=== PATIENT | female | born 1995 | race African-American/Black ===

== ENCOUNTER 2018-01-03 22:11 | Emergency (ER) | payer OTHER, SELFPAY ==
[2018-01-03 22:57] LABS: Urine Blood NEGATIVE (NEG); Urine Glucose NEGATIVE (NEG); Urine Protein NEGATIVE (NEG); Urine Specific Gravity >1.030 (1.005-1.030); Urine pH 5.5 (5.0-7.0)
[2018-01-04] MEDS ORDERED: NA CHLORIDE 0.9% 1,000 ML ONE (00:20)
[2018-01-04 00:26] LABS: Absolute Lymphocytes (CBC) 1.6 K/uL (0.7-4.9); Absolute Monocytes 0.8 K/uL (0.1-1.3); Absolute Neutrophil 7.6 K/uL (1.8-8.0); Basophils % 0.3 % (0-1.3); Eosinophils % 0.2 % (0-4.4); Hematocrit 36.5 % (36.0-45.0); Lymphocytes % 15.6 % (15.3-44.8); MCH 30.9 pg (27.0-35.0); MCV 89.9 fL (80-100); MPV 7.7 fL (7.6-11.3); Monocytes % 8.3 % (3.3-12.3); RBC Red Blood Cell Count 4.06 M/uL (3.86-4.86)
[2018-01-04 00:58] LABS: BUN Blood Urea Nitrogen 11 mg/dL (6-20); Bicarbonate 26 mEq/L (21-31); Glomerular Filtration Rate > 90 mL/min (=/>90); Glucose Level 80 mg/dL (65-120); Potassium 3.9 mEq/L (3.6-5.0); Sodium Level 135 mEq/L (135-145)
--- NOTE | 2018-01-04 02:07 | EDPHYS ---
Physician Documentation [facility] Name: Raegan Jeffrey Age: 22 yrs Sex: Female : 1995 Arrival Date: 01/03/2018 Time: 22:19 Bed 25 Private MD: ED Physician Brooks Rosario HPI: 01/03 22:40 This 22 yrs old Black Female presents to ER via Ambulatory with complaints of Nausea, cp Dizziness. 22:40 The patient presents to the emergency department with nausea, that is moderate. Onset: cp The symptoms/episode began/occurred 1 month(s) ago. Possible causes: . Associated signs and symptoms: Pertinent positives: dizziness, Pertinent negatives: diarrhea, dysuria, fever, GI bleeding, vaginal discharge, vaginal bleeding, abdominal pain. Severity of symptoms: in the emergency department the symptoms are unchanged. 22:40 Patient unsure LMP, believes it was end of October 2017. 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 - Social history:: Smoking status: Patient/guardian denies using tobacco. ROS: 22:50 Constitutional: Negative for body aches, chills, fever, poor PO intake. cp 22:50 Eyes: Negative for injury, pain, redness, and discharge. cp 22:50 ENT: Negative for drainage from ear(s), ear pain, sore throat, difficulty swallowing, difficulty handling secretions. 22:50 Cardiovascular: Negative for chest pain, edema, palpitations. 22:50 Respiratory: Negative for cough, shortness of breath, wheezing. 22:50 Abdomen/GI: Positive for nausea, Negative for abdominal pain, vomiting, diarrhea, constipation, anorexia, black/tarry stool, rectal bleeding. 22:50 : Negative for urinary symptoms, pelvic pain, vaginal bleeding, vaginal discharge. 22:50 Skin: Negative for cellulitis, rash. 22:50 Neuro: Positive for dizziness, Negative for altered mental status, loss of consciousness, syncope, near syncope, weakness. 22:50 All other systems are negative. Exam: 22:52 ECG was reviewed by the Attending Physician. cp 22:55 Constitutional: The patient appears in no acute distress, alert, awake, non-toxic, well cp developed, well nourished. 22:55 Head/Face: Normocephalic, atraumatic. Eyes: Pupils equal round and reactive to light, cp extra-ocular motions intact. Lids and lashes normal. Conjunctiva and sclera are non-icteric and not injected. Cornea within normal limits. Periorbital areas with no swelling, redness, or edema. ENT: Nares patent. No nasal discharge, no septal abnormalities noted. Tympanic membranes are normal and external auditory canals are clear. Oropharynx with no redness, swelling, or masses, exudates, or evidence of obstruction, uvula midline. Mucous membranes moist. Neck: Trachea midline, no thyromegaly or masses palpated, and no cervical lymphadenopathy. Supple, full range of motion without nuchal rigidity, or vertebral point tenderness. No Meningismus. Chest/axilla: Normal chest wall appearance and motion. Nontender with no deformity. No lesions are appreciated. Cardiovascular: Regular rate and rhythm with a normal S1 and S2. No gallops, murmurs, or rubs. Normal PMI, no JVD. No pulse deficits. Respiratory: Lungs have equal breath sounds bilaterally, clear to auscultation and percussion. No rales, rhonchi or wheezes noted. No increased work of breathing, no retractions or nasal flaring. Abdomen/GI: Soft, non-tender, with normal bowel sounds. No distension or tympany. No guarding or rebound. No evidence of tenderness throughout. Skin: Warm, dry with normal turgor. Normal color with no rashes, no lesions, and no evidence of cellulitis. Neuro: Awake and alert, GCS 15, oriented to person, place, time, and situation. Cranial nerves II-XII grossly intact. Motor strength 5/5 in all extremities. Sensory grossly intact. Cerebellar exam normal. Normal gait. Vital Signs: 22:32 BP 109 / 59; Pulse 69; Resp 16; Temp 98.3; Pulse Ox 99% on R/A; Weight 44.45 kg; Height kr2 4 ft. 9 in. (144.78 cm); Pain 0/10; 22:53 BP 99 / 58 Supine; Pulse 61 RA; kr2 22:53 BP 101 / 63 Sitting; Pulse 69 RA; kr2 22:53 BP 106 / 74 Standing; Pulse 84; kr2 01/04 02:20 BP 102 / 62; Pulse 79; Resp 16; Pulse Ox 99% on R/A; rk2 01/03 22:32 Body Mass Index 21.21 (44.45 kg, 144.78 cm) kr2 01/03 22:53 "I feel a little off balance and I just want to lay down" kr2 MDM: 22:23 Patient medically screened. 01/04 00:00 Differential diagnosis: anemia, , dehydration, electrolyte abnormality, cp cardiac arrythmia. 02:05 Data reviewed: vital signs, nurses notes, lab test result(s), EKG, and as a result, I cp will discharge patient. 02:05 Test interpretation: by ED physician or midlevel provider: ECG. Counseling: I had a cp detailed discussion with the patient and/or guardian regarding: the historical points, exam findings, and any diagnostic results supporting the discharge/admit diagnosis, lab results, the need for outpatient follow up, an OB/Gyne specialist, to return to the emergency department if symptoms worsen or persist or if there are any questions or concerns that arise at home. Response to treatment: the patient's symptoms have mildly improved after treatment, and as a result, I will discharge patient. ED course: VSS. Patient informed of positive test. No complaints of abdominal pain, vaginal bleeding or discharge. Will discharge to home for continued monitoring and recommend OB f/u. 01/03 22:50 Order name: Urine Dipstick--Ancillary (enter results); Complete Time: 00:29 em1 01/04 00:29 Interpretation: Normal except: UESTR TRACE. 01/03 22:50 Order name: Urine --Ancillary (enter results); Complete Time: 00:29 em1 01/04 00:30 Interpretation: URINE PREG POS; USPGR >1.030; Reviewed. 01/03 23:39 Order name: CBC with Diff; Complete Time: 00: 01/04 00:30 Interpretation: Normal except: BLAKE% 75.6. 01/03 23:39 Order name: Quantitative Hcg; Complete Time: 02:02 01/04 02:02 Interpretation: HCGQ 002093.0; Reviewed. 01/03 23:39 Order name: Abo/rh Typing; Complete Time: 02:02 cp 01/03 23:39 Order name: Basic Metabolic Panel; Complete Time: 02:02 cp 01/04 01:51 Interpretation: Reviewed. cp 01/03 22:35 Order name: Orthostatics; Complete Time: 22:53 cp 01/03 22:39 Order name: EKG; Complete Time: 22:39 cp 01/03 22:39 Order name: EKG - Nurse/Tech; Complete Time: 22:49 cp 01/03 23:37 Order name: PO challenge; Complete Time: 23:37 cp 01/03 23:39 Order name: IV Saline Lock; Complete Time: 00:03 cp 01/03 23:39 Order name: Labs collected and sent; Complete Time: 00:03 cp EC/29 22:52 Rate is 63 beats/min. Rhythm is regular. AK interval is normal. QRS interval is normal. cp QT interval is normal. No ST changes noted. Interpreted by me. Reviewed by me. Administered Medications: 01/04 00:03 Drug: NS 0.9% (20 ml/kg) 20 ml/kg Route: IV; Rate: 1 bolus; Site: right antecubital; kr2 02:20 Follow up: IV Status: Completed infusion rk2 02:20 Follow up: Response: No adverse reaction rk2 Disposition: 15:57 Co-signature as Attending Physician, Brooks Rosario MD I agree with the assessment and tamika plan of care. Disposition: 01/04/18 02:07 Discharged to Home. Impression: related conditions, unspecified, Nausea, Dizziness. - Condition is Stable. - Discharge Instructions: Medicines During , Nausea, Adult. - Prescriptions for Diclegis 10- 10 mg Oral tablet,delayed release (DR/EC) - take 1 tablet by ORAL route 3 times per day As needed before meals and 2 tablets before bedtime; 60 tablet. Vitamin 27- 0.8 mg Oral Tablet - take 1 tablet by ORAL route once daily; 60 tablet. - Medication Reconciliation Form, Thank You Letter, Antibiotic Education, Prescription Opioid Use, Work release form form. - Follow up: Christine Ricketts MD; When: 1 week; Reason: Recheck today's complaints. - Problem is new. - Symptoms have improved. Signatures: Dispatcher [employer] Brooks Torres MD MD cha Page, Corey, PA PA cp Lanie Cheri, RN RN kr2 Karla Espinal, RN RN rk2
--- NOTE | 2018-01-04 02:07 | ER ---
Nurse's Notes [facility] Name: Raegan Jeffrey Age: 22 yrs Sex: Female : 1995 Arrival Date: 01/03/2018 Time: 22:19 Bed 25 Private MD: Diagnosis: related conditions, unspecified;Nausea;Dizziness Presentation: 01/03 22:30 Presenting complaint: Patient states: I have been feeling tired, dizzy and nauseated kr2 for about one month. I have not started any new meds, my last period was at the end of November I think, but I am not real sure. I am worried I may be . Transition of care: patient was not received from another setting of care. Onset of symptoms was December 05, 2017. Care prior to arrival: None. 22:30 Method Of Arrival: Ambulatory kr2 22:30 Acuity: MARKOS 4 kr2 Triage Assessment: 22:35 General: Appears in no apparent distress. comfortable, well groomed, well developed, kr2 well nourished, Behavior is calm, cooperative, appropriate for age. Pain: Denies pain. GI: Abdomen is flat, non-distended, Reports nausea, Patient currently denies vomiting. 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 - Social history:: Smoking status: Patient/guardian denies using tobacco. Screenin:34 Abuse screen: Denies threats or abuse. Denies injuries from another. Nutritional kr2 screening: No deficits noted. Tuberculosis screening: No symptoms or risk factors identified. Fall Risk None identified. Assessment: 22:57 General: Appears in no apparent distress. comfortable, well groomed, well developed, kr2 well nourished, Behavior is calm, cooperative, appropriate for age. Pain: Denies pain. Neuro: Level of Consciousness is awake, alert, obeys commands, Oriented to person, place, time, situation, Appropriate for age Reports dizziness, since one month ago. Cardiovascular: Capillary refill < 3 seconds in bilateral fingers Patient's skin is warm and dry. Respiratory: Airway is patent Respiratory effort is even, unlabored, Respiratory pattern is regular, symmetrical. GI: Abdomen is flat, non-distended, Bowel sounds present X 4 quads. Abd is soft and non tender X 4 quads. Reports nausea, Patient currently denies vomiting. : No signs and/or symptoms were reported regarding the genitourinary system. Urine is clear. EENT: No signs and/or symptoms were reported regarding the EENT system. Oral mucosa is moist. Derm: Skin is intact, is healthy with good turgor. Musculoskeletal: Circulation, motion, and sensation intact. 01/04 00:32 Reassessment: Patient appears in no apparent distress at this time. Patient and/or kr2 family updated on plan of care and expected duration. Pain level reassessed. Patient is alert, oriented x 3, equal unlabored respirations, skin warm/dry/pink. Patient denies pain at this time. Vital Signs: 01/03 22:32 BP 109 / 59; Pulse 69; Resp 16; Temp 98.3; Pulse Ox 99% on R/A; Weight 44.45 kg; Height kr2 4 ft. 9 in. (144.78 cm); Pain 0/10; 22:53 BP 99 / 58 Supine; Pulse 61 RA; kr2 22:53 BP 101 / 63 Sitting; Pulse 69 RA; kr2 22:53 BP 106 / 74 Standing; Pulse 84; kr2 01/04 02:20 BP 102 / 62; Pulse 79; Resp 16; Pulse Ox 99% on R/A; rk2 01/03 22:32 Body Mass Index 21.21 (44.45 kg, 144.78 cm) kr2 01/03 22:53 "I feel a little off balance and I just want to lay down" kr2 ED Course: 22:19 Patient arrived in ED. es 22:23 Brooks Valentine PA is PHCP. cp 22:23 Brooks Rosario MD is Attending Physician. cp 22:30 Cheri Dela Cruz, DERECK is Primary Nurse. kr2 22:32 Triage completed. kr2 22:35 Urine collected: clean catch specimen, clear, EKG done, by ED staff, reviewed by Brooks kr2 Meme HARVEY. 22:36 Arm band placed on. kr2 22:36 Patient has correct armband on for positive identification. Bed in low position. Call kr2 light in reach. Side rails up X 1. Pulse ox on. NIBP on. Door closed. Warm blanket given. Head of bed elevated. 23:35 Inserted saline lock: 24 gauge in right antecubital area, using aseptic technique. kr2 Blood collected. 01/04 02:06 Christine Ricketts MD is Referral Physician. cp 02:21 No provider procedures requiring assistance completed. IV discontinued. rk2 Administered Medications: 00:03 Drug: NS 0.9% (20 ml/kg) 20 ml/kg Route: IV; Rate: 1 bolus; Site: right antecubital; kr2 02:20 Follow up: IV Status: Completed infusion rk2 02:20 Follow up: Response: No adverse reaction rk2 Outcome: 02:07 Discharge ordered by MD. cp 02:21 Discharged to home ambulatory. rk2 02:21 Condition: good 02:21 Discharge instructions given to patient, Prescriptions given X 2. 02:22 Patient left the ED. rk2 Signatures: Nabila Rivers Melissa ml Page, Corey, PA PA cp Cheri Dela Cruz RN RN kr2 Karla Espinal RN RN rk2 Corrections: (The following items were deleted from the chart) 01/03 22:44 22:43 Patient moved to radiology via wheelchair. ml ml 01/04 02:22 02:21 Discharge instructions given to patient, rk2 rk2
--- NOTE | 2018-01-06 12:56 | EKG ---
Test Date: 2018-01-03 Test Time: 22:47:14 Mid Level Provider: MAHOGANY MEASUREMENT RESULTS: Intervals: Rate: 63 CA: 116 QRSD: 72 QT: 368 QTc: 376 [place]: P: 53 CA: 116 QRS: 90 T: 56 INTERPRETIVE STATEMENTS: Normal sinus rhythm with sinus arrhythmia Rightward axis Borderline ECG No previous ECG available for comparison Electronically Signed On 01-06-18 12:56:07 CDT by Rajiv Bates
== END 2018-01-04 02:22 | disposition home or self-care (01) ==
LOC: ER 22:11
DX: O26.891 Other specified pregnancy related conditions, first trimester (principal); Z3A.00 Weeks of gestation of pregnancy not specified
CPT/HCPCS: 36415; 80048; 81003; 81025; 84702; 85025; 86900; 86901; 93005; 96360; 96361; 99284; J7030

== ENCOUNTER 2018-02-23 00:09 | Emergency (ER) | payer OTHER ==
[2018-02-23] MEDS ORDERED: ONDANSETRON 4 MG/2 ML VIAL ONE (01:06)
[2018-02-23] MEDS ORDERED: FAMOTIDINE 20 MG/2 ML VIAL IV ONE (01:06)
[2018-02-23] MEDS ORDERED: NA CHLORIDE 0.9% 500 ML ONE (01:06)
[2018-02-23] MEDS ORDERED: DICYCLOMINE HCL 10 MG CAP ONE (01:06)
[2018-02-23 01:25] LABS: Absolute Monocytes 0.9 K/uL (0.1-1.3); Absolute Neutrophil 6.8 K/uL (1.8-8.0); Basophils % 0.4 % (0-1.3); Eosinophils % 0.7 % (0-4.4); Hematocrit 29.6 % (36.0-45.0); Lymphocytes % 20.3 % (15.3-44.8); MCH 30.8 pg (27.0-35.0); MCV 88.6 fL (80-100); MPV 7.5 fL (7.6-11.3); Monocytes % 8.8 % (3.3-12.3); RBC Red Blood Cell Count 3.34 M/uL (3.86-4.86)
[2018-02-23 01:31] LABS: Bicarbonate 24 mEq/L (21-31); Glucose Level 85 mg/dL (65-120); Lipase 30 U/L (22-51); Potassium 3.5 mEq/L (3.6-5.0); Sodium Level 133 mEq/L (135-145)
[2018-02-23 01:34] LABS: Urine Blood NEGATIVE (NEG); Urine Glucose NEGATIVE (NEG); Urine Protein NEGATIVE (NEG); Urine Specific Gravity 1.025 (1.005-1.030); Urine pH 5.5 (5.0-7.0)
[2018-02-23 01:37] LABS: ALT/SGPT 18 IU/L (10-60); AST/SGOT 20 IU/L (10-42); Albumin 3.1 g/dL (3.2-5.5); Amylase Level 99 U/L (28-100); BUN Blood Urea Nitrogen 11 mg/dL (6-20); Bilirubin Direct < 0.1 mg/dL (0-0.2); Bilirubin Total 0.3 mg/dL (0.3-1.2); Protein, Total 6.8 g/dL (6.0-8.3)
[2018-02-23 01:39] LABS: Urine Bacteria >50 /HPF (<20); Urine Culture Reflex Order REFLEXED; Urine RBC NONE SEEN /HPF (NONE SEEN); Urine Yeast PRESENT (NONE SEEN); Urine Yeast with Hyphae PRESENT
[2018-02-23 01:55] LABS: Alkaline Phosphatase 56 IU/L (42-121)
--- NOTE | 2018-02-23 02:52 | EDPHYS ---
Physician Documentation [facility] Name: Raegan Jeffrey Age: 22 yrs Sex: Female : 1995 Arrival Date: 02/23/2018 Time: 00:10 Bed 14 Private MD: None, None ED Physician Brooks Rosario HPI: 02/23 00:55 This 22 yrs old Black Female presents to ER via Ambulatory with complaints of Abdominal cp Pain, 15 wks Preg. 00:55 The patient presents with abdominal pain in the upper abdomen. cp 00:55 Onset: The symptoms/episode began/occurred today, at 16:00. The symptoms do not cp radiate. Associated signs and symptoms: Pertinent negatives: anorexia, chest pain, constipation, diarrhea, dysuria, fever, nausea, vaginal discharge, vomiting, vaginal bleeding. 00:55 The symptoms are described as sharp. Severity of pain: in the emergency department the cp pain is unchanged despite home interventions. 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 - Social history:: Smoking status: Patient/guardian denies using tobacco, Patient/guardian denies using alcohol, street drugs. ROS: 01:00 Constitutional: Negative for body aches, chills, fever, poor PO intake. cp 01:00 Eyes: Negative for injury, pain, redness, and discharge. cp 01:00 ENT: Negative for drainage from ear(s), ear pain, sore throat, difficulty swallowing, difficulty handling secretions. 01:00 Cardiovascular: Negative for chest pain, edema, palpitations. 01:00 Respiratory: Negative for cough, shortness of breath, wheezing. 01:00 Abdomen/GI: Positive for abdominal pain, Negative for nausea, vomiting, diarrhea, constipation, anorexia. 01:00 Back: Negative for pain at rest, pain with movement, radiated pain. 01:00 : Negative for urinary symptoms, pelvic pain, flank pain, vaginal bleeding, vaginal discharge, leakage of fluids. 01:00 Skin: Negative for cellulitis, rash. 01:00 Neuro: Negative for altered mental status, dizziness, headache, weakness. 01:00 All other systems are negative. Exam: 01:10 Constitutional: The patient appears in no acute distress, alert, awake, non-toxic, well cp developed, well nourished. 01:10 Head/Face: Normocephalic, atraumatic. cp 01:10 Eyes: Periorbital structures: appear normal, Conjunctiva: normal, no exudate, no injection, Sclera: no appreciated abnormality, Lids and lashes: appear normal, bilaterally. 01:10 ENT: External ear(s): are unremarkable, Ear canal(s): are normal, clear, TM's: bulging, is not appreciated, bilaterally, dullness, bilaterally, erythema, is not appreciated, bilaterally, Nose: is normal, Mouth: is normal, Posterior pharynx: is normal, airway is patent, no erythema, no exudate. 01:10 Neck: ROM/movement: is normal, is supple, without pain, no range of motions limitations, no nuchal rigidity. 01:10 Chest/axilla: Inspection: normal, Palpation: is normal, no crepitus, no tenderness. 01:10 Cardiovascular: Rate: tachycardic, Rhythm: regular, Edema: is not appreciated, JVD: is not appreciated. 01:10 Respiratory: the patient does not display signs of respiratory distress, Respirations: normal, no use of accessory muscles, no retractions, no splinting, no tachypnea, labored breathing, is not present, Breath sounds: are clear throughout, no decreased breath sounds, no stridor, no wheezing. 01:10 Abdomen/GI: Inspection: abdomen appears normal, Bowel sounds: active, all quadrants, Palpation: soft, in all quadrants, mild abdominal tenderness, in the right upper quadrant, rebound tenderness, is not appreciated, voluntary guarding, is not appreciated, involuntary guarding, is not appreciated. 01:10 Back: CVA tenderness, is absent. 01:10 Skin: cellulitis, is not appreciated, no rash present. Vital Signs: 00:20 BP 114 / 75; Pulse 104; Resp 18; Temp 98.5(O); Pulse Ox 98% on R/A; Weight 46.72 kg ao (R); Height 4 ft. 9 in. (144.78 cm) (R); Pain 5/10; 02:07 BP 134 / 97; Pulse 90; Resp 16; Pulse Ox 100% ; Pain 0/10; ao 00:20 Body Mass Index 22.29 (46.72 kg, 144.78 cm) ao MDM: 00:48 Patient medically screened. cp 01:00 Differential diagnosis: cholecystitis, Cholelithiasis, gastritis, Peptic Ulcer Disease, cp Perf. Duodenal Ulcer, Perf. Gastric Ulcer, urinary tract infection. 02:50 Data reviewed: vital signs, nurses notes, lab test result(s), recent complete OB cp ultrasound on 02-21-2018 that showed single breech presenting uterine gestation with EGA of 15 weeks and 3 days, and as a result, I will discharge patient. 02:50 Counseling: I had a detailed discussion with the patient and/or guardian regarding: the cp historical points, exam findings, and any diagnostic results supporting the discharge/admit diagnosis, lab results, the need for outpatient follow up, an OB/Gyne specialist, to return to the emergency department if symptoms worsen or persist or if there are any questions or concerns that arise at home. Response to treatment: the patient's symptoms have mildly improved after treatment, and as a result, I will discharge patient. 02/23 00:46 Order name: Urine Dipstick--Ancillary (enter results); Complete Time: 02:12 02/23 02:12 Interpretation: Normal except: UESTR 2+. cp 02/23 00:46 Order name: Urine --Ancillary (enter results); Complete Time: 02:12 02/23 02:12 Interpretation: Abnormal: URINE PREG POS. cp 02/23 00:55 Order name: Amylase, Serum; Complete Time: 02:12 cp 02/23 00:55 Order name: Basic Metabolic Panel; Complete Time: 02:12 cp 02/23 02:13 Interpretation: Normal except: NA 133; K 3.5; CRE 0.42. cp 02/23 00:55 Order name: CBC with Diff; Complete Time: 02:12 cp 02/23 02:13 Interpretation: Normal except: RBC 3.34; HGB 10.3; HCT 29.6; MPV 7.5. cp 02/23 00:55 Order name: Creatinine for Radiology; Complete Time: 02:12 cp 02/23 00:55 Order name: Hepatic Function; Complete Time: 02:12 cp 02/23 00:55 Order name: Lipase; Complete Time: 02:12 cp 02/23 00:55 Order name: Urine Microscopic Only; Complete Time: 02:12 cp 02/23 02:13 Interpretation: Normal except: UWBC 20-50; UBACT >50; SQEPI 10-20; YEAST PRESENT; BUD cp PRESENT. 02/23 01:41 Order name: Urine Culture EDMS 02/23 00:55 Order name: IV Saline Lock; Complete Time: 00:58 cp 02/23 00:55 Order name: Labs collected and sent; Complete Time: 03:10 cp 02/23 00:55 Order name: Urine Dipstick-Ancillary (obtain specimen); Complete Time: 00:58 cp 02/23 02:13 Order name: FHT's; Complete Time: 02:35 cp Administered Medications: 01:14 Drug: Zofran 4 mg Route: IVP; Site: left antecubital; ao 03:10 Follow up: Response: No adverse reaction ao 01:14 Drug: Pepcid 20 mg Route: IVP; Site: left antecubital; ao 03:10 Follow up: Response: No adverse reaction ao 01:14 Drug: NS 0.9% 500 ml Route: IV; Rate: bolus; Site: left antecubital; ao 03:11 Follow up: IV Status: Completed infusion ao 01:15 Drug: Bentyl 20 mg Route: PO; ao 03:10 Follow up: Response: No adverse reaction ao 03:09 CANCELLED (Patient Refused): Potassium Chloride 20 mEq PO once ao 03:10 Drug: Macrobid 100 mg Route: PO; ao 03:11 Follow up: Response: No adverse reaction ao 03:10 Drug: Tylenol 1000 mg Route: PO; ao 03:11 Follow up: Response: No adverse reaction ao Disposition: 02/23/18 02:51 Discharged to Home. Impression: related conditions, unspecified, Urinary tract infection, site not specified. - Condition is Stable. - Discharge Instructions: Abdominal Pain During , Medicines During , Urinary Tract Infection. - Prescriptions for Pepcid 20 mg Oral Tablet - take 1 tablet by ORAL route every 12 hours for 5 days; 10 tablet. Macrobid 100 mg Oral Capsule - take 1 capsule by ORAL route every 12 hours for 7 days; 14 capsule. - Medication Reconciliation Form, Thank You Letter, Antibiotic Education, Prescription Opioid Use form. - Follow up: Raul Pruitt MD; When: 02/25/2018; Reason: Recheck today's complaints. - Problem is new. - Symptoms have improved. Addendum: 02/25/2018 09:12 Co-signature as Attending Physician, Brooks Rosario MD I agree with the assessment and c ma plan of care. Signatures: Dispatcher [employer] EDND Brooks Rosario MD MD cha Page, Corey, WES PA cp Cristhian Felder, RN RN ao Corrections: (The following items were deleted from the chart) 02/23 03:09 02:54 Potassium Chloride Liquid 20 mEq PO once ordered. cp ao 03:14 02:51 02/23/2018 02:51 Discharged to Home. Impression: related conditions, ao unspecified; Urinary tract infection, site not specified. Condition is Stable. Forms are Medication Reconciliation Form, Thank You Letter, Antibiotic Education, Prescription Opioid Use. Follow up: Raul Pruitt; When: 02/25/2018; Reason: Recheck today's complaints. Problem is new. Symptoms have improved. cp
--- NOTE | 2018-02-23 02:52 | ER ---
Nurse's Notes [facility] Name: Raegan Jeffrey Age: 22 yrs Sex: Female : 1995 Arrival Date: 02/23/2018 Time: 00:10 Bed 14 Private MD: None, None Diagnosis: related conditions, unspecified;Urinary tract infection, site not specified Presentation: 02/23 00:17 Presenting complaint: Patient states: "I'm 15 week and today I started having ao abdominal pain that started about 1600." Patient denies nausea or vomiting and states that she has been burping a lot. Transition of care: patient was not received from another setting of care. Onset of symptoms was February 22, 2018 at 16:00. Initial Sepsis Screen: Does the patient meet any 2 criteria? No. Patient's initial sepsis screen is negative. Does the patient have a suspected source of infection? No. Patient's initial sepsis screen is negative. Care prior to arrival: None. 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 - Social history:: Smoking status: Patient/guardian denies using tobacco, Patient/guardian denies using alcohol, street drugs. Screenin:21 Abuse screen: Denies threats or abuse. Denies injuries from another. Nutritional ao screening: No deficits noted. Tuberculosis screening: No symptoms or risk factors identified. Fall Risk None identified. Assessment: 01:00 General: Appears in no apparent distress. comfortable, Behavior is calm, cooperative, ao appropriate for age. 01:00 Pain: Complains of pain in abdomen. Neuro: Level of Consciousness is awake, alert, ao obeys commands, Oriented to person, place, time, situation, Appropriate for age Moves all extremities. Speech is normal, Facial symmetry appears normal. Cardiovascular: Capillary refill < 3 seconds Patient's skin is warm and dry. Respiratory: Airway is patent Respiratory effort is even, unlabored, Respiratory pattern is regular, symmetrical. GI: Abdomen is non-distended, Bowel sounds present X 4 quads. Abd is soft and non tender Abd is soft. : No signs and/or symptoms were reported regarding the genitourinary system. EENT: No signs and/or symptoms were reported regarding the EENT system. Derm: No signs and/or symptoms reported regarding the dermatologic system. Musculoskeletal: No signs and/or symptoms reported regarding the musculoskeletal system. 02:07 Reassessment: Patient appears in no apparent distress at this time. Patient and/or ao family updated on plan of care and expected duration. Pain level reassessed. Patient is alert, oriented x 3, equal unlabored respirations, skin warm/dry/pink. 02:57 Reassessment: Patient requested pain medications. WES Valentine was notified and verbally ao ordered Tylenol 1000 MG PO. Patient was medicated. See MAR for administrations. 03:13 Reassessment: Dc instructions given to patient. Patient agree with the POC and to ao follow up with PCP. Patient has no questions at this moment. Vital Signs: 00:20 BP 114 / 75; Pulse 104; Resp 18; Temp 98.5(O); Pulse Ox 98% on R/A; Weight 46.72 kg ao (R); Height 4 ft. 9 in. (144.78 cm) (R); Pain 5/10; 02:07 BP 134 / 97; Pulse 90; Resp 16; Pulse Ox 100% ; Pain 0/10; ao 00:20 Body Mass Index 22.29 (46.72 kg, 144.78 cm) ao Vitals: 02:47 Heart Tones 176. ao ED Course: 00:10 Patient arrived in ED. ds1 00:10 None, None is Private Physician. ds1 00:13 Cristhian Felder, RN is Primary Nurse. ao 00:19 Triage completed. ao 00:19 Arm band placed on right wrist. Patient placed in an exam room, on a stretcher, on ao pulse oximetry. 00:30 Urine collected: clean catch specimen, clear. eb 00:35 Inserted saline lock: 20 gauge in left antecubital area, using aseptic technique. Blood eb collected. 00:48 Brooks Valentine PA is PHCP. cp 00:48 Brooks Rosario MD is Attending Physician. cp 02:50 Raul Pruitt MD is Referral Physician. cp 03:11 No provider procedures requiring assistance completed. IV discontinued, intact, ao bleeding controlled, No redness/swelling at site. Pressure dressing applied. 03:13 Patient has correct armband on for positive identification. ao Administered Medications: 01:14 Drug: Zofran 4 mg Route: IVP; Site: left antecubital; ao 03:10 Follow up: Response: No adverse reaction ao 01:14 Drug: Pepcid 20 mg Route: IVP; Site: left antecubital; ao 03:10 Follow up: Response: No adverse reaction ao 01:14 Drug: NS 0.9% 500 ml Route: IV; Rate: bolus; Site: left antecubital; ao 03:11 Follow up: IV Status: Completed infusion ao 01:15 Drug: Bentyl 20 mg Route: PO; ao 03:10 Follow up: Response: No adverse reaction ao 03:09 CANCELLED (Patient Refused): Potassium Chloride 20 mEq PO once ao 03:10 Drug: Macrobid 100 mg Route: PO; ao 03:11 Follow up: Response: No adverse reaction ao 03:10 Drug: Tylenol 1000 mg Route: PO; ao 03:11 Follow up: Response: No adverse reaction ao Outcome: 02:51 Discharge ordered by . cp 03:12 Discharged to home ambulatory. ao 03:12 Condition: stable 03:12 Discharge instructions given to patient, Instructed on discharge instructions, follow up and referral plans. Demonstrated understanding of instructions, follow-up care, medications, Prescriptions given X 2. 03:14 Patient left the ED. ao Signatures: Khadijah Carrillo ds1 Brooks Valentine PA PA cp Ortiz, Alex, RN RN Kasandra Blackman
[2018-02-23] MEDS ORDERED: NITROFURAN MACRO 100 MG CAP PO ONE (02:54)
[2018-02-23] MEDS ORDERED: ACETAMINOPHEN 500 MG TAB ONE (02:54)
== END 2018-02-23 03:14 | disposition home or self-care (01) ==
LOC: ER 00:09
DX: O23.42 Unspecified infection of urinary tract in pregnancy, second trimester (principal); Z3A.15 15 weeks gestation of pregnancy
CPT/HCPCS: 36415; 80048; 80076; 81003; 81015; 81025; 82150; 83690; 85025; 87086; 87088; 96361; 96374; 96375; 99284; J2405

== ENCOUNTER 2019-02-02 16:52 | Emergency (ER) | payer OTHER, SELFPAY ==
--- OUTSIDE RECORDS SUMMARY | 2019-02-02 16:53 | XMS REPORT ---
:1995 [facility] Address [address] [place] [address] Dr. Santos [address] [place] [id number] Care Team Providers Name Role Phone Unavailable Unavailable Unavailable Problems This patient has no known problems. Allergies, Adverse Reactions, Alerts This patient has no known allergies or adverse reactions. Medications This patient has no known medications.
[2019-02-02] MEDS ORDERED: ACETAMINOPHEN 325 MG TABLET ONE (17:39)
[2019-02-02] MEDS ORDERED: IBUPROFEN 400 MG TAB ONE (17:39)
[2019-02-02] MEDS ORDERED: TETANUS & DIPHTHERIA TOX,ADULT 0.5 ML VIAL ONE (17:39)
--- NOTE | 2019-02-02 17:51 | RAD REPORT ---
EXAM DESCRIPTION: RAD - Foot Right 3 View - 02/02/2019 5:38 pm CLINICAL HISTORY: PAIN COMPARISON: No comparisons FINDINGS: Soft tissue swelling is seen along the dorsum of the forefoot. No acute fractures demonstr ated.
--- NOTE | 2019-02-02 17:51 | RAD REPORT ---
EXAM DESCRIPTION: RAD - Ankle Right 3 View - 02/02/2019 5:38 pm CLINICAL HISTORY: PAIN COMPARISON: No comparisons FINDINGS: Soft tissue swelling is seen about the ankle. No acute fracture or dislocation evident.
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
--- NOTE | 2019-02-02 18:29 | EDPHYS ---
Physician Documentation [facility] Name: Raegan Jeffrey Age: 23 yrs Sex: Female : 1995 Arrival Date: 02/02/2019 Time: 16:53 Bed 6 Private MD: ED Physician Thierry Jose HPI: 02/02 17:15 This 23 yrs old Black Female presents to ER via Wheelchair with complaints of cp Laceration To Foot. 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 - Social history:: Smoking status: Patient/guardian denies using tobacco. - Ebola Screening: : No symptoms or risks identified at this time. Vital Signs: 17:01 BP 105 / 66; Pulse 84; Resp 16; Temp 97.8; Pulse Ox 98% on R/A; Weight 68.04 kg; Height la1 4 ft. 9 in. (144.78 cm); 18:49 BP 122 / 78; Pulse 80; Resp 18; Pulse Ox 100% on R/A; mg2 17:01 Body Mass Index 32.46 (68.04 kg, 144.78 cm) la1 MDM: 17:06 Patient medically screened. cp 02/02 17:13 Order name: XRAY Foot RIGHT 3 View; Complete Time: 18:12 cp 02/02 18:12 Interpretation: Report reviewed. cp 02/02 17:13 Order name: XRAY Ankle RIGHT 3 view; Complete Time: 18:12 cp 02/02 18:12 Interpretation: Report reviewed. 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 Exp: mg2 11/21/2020. Lot #: [id number]. } Route: IM; Site: right deltoid; 18:35 Follow up: Response: No adverse reaction; Marked relief of symptoms mg2 17:37 Drug: Ibuprofen 800 mg Route: PO; mg2 18:35 Follow up: Response: No adverse reaction; Marked relief of symptoms mg2 17:37 Drug: Tylenol 650 mg Route: PO; mg2 18:36 Follow up: Response: No adverse reaction; Marked relief of symptoms mg2 Disposition: 18:50 Co-signature as Attending Physician, Thierry Jose MD. rn Disposition: 02/02/19 18:35 Discharged to Home. Impression: Abrasion of foot - right, Pain in right ankle and joints of right foot. - Condition is Stable. - Discharge Instructions: Foot Sprain, Ankle Pain. - Prescriptions for Ibuprofen 800 mg Oral Tablet - take 1 tablet by ORAL route every 8 hours As needed take with food; 30 tablet. Keflex 500 mg Oral Capsule - take 1 capsule by ORAL route every 8 hours for 10 days; 30 capsule. - Medication Reconciliation Form, Thank You Letter, Antibiotic Education, Prescription Opioid Use form. - Follow up: Private Physician; When: 48 Hours; Reason: Wound Recheck. - Problem is new. - Symptoms have improved. Signatures: Dispatcher [employer] EDThierry Gupta MD MD rn Attema, Lee, RN RN la1 Brooks Valentine PA PA cp Gardose, Michele, RN RN mg2 Corrections: (The following items were deleted from the chart) 18:30 18:29 02/02/2019 18:29 Discharged to Home. Impression: Abrasion of foot - Right; Pain mg2 in ankle and joints of foot - right. Condition is Stable. Forms are Medication Reconciliation Form, Thank You Letter, Antibiotic Education, Prescription Opioid Use. Follow up: Private Physician; When: 48 Hours; Reason: Wound Recheck. Problem is new. Symptoms have improved. cp 18:49 18:35 02/02/2019 18:35 Discharged to Home. Impression: Abrasion of foot - right; Pain mg2 in right ankle and joints of right foot. Condition is Stable. Prescriptions for Ibuprofen 800 mg Oral Tablet - take 1 tablet by ORAL route every 8 hours As needed take with food; 30 tablet, Keflex 500 mg Oral Capsule - take 1 capsule by ORAL route every 8 hours for 10 days; 30 capsule. and Forms are Medication Reconciliation Form, Thank You Letter, Antibiotic Education, Prescription Opioid Use. Follow up: Private Physician; When: 48 Hours; Reason: Wound Recheck. Problem is new. Symptoms have improved. cp
== END 2019-02-02 18:49 | disposition home or self-care (01) ==
LOC: ER 16:52
DX: S90.811A Abrasion, right foot, initial encounter (principal); V89.9XXA Person injured in unspecified vehicle accident, initial encounter; Y93.89 Activity, other specified; Y92.9 Unspecified place or not applicable; Z23 Encounter for immunization
CPT/HCPCS: 90714

== ENCOUNTER 2019-05-31 04:13 | Emergency (ER) | payer SELFPAY ==
--- OUTSIDE RECORDS SUMMARY | 2019-05-31 04:16 | XMS REPORT | Continuity of Care Document ---
:1995 Author Organization [facility] Address [address] [place] [address] Phone Unavailable Care Team Providers Name Role Phone PHYSICIAN, NO Primary Care Physician Unavailable Insurance Providers Guarantor Raegan Thompson Address [address] [place] [address] Email [email or web address] Payer Self Pay Insurance Subscriber's Name Raegan Thompson Relationship Self / Same As Patient Group Number NA Group Name NA Advance Directives Directive Response Recorded Date/Time Advance Directive on File No 04/19/19 9:18pm Name of Surrogate/Decision Maker N/A 04/19/19 9:23pm Patient/Family Given Education Material Y - SIGNED 04/19/19...AG 04/19/19 9 :23pm R/T Directives? Chief Complaint and Reason for Visit Chief Complaint Abdominal/GI/Nausea/Vomiting Reason for Visit Abdominal pain Problems Active ProblemsNo active problem information available. Past Problems Medical Problem Onset Date Status Abdominal pain Unknown Acute Medications No medication information available. Social History Smoking Status Start Date Stop Date Never smoker Hospital Discharge Instructions No hospital discharge instruction information available. Plan of Care Discharge Date 04/20/19 12:34am Instructions/Education Provided Abdominal Pain, Adult Forms Provided Portal Welcome Letter Prescriptions See Medication Section Referrals NO PHYSICIAN Additional Instructions/Education FOLLOW UP WITH PCP ON SUNDAY RETURN IF PAIN RETURNS OR ANY NEW SYMPTOMS Functional Status No functional status information available. Allergies, Adverse Reactions, Alerts No known allergies. Immunizations No immunization information available. Vital Signs Acute Vital Signs Vital Response Date/Time Blood Pressure 103/63 mm Hg 04/20/2019 12:34am Pulse Pulse Rate (adult) 61 beats per minute (60 - 100) 04/20/2019 12:34am Respiratory Rate 16 breaths per minute (10 - 24) 04/20/2019 12:34am Temperature Source Oral 04/20/2019 12:34am Height 4 ft 9 in 04/19/2019 9:18pm Weight 115 lb 04/19/2019 9:18pm Body Mass Index 24.9 kg/m^2 04/19/2019 9:18pm Results Laboratory Results Test Name Result Units Flags Reference Collection Result Comments Date/Time Date/Time White Blood Count 6.4 K/ul 4.0-11.5 04/19/2019 04/19/2019 9:27pm 9:44pm Red Blood Count 4.55 M/ul 3.80-5.20 04/19/2019 04/19/2019 9:27pm 9:44pm Hemoglobin 12.4 g/dL 10.5-15.7 04/19/2019 04/19/2019 9:27pm 9:44pm Hematocrit 40.0 % 34.0-50.0 04/19/2019 04/19/2019 9:27pm 9:44pm Mean Corpuscular 87.9 fl 86-100 04/19/2019 04/19/2019 Volume 9:27pm 9:44pm Mean Corpuscular 27.3 pg 26.2-33.4 04/19/2019 04/19/2019 Hemoglobin 9:27pm 9:44pm Mean Corpuscular 31.0 g/dL 30-34 04/19/2019 04/19/2019 Hemoglobin Concent 9:27pm 9:44pm Red Cell 13.9 % 12.0-15.5 04/19/2019 04/19/2019 Distribution Width 9:27pm 9:44pm Platelet Count 320 K/uL 165-450 04/19/2019 04/19/2019 9:27pm 9:44pm Mean Platelet 9.3 fL L 9.4-12.6 04/19/2019 04/19/2019 Volume 9:27pm 9:44pm Neutrophils (%) 50.7 % 44.4-80.1 04/19/2019 04/19/2019 (Auto) 9:27pm 9:44pm Immature 0.2 % 0.0-0.4 04/19/2019 04/19/2019 Granulocyte % 9:27pm 9:44pm (Auto) Lymphocytes (%) 31.7 % 10.0-50.0 04/19/2019 04/19/2019 (Auto) 9:27pm 9:44pm Monocytes (%) 13.0 % H 3.6-12.0 04/19/2019 04/19/2019 (Auto) 9:27pm 9:44pm Eosinophils (%) 3.9 % 0.0-5.4 04/19/2019 04/19/2019 (Auto) 9:27pm 9:44pm Basophils (%) 0.5 % 0.1-1.2 04/19/2019 04/19/2019 (Auto) 9:27pm 9:44pm Neutrophils # 3.27 K/uL 1.56-6.13 04/19/2019 04/19/2019 (Auto) 9:27pm 9:44pm Absolute Immature 0.0 K/uL 0.0-0.03 04/19/2019 04/19/2019 Granulocyte (auto 9:27pm 9:44pm Lymphocytes # 2.0 K/uL 1.18-3.74 04/19/2019 04/19/2019 (Auto) 9:27pm 9:44pm Monocytes # (Auto) 0.84 K/uL 0.24-0.86 04/19/2019 04/19/2019 9:27pm 9:44pm Eosinophils # 0.25 K/uL 0.04-0.36 04/19/2019 04/19/2019 (Auto) 9:27pm 9:44pm Basophils # (Auto) 0.03 K/uL 0.01-0.08 04/19/2019 04/19/2019 9:27pm 9:44pm Nucleated Red 0 /100 0-0.2 04/19/2019 04/19/2019 Blood Cells % WBC 9:27pm 9:44pm Nucleated Red 0 K/uL 0 04/19/2019 04/19/2019 Blood Cells # 9:27pm 9:44pm Urine Color LIGHT 04/19/2019 04/19/2019 YELLOW 9:27pm 9:56pm Urine Appearance CLEAR CLEAR 04/19/2019 04/19/2019 9:27pm 9:56pm Urine Glucose NEGATIVE NEGATIVE 04/19/2019 04/19/2019 9:27pm 9:56pm Urine Bilirubin NEGATIVE NEGATIVE 04/19/2019 04/19/2019 9:27pm 9:56pm Urine Ketones NEGATIVE NEGATIVE 04/19/2019 04/19/2019 9:27pm 9:56pm Urine Specific 1.009 1.003-1.03 04/19/2019 04/19/2019 [place] 0 9:27pm 9:56pm Urine Blood NEGATIVE NEGATIVE 04/19/2019 04/19/2019 9:27pm 9:56pm Urine pH 5.500 5-9 04/19/2019 04/19/2019 9:27pm 9:56pm Urine Protein NEGATIVE NEGATIVE 04/19/2019 04/19/2019 9:27pm 9:56pm Urine Urobilinogen NORMAL mg/dL 0.2-1.0 04/19/2019 04/19/2019 9:27pm 9:56pm Urine Nitrate NEGATIVE NEGATIVE 04/19/2019 04/19/2019 9:27pm 9:56pm Urine Leukocyte 1+ H NEGATIVE 04/19/2019 04/19/2019 Esterase 9:27pm 9:56pm Urine RBC <1 /hpf 0-5 04/19/2019 04/19/2019 9:27pm 9:55pm Urine WBC 6-10 /hpf H 0-5 04/19/2019 04/19/2019 9:27pm 9:55pm Urine Epithelial 1-5 /hpf 0-5 04/19/2019 04/19/2019 Cells 9:27pm 9:55pm Urine Bacteria None /hpf None 04/19/2019 04/19/2019 Detected Detect 9:27pm 9:55pm Urine Casts None /lpf None 04/19/2019 04/19/2019 Detected Detect 9:27pm 9:55pm Urine Culture YES 04/19/2019 04/19/2019 Reflexed 9:27pm 9:55pm Random Glucose 92 mg/dL 74-106 04/19/2019 04/19/2019 9:27pm 9:57pm Blood Urea 12 mg/dL 6-20 04/19/2019 04/19/2019 Nitrogen 9:27pm 9:57pm Serum Osmolality 275 L 280-300 04/19/2019 04/19/2019 9:27pm 9:57pm Creatinine 0.8 mg/dL 0.50-0.90 04/19/2019 04/19/2019 9:27pm 9:57pm Glomerular > 60.00 04/19/2019 04/19/2019 GFR RESULTS ARE REPORTED IN mL/min/1.73m2. Filtration Rate 9:27pm 9:57pm Calc Normal GFR: >60mL/min Moderately decreased GFR: 30-59 mL/min Severely decreased GFR: 15-29 mL/min Kidney Failure (or Dialysis): <15 mL/min The calculated eGFR is not valid for patients younger than 18 years or older than 75 years. BUN/Creatinine 15.0 12-04/19/2019 04/19/2019 Ratio 9:27pm 9:57pm Sodium Level 138 mmol/L 135-145 04/19/2019 04/19/2019 9:27pm 9:57pm Potassium Level 3.5 mmol/L 3.5-5.2 04/19/2019 04/19/2019 9:27pm 9:57pm Chloride Level 102 mmol/L 98-108 04/19/2019 04/19/2019 9:27pm 9:57pm Carbon Dioxide 25 mmol/L 21-32 04/19/2019 04/19/2019 Level 9:27pm 9:57pm Anion Gap 14.5 mEq/L 09-2604/19/2019 04/19/2019 9:27pm 9:57pm Calcium Level 9.4 mg/dL 8.6-10.0 04/19/2019 04/19/2019 9:27pm 9:57pm Total Protein 8.1 g/dL 6.6-8.7 04/19/2019 04/19/2019 9:27pm 9:57pm Albumin 4.8 g/dL 3.5-5.2 04/19/2019 04/19/2019 9:27pm 9:57pm Globulin 3.3 gm/dL 04/19/2019 04/19/2019 9:27pm 9:57pm Albumin/Globulin 1.5 >1.0 04/19/2019 04/19/2019 Ratio 9:27pm 9:57pm Total Bilirubin 0.4 mg/dL 0.0-1.2 04/19/2019 04/19/2019 9:27pm 9:57pm Aspartate Amino 16 U/L 15-32 04/19/2019 04/19/2019 Transf (AST/SGOT) 9:27pm 9:57pm Alanine 9 U/L 0-33 04/19/2019 04/19/2019 Aminotransferase 9:27pm 9:57pm (ALT/SGPT) Lipase 46 U/L 13-60 04/19/2019 04/19/2019 10:26pm 11:29pm Total Alkaline 79 U/L 35-105 04/19/2019 04/19/2019 Phosphatase 9:27pm 9:57pm Urine HCG, NEGATIVE NEG 04/19/2019 04/19/2019 Qualitative 9:27pm 9:43pm If a negative result is obtained but is suspected, a new specimen should be collected after 48-72 hours and tested. If waiting 48 hrs is not medically advisable, the test result should be confirmed with at quantitative hCG assay. Procedures Procedure Status Date Provider(s) X-ray of abdomen, two views Completed 04/19/19 JULIO BOWEN Computed tomography of abdomen and Completed 04/19/19 NIKOLAY DAWKINS A pelvis with contrast Encounters Encounter Location Arrival/Admit Date Discharge/Depart Date Attending Provider Departed [place] 04/19/19 9:09pm 04/20/19 12:34am NIKOLAY DAWKINS Emergency Room [facility] Recent Diagnosis
--- OUTSIDE RECORDS SUMMARY | 2019-05-31 04:16 | XMS REPORT ---
:1995 [facility] Address [address] [place] [address] Care Team Providers Name Role Phone Unavailable Unavailable Unavailable Problems This patient has no known problems. Allergies, Adverse Reactions, Alerts This patient has no known allergies or adverse reactions. Medications This patient has no known medications.
[2019-05-31] MEDS ORDERED: ONDANSETRON 4 MG/2 ML VIAL ONE (04:58)
[2019-05-31] MEDS ORDERED: NA CHLORIDE 0.9% 1,000 ML ONE (04:58)
[2019-05-31] MEDS ORDERED: KETOROLAC 30 MG/ML INJ ONE (05:01)
[2019-05-31 05:11] LABS: Absolute Lymphocytes (CBC) 0.4 K/uL (0.7-4.9); Basophils % 0.1 % (0-1.3); Hematocrit 41.1 % (36.0-45.0); MPV 7.9 fL (7.6-11.3); RBC Red Blood Cell Count 4.67 M/uL (3.86-4.86)
[2019-05-31 05:31] LABS: ALT/SGPT 17 U/L (12-78); AST/SGOT 17 U/L (15-37); Albumin 4.8 g/dL (3.4-5.0); Alkaline Phosphatase 86 U/L (45-117); BUN Blood Urea Nitrogen 17 mg/dL (7-18); Bicarbonate 25 mmol/L (21-32); Bilirubin Direct 0.2 mg/dL (0-0.2); Glucose Level 81 mg/dL (74-106); Lipase 90 U/L (73-393); Potassium 3.9 mmol/L (3.5-5.1); Protein, Total 8.5 g/dL (6.4-8.2); Sodium Level 138 mmol/L (136-145)
[2019-05-31 05:47] LABS: Urine Blood NEGATIVE (NEG); Urine Glucose NEGATIVE (NEG); Urine Protein NEGATIVE (NEG); Urine Specific Gravity >1.030 (1.005-1.030); Urine pH 5.5 (5.0-7.0)
--- NOTE | 2019-05-31 06:35 | ER ---
Nurse's Notes [facility] Name: Raegan Jeffrey Age: 23 yrs Sex: Female : 1995 Arrival Date: 05/31/2019 Time: 04:16 Bed 5 Private MD: Diagnosis: Nausea and vomiting;Diarrhea, unspecified Presentation: 05/31 04:31 Presenting complaint: Patient states: N/V/D headache and body aches since 1900 last ak1 night. Transition of care: patient was not received from another setting of care. Onset of symptoms is unknown. Risk Assessment: Do you want to hurt yourself or someone else? Patient reports no desire to harm self or others. Initial Sepsis Screen: Does the patient meet any 2 criteria? No. Patient's initial sepsis screen is negative. Does the patient have a suspected source of infection? No. Patient's initial sepsis screen is negative. Care prior to arrival: None. 04:31 Method Of Arrival: Ambulatory ak1 04:31 Acuity: MARKOS 3 ak1 Triage Assessment: 04:32 General: Appears in no apparent distress. uncomfortable, well groomed, Behavior is ak1 calm, cooperative. Pain: Complains of pain in headache and body aches. EENT: No signs and/or symptoms were reported regarding the EENT system. Neuro: Level of Consciousness is awake, alert, obeys commands, Oriented to person, place, time, situation, Moves all extremities. Gait is steady, Speech is normal. Cardiovascular: No deficits noted. Respiratory: No deficits noted. GI: Abdomen is non-distended, Bowel sounds present X 4 quads. Reports diarrhea, nausea, vomiting. : No signs and/or symptoms were reported regarding the genitourinary system. Derm: No signs and/or symptoms reported regarding the dermatologic system. Musculoskeletal: No signs and/or symptoms reported regarding the musculoskeletal system. 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 - Social history:: Smoking status: Patient/guardian denies using tobacco. - Ebola Screening: : No symptoms or risks identified at this time. Screenin:33 Abuse screen: Denies threats or abuse. Denies injuries from another. Nutritional ak1 screening: No deficits noted. Tuberculosis screening: No symptoms or risk factors identified. Fall Risk None identified. Assessment: 04:33 GI: Abd is soft and non tender X 4 quads. ak1 05:51 Reassessment: Patient appears in no apparent distress at this time. Patient and/or ak1 family updated on plan of care and expected duration. Pain level reassessed. Patient is alert, oriented x 3, equal unlabored respirations, skin warm/dry/pink. Patient states feeling better. Patient states symptoms have improved. 06:32 Reassessment: Patient appears in no apparent distress at this time. No changes from ak1 previously documented assessment. Patient and/or family updated on plan of care and expected duration. Pain level reassessed. Patient is alert, oriented x 3, equal unlabored respirations, skin warm/dry/pink. Patient states feeling better. Patient states symptoms have improved. Vital Signs: 04:29 BP 118 / 73; Pulse 111; Resp 18; Temp 98.2(O); Pulse Ox 100% on R/A; Weight 52.16 kg ak1 (R); Height 4 ft. 9 in. (144.78 cm) (R); Pain 7/10; 05:06 BP 113 / 73; Pulse 108; Resp 18; Pulse Ox 99% on R/A; ak1 05:51 BP 101 / 58; Pulse 96; Resp 16; Temp 98.2; Pulse Ox 100% on R/A; Pain 3/10; ak1 06:31 BP 104 / 65; Pulse 71; Resp 16; Temp 98.1; Pulse Ox 98% on R/A; ak1 04:29 Body Mass Index 24.88 (52.16 kg, 144.78 cm) ak1 ED Course: 04:16 Patient arrived in ED. ds1 04:29 Arm band placed on Patient placed in an exam room, on a stretcher, on pulse oximetry, ak1 Patient notified of wait time. 04:32 Triage completed. ak1 04:33 Patient has correct armband on for positive identification. Bed in low position. Call ak1 light in reach. Side rails up X 1. Pulse ox on. NIBP on. Door closed. Lights dimmed. Warm blanket given. 04:35 Sunil Mcbride MD is Attending Physician. tw4 05:04 Sherrie Jackson, RN is Primary Nurse. ak1 05:05 Initial lab(s) drawn, by me, sent to lab. Urine collected: clean catch specimen, ak1 cloudy. Inserted saline lock: 20 gauge in right antecubital area, using aseptic technique. Blood collected. 06:32 No provider procedures requiring assistance completed. ak1 06:43 IV discontinued, intact, bleeding controlled, No redness/swelling at site. Pressure ak1 dressing applied. Administered Medications: 05:04 Drug: TORadol 30 mg Route: IVP; Site: right antecubital; ak1 06:10 Follow up: Response: No adverse reaction; Pain is decreased ak1 05:05 Drug: Zofran 4 mg Route: IVP; Site: right antecubital; ak1 06:10 Follow up: Response: No adverse reaction; Nausea is decreased ak1 05:05 Drug: NS 0.9% 1000 ml Route: IV; Rate: 1 bolus; Site: right antecubital; ak1 06:10 Follow up: IV Status: Completed infusion; IV Intake: 1000ml ak1 Intake: 06:10 IV: 1000ml; Total: 1000ml. ak1 Outcome: 06:35 Discharge ordered by . tw4 06:43 Discharged to home ambulatory. ak1 06:43 Condition: improved 06:43 Discharge instructions given to patient, Instructed on discharge instructions, follow up and referral plans. medication usage, Demonstrated understanding of instructions, follow-up care, medications, Prescriptions given X 2. 06:43 Patient left the ED. ak1 Signatures: Khadijah Carrillo ds1 Sherrie Jackson, RN RN ak1 Sunil Mcbride MD MD tw4 Corrections: (The following items were deleted from the chart) 04:31 04:29 BP 118 / 73; Pulse 120bpm; Resp 18bpm; Pulse Ox 100% RA; Temp 98.2F Oral; 52.16 ak1 kg Reported; Height 4 ft. 9 in. Reported; BMI: 24.8; Pain 7/10; ak1
--- NOTE | 2019-05-31 06:36 | EDPHYS ---
Physician Documentation [facility] Name: Raegan Jeffrey Age: 23 yrs Sex: Female : 1995 Arrival Date: 05/31/2019 Time: 04:16 Bed 5 Private MD: ED Physician Sunil Mcbride [facility] RN: 05/31 04:29 LMP 05/15/2019 ak1 Historical: - Allergies: 04:32 No Known Allergies; ak1 - Home Meds: 04:32 None [Active]; ak1 - PMHx: 04:32 None; ak1 - PSHx: 04:32 None; ak1 - Immunization history:: Adult Immunizations unknown. - Social history:: Smoking status: Patient/guardian denies using tobacco. - Ebola Screening: : No symptoms or risks identified at this time. Vital Signs: 04:29 BP 118 / 73; Pulse 111; Resp 18; Temp 98.2(O); Pulse Ox 100% on R/A; Weight 52.16 kg ak1 (R); Height 4 ft. 9 in. (144.78 cm) (R); Pain 7/10; 05:06 BP 113 / 73; Pulse 108; Resp 18; Pulse Ox 99% on R/A; ak1 05:51 BP 101 / 58; Pulse 96; Resp 16; Temp 98.2; Pulse Ox 100% on R/A; Pain 3/10; ak1 06:31 BP 104 / 65; Pulse 71; Resp 16; Temp 98.1; Pulse Ox 98% on R/A; ak1 04:29 Body Mass Index 24.88 (52.16 kg, 144.78 cm) ak1 MDM: 04:35 Patient medically screened. 05/31 04:35 Order name: Basic Metabolic Panel; Complete Time: 06:33 05/31 06:34 Interpretation: Within normal limits. 05/31 04:35 Order name: CBC with Diff 05/31 06:34 Interpretation: Normal except: BLAKE% 88.9; LYM% 6.0. 05/31 04:35 Order name: Creatinine for Radiology; Complete Time: 06:33 tw05/31 06:34 Interpretation: Within normal limits: CRE 0.89. 05/31 04:35 Order name: Hepatic Function; Complete Time: 06:33 4 05/31 06:33 Interpretation: Normal except: TP 8.5; GLOB 3.7. 05/31 04:35 Order name: Lipase; Complete Time: 06:33 05/31 06:34 Interpretation: Within normal limits: LIP 90. 05/31 05:08 Order name: Urine Dipstick--Ancillary (enter results); Complete Time: 06:33 ar5 05/31 06:33 Interpretation: Normal except: UKET 3+; UESTR TRACE. 05/31 05:08 Order name: Urine --Ancillary (enter results); Complete Time: 06:33 ar5 05/31 06:33 Interpretation: Abnormal: USPGR >1.030. 05/31 05:25 Order name: Manual Differential EDMS 05/31 04:35 Order name: IV Saline Lock; Complete Time: 05:05 4 05/31 04:35 Order name: Labs collected and sent; Complete Time: 05:05 4 05/31 04:35 Order name: Urine Dipstick-Ancillary (obtain specimen); Complete Time: 05:05 05/31 04:35 Order name: Urine Test (obtain specimen); Complete Time: 05:05 Administered Medications: 05:04 Drug: TORadol 30 mg Route: IVP; Site: right antecubital; ak1 06:10 Follow up: Response: No adverse reaction; Pain is decreased ak1 05:05 Drug: Zofran 4 mg Route: IVP; Site: right antecubital; ak1 06:10 Follow up: Response: No adverse reaction; Nausea is decreased ak1 05:05 Drug: NS 0.9% 1000 ml Route: IV; Rate: 1 bolus; Site: right antecubital; ak1 06:10 Follow up: IV Status: Completed infusion; IV Intake: 1000ml ak1 Disposition: 05/31/19 06:35 Discharged to Home. Impression: Nausea and vomiting, Diarrhea, unspecified. - Condition is Stable. - Discharge Instructions: Food Choices to Help Relieve Diarrhea, Adult, Diarrhea, Adult, Nausea and Vomiting, Adult, [id number]. - Prescriptions for Zofran 4 mg Oral Tablet - take 1 tablet by ORAL route every 12 hours As needed; 6 tablet. Lomotil 2.5- 0.025 mg Oral Tablet - take 2 tablet by ORAL route once daily As needed; 20 tablet. - Medication Reconciliation Form, Thank You Letter, Antibiotic Education, Prescription Opioid Use form. - Follow up: Private Physician; When: Upon discharge from the Emergency Department; Reason: If symptoms return, Recheck today's complaints, Continuance of care. - Problem is new. - Symptoms have improved. Addendum: 07/14/2019 02:56 Addendum: HPI: Pt is a 23 year old female that comes to the Ed with complaint of N/V/D t w4 since yesterday. Pt states that emesis has been nonbilious and nonbloody. Diarrhea has been mild. pt currently denies abdominal pain. Pt complains of mild frontal headache. 02:58 Addendum: ROS : Constitutional: negative for fever and chill HEENT: negative for sore t w4 throat, visual changes Resp: negative for cough ,SOB, GUERRA CV: negative for CP, GUERRA, palpitations Abdomen: negative for abdominal pain, positive for nausea, vomiting and diarrhea Neuro: positive for headache, negative for numbness weakness, altered mental tatus. Addendum: PE: General:well developed well nourisher female in NAD HEENT:PERRLA , EOMI Neck: supple, non tender meningismus Resp: CTAB, no abnormal breath sounds CV: RRR, S1, S2 no murmurs no gallops Abdomen; soft , nl BS, ND,NT Ext: nontender , no edema Neuro: alert and oriented times 3 CN grossly intact, strength and sensation grossly normal. Signatures: Dispatcher [employer] EDAZ Sherrie Jackson RN RN ak1 Sunil Mcbride MD MD tw4 Corrections: (The following items were deleted from the chart) 05/31 06:43 06:35 05/31/2019 06:35 Discharged to Home. Impression: Nausea and vomiting; Diarrhea, ak1 unspecified. Condition is Stable. Forms are Medication Reconciliation Form, Thank You Letter, Antibiotic Education, Prescription Opioid Use. Follow up: Private Physician; When: Upon discharge from the Emergency Department; Reason: If symptoms return, Recheck today's complaints, Continuance of care. Problem is new. Symptoms have improved. tw4
[2019-05-31 07:21] VITALS: BP 104/65; TEMP 98.1; O2SAT 98
[2019-05-31 08:26] LABS: Blood Morphology Comment NOT SEEN (NOT SEEN); Platelet Estimate ADEQ
== END 2019-05-31 06:43 | disposition home or self-care (01) ==
LOC: ER 04:13
DX: R19.7 Diarrhea, unspecified (principal)
CPT/HCPCS: 36415; 80048; 80076; 81003; 81025; 83690; 85025; 96361; 96374; 96375; 99284; J2405; J7030

== ENCOUNTER 2019-12-24 21:29 | Emergency (ER) | payer SELFPAY ==
--- OUTSIDE RECORDS SUMMARY | 2019-12-24 21:30 | XMS REPORT ---
:1995 [facility] Address [address] [place] [address] [address]. [address] [place] [address] Care Team Providers Name Role Phone Unavailable Unavailable Unavailable Problems This patient has no known problems. Allergies, Adverse Reactions, Alerts This patient has no known allergies or adverse reactions. Medications This patient has no known medications.
[2019-12-24 22:21] LABS: Absolute Lymphocytes (CBC) 1.5 K/uL (0.7-4.9); Basophils % 0.6 % (0-1.3); Hematocrit 39.9 % (36.0-45.0); Lymphocytes % 20.5 % (15.3-44.8); MPV 7.7 fL (7.6-11.3); RBC Red Blood Cell Count 4.45 M/uL (3.86-4.86)
[2019-12-24] MEDS ORDERED: MORPHINE 4 MG/ML SYR ONE (22:22)
[2019-12-24] MEDS ORDERED: ONDANSETRON 4 MG/2 ML VIAL ONE (22:22)
[2019-12-24 22:36] LABS: ALT/SGPT 18 U/L (12-78); AST/SGOT 13 U/L (15-37); Albumin 4.3 g/dL (3.4-5.0); Alkaline Phosphatase 66 U/L (45-117); BUN Blood Urea Nitrogen 14 mg/dL (7-18); Bicarbonate 29 mmol/L (21-32); Bilirubin Direct < 0.1 mg/dL (0-0.2); Bilirubin Total 0.5 mg/dL (0.2-1.0); Glucose Level 94 mg/dL (74-106); Lipase 174 U/L (73-393); Protein, Total 8.6 g/dL (6.4-8.2); Sodium Level 138 mmol/L (136-145)
[2019-12-24 23:03] LABS: Urine Amorphous Sediment 3+ /HPF (NONE SEEN); Urine Bacteria <20 /HPF (<20); Urine RBC <5 /HPF (NONE SEEN)
--- NOTE | 2019-12-24 23:53 | EDPHYS ---
Physician Documentation [facility] Name: Raegan Jeffrey Age: 24 yrs Sex: Female : 1995 Arrival Date: 12/24/2019 Time: 21:31 Bed 25 Private MD: ED Physician Brooks Rosario HPI: 12/23 21:50 This 24 yrs old Black Female presents to ER via Ambulatory with complaints of Abdominal jmm Pain. 21:50 The patient presents with abdominal pain in the epigastric area. Onset: The jmm symptoms/episode began/occurred gradually, 1 day(s) ago. The symptoms do not radiate. Associated signs and symptoms: Pertinent negatives: diarrhea. The symptoms are described as achy, sharp. Modifying factors: The symptoms are alleviated by nothing, the symptoms are aggravated by. This is a 24 year old female with no chronic medical conditions that presents to the ED with complaints of epigastric abdominal pain which began yesterday. Patient states multiple episodes of similar pain. Patient denies fever, vomiting, diarrhea. . 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 - Social history:: Smoking status: Patient denies any tobacco usage or history of. ROS: 21:50 Constitutional: Negative for fever, chills, and weight loss, Cardiovascular: Negative jmm for chest pain, palpitations, and edema, Respiratory: Negative for shortness of breath, cough, wheezing, and pleuritic chest pain. 21:50 Abdomen/GI: Positive for abdominal pain. 21:50 All other systems are negative. Exam: 21:50 Constitutional: This is a well developed, well nourished patient who is awake, alert, jmm and in no acute distress. Head/Face: atraumatic. Eyes: EOMI, no conjunctival erythema appreciated ENT: Moist Mucus Membranes Neck: Trachea midline, Supple Chest/axilla: Normal chest wall appearance and motion. Cardiovascular: Regular rate and rhythm. No edema appreciated Respiratory: Normal respirations, no respiratory distress appreciated 21:50 Abdomen/GI: Inspection: abdomen appears normal, Bowel sounds: normal, Palpation: soft, mild abdominal tenderness, in the right upper quadrant. 21:50 Back: ROM is normal. 21:50 Musculoskeletal/extremity: ROM: intact in all extremities, full active range of motion. 21:50 Skin: Appearance: Color: normal in color. 21:50 Neuro: Orientation: is normal, Mentation: is normal, Memory: is normal. 21:50 Psych: Behavior/mood is pleasant, cooperative. Vital Signs: 21:45 BP 117 / 71; Pulse 74; Resp 16 S; Temp 97.1(TE); Pulse Ox 100% on R/A; Weight 44.45 kg ca1 (R); Height 4 ft. 9 in. (144.78 cm) (R); Pain 7/10; 22:30 BP 114 / 68; Pulse 61; Resp 18; Pulse Ox 100% on R/A; vc 23:00 BP 118 / 74; Pulse 62; Resp 17; Pulse Ox 99% on R/A; vc 23:39 BP 108 / 65; Pulse 58; Resp 18; Pulse Ox 98% on R/A; vc 21:45 Body Mass Index 21.21 (44.45 kg, 144.78 cm) ca1 MDM: 21:50 Patient medically screened. tamika 23:50 Data reviewed: vital signs, nurses notes. Counseling: I had a detailed discussion with nicki the patient and/or guardian regarding: the historical points, exam findings, and any diagnostic results supporting the discharge/admit diagnosis, radiology results, the need for outpatient follow up, to return to the emergency department if symptoms worsen or persist or if there are any questions or concerns that arise at home. ED course: Patient states feeling much better. Patient is advised to follow up with GI for further evaluation. No lower abdominal pain. I do not suspect acute appendicitis. Patient given strict return precautions. Patient understood and agrees with the plan of care. . 12/23 21:59 Order name: Basic Metabolic Panel; Complete Time: 22:38 [facility] 12/23 21:59 Order name: CBC with Diff; Complete Time: 22:38 [facility] 12/23 21:59 Order name: Creatinine for Radiology; Complete Time: 22:38 [facility] 12/23 21:59 Order name: Hepatic Function; Complete Time: 22:38 [facility] 12/23 21:59 Order name: Lipase; Complete Time: 22:38 [facility] 12/23 22:00 Order name: Urine Microscopic Only; Complete Time: 23:04 [facility] 12/23 21:59 Order name: IV Saline Lock; Complete Time: 22:14 [facility] 12/23 21:59 Order name: Labs collected and sent; Complete Time: 22:14 [facility] 12/23 21:59 Order name: US Abdomen Limited [facility] 12/23 22:00 Order name: Urine Dipstick-Ancillary (obtain specimen); Complete Time: 22:14 [facility] Administered Medications: 22:26 Drug: morphine 4 mg Route: IVP; Site: left antecubital; vc 23:31 Follow up: Response: No adverse reaction vc 22:26 Drug: Zofran (Ondansetron) 4 mg Route: IVP; Site: left antecubital; vc 23:30 Follow up: Response: No adverse reaction vc Disposition: 12/24 07:40 Co-signature as Attending Physician, Brooks Rosario MD I agree with the assessment and tamika plan of care. Disposition: 12/24/19 23:52 Discharged to Home. Impression: Upper abdominal pain, unspecified. - Condition is Stable. - Discharge Instructions: Abdominal Pain, Adult. - Prescriptions for Bentyl 20 mg Oral Tablet - take 2 tablet by ORAL route every 6 hours As needed; 40 tablet. Pepcid 20 mg Oral Tablet - take 1 tablet by ORAL route every 12 hours for 10 days; 20 tablet. - Medication Reconciliation Form, Thank You Letter, Antibiotic Education, Prescription Opioid Use form. - Follow up: Juan Alberto Priest MD; When: 2 - 3 days; Reason: Recheck today's complaints, Continuance of care, Re-evaluation by your physician. Signatures: Dispatcher [employer] Brooks Torres MD MD cha Mickail, Joel, PA PA Gloria Scott RN RN ca1 Muna Knight RN RN vc Corrections: (The following items were deleted from the chart) 00:02 12/23 23:52 12/24/2019 23:52 Discharged to Home. Impression: Upper abdominal pain, vc unspecified. Condition is Stable. Forms are Medication Reconciliation Form, Thank You Letter, Antibiotic Education, Prescription Opioid Use. Follow up: Juan Alberto Priest; When: 2 - 3 days; Reason: Recheck today's complaints, Continuance of care, Re-evaluation by your physician. nicki
--- NOTE | 2019-12-24 23:53 | ER ---
Nurse's Notes [facility] Name: Raegan Jeffrey Age: 24 yrs Sex: Female : 1995 Arrival Date: 12/24/2019 Time: 21:31 Bed 25 Private MD: Diagnosis: Upper abdominal pain, unspecified Presentation: 12/23 21:45 Chief complaint: Patient states: Abdominal pain more on the upper L since Sunday. ca1 Reports N/V. Denies diarrhea, cough, congestion, fever. Coronavirus screen: The patient has NOT traveled to a country currently being monitored by the [facility] within the last 14 days. The patient has NOT had contact with any known and/or suspected case of coronavirus. Ebola Screen: Patient negative for fever greater than or equal to 101.5 degrees Fahrenheit, and additional compatible Ebola Virus Disease symptoms Patient denies exposure to infectious person. Patient denies travel to an Ebola-affected area in the 21 days before illness onset. No symptoms or risks identified at this time. Initial Sepsis Screen: Does the patient meet any 2 criteria? No. Patient's initial sepsis screen is negative. Does the patient have a suspected source of infection? No. Patient's initial sepsis screen is negative. Risk Assessment: Do you want to hurt yourself or someone else? Patient reports no desire to harm self or others. Onset of symptoms was December 22, 2019. 21:45 Method Of Arrival: Ambulatory ca1 21:45 Acuity: MARKOS 3 ca1 Triage Assessment: 21:52 General: Appears in no apparent distress. Behavior is calm, cooperative. Pain: ll1 Complains of pain in abdomen. Neuro: No deficits noted. Cardiovascular: No deficits noted. Respiratory: No deficits noted. GI: Abdomen is flat, Bowel sounds present X 4 quads. Abd is soft Reports upper abdominal pain, nausea, vomiting. 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 - Social history:: Smoking status: Patient denies any tobacco usage or history of. Screenin:52 Abuse screen: Denies threats or abuse. Nutritional screening: No deficits noted. ll1 Tuberculosis screening: No symptoms or risk factors identified. Fall Risk None identified. IV access (20 points). Total Trevino Fall Scale indicates No Risk (0-24 pts). Assessment: 21:53 General: Appears in no apparent distress. Behavior is calm, cooperative. General: SEE ll1 TRIAGE ASSESSMENT FOR FURTHER DETAILS.. Pain: Complains of pain in abdomen. Neuro: No deficits noted. Cardiovascular: No deficits noted. Respiratory: No deficits noted. GI: Reports lower abdominal pain, upper abdominal pain, nausea, vomiting. 22:00 GI: Reports lower abdominal pain, upper abdominal pain, nausea, vomiting. vc 23:17 Reassessment: Patient and/or family updated on plan of care and expected duration. Pain vc level reassessed. Patient states symptoms have improved. 23:39 Reassessment: No changes from previously documented assessment. Patient states feeling vc better. Patient states symptoms have improved. Vital Signs: 21:45 BP 117 / 71; Pulse 74; Resp 16 S; Temp 97.1(TE); Pulse Ox 100% on R/A; Weight 44.45 kg ca1 (R); Height 4 ft. 9 in. (144.78 cm) (R); Pain 7/10; 22:30 BP 114 / 68; Pulse 61; Resp 18; Pulse Ox 100% on R/A; vc 23:00 BP 118 / 74; Pulse 62; Resp 17; Pulse Ox 99% on R/A; vc 23:39 BP 108 / 65; Pulse 58; Resp 18; Pulse Ox 98% on R/A; vc 21:45 Body Mass Index 21.21 (44.45 kg, 144.78 cm) ca1 ED Course: 21:31 Patient arrived in ED. cl3 21:47 Triage completed. ca1 21:48 Arm band placed on right wrist. ca1 21:49 Abdiaziz Cervantes PA is PHCP. nicki 21:49 Brooks Rosario MD is Attending Physician. nicki 21:50 Inserted saline lock: 22 gauge in left antecubital area, using aseptic technique. Blood vc collected. 21:51 Rafaela Pavon, DERECK is Primary Nurse. ll1 21:54 Patient has correct armband on for positive identification. Bed in low position. Call ll1 light in reach. Side rails up X 1. 22:14 Muna Knight, RN is Primary Nurse. vc 22:20 US Abdomen Limited In Process Unspecified. EDMS 23:49 No provider procedures requiring assistance completed. vc 23:52 Juan Alberto Priest MD is Referral Physician. [facility] 12/24 00:01 IV discontinued, intact, bleeding controlled, No redness/swelling at site. Pressure vc dressing applied. Administered Medications: 12/23 22:26 Drug: morphine 4 mg Route: IVP; Site: left antecubital; vc 23:31 Follow up: Response: No adverse reaction vc 22:26 Drug: Zofran (Ondansetron) 4 mg Route: IVP; Site: left antecubital; vc 23:30 Follow up: Response: No adverse reaction vc Outcome: 23:50 Condition: good vc 23:52 Discharge ordered by . [facility] 12/24 00:00 Discharged to home ambulatory. vc Discharge instructions given to patient, Instructed on discharge instructions, follow up and referral plans. medication usage, Demonstrated understanding of instructions, follow-up care, medications. 00:02 Patient left the ED. vc Signatures: Dispatcher [employer] EDMS Abdiaziz Cervantes PA PA [facility] Gloria Alvarez, RN RN ca1 Hermes Pavon cl3 Muna Knight RN RN vc Lewis, Lynsay, RN RN ll1
[2019-12-25 00:47] VITALS: TEMP 97.1
[2019-12-25 00:52] VITALS: BP 108/65; O2SAT 98
--- NOTE | 2019-12-25 07:08 | RAD REPORT ---
EXAM DESCRIPTION: US - Abdomen Exam Limited - 12/24/2019 10:20 pm CLINICAL HISTORY: EPIGASTRIC PAIN COMPARISON: Abdomen Exam Limited dated 06/13/2016 FINDINGS: No gallstones identified. There is a minimal amount of sludge present. There is no wall th ickening or pericholecystic fluid. No common duct stone or biliary tree dilatation identified. Preliminary findings were provided at the time of the study. IMPRESSION: Minimal gallbladder sludge with no other gallbladder or biliary tree significant finding .
== END 2019-12-25 00:02 | disposition home or self-care (01) ==
LOC: ER 21:29
DX: R10.10 Upper abdominal pain, unspecified (principal)
CPT/HCPCS: 36415; 76705; 80048; 80076; 81015; 83690; 85025; 96374; 96375; 99284; J2405

== ENCOUNTER 2020-01-09 00:40 | Emergency (ER) | payer SELFPAY ==
--- OUTSIDE RECORDS SUMMARY | 2020-01-09 00:42 | XMS REPORT ---
:1995 Author Organization [facility] Address [address] [place] [address] [address]. [address] [place] [address] Care Team Providers Name Role Phone Unavailable Unavailable Unavailable Problems This patient has no known problems. Allergies, Adverse Reactions, Alerts This patient has no known allergies or adverse reactions. Medications This patient has no known medications.
[2020-01-09 01:37] LABS: Urine Bacteria >50 /HPF (<20); Urine Culture Reflex Order REFLEXED; Urine Mucus 1+ /HPF (NONE SEEN); Urine RBC <5 /HPF (NONE SEEN)
--- NOTE | 2020-01-09 01:50 | EDPHYS ---
Physician Documentation [facility] Name: Raegan Jeffrey Age: 24 yrs Sex: Female : 1995 Arrival Date: 01/09/2020 Time: 00:41 Bed 17 Private MD: ED Physician Brooks Rosario HPI: 01/08 01:45 This 24 yrs old Black Female presents to ER via Ambulatory with complaints of Pain With jmm Urination, Back Pain. 01:45 The patient presents with urinary symptoms. Onset: The symptoms/episode began/occurred jmm gradually, 1 day(s) ago. Modifying factors: The symptoms are alleviated by nothing, the symptoms are aggravated by nothing. Associated signs and symptoms: Pertinent positives: cramping, dysuria, Pertinent negatives: fever. This is a 24 year old female with no chronic medical conditions that presents to the ED with complaints pelvic cramping, dysuria. Pain radiates to the lower back. . 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 - Social history:: Smoking status: Patient denies any tobacco usage or history of. ROS: 01:45 Constitutional: Negative for fever, chills, and weight loss, Cardiovascular: Negative jmm for chest pain, palpitations, and edema, Respiratory: Negative for shortness of breath, cough, wheezing, and pleuritic chest pain. 01:45 Abdomen/GI: Negative for 01:45 Abdomen/GI: Negative for nausea and vomiting. 01:45 : Positive for urinary symptoms. 01:45 All other systems are negative. Exam: 01:45 Constitutional: This is a well developed, well nourished patient who is awake, alert, jmm and in no acute distress. Head/Face: atraumatic. Eyes: EOMI, no conjunctival erythema appreciated ENT: Moist Mucus Membranes Neck: Trachea midline, Supple Chest/axilla: Normal chest wall appearance and motion. Cardiovascular: Regular rate and rhythm. No edema appreciated Respiratory: Normal respirations, no respiratory distress appreciated Abdomen/GI: Non distended, soft Back: Normal ROM Skin: General appearance color normal MS/ Extremity: Moves all extremities, no obvious deformities appreciated, no edema noted to the lower extremities Neuro: Awake and alert, normal gait Psych: Behavior is normal, Mood is normal, Patient is cooperative and pleasant 01:45 Abdomen/GI: Inspection: abdomen appears normal, Bowel sounds: normal, Palpation: abdomen is soft and non-tender, in all quadrants. 01:45 Back: CVA tenderness, is absent, is noted bilaterally. Vital Signs: 00:50 BP 116 / 81; Pulse 83; Resp 16 S; Temp 98.5(O); Pulse Ox 100% on R/A; Weight 44.45 kg bb (R); Height 4 ft. 9 in. (144.78 cm) (R); Pain 2/10; 00:50 BP 116 / 81; Pulse 83; Resp 18; Temp 98.5; Pulse Ox 100% on R/A; Pain 5/10; jv1 02:00 BP 120 / 80; Pulse 80; Resp 18; Temp 98.4; Pulse Ox 100% ; Pain 4/10; jv1 00:50 Body Mass Index 21.21 (44.45 kg, 144.78 cm) bb MDM: 00:49 Patient medically screened. tamika 01:48 Data reviewed: vital signs, nurses notes. Counseling: I had a detailed discussion with nicki the patient and/or guardian regarding: the historical points, exam findings, and any diagnostic results supporting the discharge/admit diagnosis, lab results, the need for outpatient follow up, to return to the emergency department if symptoms worsen or persist or if there are any questions or concerns that arise at home. ED course: Patient is alert and non toxic in appearance in the ED. Abdomen is soft and non tender to palpation in the ED. . 01/08 01:19 Order name: Urine Microscopic Only; Complete Time: 01:45 [facility] 01/08 01:38 Order name: Urine Culture [facility] 01/08 00:44 Order name: Urine Dipstick-Ancillary (obtain specimen); Complete Time: 01:07 [facility] Administered Medications: 02:19 Drug: Rocephin (cefTRIAXone) 1 grams Route: IM; Site: right gluteus; jv1 02:38 Follow up: Response: No adverse reaction jv1 Disposition: 07:39 Co-signature as Attending Physician, Brooks Rosario MD I agree with the assessment and [facility] plan of care. Disposition: 01/09/20 01:49 Discharged to Home. Impression: Urinary tract infection, site not specified. - Condition is Stable. - Discharge Instructions: Urinary Tract Infection, Adult. - Prescriptions for Cephalexin 500 mg Oral Capsule - take 1 capsule by ORAL route every 12 hours for 10 days; 20 capsule. - Medication Reconciliation Form, Thank You Letter, Antibiotic Education, Prescription Opioid Use form. - Follow up: Private Physician; When: 2 - 3 days; Reason: Recheck today's complaints, Continuance of care, Re-evaluation by your physician. Signatures: Dispatcher [employer] EDBrooks Baltazar MD MD cha Mickail, Joel, PA PA jmm Ballard, Brenda, RN RN Estelle Recinos RN RN jv1 Corrections: (The following items were deleted from the chart) 02:37 01:49 01/09/2020 01:49 Discharged to Home. Impression: Urinary tract infection, site jv1 not specified. Condition is Stable. Forms are Medication Reconciliation Form, Thank You Letter, Antibiotic Education, Prescription Opioid Use. Follow up: Private Physician; When: 2 - 3 days; Reason: Recheck today's complaints, Continuance of care, Re-evaluation by your physician. nicki
--- NOTE | 2020-01-09 01:50 | ER ---
Nurse's Notes [facility] Name: Raegan Jeffrey Age: 24 yrs Sex: Female : 1995 Arrival Date: 01/09/2020 Time: 00:41 Bed 17 Private MD: Diagnosis: Urinary tract infection, site not specified Presentation: 01/08 00:50 Chief complaint: Patient states: she is having bladder and back pain since Sunday she bb is taking Azos but it is not helping. Coronavirus screen: Patient denies fever greater than 100.4F, cough, shortness of breath, or difficulty breathing. Proceed with normal triage process. Ebola Screen: No symptoms or risks identified at this time. Initial Sepsis Screen: Does the patient meet any 2 criteria? No. Patient's initial sepsis screen is negative. Does the patient have a suspected source of infection? No. Patient's initial sepsis screen is negative. Risk Assessment: Do you want to hurt yourself or someone else? Patient reports no desire to harm self or others. Onset of symptoms was January 06, 2020. 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 - Social history:: Smoking status: Patient denies any tobacco usage or history of. Screenin:00 Abuse screen: Denies threats or abuse. Denies injuries from another. Nutritional jv1 screening: No deficits noted. Tuberculosis screening: No symptoms or risk factors identified. Fall Risk None identified. Assessment: 00:50 General: Appears in no apparent distress. comfortable, well groomed, Behavior is calm, jv1 cooperative, appropriate for age. Pain: Complains of pain in lower back Pain does not radiate. Pain currently is 5 out of 10 on a pain scale. Quality of pain is described as aching. Neuro: Level of Consciousness is awake, alert, obeys commands, Oriented to person, place, time, situation, Conservation Engineer are equal bilaterally Moves all extremities. Full function. Cardiovascular: Denies chest pain. Respiratory: Airway is patent Respiratory effort is even, unlabored, Respiratory pattern is regular, symmetrical, Breath sounds are clear bilaterally. GI: No signs and/or symptoms were reported involving the gastrointestinal system. Abdomen is round non-distended, Bowel sounds present X 4 quads. : Denies burning with urination. EENT: No signs and/or symptoms were reported regarding the EENT system. Derm: No signs and/or symptoms reported regarding the dermatologic system. Musculoskeletal: No signs and/or symptoms reported regarding the musculoskeletal system. 02:00 Reassessment: Patient appears in no apparent distress at this time. No changes from jv1 previously documented assessment. Patient and/or family updated on plan of care and expected duration. Pain level reassessed. Patient is alert, oriented x 3, equal unlabored respirations, skin warm/dry/pink. Patient denies pain at this time. Vital Signs: 00:50 BP 116 / 81; Pulse 83; Resp 16 S; Temp 98.5(O); Pulse Ox 100% on R/A; Weight 44.45 kg bb (R); Height 4 ft. 9 in. (144.78 cm) (R); Pain 2/10; 00:50 BP 116 / 81; Pulse 83; Resp 18; Temp 98.5; Pulse Ox 100% on R/A; Pain 5/10; jv1 02:00 BP 120 / 80; Pulse 80; Resp 18; Temp 98.4; Pulse Ox 100% ; Pain 4/10; jv1 00:50 Body Mass Index 21.21 (44.45 kg, 144.78 cm) ED Course: 00:41 Patient arrived in ED. cl3 00:44 Abdiaziz Cervantes PA is PHCP. jmm 00:44 Brooks Rosario MD is Attending Physician. jmm 00:52 Triage completed. bb 00:52 Arm band placed on Patient placed in an exam room, on a stretcher, on pulse oximetry. bb 02:17 Bed in low position. Call light in reach. Side rails up X 1. jv1 02:18 No provider procedures requiring assistance completed. Patient did not have IV access jv1 during this emergency room visit. Administered Medications: 02:19 Drug: Rocephin (cefTRIAXone) 1 grams Route: IM; Site: right gluteus; jv1 02:38 Follow up: Response: No adverse reaction jv1 Outcome: 01:49 Discharge ordered by MD. caceres 02:18 Discharged to home ambulatory. jv1 02:18 Condition: good 02:18 Discharge instructions given to patient. 02:37 Patient left the ED. jv1 Signatures: Abdiaziz Cervantes PA PA jmm Ballard, Brenda RN RN Estelle Recinos RN RN jHermes Reynoso cl3
[2020-01-09] MEDS ORDERED: CEFTRIAXONE 1000 MG/VIAL ONE (02:12)
[2020-01-09 02:51] VITALS: O2SAT 100
[2020-01-09 02:53] VITALS: BP 120/80; TEMP 98.4
== END 2020-01-09 02:37 | disposition home or self-care (01) ==
LOC: ER 00:40
DX: N39.0 Urinary tract infection, site not specified (principal)
CPT/HCPCS: 81015; 87086; 87088; 96372; 99283

== ENCOUNTER 2020-11-15 13:00 | Emergency (ER) | payer SELFPAY ==
--- NOTE | 2020-11-15 18:03 | ER ---
Nurse's Notes [facility] Name: Raegan Jeffrey Age: 25 yrs Sex: Female : 1995 Arrival Date: 11/15/2020 Time: 13:04 Bed Waiting Private MD: Diagnosis: Presentation: 11/15 13:20 Chief complaint: Patient states: sore throat, congested, body aches x 2 days. sv Coronavirus screen: Client denies travel out of the [place] in the last 14 days. Client presents with at least one sign or symptom that may indicate coronavirus-19. Standard/surgical mask placed on the client. Provider contacted for isolation considerations. Ebola Screen: No symptoms or risks identified at this time. Risk Assessment: Do you want to hurt yourself or someone else? Patient reports no desire to harm self or others. Onset of symptoms was November 13, 2020. 13:20 Method Of Arrival: Ambulatory sv 13:20 Acuity: MARKOS 4 sv 13:21 Initial Sepsis Screen: Does the patient meet any 2 criteria? No. Patient's initial sv sepsis screen is negative. Does the patient have a suspected source of infection? No. Patient's initial sepsis screen is negative. Triage Assessment: 13:23 General: Appears in no apparent distress. comfortable, Behavior is calm, cooperative, sv appropriate for age. Neuro: Level of Consciousness is awake, alert, obeys commands, Gait is steady. Respiratory: Respiratory effort is even, unlabored. Historical: - Allergies: 13:21 No Known Allergies; sv - PMHx: 13:21 None; sv - PSHx: 13:21 None; sv - Immunization history:: Adult Immunizations up to date. - Social history:: Smoking status: Patient denies any tobacco usage or history of. Vital Signs: 13:21 BP 106 / 69; Pulse 81; Resp 16; Temp 98.3(O); Pulse Ox 100% on R/A; Weight 47.17 kg; sv Height 4 ft. 9 in. (144.78 cm); Pain 2/10; 13:21 Body Mass Index 22.50 (47.17 kg, 144.78 cm) sv ED Course: 13:04 Patient arrived in ED. mr 13:20 Triage completed. sv 13:21 Arm band placed on. sv 17:02 [facility] 17:02 Thierry Jose MD is Attending Physician. jmm 17:30 Patient's name was called from ER lobby. No response. sv 17:40 Patient's name was called from ER lobby. No response. sv 17:50 Patient's name was called from ER lobby. No response. sv Administered Medications: No medications were administered Outcome: 18:02 Patient left the ED. sv Signatures: Sulema Dailey RN RN Abdiaziz Cervantes PA PA Melani Luna mr Corrections: (The following items were deleted from the chart) 13:23 13:21 Pulse 81bpm; Resp 16bpm; Pulse Ox 100% RA; Temp 98.3F Oral; 47.17 kg; Height 4 sv ft. 9 in.; BMI: 22.5; Pain 2/10; sv
[2020-11-15 18:10] VITALS: BP 106/69; TEMP 98.3; O2SAT 100
--- OUTSIDE RECORDS SUMMARY | 2020-11-16 22:56 | XMS REPORT | Continuity of Care Document ---
:1995 Author Organization [facility] t Address [address] [place] [address] Care Team Providers Name Role Phone Yelitza HARDEN, T Attending Clinician Unavailable Yee Fraire Attending Clinician Problems This patient has no known problems. Allergies, Adverse Reactions, Alerts This patient has no known allergies or adverse reactions. Medications This patient has no known medications. Procedures This patient has no known procedures. Encounters Start End Encounter Admission Attending Care Care Encounter Source Date/Time Date/Time Type Type Clinicians Facility Department ID 2020-07-27 2020-07-27 Letter GLORY Torre [id number] 00:00:00 00:00:00 (Out) Fiona AJ [id number] [facility] [id number] 2020-07-26 2020-07-26 Emergency LUCIANO Gonzalez [id number] 00:09:00 01:21:00 Gustavo Cifuentes [id number] [place] [id number] [place] [id number] Results This patient has no known results.
== END 2020-11-15 18:02 | disposition left against medical advice (07) ==
LOC: ER 13:00
DX: J02.9 Acute pharyngitis, unspecified (principal); R52 Pain, unspecified; Z53.21 Procedure and treatment not carried out due to patient leaving prior to being seen by health care provider
CPT/HCPCS: 99281

== ENCOUNTER 2021-08-11 11:11 | Emergency (ER) | payer SELFPAY ==
--- NOTE | 2021-08-11 11:25 | EDPHYS ---
Physician Documentation [facility] Name: Raegan Jeffrey Age: 25 yrs Sex: Female : 1995 Arrival Date: 08/11/2021 Time: 11:12 Bed 11 Private MD: ED Physician Thierry Jose HPI: 08/11 11:23 This 25 yrs old Black Female presents to ER via Ambulatory with complaints of Rash - pm1 poison rebecca. 11:23 The patient's rash thought to be caused by exposure to poison rebecca. The rash is located pm1 on the face, left arm and neck. The rash can be described as raised, itchy. Onset: The symptoms/episode began/occurred 2 day(s) ago. Associated signs and symptoms: Pertinent positives: itching, Pertinent negatives: difficulty breathing, fever. Severity of symptoms: in the emergency department the symptoms are unchanged. Treatment given at home: None. The patient has not experienced similar symptoms in the past. The patient has not recently seen a physician. Contacted poison rebecca from exposure to boyfriend . Historical: - Allergies: 11:14 No Known Allergies; aa5 - PMHx: 11:14 None; aa5 - PSHx: 11:14 None; aa5 - Immunization history:: Client reports having NOT received the Covid vaccine. - Social history:: Smoking status: Patient denies any tobacco usage or history of. ROS: 11:23 Constitutional: Negative for fever, chills, and weight loss, Neck: Negative for injury, pm1 pain, and swelling, Cardiovascular: Negative for chest pain, palpitations, and edema, Respiratory: Negative for shortness of breath, cough, wheezing, and pleuritic chest pain, Abdomen/GI: Negative for abdominal pain, nausea, vomiting, diarrhea, and constipation. 11:23 Neuro: Negative for headache, weakness, numbness, tingling, and seizure. 11:23 Skin: Positive for rash, Negative for abscesses, cellulitis. 11:23 All other systems are negative. Exam: 11:23 Constitutional: This is a well developed, well nourished patient who is awake, alert, pm1 and in no acute distress. Head/Face: Normocephalic, atraumatic. 11:23 Eyes: Exam is negative for acute changes, Extraocular movements: no acute changes. 11:23 ENT: Exam is negative for acute changes, Mouth: no acute changes, Lips: normal, moist, Oral mucosa: normal, pink and intact, moist. 11:23 Cardiovascular: Exam negative for acute changes, Rate: normal, Rhythm: regular, Pulses: no pulse deficits are appreciated. 11:23 Respiratory: Exam negative for acute changes, respiratory distress, shortness of breath. 11:23 Skin: Appearance: normal except for affected area, rash a mild rash is noted, consistent with contact dermatitis, on the left arm and neck. 11:23 Neuro: Exam negative for acute changes, Orientation: is normal, Mentation: is normal, Motor: is normal, moves all fours. Vital Signs: 11:13 BP 101 / 69; Pulse 86; Resp 16 S; Temp 98.2(O); Pulse Ox 100% on R/A; Weight 54.43 kg aa5 (R); Height 4 ft. 9 in. (144.78 cm) (R); 11:13 Body Mass Index 25.97 (54.43 kg, 144.78 cm) aa5 MDM: 11:20 Patient medically screened. pm1 11:23 Data reviewed: vital signs. Data interpreted: Pulse oximetry: on room air is 100 %. pm1 Interpretation: normal. 11:23 Counseling: I had a detailed discussion with the patient and/or guardian regarding: the pm1 historical points, exam findings, and any diagnostic results supporting the discharge/admit diagnosis, the need for outpatient follow up, a family practitioner, to return to the emergency department if symptoms worsen or persist or if there are any questions or concerns that arise at home. Administered Medications: 11:35 Drug: Decadron (dexamethasone) 10 mg Route: IM; Site: left gluteus; ll3 11:50 Follow up: Response: No adverse reaction ll3 Disposition: 17:02 Co-signature as Attending Physician, Thierry Jose MD I agree with the assessment and rn plan of care. Attestation: The patient's history, exam findings, diagnostics, and a summary of any interventions or procedures was reviewed in detail with Luis Woods NP. Disposition Summary: 08/11/21 11:24 Discharge Ordered Location: Home pm1 Problem: new pm1 Symptoms: have improved pm1 Condition: Stable pm1 Diagnosis - Allergic contact dermatitis due to plants, except food pm1 Followup: pm1 - With: Emergency Department - When: As needed - Reason: Worsening of condition Followup: pm1 - With: Private Physician - When: 2 - 3 days - Reason: Recheck today's complaints, Continuance of care, Re-evaluation by your physician Discharge Instructions: - Discharge Summary Sheet pm1 - Poison Rebecca Dermatitis pm1 - Rash, Adult pm1 Forms: - Medication Reconciliation Form pm1 - Thank You Letter pm1 - Antibiotic Education pm1 - Prescription Opioid Use pm1 Prescriptions: - Benadryl 25 mg Oral Capsule - take 1 capsule by ORAL route every 6 hours As needed; 30 tablet; Refills: 0, pm1 Product Selection Permitted - Medrol (Kwesi) 4 mg Oral Tablets, Dose Pack - take 1 tablet by ORAL route as directed - follow package instructions; 1 pm1 packet; Refills: 0, Product Selection Permitted Signatures: Thierry Jose MD MD rn Calderon, Audri RN RN aa5 Luis Woods, JEWEL BEARING BROACHER JEWEL BEARING BROACHER pm1 Vivienne Jesus RN RN ll3
--- NOTE | 2021-08-11 11:25 | ER ---
Nurse's Notes [facility] Name: Raegan Jeffrey Age: 25 yrs Sex: Female : 1995 Arrival Date: 08/11/2021 Time: 11:12 Bed 11 Private MD: Diagnosis: Allergic contact dermatitis due to plants, except food Presentation: 08/11 11:13 Chief complaint: Patient states: "I have poison olga and I woke up with it on Sunday". aa5 11:13 Coronavirus screen: At this time, the client does not indicate any symptoms associated aa5 with coronavirus-19. Ebola Screen: No symptoms or risks identified at this time. Initial Sepsis Screen: Does the patient meet any 2 criteria? No. Patient's initial sepsis screen is negative. Does the patient have a suspected source of infection? No. Patient's initial sepsis screen is negative. Risk Assessment: Do you want to hurt yourself or someone else? Patient reports no desire to harm self or others. Onset of symptoms was August 2021. 11:13 Method Of Arrival: Ambulatory aa5 11:13 Acuity: MARKOS 5 aa5 Historical: - Allergies: 11:14 No Known Allergies; aa5 - PMHx: 11:14 None; aa5 - PSHx: 11:14 None; aa5 - Immunization history:: Client reports having NOT received the Covid vaccine. - Social history:: Smoking status: Patient denies any tobacco usage or history of. Vital Signs: 11:13 BP 101 / 69; Pulse 86; Resp 16 S; Temp 98.2(O); Pulse Ox 100% on R/A; Weight 54.43 kg aa5 (R); Height 4 ft. 9 in. (144.78 cm) (R); 11:13 Body Mass Index 25.97 (54.43 kg, 144.78 cm) aa5 ED Course: 11:12 Patient arrived in ED. am2 11:13 Arm band placed on. aa5 11:16 Triage completed. aa5 11:20 Luis Woods NP is PHCP. pm1 11:20 Thierry Jose MD is Attending Physician. pm1 12:05 No provider procedures requiring assistance completed. Patient did not have IV access ll3 during this emergency room visit. Administered Medications: 11:35 Drug: Decadron (dexamethasone) 10 mg Route: IM; Site: left gluteus; ll3 11:50 Follow up: Response: No adverse reaction ll3 Outcome: 11:24 Discharge ordered by . pm1 12:04 Discharged to home ambulatory. ll3 12:04 Condition: good 12:04 Discharge instructions given to patient, Instructed on discharge instructions, follow up and referral plans. medication usage, Demonstrated understanding of instructions, follow-up care, medications, Prescriptions given X 2. 12:05 Patient left the ED. ll3 Signatures: Ciarra Jeter, RN RN aa5 Luis Woods NP MEMBERSHIP COUNSELOR pm1 Casandra Robert am2 Vivienne Jesus RN RN ll3 Corrections: (The following items were deleted from the chart) 11:19 11:13 Pulse 86bpm; Resp 16bpm; Spontaneous; Pulse Ox 100% RA; Temp 98.2F Oral; 54.43 kg aa5 Reported; Height 4 ft. 9 in. Reported; BMI: 25.9; aa5
[2021-08-11] MEDS ORDERED: dexAMETHasone 10 MG/ML VIAL ONE (11:32)
[2021-08-11 12:23] VITALS: BP 101/69; TEMP 98.2; O2SAT 100
--- OUTSIDE RECORDS SUMMARY | 2021-08-20 11:19 | XMS REPORT | Continuity of Care Document ---
:1995 Author Organization [facility] t Address [address] [place] [address] Care Team Providers Name Role Phone Yelitza HARDEN, T Attending Clinician Unavailable Yee Fraire Attending Clinician Payers Payer Name Policy Type Policy Number Effective Date Expiration Date S ourreuben [facility] [place] [id number] 2019 00:00:00 WOMEN Advance Directives Directive Decision Effective Termination Comments Source Date Date Healthcare Agents on N/A Univ ersity FileNameRelationshipHealthcare [facility] Agent Medical RelationshipCommunicationCandie [facility] Care [phone] (Mobile) [email or web address] Problems Condition Condition Condition Status Onset Resolution Last Treating Co mments Source Name Details Category Date Date Treatment Clinician Date Obesity Obesity Disease Active 2017-10 Univers (BMI (BMI 0-25 ity of 30-39.9) 30-39.9) 00:00: [address] Excessive Excessive Disease Active 2017-10 Uni vers weight weight 0-08 ity of gain gain 00:00: [address] Abnormal Abnormal Disease Active Unive rs maternal maternal 9-06 ity of glucose glucose 00:00: [place] tolerance, tolerance, 00 Me dical antepartum antepartum Br anch Group B 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 7-24 it y of kimberly kimberly 00:00: [place] infection infection 00 [facility] during during Branch Family Family Disease Active [facility] history of history of 6-18 it y of cleft lip cleft lip 00:00: [place] and palate and palate 00 Me dical Branch Allergies, Adverse Reactions, Alerts Allergy Allergy Status Severity Reaction(s) Onset Inactive Treating Comm ents Source Name Type Date Date Clinician NO KNOWN Drug Active Univers ALLERGIE Class ity of S [facility] Social History Social Habit Start Date Stop Date Quantity Comments Source Sex Assigned At Universit y of [facility] Exposure to Yes [facility] SARS-CoV-2 [facility] (event) [place] Tobacco use and 2020-07-26 2020-07-26 Never used Universit y of exposure 00:00:00 00:00:00 [facility] Alcohol intake 2020-07-26 2020-07-26 Current [facility] 00:00:00 00:00:00 non-drinker of [facility] alcohol Branch (finding) Smoking Status Start Date Stop Date Source Never smoker [facility] Medications Ordered Filled Start Stop Current Ordering Indication Dosage Frequency Signature Comments Components Source Medication Medication Date Date Medication? Clinician (SIG) Name Name estradiol 1 2017-10 Yes 1mg Take 1 Univ ers mg tablet 2-17 tablet by ity o f 00:00: mouth [place] 00 daily. Medical Branch estradiol 1 2017-10 Yes 1mg Take 1 Univ ers mg tablet 2-17 tablet by ity o f 00:00: mouth [place] 00 daily. [facility] Immunizations Ordered Filled Immunization Date Status Comments Sour e Immunization Name Name Influenza Virus 2018-07-15 Completed Universit y of Vaccine Quad .5 mL 00:00:00 [facility] 6+ MO Branch Influenza Virus 2018-07-15 Completed Universit y of Vaccine Quad .5 mL 00:00:00 [facility] 6+ MO Branch TDAP 2018-06-13 Completed University of 00:00:00 [facility] TDAP 2018-06-13 Completed University of 00:00:00 [facility] HPV9 2017-09-26 Completed University of 00:00:00 [facility] HPV9 2017-09-26 Completed University of 00:00:00 [facility] TDAP 2017-07-27 Completed University of 00:00:00 [facility] HPV9 2017-07-27 Completed University of 00:00:00 [facility] TDAP 2017-07-27 Completed University of 00:00:00 [facility] Branch HPV9 2017-07-27 Completed University of 00:00:00 [facility] Vital Signs Vital Name Observation Time Observation Value Comments Source Systolic blood 2020-07-26 05:07:00 112 mm[Hg] Univer sity of pressure [facility] Diastolic blood 2020-07-26 05:07:00 76 mm[Hg] Unive rsity of pressure [facility] Heart rate 2020-07-26 05:07:00 80 /min Universi ty of [facility] Body temperature 2020-07-26 05:07:00 37.5 Karrie Univ ersity of [facility] Branch Respiratory rate 2020-07-26 05:07:00 20 /min Univ ersity of [facility] Body height 2020-07-26 05:07:00 144.8 cm Universi ty of [place] [facility] [place] Body weight 2020-07-26 05:07:00 49.896 kg Universi ty of [place] [facility] [place] BMI 2020-07-26 05:07:00 23.80 kg/m2 Universi ty of [place] [facility] Oxygen saturation in 2020-07-26 05:07:00 96 /min University of Arterial blood by [facility] Pulse oximetry Branch Systolic blood 2020-07-26 05:07:00 112 mm[Hg] Univer sity of pressure [facility] Diastolic blood 2020-07-26 05:07:00 76 mm[Hg] Unive rsity of pressure [facility] Heart rate 2020-07-26 05:07:00 80 /min Universi ty of [facility] Body temperature 2020-07-26 05:07:00 37.5 Karrie Univ ersity of [facility] Branch Respiratory rate 2020-07-26 05:07:00 20 /min Univ ersity of [facility] Body height 2020-07-26 05:07:00 144.8 cm Universi ty of [place] [facility] Body weight 2020-07-26 05:07:00 49.896 kg Universi ty [facility] [place] [facility] BMI 2020-07-26 05:07:00 23.80 kg/m2 Universi ty of [place] [facility] Oxygen saturation in 2020-07-26 05:07:00 96 /min University of Arterial blood by [facility] Pulse oximetry Branch Procedures Procedure Date / Time Performed Performing Clinician Jasson tidwell POCT TEST 2020-07-26 05:28:00 Gustavo Gonzalez ity of [facility] NOTICE OF PRIVACY 2020-07-26 05:04:36 Doctor Unassigned, No [facility] CONSENT/REFUSAL FOR 2020-07-26 05:03:14 Doctor Unassigned, [facility] DIAGNOSIS AND Name Medical Branch TREATMENT Encounters Start End Encounter Admission Attending Care Care Encounter Source Date/Time Date/Time Type Type Clinicians Facility Department ID 2021-08-05 Emergency [facility] [id number] Univers 23:35:55 ity [facility] 2020-07-27 2020-07-27 Letter GLORY Torre [id number] 00:00:00 00:00:00 (Out) Fiona AJ [id number]2.[facility] [id number] [id number] 2020-07-27 2020-07-27 Letter GLORY Torre [id number] Univers 00:00:00 00:00:00 (Out) Fiona AJ [id number]686 Pb [id number] [address] 2020-07-26 2020-07-26 Emergency [facility] [id number] 00:09:00 01:21:00 Gustavo Cifuentes [id number] [place] 4.2.7.2.686 [place] [id number] [facility] 2020-07-26 2020-07-26 Emergency [facility] [id number] Univers 00:09:00 01:21:00 Gustavo Cifuentes [id number] i ty of [place] 4.2.7.2.686 [facility] [id number] [place] [address] Branch Results Test Description Test Time Test Comments Results Result Comments Source POCT Test 2020-07-26 05:28:00 Test Item Value Reference Range Interpretation Comme nts POCT PREG (test code = 1605) negative On board controls acceptable with C Line (test code = 3574) present POCT PREG LOT # (test code = 3575) [id number] POCT PREG TEST DATE (test code = 3576) Lab Interpretation (test code = 53689-6) [facility]
== END 2021-08-11 12:05 | disposition home or self-care (01) ==
LOC: ER 11:11
DX: L23.7 Allergic contact dermatitis due to plants, except food (principal)
CPT/HCPCS: 96372; 99283; J1100

== ENCOUNTER 2021-11-17 00:28 | Emergency (ER) | payer SELFPAY ==
--- OUTSIDE RECORDS SUMMARY | 2021-11-17 00:31 | XMS REPORT | Continuity of Care Document ---
:1995 Author Organization [facility] t Address [address] [place] [address] Care Team Providers Name Role Phone Yelitza HARDEN, T Attending Clinician Unavailable Yee Fraire Attending Clinician Payers Payer Name Policy Type Policy Number Effective Date Expiration Date S ourreuben [facility] [place] [id number] 2019 00:00:00 WOMEN Advance Directives Directive Decision Effective Termination Comments Source Date Date Healthcare Agents on N/A Univ ersity FileNameRelationshipHealthcare [facility] Agent Medical RelationshipCommunicationCandie [facility] [phone] (Mobile) [email or web address] Problems Condition Condition Condition Status Onset Resolution Last Treating Co mments Source Name Details Category Date Date Treatment Clinician Date Obesity Obesity Disease Active 2017-10 Univers (BMI (BMI 0-25 ity of 30-39.9) 30-39.9) 00:00: [address] Excessive Excessive Disease Active 2017-10 Uni vers weight weight 0-08 ity of gain gain 00:00: [address] Abnormal Abnormal Disease Active Unive rs maternal maternal 9-06 ity of glucose glucose 00:00: [place] tolerance, tolerance, 00 Me dical antepartum antepartum Br anch Group B 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 7-24 it y of kimber[place] kimberly 00:00: [place] infection infection 00 [facility] during during Branch Family Family Disease Active [facility] history of history of 6-18 it y of cleft lip cleft lip 00:00[place] palate and palate 00 Me dical Branch Allergies, Adverse Reactions, Alerts Allergy Allergy Status Severity Reaction(s) Onset Inactive Treating Comm ents Source Name Type Date Date Clinician NO KNOWN Drug Active Univers ALLERGIE Class ity of S [facility] Social History Social Habit Start Date Stop Date Quantity Comments Source Sex Assigned At Universit y of [facility] Exposure to Yes [facility] SARS-CoV-2 [facility] (event) [place] Tobacco use and 2020-07-26 2020-07-26 Never used Universit y of exposure 00:00:00 00:00:00 [facility] Alcohol intake 2020-07-26 2020-07-26 Current [facility] 00:00:00 00:00:00 non-drinker of [facility] alcohol Branch (finding) Smoking Status Start Date Stop Date Source Never smoker [facility] Medications Ordered Filled Start Stop Current Ordering Indication Dosage Frequency Signature Comments Components Source Medication Medication Date Date Medication? Clinician (SIG) Name Name estradiol 1 2017-10 Yes 1mg Take 1 Univ ers mg tablet 2-17 tablet by ity o f 00:00: mouth [place] 00 daily. Medical Branch estradiol 1 2017-10 Yes 1mg Take 1 Univ ers mg tablet 2-17 tablet by ity o f 00:00: mouth [place] 00 daily. [facility] Immunizations Ordered Filled Immunization Date Status Comments Sour e Immunization Name Name Influenza Virus 2018-07-15 Completed Universit y of Vaccine Quad .5 mL 00:00:00 [facility] 6+ MO Branch Influenza Virus 2018-07-15 Completed Universit y of Vaccine Quad .5 mL 00:00:00 [facility] 6+ MO Branch TDAP 2018-06-13 Completed University of 00:00:00 [facility] TDAP 2018-06-13 Completed University of 00:00:00 [facility] HPV9 2017-09-26 Completed University of 00:00:00 [facility] HPV9 2017-09-26 Completed University of 00:00:00 [facility] TDAP 2017-07-27 Completed University of 00:00:00 [facility] HPV9 2017-07-27 Completed University of 00:00:00 [facility] TDAP 2017-07-27 Completed University of 00:00:00 [facility] Branch HPV9 2017-07-27 Completed University of 00:00:00 [facility] Vital Signs Vital Name Observation Time Observation Value Comments Source Systolic blood 2020-07-26 05:07:00 112 mm[Hg] Univer sity of pressure [facility] Diastolic blood 2020-07-26 05:07:00 76 mm[Hg] Unive rsity of pressure [facility] Heart rate 2020-07-26 05:07:00 80 /min Universi ty of [facility] Body temperature 2020-07-26 05:07:00 37.5 Karrie Univ ersity of [facility] Branch Respiratory rate 2020-07-26 05:07:00 20 /min Univ ersity of [facility] Body height 2020-07-26 05:07:00 144.8 cm Universi ty of [place] [facility] [place] Body weight 2020-07-26 05:07:00 49.896 kg Universi ty [facility] [place] [facility] [place] BMI 2020-07-26 05:07:00 23.80 kg/m2 Universi ty of [place] [facility] Oxygen saturation in 2020-07-26 05:07:00 96 /min University of Arterial blood by [facility] Pulse oximetry Branch Systolic blood 2020-07-26 05:07:00 112 mm[Hg] Univer sity of pressure [facility] Diastolic blood 2020-07-26 05:07:00 76 mm[Hg] Unive rsity of pressure [facility] Heart rate 2020-07-26 05:07:00 80 /min Universi ty of [facility] Body temperature 2020-07-26 05:07:00 37.5 Karrie Univ ersity of [facility] Branch Respiratory rate 2020-07-26 05:07:00 20 /min Univ ersity of [facility] Body height 2020-07-26 05:07:00 144.8 cm Universi ty [facility] [place] [facility] Body weight 2020-07-26 05:07:00 49.896 kg Universi ty [facility] [place] [facility] BMI 2020-07-26 05:07:00 23.80 kg/m2 Universi ty of [place] [facility] Oxygen saturation in 2020-07-26 05:07:00 96 /min University of Arterial blood by [facility] Pulse oximetry Branch Procedures Procedure Date / Time Performed Performing Clinician Jasson tidwell POCT TEST 2020-07-26 05:28:00 Gustavo Gonzalez ity of [facility] NOTICE OF PRIVACY 2020-07-26 05:04:36 Doctor Unassigned, No [facility] CONSENT/REFUSAL FOR 2020-07-26 05:03:14 Doctor Unassigned, No [facility] DIAGNOSIS AND Name Medical Branch TREATMENT Encounters Start End Encounter Admission Attending Care Care Encounter Source Date/Time Date/Time Type Type Clinicians Facility Department ID 2021-08-05 Emergency [facility] [id number] Univers 23:35:55 ity [facility] 2020-07-27 2020-07-27 Letter GLORY Torre [id number] 00:00:00 00:00:00 (Out) Fiona AJ [id number]2.[facility] [id number] 2020-07-27 2020-07-27 Letter GLORY Torre [id number] Univers 00:00:00 00:00:00 (Out) Fiona AJ [id number]2.686 Pb [id number] [address] 2020-07-26 2020-07-26 Emergency [facility] 1.2.840.114 [id number] 00:09:00 01:21:00 Gustavo Cifuentes [id number] [place] 4.2.7.2.686 [place] [id number] [facility] 2020-07-26 2020-07-26 Emergency [facility] [id number] Univers 00:09:00 01:21:00 Gustavo Cifuetnes [id number] i ty of [place] [id number] [facility] [id number] [place] [address] Branch Results Test Description Test Time Test Comments Results Result Comments Source POCT Test 2020-07-26 05:28:00 Test Item Value Reference Range Interpretation Comme nts POCT PREG (test code = 1605) negative On board controls acceptable with C Line (test code = 3574) present POCT PREG LOT # (test code = 3575) [id number] POCT PREG TEST DATE (test code = 3576) Lab Interpretation (test code = 42298-8) [facility]
[2021-11-17] MEDS ORDERED: MORPHINE 4 MG/ML SYR ONE (00:58)
[2021-11-17] MEDS ORDERED: ONDANSETRON 4 MG/2 ML VIAL ONE (00:58)
[2021-11-17 01:32] LABS: Urine Blood Negative (Negative); Urine Glucose Negative (Negative); Urine Protein Negative (Negative); Urine Specific Gravity 1.025 (1.005-1.030)
[2021-11-17 01:34] LABS: Absolute Lymphocytes (CBC) 1.4 K/uL (0.7-4.9); Hematocrit 40.6 % (36.0-45.0); Lymphocytes % 25.2 % (15.3-44.8); MPV 7.3 fL (7.6-11.3); RBC Red Blood Cell Count 4.31 M/uL (3.86-4.86)
[2021-11-17 03:38] LABS: ALT/SGPT 16 U/L (12-78); AST/SGOT 17 U/L (15-37); Albumin 3.8 g/dL (3.4-5.0); Alkaline Phosphatase 68 U/L (45-117); BUN Blood Urea Nitrogen 13 mg/dL (7-18); Bicarbonate 24 mmol/L (21-32); Bilirubin Direct 0.1 mg/dL (0-0.2); Bilirubin Total 0.3 mg/dL (0.2-1.0); Glucose Level 88 mg/dL (74-106); Lipase 124 U/L (73-393); Potassium 3.9 mmol/L (3.5-5.1); Protein, Total 7.5 g/dL (6.4-8.2); Sodium Level 137 mmol/L (136-145)
--- NOTE | 2021-11-17 03:55 | EDPHYS ---
Physician Documentation [facility] Name: Raegan Jeffrey Age: 26 yrs Sex: Female : 1995 Arrival Date: 11/17/2021 Time: 00:31 Bed 19 Private MD: ED Physician Thierry Jose HPI: 11/17 01:36 This 26 yrs old Black Female presents to ER via Ambulatory with complaints of Abdominal jmm Pain. 01:36 The patient presents with abdominal pain. Onset: The symptoms/episode began/occurred jmm gradually, 2 day(s) ago. The symptoms do not radiate. Associated signs and symptoms: Pertinent positives: vomiting, Pertinent negatives: diarrhea. The symptoms are described as achy, sharp. Modifying factors: The symptoms are alleviated by nothing, the symptoms are aggravated by nothing. The patient has experienced similar episodes in the past, several times. 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 - Social history:: Smoking status: unknown. ROS: 01:36 Constitutional: Negative for fever, chills, and weight loss, Cardiovascular: Negative jmm for chest pain, palpitations, and edema, Respiratory: Negative for shortness of breath, cough, wheezing, and pleuritic chest pain. 01:36 Abdomen/GI: Positive for abdominal pain, nausea and vomiting. 01:36 All other systems are negative. Exam: 01:36 Constitutional: This is a well developed, well nourished patient who is awake, alert, jmm and in no acute distress. Head/Face: atraumatic. Eyes: EOMI, no conjunctival erythema appreciated ENT: Moist Mucus Membranes Neck: Trachea midline, Supple Chest/axilla: Normal chest wall appearance and motion. Cardiovascular: Regular rate and rhythm. No edema appreciated Respiratory: Normal respirations, no respiratory distress appreciated 01:36 Abdomen/GI: Inspection: abdomen appears normal, Bowel sounds: normal, Palpation: soft, moderate abdominal tenderness, in the right upper quadrant and right lower quadrant. 01:36 Back: CVA tenderness, is absent. 01:36 Musculoskeletal/extremity: ROM: intact in all extremities. 01:36 Skin: Appearance: Color: normal in color. 01:36 Neuro: Orientation: is normal, Mentation: is normal, Memory: is normal. 01:36 Psych: Behavior/mood is pleasant, cooperative. Vital Signs: 01:09 BP 106 / 61; Pulse 64; Resp 16; Temp 98.1(O); Pulse Ox 97% on R/A; Weight 52.16 kg; vc1 Height 4 ft. 9 in. (144.78 cm); Pain 7/10; 03:18 BP 105 / 61; Pulse 83; Resp 16; Pulse Ox 98% on R/A; Pain 0/10; vc1 01:09 Body Mass Index 24.89 (52.16 kg, 144.78 cm) vc1 MDM: 00:51 Patient medically screened. [facility] 02:39 Transition of care: After a detail discussion of the patient's case, care is [facility] transferred to Thierry Jose MD. 11/17 00:51 Order name: Basic Metabolic Panel [facility] 11/17 00:51 Order name: CBC with Diff; Complete Time: 03:[address] [facility] 11/17 00:51 Order name: Hepatic Function; Complete Time: 03:[address] [facility] 11/17 00:51 Order name: Lipase; Complete Time: 03:[address] [facility] 11/17 00:52 Order name: Basic Metabolic Panel; Complete Time: 03:44 [facility] 11/17 01:32 Order name: Urine Dipstick-Ancillary; Complete Time: 01:37 [facility] 11/17 00:51 Order name: IV Saline Lock; Complete Time: 01:[address] [facility] 11/17 00:51 Order name: Labs collected and sent; Complete Time: 01:[address] [facility] 11/17 00:51 Order name: CT Abd/Pelvis - IV Contrast Only [facility] 11/17 01:32 Order name: Urine --Ancillary (enter results) [facility] 11/17 02:38 Order name: US Abdomen Limited [facility] 11/17 02:41 Order name: CREATININE WHOLE BLOOD; Complete Time: 03:02 [facility] 11/17 00:51 Order name: Urine Dipstick-Ancillary (obtain specimen); Complete Time: 01:[address] [facility] 11/17 00:51 Order name: Urine Test (obtain specimen); Complete Time: 01:32 jmm Administered Medications: 01:08 Drug: morphine 4 mg Route: IVP; Site: right forearm; vc1 01:32 Follow up: Response: No adverse reaction vc1 01:08 Drug: Zofran (Ondansetron) 4 mg Route: PO; vc1 01:32 Follow up: Response: No adverse reaction vc1 Disposition: 03:54 Co-signature as Attending Physician, Thierry Jose MD I agree with the assessment and rn plan of care. Attestation: The patient's history, exam findings, diagnostics, and a summary of any interventions or procedures was reviewed in detail with Abdiaziz HARVEY. Disposition Summary: 11/17/21 03:54 Discharge Ordered Location: Home rn Condition: Stable rn Diagnosis - Abdominal pain, unspecified rn Followup: [facility] - With: - When: 2 - 3 days - Reason: Recheck today's complaints, Continuance of care, Re-evaluation by your physician Discharge Instructions: - Discharge Summary Sheet [facility] - Abdominal Pain, Adult [facility] Forms: - Medication Reconciliation Form rn - Thank You Letter rn - Antibiotic rn oncology research - Prescription Opioid Use rn Prescriptions: - ondansetron 4 mg Oral tablet,disintegrating - take 1 tablet by ORAL route every 4-6 hours As needed; 20 tablet; Refills: 0, jm Product Selection Permitted Signatures: Dispatcher [employer] EDAbdiaziz Bauer PA PA jmm Nieto, Roman, MD MD rn Mazur, Sarah RN RN sm5 Muna Knight RN RN vc1
--- NOTE | 2021-11-17 03:55 | ER ---
Nurse's Notes [facility] Name: Raegan Jeffrey Age: 26 yrs Sex: Female : 1995 Arrival Date: 11/17/2021 Time: 00:31 Bed 19 Private MD: Diagnosis: Abdominal pain, unspecified Presentation: 11/17 00:48 Chief complaint: Patient states: sharp right sided abd pain with vomiting for past 2 sm5 days. Coronavirus screen: Vaccine status: Patient reports being unvaccinated. Ebola Screen: No symptoms or risks identified at this time. Initial Sepsis Screen: Does the patient meet any 2 criteria? No. Patient's initial sepsis screen is negative. Does the patient have a suspected source of infection? No. Patient's initial sepsis screen is negative. Risk Assessment: Do you want to hurt yourself or someone else? Patient reports no desire to harm self or others. Onset of symptoms was November 15, 2021. 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 - Social history:: Smoking status: unknown. Screenin:10 Abuse screen: Denies threats or abuse. Nutritional screening: No deficits noted. vc1 Tuberculosis screening: No symptoms or risk factors identified. Fall Risk None identified. Assessment: 01:00 General: Appears in no apparent distress. comfortable, Behavior is calm, cooperative, vc1 appropriate for age. Pain: Complains of pain in right upper quadrant Pain does not radiate. Pain currently is 6 out of 10 on a pain scale. Aggravated by eating, drinking. Neuro: No deficits noted. Cardiovascular: No deficits noted. Respiratory: No deficits noted. GI: Bowel sounds present X 4 quads. Abd is soft Abdomen is tender to palpation in right upper quadrant. : No signs and/or symptoms were reported regarding the genitourinary system. 01:30 Reassessment: Patient appears in no apparent distress at this time. Patient and/or vc1 family updated on plan of care and expected duration. Pain level reassessed. Patient states feeling better. Patient states symptoms have improved. 02:12 Reassessment: Patient appears in no apparent distress at this time. Patient and/or vc1 family updated on plan of care and expected duration. Pain level reassessed. Patient states feeling better. Patient states symptoms have improved. Vital Signs: 01:09 BP 106 / 61; Pulse 64; Resp 16; Temp 98.1(O); Pulse Ox 97% on R/A; Weight 52.16 kg; vc1 Height 4 ft. 9 in. (144.78 cm); Pain 7/10; 03:18 BP 105 / 61; Pulse 83; Resp 16; Pulse Ox 98% on R/A; Pain 0/10; vc1 01:09 Body Mass Index 24.89 (52.16 kg, 144.78 cm) vc1 ED Course: 00:31 Patient arrived in ED. ja2 00:46 Abdiaziz Cervantes PA is PHCP. [facility] 00:46 Thierry Jose MD is Attending Physician. [facility] 00:49 Triage completed. sm5 00:50 Arm band placed on right wrist. sm5 01:08 Muna Knight, RN is Primary Nurse. vc1 01:08 Basic Metabolic Panel Sent. vc1 01:08 CBC with Diff Sent. vc1 01:09 Hepatic Function Sent. vc1 01:09 Lipase Sent. vc1 01:09 Basic Metabolic Panel Sent. vc1 01:11 Patient has correct armband on for positive identification. vc1 01:11 Inserted saline lock: 20 gauge in right forearm, using aseptic technique. Blood vc1 collected. 01:49 CT Abd/Pelvis - IV Contrast Only In Process Unspecified. EDMS 03:00 US Abdomen Limited In Process Unspecified. EDMS 03:48 Urine --Ancillary (enter results) Sent. vc1 03:54 Juan Alberto Priest MD is Referral Physician. rn 04:04 No provider procedures requiring assistance completed. IV discontinued, intact, vc1 bleeding controlled, No redness/swelling at site. Pressure dressing applied. Administered Medications: 01:08 Drug: morphine 4 mg Route: IVP; Site: right forearm; vc1 01:32 Follow up: Response: No adverse reaction vc1 01:08 Drug: Zofran (Ondansetron) 4 mg Route: PO; vc1 01:32 Follow up: Response: No adverse reaction vc1 Outcome: 03:54 Discharge ordered by . rn 04:05 Condition: good vc1 04:05 Discharge instructions given to patient, Instructed on discharge instructions, follow up and referral plans. medication usage, Demonstrated understanding of instructions, follow-up care, medications, Prescriptions given X 1. 04:06 Patient left the ED. vc1 04:06 Discharged to home ambulatory. vc1 Signatures: Dispatcher [employer] EDMS Abdiaziz Cervantes PA PA jmm Nieto, Roman, MD MD rn Alexander, Jessica ja2 Mazur, Sarah RN RN sm5 Muna Knight RN RN vc1
[2021-11-17 04:06] LABS: Urine Specific Gravity/Preg 1.025 (1.005-1.030)
[2021-11-17 04:15] VITALS: TEMP 98.1
[2021-11-17 04:16] VITALS: BP 105/61; O2SAT 98
--- NOTE | 2021-11-17 09:24 | RAD REPORT ---
EXAM DESCRIPTION: US - Abdomen Exam Limited - 11/17/2021 3:00 am CLINICAL HISTORY: ABD PAIN COMPARISON: Abdomen Exam Limited dated 12/24/2019 FINDINGS: The gallbladder demonstrates no gallstones. No pericholecystic fluid or gallbladder wall t hickening. The common bile duct is normal measuring 3 mm. The liver demonstrates no findings of intrahepatic biliary dilatation. IMPRESSION: Unremarkable examination.
--- NOTE | 2021-11-17 15:14 | RAD REPORT ---
EXAM DESCRIPTION: CT Abdomen and Pelvis With Intravenous Contrast CLINICAL HISTORY: The patient is 26 years old and is Female; abdominal pain TECHNIQUE: Axial computed tomography images of the abdomen and pelvis with intravenous contrast. S agittal and coronal reformatted images were created and reviewed. This CT exam was performed using one or more of the following dose reduction techniques: automated exposure control, adjustment of t he mA and/or kV according to patient size, and/or use of iterative reconstruction technique. COMPARISON: No relevant prior studies available. FINDINGS: LUNG BASES: Unremarkable. No mass. No consolidation. ABDOMEN: LIVER: Unremarkable. No mass. GALLBLADDER AND BILE DUCTS: The gallbladder is distended. No calcified gallstones or ductal dilat ation is seen. PANCREAS: No ductal dilation. No mass. SPLEEN: A splenule is present within the left upper quadrant. The spleen is unremarkable. ADRENALS: Unremarkable. No mass. KIDNEYS AND URETERS: Unremarkable. The kidneys enhance symmetrically. No obstructing renal or ure teral calculus is seen. No hydronephrosis or hydroureter. No perinephric fluid or stranding. STOMACH AND BOWEL: The stomach is distended with fluid and air. The small bowel is normal in tristan nikole. Stool is present throughout colon. There is no mucosal thickening or evidence of bowel obstructi on. PELVIS: APPENDIX: The appendix is normal in caliber without surrounding inflammation. BLADDER: The bladder is nearly empty. REPRODUCTIVE: A 1.9 cm right ovarian cyst is present. No follow-up imaging is recommended. The ut erus and left ovary are normal. ABDOMEN and PELVIS: INTRAPERITONEAL SPACE: Trace free fluid is present within the pelvis which is likely physiologic. No free air. BONES/JOINTS: No acute fracture. SOFT TISSUES: The soft tissues are normal. VASCULATURE: Unremarkable. No abdominal aortic aneurysm. LYMPH NODES: Unremarkable. No enlarged lymph nodes. IMPRESSION: 1. Distended gallbladder. If there is clinical concern for acute gallbladder pathology , findings could be further evaluated with ultrasound or HIDA scan. 2. Moderate stool burden without obstruction. Normal appendix. Electronically signed by: Monserrat Holland MD 11/17/2021 2:24 AM NUTRIENT MANAGEMENT SPECIALIST Due to temporary technical issues with the PACS/Fluency reporting system, reports are being signed by the in house radiologists without review as a courtesy to insure prompt reporting. The interpreting radiologist is fully responsible for the content of the report.
== END 2021-11-17 04:06 | disposition home or self-care (01) ==
LOC: ER 00:28
DX: R10.9 Unspecified abdominal pain (principal); R11.10 Vomiting, unspecified
CPT/HCPCS: 36415; 74177; 76705; 80048; 80076; 81003; 81025; 82565; 83690; 85025; 96374; 99284; J2405; Q9967

== ENCOUNTER 2022-03-01 16:09 | Emergency (ER) | payer SELFPAY ==
--- OUTSIDE RECORDS SUMMARY | 2022-03-01 16:11 | XMS REPORT | Continuity of Care Document ---
:1995 Author Organization [facility] t Address [address] [place] [address] Care Team Providers Name Role Phone Yelitza HARDEN, T Attending Clinician Unavailable Yee Fraire Attending Clinician Payers Payer Name Policy Type Policy Number Effective Date Expiration Date S [employer] [place] [id number] 2019 00:00:00 WOMEN Problems Condition Condition Condition Status Onset Resolution Last Treating Co mments Source Name Details Category Date Date Treatment Clinician Date Obesity Obesity Disease Active 2017-10 Univers (BMI (BMI 0-25 ity of 30-39.9) 30-39.9) 00:00: [address] Branch Excessive Excessive Disease Active 2017-10 Uni vers weight weight 0-08 ity of gain gain 00:00: [address] Branch Abnormal Abnormal Disease Active Unive rs maternal maternal 9-06 ity of glucose glucose 00:00: [place] tolerance, tolerance, 00 Me dical antepartum antepartum Br anch Group B 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 7-24 it y of kimberly kimberly 00:00: [place] infection infection 00 Medi kimberly during during Branch Family Family Disease Active Univers history of history of 6-18 it y of cleft lip cleft lip 00:00[place] and palate and palate 00 Me dical Branch Allergies, Adverse Reactions, Alerts Allergy Allergy Status Severity Reaction(s) Onset Inactive Treating Comm ents Source Name Type Date Date Clinician NO KNOWN Drug Active Univers ALLERGIE Class ity of S [facility] Social History Social Habit Start Date Stop Date Quantity Comments Source Sex Assigned At Universit y of [facility] Exposure to Yes [facility] SARS-CoV-2 [facility] (event) Branch Tobacco use and 2020-07-26 2020-07-26 Never used Universit y of exposure 00:00:00 00:00:00 [facility] Alcohol intake 2020-07-26 2020-07-26 Current University 00:00:00 00:00:00 non-drinker of [facility] alcohol [place] (finding) Smoking Status Start Date Stop Date Source Never smoker [facility] Medications Ordered Filled Start Stop Current Ordering Indication Dosage Frequency Signature Comments Components Source Medication Medication Date Date Medication? Clinician (SIG) Name Name estradiol 1 2017-10 Yes 1mg Take 1 Univ ers mg tablet 2-17 tablet by ity o f 00:00: mouth [place] 00 daily. Medical Branch estradiol 1 2017-10 Yes 1mg Take 1 Univ ers mg tablet 2-17 tablet by ity o f 00:00: mouth [place] 00 daily. [facility] Immunizations Ordered Filled Immunization Date Status Comments Sour e Immunization Name Name Influenza Virus 2018-07-15 Completed Universit y of Vaccine Quad .5 mL 00:00:00 [facility] IM 6+ MO Branch Influenza Virus 2018-07-15 Completed Universit y of Vaccine Quad .5 mL 00:00:00 [facility] IM 6+ MO Branch TDAP 2018-06-13 Completed University of 00:00:00 [facility] TDAP 2018-06-13 Completed University of 00:00:00 [facility] HPV9 2017-09-26 Completed University of 00:00:00 [facility] HPV9 2017-09-26 Completed University of 00:00:00 [facility] TDAP 2017-07-27 Completed University of 00:00:00 [facility] HPV9 2017-07-27 Completed University of 00:00: [facility] TDAP 2017-07-27 Completed University of 00:00:00 [facility] HPV9 2017-07-27 Completed University of 00:00:00 [facility] Vital Signs Vital Name Observation Time Observation Value Comments Source Systolic blood 2020-07-26 05:07:00 112 mm[Hg] Univer sity of pressure [place] [facility] Diastolic blood 2020-07-26 05:07:00 76 mm[Hg] Unive rsity of pressure [place] [facility] Heart rate 2020-07-26 05:07:00 80 /min [facility]i ty [facility] [place] [facility] [place] Body temperature 2020-07-26 05:07:00 37.5 Karrie Univ ersity of [facility] Branch Respiratory rate 2020-07-26 05:07:00 20 /min Univ ersity of [place] [facility] Body height 2020-07-26 05:07:00 144.8 cm Universi ty [facility] [place] [facility] Body weight 2020-07-26 05:07:00 49.896 kg [facility] [place] [facility] BMI 2020-07-26 05:07:00 23.80 kg/m2 [facility]i ty [facility] [place] [facility] [place] Oxygen saturation in 2020-07-26 05:07:00 96 /min University of Arterial blood by [facility] Pulse oximetry Branch Systolic blood 2020-07-26 05:07:00 112 mm[Hg] Univer sity of pressure [place] [facility] Diastolic blood 2020-07-26 05:07:00 76 mm[Hg] Unive rsity of pressure [facility] Branch Heart rate 2020-07-26 05:07:00 80 /min [facility]i ty [facility] [place] [facility] [place] Body temperature 2020-07-26 05:07:00 37.5 Karrie Univ ersity of [facility] Branch Respiratory rate 2020-07-26 05:07:00 20 /min Univ ersity of [facility] Body height 2020-07-26 05:07:00 144.8 cm [facility] [place] [facility] Body weight 2020-07-26 05:07:00 49.896 kg [facility]i [facility] [place] [facility] BMI 2020-07-26 05:07:00 23.80 kg/m2 Universi ty of [facility] Branch Oxygen saturation in 2020-07-26 05:07:00 96 /min University of Arterial blood by [facility] Pulse oximetry Branch Procedures Procedure Date / Time Performed Performing Clinician Sour e POCT TEST 2020-07-26 05:28:00 Gustavo Gonzalez [facility] NOTICE OF PRIVACY 2020-07-26 05:04:36 Doctor Unassigned, No [facility] [place] PRACTICES Name Medical Branch CONSENT/REFUSAL FOR 2020-07-26 05:03:14 Doctor Unassigned, No Un iversity [facility] [place] DIAGNOSIS AND Name Medical Branch TREATMENT Encounters Start End Encounter Admission Attending Care Care Encounter Source Date/Time Date/Time Type Type Clinicians Facility Department ID 2021-08-05 Emergency [facility] [id number] Univers 23:35:55 ity of [facility] 2020-07-27 2020-07-27 Letter GLORY Torre [id number] 00:00:00 00:00:00 (Out) Fiona Samayoa JEAN MARIE [id number] [facility] [id number] 2020-07-27 2020-07-27 Letter GLORY Torre [id number] Univers 00:00:00 00:00:00 (Out) Fiona Yao JEAN MARIE [id number] it y of [facility] [id number] Pb as [id number] [address] 2020-07-26 2020-07-26 [facility] [id number] 00:09:00 01:21:00 Gustavo B [place] [id number] [place] [id number] [place] [id number] [facility] 2020-07-26 2020-07-26 [facility] [id number] Univers 00:09:00 01:21:00 Gustavo B [place] [id number] i ty of [place] [id number] [facility] [id number] [address] Results Test Description Test Time Test Comments Results Result Comments Source POCT Test 2020-07-26 05:28:00 Test Item Value Reference Range Interpretation Comme nts POCT PREG (test code = 1605) negative On board controls acceptable with C Line (test code = 3574) present POCT PREG LOT # (test code = 3575) [id number] POCT PREG TEST DATE (test code = 3576) Lab Interpretation (test code = 73809-3) Normal [facility]
[2022-03-01 16:52] LABS: Absolute Lymphocytes (CBC) 2.1 K/uL (0.7-4.9); Hematocrit 35.1 % (36.0-45.0); Lymphocytes % 32.8 % (15.3-44.8); MPV 7.1 fL (7.6-11.3); RBC Red Blood Cell Count 3.93 M/uL (3.86-4.86)
[2022-03-01] MEDS ORDERED: LIDOCAINE VISCOUS 2% SOLN 15 ML UDC ONE (16:56)
[2022-03-01] MEDS ORDERED: MAGNES/ALUMIN/SIMET 30ML UCUP ONE (16:56)
[2022-03-01 17:09] LABS: Protime INR 1.03
[2022-03-01 17:11] LABS: ALT/SGPT 17 U/L (12-78); AST/SGOT 14 U/L (15-37); Albumin 3.9 g/dL (3.4-5.0); Alkaline Phosphatase 69 U/L (45-117); BUN Blood Urea Nitrogen 12 mg/dL (7-18); Bicarbonate 29 mmol/L (21-32); Bilirubin Total 0.2 mg/dL (0.2-1.0); Glomerular Filtration Rate 97 ml/min (=/>90); Glucose Level 80 mg/dL (74-106); Magnesium 2.1 mg/dL (1.8-2.4); NT PRO-BNP 8 pg/mL (<125); Potassium 3.4 mmol/L (3.5-5.1); Protein, Total 7.5 g/dL (6.4-8.2); Sodium Level 141 mmol/L (136-145)
[2022-03-01 17:24] LABS: Bilirubin Direct < 0.1 mg/dL (0-0.2)
[2022-03-01 17:25] LABS: Troponin High Sensitivity < 3.0 pg/mL (<58.9)
[2022-03-01] MEDS ORDERED: FAMOTIDINE 20 MG/2 ML VIAL IV ONE (17:41)
[2022-03-01] MEDS ORDERED: KETOROLAC 30 MG/ML INJ ONE (17:41)
--- NOTE | 2022-03-01 18:09 | RAD REPORT ---
EXAM DESCRIPTION: RAD - Chest Single View - 03/01/2022 5:48 pm CLINICAL HISTORY: CHEST PAIN Chest pain. COMPARISON: ABDOMEN 1 VIEW KUB dated 07/24/2013; CHEST PA AND LAT 2 VIEW dated 10/29/2008 FINDINGS: Portable technique limits examination quality. The lungs are grossly clear. The heart is normal in size. No displaced fractures. IMPRESSION: No acute intrathoracic process suspected.
--- NOTE | 2022-03-01 19:03 | ER ---
Nurse's Notes [facility] Name: Raegan Jeffrey Age: 26 yrs Sex: Female : 1995 Arrival Date: 03/01/2022 Time: 16:22 Bed 12 Private MD: Diagnosis: Dysphagia, unspecified Presentation: 03/01 16:28 Chief complaint: Patient states: having some chest pains , feels like something is iw stuck in her chest , started this morning , when she tries to eat drink it hurts more, denies n/v. Coronavirus screen: At this time, the client does not indicate any symptoms associated with coronavirus-19. Ebola Screen: Patient negative for fever greater than or equal to 101.5 degrees Fahrenheit, and additional compatible Ebola Virus Disease symptoms Patient denies exposure to infectious person. Patient denies travel to an Ebola-affected area in the 21 days before illness onset. No symptoms or risks identified at this time. Initial Sepsis Screen: Does the patient meet any 2 criteria? No. Patient's initial sepsis screen is negative. Does the patient have a suspected source of infection? No. Patient's initial sepsis screen is negative. Risk Assessment: Do you want to hurt yourself or someone else? Patient reports no desire to harm self or others. Onset of symptoms was March 01, 2022. 16:28 Method Of Arrival: Ambulatory iw 16:28 Acuity: MARKOS 3 iw Triage Assessment: 17:29 General: Appears in no apparent distress. Behavior is calm, cooperative. Pain: ma Complains of pain in chest. 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 Screenin:28 Abuse screen: Denies threats or abuse. Denies injuries from another. Nutritional ma screening: No deficits noted. Tuberculosis screening: No symptoms or risk factors identified. Fall Risk None identified. Assessment: 17:28 Pain: Pain does not radiate. Pain began gradually. Cardiovascular: Reports chest pain. ma 17:42 Reassessment: Patient appears in no apparent distress at this time. Patient and/or iw family updated on plan of care and expected duration. Pain level reassessed. Patient is alert, oriented x 3, equal unlabored respirations, skin warm/dry/pink. Patient states symptoms have not improved. 18:56 Reassessment: Patient states symptoms have not improved. Vital Signs: 16:28 BP 91 / 65; Pulse 94; Resp 16; Temp 97.1; Pulse Ox 100% on R/A; Weight 52.16 kg; Height iw 4 ft. 9 in. (144.78 cm); Pain 2/10; 16:28 Body Mass Index 24.89 (52.16 kg, 144.78 cm) ED Course: 16:22 Patient arrived in ED. rg4 16:30 Triage completed. iw 16:30 Arm band placed on. iw 16:33 Abdiaziz Cervantes PA is PHCP. [facility] 16:33 Thierry Jose MD is Attending Physician. [facility] 16:41 Inserted saline lock: 22 gauge in right antecubital area, using aseptic technique. iw Patient maintains SpO2 saturation greater than 95% on room air. 16:42 Alissa Raines, RN is Primary Nurse. ma 17:28 Patient has correct armband on for positive identification. Bed in low position. ma monitor technician on. Pulse ox on. NIBP on. 17:28 No provider procedures requiring assistance completed. ma 17:50 XRAY Chest (1 view) In Process Unspecified. EDMS 19:02 Kole Garcia MD is Referral Physician. [facility] 19:08 IV discontinued, intact, Pressure dressing applied. ma Administered Medications: 17:07 Drug: GI Cocktail without - (Maalox Suspension 30 ml, Lidocaine Liquid 2 % 15 ma ml) Route: PO; 17:07 Follow up: Response: No adverse reaction ma 17:41 Drug: Ketorolac 30 mg Route: IVP; Site: right antecubital; iw 17:41 Drug: Pepcid (famotidine) 20 mg Route: IVP; Site: right antecubital; iw Medication: 17:28 VIS not applicable for this client. ma Outcome: 19:02 Discharge ordered by . [facility] 19:08 Discharged to home ambulatory, with family. ma 19:08 Condition: good 19:08 Discharge instructions given to patient, Prescriptions given X 2. 19:08 Patient left the ED. ma Signatures: Dispatcher [employer] EDMS Abdiaziz Cervantes PA PA jmm Williams, Irene, RN RN iw Garcia, Rubi rg4 Au-StagerAlissa RN RN ha Corrections: (The following items were deleted from the chart) 18:56 17:42 Reassessment: Patient appears in no apparent distress at this time. Patient iw and/or family updated on plan of care and expected duration. Pain level reassessed. Patient is alert, oriented x 3, equal unlabored respirations, skin warm/dry/pink. Patient states symptoms have improved. iw
--- NOTE | 2022-03-01 19:03 | EDPHYS ---
Physician Documentation [facility] Name: Raegan Jeffrey Age: 26 yrs Sex: Female : 1995 Arrival Date: 03/01/2022 Time: 16:22 Bed 12 Private MD: ED Physician Thierry Jose HPI: 03/01 16:36 This 26 yrs old Black Female presents to ER via Ambulatory with complaints of Chest jmm Pain. 16:36 The patient presents with a foreign body sensation in the throat. Onset: The jmm symptoms/episode began/occurred gradually, this morning. Modifying factors: The symptoms are alleviated by nothing, the symptoms are aggravated by swallowing. Associated signs and symptoms: Pertinent negatives fever. This is a 26-year-old female with no known chronic condition presents emerged department with complaints of chest pain and foreign body sensation when she swallows. Symptoms began this morning. pain worsened with swallowing. . 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 ROS: 16:36 Constitutional: Negative for fever, chills, and weight loss. jmm 16:36 Respiratory: Negative for shortness of breath, cough, wheezing, and pleuritic chest pain, Abdomen/GI: Negative for abdominal pain, nausea, vomiting, diarrhea, and constipation. 16:36 Cardiovascular: Positive for chest pain. 16:36 All other systems are negative. Exam: 16:36 Constitutional: This is a well developed, well nourished patient who is awake, alert, jmm and in no acute distress. Head/Face: atraumatic. Eyes: EOMI, no conjunctival erythema appreciated 16:36 Neck: Trachea midline, Supple Chest/axilla: Normal chest wall appearance and motion. Cardiovascular: Regular rate and rhythm. No edema appreciated Respiratory: Normal respirations, no respiratory distress appreciated Abdomen/GI: Non distended, soft Back: Normal ROM Skin: General appearance color normal MS/ Extremity: Moves all extremities, no obvious deformities appreciated, no edema noted to the lower extremities Neuro: Awake and alert Psych: Behavior is normal, Mood is normal, Patient is cooperative and pleasant 16:36 ENT: Posterior pharynx: erythema, that is mild. Vital Signs: 16:28 BP 91 / 65; Pulse 94; Resp 16; Temp 97.1; Pulse Ox 100% on R/A; Weight 52.16 kg; Height iw 4 ft. 9 in. (144.78 cm); Pain 2/10; 16:28 Body Mass Index 24.89 (52.16 kg, 144.78 cm) iw MDM: 16:36 Patient medically screened. [facility] 19:02 Data reviewed: vital signs, nurses notes. Counseling: I had a detailed discussion with daniel the patient and/or guardian regarding: the historical points, exam findings, and any diagnostic results supporting the discharge/admit diagnosis, lab results, radiology results, the need for outpatient follow up, to return to the emergency department if symptoms worsen or persist or if there are any questions or concerns that arise at home. ED course: Patient is alert nontoxic in appearance in the ED labs and imaging studies are negative. Patient advised to follow GI for further evaluation otherwise given strict return precautions. Patient understood agrees plan of care.. 03/01 16:37 Order name: Basic Metabolic Panel; Complete Time: 17:30 [facility] 03/01 16:37 Order name: CBC with Diff; Complete Time: 17:19 [facility] 03/01 16:37 Order name: LFT's; Complete Time: 17:30 [facility] 03/01 16:37 Order name: Magnesium; Complete Time: 17:30 [facility] 03/01 16:37 Order name: NT PRO-BNP; Complete Time: 17:30 [facility] 03/01 16:37 Order name: PT-INR; Complete Time: 17:19 [facility] 03/01 16:37 Order name: Troponin HS; Complete Time: 17:30 [facility] 03/01 16:37 Order name: XRAY Chest (1 view); Complete Time: 18:20 [facility] 03/01 16:37 Order name: EKG; Complete Time: 16:38 [facility] 03/01 16:37 Order name: EKG - Nurse/Tech; Complete Time: 16:53 [facility] 03/01 16:37 Order name: IV Saline Lock; Complete Time: 16:53 [facility] 03/01 16:37 Order name: Labs collected and sent; Complete Time: 16:53 [facility] 03/01 16:37 Order name: O2 Per Protocol; Complete Time: 17:05 [facility] 03/01 16:37 Order name: O2 Sat Monitoring; Complete Time: 17:05 [facility] Administered Medications: 17:07 Drug: GI Cocktail without - (Maalox Suspension 30 ml, Lidocaine Liquid 2 % 15 ma ml) Route: PO; 17:07 Follow up: Response: No adverse reaction ma 17:41 Drug: Ketorolac 30 mg Route: IVP; Site: right antecubital; iw 17:41 Drug: Pepcid (famotidine) 20 mg Route: IVP; Site: right antecubital; iw Disposition Summary: 03/01/22 19:02 Discharge Ordered Location: Home [facility] Condition: Stable [facility] Diagnosis - Dysphagia, unspecified m Followup: [facility] - With: Kole Garcia MD - When: 2 - 3 days - Reason: Recheck today's complaints, Continuance of care, Re-evaluation by your physician Discharge Instructions: - Discharge Summary Sheet [facility] - Clear Liquid Diet, Adult jm - Dysphagia [facility] Forms: - Medication Reconciliation Form [facility] - Thank You Letter [facility] - Antibiotic Education [facility] - Prescription Opioid Use [facility] Prescriptions: - omeprazole 40 mg Oral capsule,delayed release(DR/EC) - take 1 capsule by ORAL route once daily before a meal; 30 capsule; Refills: 0, [facility] Product Selection Permitted - Carafate 100 mg/mL Oral suspension - take 10 milliliter by ORAL route 4 times per day on an empty stomach 1 hour [facility] before meals and at bedtime; 200 milliliter; Refills: 0, Product Selection Permitted Addendum: 03/03/2022 06:58 Co-signature as Attending Physician, Thierry Jose MD. r n Signatures: Dispatcher [employer] EDAbdiaziz Bauer PA PA [facility] Sylvia Cisse RN RN iw Nieto, Roman, MD MD rn Au-Stager, Heather RN RN ma
[2022-03-01 19:17] VITALS: BP 91/65; TEMP 97.1; O2SAT 100
--- NOTE | 2022-03-02 07:53 | EKG ---
Test Date: 2022-03-01 Test Time: 16:47:32 Exhibit Builder: RAYSA MEASUREMENT RESULTS: Intervals: Rate: 76 CA: 138 QRSD: 74 QT: 362 QTc: 407 [place]: P: 53 CA: 138 QRS: 61 T: 19 INTERPRETIVE STATEMENTS: Sinus rhythm with premature supraventricular complexes Nonspecific T wave abnormality Abnormal ECG Compared to ECG 01/03/2018 22:47:14 Atrial premature complex(es) now present T-wave abnormality now present Sinus arrhythmia no longer present Right-axis deviation no longer present Electronically Signed On 03-02-22 07:52:01 CDT by Ventura Mary
== END 2022-03-01 19:08 | disposition home or self-care (01) ==
LOC: ER 16:09
DX: R13.10 Dysphagia, unspecified (principal); R07.9 Chest pain, unspecified
CPT/HCPCS: 36415; 71045; 80048; 80076; 83735; 83880; 84484; 85025; 85610; 93005; 96374; 96375; 99285; J3490

== ENCOUNTER 2022-07-31 19:17 | Emergency (ER) | payer OTHER, SELFPAY ==
--- NOTE | 2022-07-31 21:18 | ER ---
Nurse's Notes [facility] Name: Raegan Jeffrey Age: 26 yrs Sex: Female : 1995 Arrival Date: 07/31/2022 Time: 19:21 Bed 16 Private MD: Diagnosis: Acute upper respiratory infection, unspecified Presentation: 07/31 19:46 Chief complaint: Patient states: "I have been sick for the last week and my chest hurts vc1 so bad from coughing so much.". Coronavirus screen: Vaccine status: Patient reports receiving the 1st dose of the Covid vaccine. 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 Standard/surgical mask placed on the client. Provider contacted for isolation considerations. Ebola Screen: No symptoms or risks identified at this time. Initial Sepsis Screen: Does the patient meet any 2 criteria? No. Patient's initial sepsis screen is negative. Does the patient have a suspected source of infection? No. Patient's initial sepsis screen is negative. Risk Assessment: Do you want to hurt yourself or someone else? Patient reports no desire to harm self or others. Onset of symptoms is unknown. 19:46 Method Of Arrival: Ambulatory vc1 19:46 Acuity: MARKOS 4 vc1 Triage Assessment: 19:49 General: Appears uncomfortable, ill, Behavior is calm, cooperative, appropriate for vc1 age. Pain: Complains of pain in chest Pain does not radiate. Pain currently is 0 out of 10 on a pain scale. at worst was 7 out of 10 on a pain scale. Aggravated by coughing. Neuro: Level of Consciousness is awake, alert, obeys commands, Oriented to person, place, time, situation, Appropriate for age. Cardiovascular: Reports chest pain, with cough. Respiratory: Reports cough that is non-productive, dry, persistent Airway is patent Respiratory effort is even, unlabored, Respiratory pattern is regular, symmetrical. GI: No deficits noted. : No deficits noted. Derm: No deficits noted. Musculoskeletal: No deficits noted. 19:54 EENT: Reports pain in Throat. 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 - Social history:: Smoking status: Patient denies any tobacco usage or history of. Screenin:52 Abuse screen: Denies threats or abuse. Nutritional screening: No deficits noted. vc1 Tuberculosis screening: No symptoms or risk factors identified. Fall Risk None identified. Assessment: 19:54 Pain: Pain began gradually. vc1 20:55 Reassessment: No changes from previously documented assessment. Patient and/or family vc1 updated on plan of care and expected duration. Pain level reassessed. Pain: Complains of pain in chest. Vital Signs: 19:46 BP 107 / 65 RA Sitting; Pulse 89 RA; Resp 16 S; Temp 99.0(O); Pulse Ox 100% on R/A; vc1 Weight 56.25 kg; Height 4 ft. 9 in. (144.78 cm); Pain 7/10; 20:54 BP 100 / 57; Pulse 87; Resp 23; Pulse Ox 100% ; vc1 19:46 Body Mass Index 26.83 (56.25 kg, 144.78 cm) vc1 ED Course: 19:21 Patient arrived in ED. am2 19:22 Andrzej Tamayo is PHCP. jl9 19:22 Brooks Rosario MD is Attending Physician. jl9 19:38 Muna Knight RN is Primary Nurse. vc1 19:49 Triage completed. vc1 19:51 Arm band placed on right wrist. vc1 19:52 Patient has correct armband on for positive identification. Client placed on continuous vc1 cardiac and pulse oximetry monitoring. NIBP monitoring applied. 20:08 Strep Sent. vc1 20:08 Flu Sent. vc1 20:08 SARS-COV-2 RT PCR (Document "Date of Onset" if Symptomatic) Sent. vc1 21:25 No provider procedures requiring assistance completed. Patient did not have IV access vc1 during this emergency room visit. Patient maintains SpO2 saturation greater than 95% on room air. Administered Medications: No medications were administered Medication: 19:54 VIS not applicable for this client. vc1 Outcome: 21:18 Discharge ordered by MD. murillo 21:26 Discharged to home ambulatory, with significant other. vc1 21:26 Condition: good 21:26 Discharge instructions given to patient, Instructed on discharge instructions, follow up and referral plans. medication usage, Demonstrated understanding of instructions, follow-up care, medications, Prescriptions given X 4. 21:26 Patient left the ED. vc1 Signatures: Casandra Robert Vanessa, RN RN vc1 Andrzej Tamayo9
--- NOTE | 2022-07-31 21:18 | EDPHYS ---
Physician Documentation [facility] Name: Raegan Jeffrey Age: 26 yrs Sex: Female : 1995 Arrival Date: 07/31/2022 Time: 19:21 Bed 16 Private MD: ED Physician Brooks Rosario HPI: 07/31 20:33 This 26 yrs old Black Female presents to ER via Ambulatory with complaints of Cough, jl9 Headache. Patient reports being sick for 1 week. Negative home COVID test. . 20:33 Onset: The symptoms/episode began/occurred 1 week(s) ago. Associated signs and jl9 symptoms: Pertinent positives: cough, headache. Modifying factors: The patient symptoms are alleviated by nothing, the patient symptoms are aggravated by nothing. The patient has not experienced similar symptoms in the past. 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 - Social history:: Smoking status: Patient denies any tobacco usage or history of. ROS: 20:34 Constitutional: Negative for fever, chills, and weight loss, Eyes: Negative for injury, jl9 pain, redness, and discharge, ENT: Negative for injury, pain, and discharge, Neck: Negative for injury, pain, and swelling, Cardiovascular: Negative for chest pain, palpitations, and edema, Abdomen/GI: Negative for abdominal pain, nausea, vomiting, diarrhea, and constipation, Back: Negative for injury and pain, : Negative for injury, bleeding, discharge, and swelling. 20:34 MS/Extremity: Negative for injury and deformity, Skin: Negative for injury, rash, and discoloration. 20:34 Psych: Negative for depression, anxiety, suicide ideation, homicidal ideation, and hallucinations, Allergy/Immunology: Negative for hives, rash, and allergies, Endocrine: Negative for neck swelling, polydipsia, polyuria, polyphagia, and marked weight changes, Hematologic/Lymphatic: Negative for swollen nodes, abnormal bleeding, and unusual bruising. 20:34 Respiratory: Positive for cough, "sounds productive". 20:34 Neuro: Positive for headache. Exam: 20:35 Constitutional: This is a well developed, well nourished patient who is awake, alert, jl9 and in no acute distress. Head/Face: Normocephalic, atraumatic. Eyes: Pupils equal round and reactive to light, extra-ocular motions intact. Lids and lashes normal. Conjunctiva and sclera are non-icteric and not injected. Cornea within normal limits. Periorbital areas with no swelling, redness, or edema. ENT: Mucous membranes moist. Neck: Trachea midline, no thyromegaly or masses palpated, and no cervical lymphadenopathy. Supple, full range of motion without nuchal rigidity, or vertebral point tenderness. No Meningismus. Chest/axilla: Normal chest wall appearance and motion. Nontender with no deformity. No lesions are appreciated. Cardiovascular: Regular rate and rhythm with a normal S1 and S2. No gallops, murmurs, or rubs. Normal PMI, no JVD. No pulse deficits. 20:35 Abdomen/GI: Soft, non-tender, with normal bowel sounds. No distension or tympany. No guarding or rebound. No evidence of tenderness throughout. Back: No spinal tenderness. No costovertebral tenderness. Full range of motion. Skin: Warm, dry with normal turgor. Normal color with no rashes, no lesions, and no evidence of cellulitis. MS/ Extremity: Pulses equal, no cyanosis. Neurovascular intact. Full, normal range of motion. Neuro: Awake and alert, GCS 15, oriented to person, place, time, and situation. Cranial nerves II-XII grossly intact. Motor strength 5/5 in all extremities. Sensory grossly intact. Cerebellar exam normal. Normal gait. Psych: Awake, alert, with orientation to person, place and time. Behavior, mood, and affect are within normal limits. 20:35 Respiratory: the patient does not display signs of respiratory distress, Respirations: normal, Breath sounds: + upper airway congestion. Vital Signs: 19:46 BP 107 / 65 RA Sitting; Pulse 89 RA; Resp 16 S; Temp 99.0(O); Pulse Ox 100% on R/A; vc1 Weight 56.25 kg; Height 4 ft. 9 in. (144.78 cm); Pain 7/10; 20:54 BP 100 / 57; Pulse 87; Resp 23; Pulse Ox 100% ; vc1 19:46 Body Mass Index 26.83 (56.25 kg, 144.78 cm) vc1 MDM: 19:38 Patient medically screened. jl9 20:35 Data reviewed: vital signs, nurses notes. jl9 21:17 Differential diagnosis: viral Infection, bacterial infection, URI. Counseling: I had a jl9 detailed discussion with the patient and/or guardian regarding: the historical points, exam findings, and any diagnostic results supporting the discharge/admit diagnosis, lab results, the need for outpatient follow up, to return to the emergency department if symptoms worsen or persist or if there are any questions or concerns that arise at home. 07/31 19:22 Order name: SARS-COV-2 RT PCR (Document "Date of Onset" if Symptomatic); Complete Time: jl9 21:17 07/31 19:22 Order name: Flu; Complete Time: 21:17 jl9 07/31 19:58 Order name: Strep; Complete Time: 21:17 vc1 07/31 20:34 Order name: Throat Culture EDMS Administered Medications: No medications were administered Disposition: 08/01 04:18 Co-signature as Attending Physician, Brooks Rosario MD I agree with the assessment and tamika plan of care. Disposition Summary: 07/31/22 21:18 Discharge Ordered Location: Home jl9 Condition: Stable jl9 Diagnosis - Acute upper respiratory infection, unspecified jl9 Followup: jl9 - With: Private Physician - When: 1 - 2 days - Reason: Recheck today's complaints, Continuance of care, Re-evaluation by your physician Discharge Instructions: - Discharge Summary Sheet jl9 - Upper Respiratory Infection, Adult jl9 Forms: - Medication Reconciliation Form jl9 - Thank You Letter jl9 - Antibiotic Education jl9 - Prescription Opioid Use jl9 Prescriptions: - albuterol sulfate 90 mcg/actuation Inhalation HFA aerosol inhaler - inhale 2 puff by INHALATION route every 4 hours As needed; 18 gram; Refills: 0, jl9 Product Selection Permitted - azithromycin 250 mg Oral tablet - take 2 tablet by ORAL route once daily for 1 day then 1 tablet (250 mg) by oral jl9 route once daily for 4 days; 6 tablet; Refills: 0, Product Selection Permitted - Medrol (Kwesi) 4 mg Oral Tablets, Dose Pack - take 1 tablet by ORAL route as directed - follow package instructions; 1 9 packet; Refills: 0, Product Selection Permitted - Guaifenesin AC 10-100 mg/5 mL Oral Liquid - take 10 milliliters by ORAL route every 4 hours As needed; 240 milliliter; jl9 Refills: 0, Product Selection Permitted Signatures: Dispatcher [employer] Brooks Torres MD MD cha Calcote, Vanessa RN RN vc1 Andrzej Tamayo jl9
[2022-07-31 22:23] VITALS: TEMP 99; O2SAT 100
[2022-07-31 22:24] VITALS: BP 100/57
== END 2022-07-31 21:26 | disposition home or self-care (01) ==
LOC: ER 19:17
DX: O99.511 Diseases of the respiratory system complicating pregnancy, first trimester (principal); J06.9 Acute upper respiratory infection, unspecified; Z3A.09 9 weeks gestation of pregnancy; Z20.822 Contact with and (suspected) exposure to COVID-19
CPT/HCPCS: 87070; 87081; 87804 ×2; 99284; U0003

== ENCOUNTER 2023-09-18 13:15 | Emergency (ER) | payer OTHER, SELFPAY ==
--- OUTSIDE RECORDS SUMMARY | 2023-09-18 13:23 | XMS REPORT | Continuity of Care Document ---
Author Name Unknown Address [address] [facility] [address] [place] [address] [facility] thconnect Address [address] [facility] [place] [address] Care Team Providers Care Adoption Specialist Name Role Phone PCP, PATIENT DOES NOT HAVE A Primary Care Physic joselo Unavailable GOLDIE MIRANDA Attending Clinician Unavailable Alissa Ch MA Attending Clinician UnavailGoldie Fenton MD Attending Clinician [phone] Doctor Unassigned, [place] Attending Clinician U flo Pob, [facility] Main Attending Clinician UnavailAnn Keith MD Attending Clinician [phone] ANN MONTALVO Attending Clinician UnavailNELIDA Hughes Attending Clinician Unavailable Nelida Castañeda PA-C Attending Clinician [phone] Lawrence Savage CRNA Attending Clinician [phone] Adry Shah MD Attending Clinician [phone] AYLIN SUAREZ Attending Clinician Abiola billings 2, [facility] Attending Clinician Unavailable Keenan DEWEY, Aylin Mock Attending Clinician [phone] Ultrasound, Adc Mfm Attending Clinician Abiola Severino MD, Bernard Attending Clinician + TRISH UMANZOR Attending Clinician Danita Torre RN, Fiona Samayoa Attending Clinician Unavailab hazel Gonzalez RECRUITMENT ASSISTANT, Gustavo B Attending Clinician [phone] GOLDIE MIRANDA Admitting Clinician Unavailable Goldie Miranda MD Admitting Clinician [phone] Payers Payer Name Policy Type Policy Number Effective Date Expirati on Date Source [facility] [place] [id number] 2022 00:00:00 [facility] [id number] 2019 00:00:00 [facility] [id number] 2022 00:00:00 Problems Condition Name Condition Details Condition Category Status Onset Date Resolution Date Last Treatment Date Treating Clinician Comments Source Status post bilateral salpingect carson Status post bilateral salpingect carson Disease Active 0 8-08 00:00: 00 [facility] Routine follow-up Routine follow-up Disease Active 0 7-03 00:00: 00 [facility] Liveborn infant, of [place] , born in hospital by vaginal delivery Liveborn , of [place] , born in hospital by vaginal delivery Disease Active 0 5-18 00:00: 00 [facility] Vulvar itching Vulvar itching Disease Active 0 4-25 00:00: 00 [facility] Itching Itching Disease Active 0 4-25 00:00: 00 [facility] Palpitatio ns Palpitatio ns Disease Active 0 4-20 00:00: 00 [facility] Dizziness and giddiness Dizziness and giddiness Disease Active 0 4-20 00:00: 00 [facility] Low back pain during in second trimester Low back pain during in second trimester Disease Active 2023-0 2-15 00:00: 00 [facility] Encounter for tubal ligation counseling Encounter for tubal ligation counseling Disease Active 2-15 00:00: 00 [facility] High risk , antepartum High risk , antepartum Disease Active 2021-10 0-26 00:00: 00 [facility] 39 weeks gestation of 39 weeks gestation of Disease Active 2017-10 0 00:00: 00 [facility] Obesity (BMI 30-39.9) Obesity (BMI 30-39.9) Disease Active 2017-10 0-25 00:00: 00 [facility] Excessive weight gain Excessive weight gain Disease Active 2017-10 008 00:00: 00 [facility] Abnormal maternal glucose tolerance, antepartum Abnormal maternal glucose tolerance, antepartum Disease Active 906 00:00: 00 [facility] Group B streptococ kimberly infection during Group B streptococ kimberly infection during Disease Active 04-30 00:00: 00 [facility] Family history of cleft lip and palate Family history of cleft lip and palate Disease Active 03-25 00:00: 00 [facility] Constipati on, unspecifie d constipati on type Constipati on, unspecifie d constipati on type Disease Active 618 00:00: 00 [facility] Allergies, Adverse Reactions, Alerts Allergy Name Allergy Type Status Severity Reaction(s) Onset Date Inactive Date Treating Clinician Comments Source NO KNOWN ALLERGIE S Drug Class Active [facility] Social History Social Habit Start Date Stop Date Quantity Comments Source ASSERTION 2022-06-08 00:00:00 [facility] Gender identity [facility] Alcohol intake 2023-05-29 00:00:00 2023-05-29 00:00:00 Ex-drinker (finding) [facility] History of Social function 2023-05-15 00:00:00 2023-05-15 00:00:00 [facility] Exposure to SARS-CoV-2 (event) 2023-02-05 00:00:00 2023-02-15 15:23:00 Not sure [facility] Tobacco use and exposure 2022-08-02 00:00:00 2022-08-02 00:00:00 Smokeless tobacco non-user [facility] Sex Assigned At 1995 00:00:00 1995 00:00:00 [facility] Smoking Status Start Date Stop Date Source Never smoked tobacco [facility] Medications Ordered Medication Name Filled Medication Name Start Date Stop Date Current Medication? Ordering Clinician Indication Dosage Frequency Signature (SIG) Comments Components Source HYDROmorphO ne (DILAUDID) injection 0.2 mg 05-15 13:53: 37 Yes .2mg 0.2 mg, Slow IV Push, Q5MIN PRN, 5 doses, Starting on Sun05/15/23 at 0853, Until Discontinu ed, Routine, Pain (scale 7-10), PACU
Us e approved by (Faculty): PACU USE -ANESTHESI A SERVICE-HY DROMORPHON E INJECTIONS [facility] FENTanyl PF (SUBLIMAZE (PF)) injection 25 mcg 05-15 13:53: 37 Yes 25ug 25 mcg, Slow IV Push, Q5MIN PRN, 4 doses, Starting on Sun05/15/23 at 0853, Until Discontinu ed, Routine, Pain (scale 4-6), PACU [facility] ondansetron (ZOFRAN (PF)) injection 4 mg 05-15 13:53: 37 Yes 4mg 4 mg, Slow IV Push, PRN, 1 dose, Starting on Sun05/15/23 at 0853, Until Discontinu ed, Routine, Nausea and Vomiting (N/V), PACU [facility] HYDROmorphO ne (DILAUDID) injection 0.2 mg 05-15 13:53: 37 05-15 16:46 :17 No .2mg 0.2 mg, Slow IV Push, Q5MIN PRN, 5 doses, Starting on Sun05/15/23 at 0853, Until Sun05/15/23 at 1146, Routine, Pain (scale 7-10), PACU
Us e approved by (Faculty): PACU USE -ANESTHESI A SERVICE-HY DROMORPHON E INJECTIONS [facility] FENTanyl PF (SUBLIMAZE (PF)) injection 25 mcg 05-15 13:53: 37 05-15 16:46 :17 No 25ug 25 mcg, Slow IV Push, Q5MIN PRN, 4 doses, Starting on Sun05/15/23 at 0853, Until Sun05/15/23 at 1146, Routine, Pain (scale 4-6), PACU [facility] ondansetron (ZOFRAN (PF)) injection 4 mg 05-15 13:53: 37 05-15 16:46 :17 No 4mg 4 mg, Slow IV Push, PRN, 1 dose, Starting on Sun05/15/23 at 0853, Until Sun05/15/23 at 1146, Routine, Nausea and Vomiting (N/V), PACU [facility] sodium chloride 0.9 % irrigation solution 05-15 13:36: 00 05-15 13:52 :00 No PRN, Starting on Sun05/15/23 at 0836, Until Sun05/15/23 at 0852, Intra-op [facility] bupivacaine (preserv free) 0.5% (SENSORCAIN E MPF) injection 05-15 13:11: 00 05-15 13:52 :00 No PRN, Starting on Sun05/15/23 at 0811, Until Sun05/15/23 at 0852, Routine, Intra-op [facility] lactated ringers IV infusion 1,000 mL 05-15 12:00: 00 05-15 12:11 :00 No 1000mL at 42 mL/hr, 1,000 mL, IV Infusion, ONCE, 1 dose, On Sun05/15/23 at 0700, Routine, DSU Pre-op [facility] lactated ringers IV infusion 1,000 mL 05-15 12:00: 00 05-15 12:11 :00 No 1000mL at 42 mL/hr, 1,000 mL, IV Infusion, ONCE, 1 dose, On Sun05/15/23 at 0700, Routine, DSU Pre-op [facility] acetaminoph en (TYLENOL) 325 mg tablet 2022-0 05-15 00:00: 00 Yes [id number] 650mg Take 2 tablets by mouth every 6 (six) hours as needed for Pain (scale 1-3) or Pain (scale 4-6). [facility] ibuprofen 600 mg tablet 2022-0 05-15 00:00: 00 Yes [id number] 600mg Take 1 tablet by mouth every 6 (six) hours as needed for Pain (scale 1-3) or Pain (scale 4-6). [facility] simethicone 80 mg chewable tablet 2022-0 05-15 00:00: 00 Yes [id number] 80mg Take 1 tablet by mouth after meals and at bedtime. [facility] acetaminoph en (TYLENOL) 325 mg tablet 2022-0 05-15 00:00: 00 Yes [id number] 650mg Take 2 tablets by mouth every 6 (six) hours as needed for Pain (scale 1-3) or Pain (scale 4-6). [facility] ibuprofen 600 mg tablet 2022-0 05-15 00:00: 00 Yes [id number] 600mg Take 1 tablet by mouth every 6 (six) hours as needed for Pain (scale 1-3) or Pain (scale 4-6). [facility] simethicone 80 mg chewable tablet 2022-0 05-15 00:00: 00 Yes [id number] 80mg Take 1 tablet by mouth after meals and at bedtime. [facility] acetaminoph en (TYLENOL) 325 mg tablet 2022-0 05-15 00:00: 00 Yes [id number] 650mg Take 2 tablets by mouth every 6 (six) hours as needed for Pain (scale 1-3) or Pain (scale 4-6). [facility] ibuprofen 600 mg tablet 2022-0 05-15 00:00: 00 Yes [id number] 600mg Take 1 tablet by mouth every 6 (six) hours as needed for Pain (scale 1-3) or Pain (scale 4-6). [facility] simethicone 80 mg chewable tablet 0 8 00:00: 00 Yes [id number] 80mg Take 1 tablet by mouth after meals and at bedtime. [facility] acetaminoph en (TYLENOL) 325 mg tablet 808 00:00: 00 05-29 00:00 :00 No [id number] 650mg Take 2 tablets by mouth every 6 (six) hours as needed for Pain (scale 1-3) or Pain (scale 4-6). [facility] ibuprofen 600 mg tablet 05-15 00:00: 00 05-29 00:00 :00 No [id number] 600mg Take 1 tablet by mouth every 6 (six) hours as needed for Pain (scale 1-3) or Pain (scale 4-6). [facility] simethicone 80 mg chewable tablet 05-15 00:00: 00 05-29 00:00 :00 No [id number] 80mg Take 1 tablet by mouth after meals and at bedtime. [facility] acetaminoph en (TYLENOL) 325 mg tablet 05-15 00:00: 00 05-29 00:00 :00 No [id number] 650mg Take 2 tablets by mouth every 6 (six) hours as needed for Pain (scale 1-3) or Pain (scale 4-6). [facility] ibuprofen 600 mg tablet 05-15 00:00: 00 05-29 00:00 :00 No [id number] 600mg Take 1 tablet by mouth every 6 (six) hours as needed for Pain (scale 1-3) or Pain (scale 4-6). [facility] simethicone 80 mg chewable tablet 05-15 00:00: 00 05-29 00:00 :00 No [id number] 80mg Take 1 tablet by mouth after meals and at bedtime. [facility] HYDROcodone -acetaminop hen 5-325 mg tablet 808 00:00: 00 2023- 08-10 04:59 :00 No [id number] 1{tbl} Take 1 tablet by mouth every 6 (six) hours as needed for Pain (scale 7-10) for up to 1 day. Indication s: acute pain [facility] HYDROcodone -acetaminop hen 5-325 mg tablet 8-08 00:00: 00 05-17 04:59 :00 No [id number] 1{tbl} Take 1 tablet by mouth every 6 (six) hours as needed for Pain (scale 7-10) for up to 1 day. Indication s: acute pain [facility] HYDROcodone -acetaminop hen 5-325 mg tablet 808 00:00: 00 05-17 04:59 :00 No [id number] 1{tbl} Take 1 tablet by mouth every 6 (six) hours as needed for Pain (scale 7-10) for up to 1 day. Indication s: acute pain [facility] medroxyPROG ESTERone (DEPO-PROVE RA) syringe 150 mg 04-09 22:45: 00 04-09 21:50 :00 No [id number] 150mg [facility] medroxyPROG ESTERone (DEPO-PROVE RA) syringe 150 mg 04-09 22:45: 00 04-09 21:50 :00 No [id number] 150mg 150 mg, Intramuscu lar, ONCE, 1 dose, On Sun04/09/23 at 1745, Routine [facility] SERTraline (ZOLOFT) 50 mg tablet 12 00:00: 00 Yes [id number] 50mg Take 1 tablet by mouth in the morning. [facility] SERTraline (ZOLOFT) 50 mg tablet 12 00:00: 00 04-09 00:00 :00 No [id number] 50mg Take 1 tablet by mouth in the morning. [facility] ibuprofen 600 mg tablet 5-20 00:00: 00 Yes [id number] 102 600mg Take 1 tablet by mouth every 6 (six) hours as needed (Pain). Take with food or milk. [facility] ibuprofen 600 mg tablet 02-24 00:00: 00 Yes [id number] 102 600mg Take 1 tablet by mouth every 6 (six) hours as needed (Pain). Take with food or milk. [facility] ibuprofen 600 mg tablet 02-24 00:00: 00 Yes [id number] 102 600mg Take 1 tablet by mouth every 6 (six) hours as needed (Pain). Take with food or milk. [facility] ibuprofen 600 mg tablet 02-24 00:00: 00 Yes [id number] 102 600mg Take 1 tablet by mouth every 6 (six) hours as needed (Pain). Take with food or milk. [facility] ibuprofen 600 mg tablet 02-24 00:00: 00 04-09 00:00 :00 No [id number] 102 600mg Take 1 tablet by mouth every 6 (six) hours as needed (Pain). Take with food or milk. [facility] rho(D) immune globulin (RHOGAM) syringe 300 mcg 02-23 05:20: 31 Yes 300ug 300 mcg, Intramuscu lar, ONCE, For 1 dose, Conditiona l, Routine [facility] witch Yusef (TUCKS) 50 % topical pad 02-23 05:20: 27 Yes Topical, Q4HPRN, Starting on Sun02/23/23 at 0020, Until Discontinu ed, Routine, rectal/hem orrhoidal pain [facility] HYDROcodone -acetaminop hen (NORCO 5) 5-325 mg tablet 1 tablet 02-23 05:20: 27 Yes 1{tbl} 1 tablet, Oral, Q6HPRN, Starting on Sun02/23/23 at 0020, Until Discontinu ed, Routine, Pain (scale 7-10) [facility] ibuprofen (IBU) tablet 600 mg 02-23 05:20: 27 Yes 600mg 600 mg, Oral, Q6HPRN, Starting on Sun02/23/23 at 0020, Until Discontinu ed, Routine, Pain (scale 4-6) [facility] acetaminoph en (TYLENOL) tablet 650 mg 02-23 05:20: 27 Yes 650mg 650 mg, Oral, Q6HPRN, Starting on Sun02/23/23 at 0020, Until Discontinu ed, Routine, Pain (scale 1-3) [facility] diphenhydrA MINE (BENADRYL) tablet 25 mg 02-23 05:20: 27 Yes 25mg 25 mg, Oral, Q6HPRN, Starting on Sun02/23/23 at 0020, Until Discontinu ed, Routine, Sleep, Itching [facility] ondansetron (ZOFRAN (PF)) injection 4 mg 02-23 05:20: 27 Yes 4mg 4 mg, Slow IV Push, Q8HPRN, Starting on Sun02/23/23 at 0020, Until Discontinu ed, Routine, Nausea and Vomiting (N/V) [facility] simethicone (GAS RELIEF (SIMETHICON E)) chewable tablet 160 mg 02-23 05:20: 27 Yes 160mg 160 mg, Oral, PC+HSPRN, Starting on Sun02/23/23 at 0020, Until Discontinu ed, Routine, Gas [facility] docusate (COLACE) capsule 200 mg 02-23 05:20: 27 Yes 200mg 200 mg, Oral, QDAILYPRN, Starting on Sun02/23/23 at 0020, Until Discontinu ed, Routine, Constipati on [facility] magnesium hydroxide (MILK OF MAGNESIA) 400 mg/5 mL suspension 30 mL 02-23 05:20: 27 Yes 30mL 30 mL, Oral, QDAILYPRN, Starting on Sun02/23/23 at 0020, Until Discontinu ed, Routine, Constipati on [facility] benzocaine- menthol (DERMOPLAST ) 20-0.5 % topical spray 02-23 05:20: 27 Yes Topical, PRN, Starting on Sun02/23/23 at 0020, Until Discontinu ed, Routine, Perineum discomfort [facility] fentaNYL-ro pivacaine 2 mcg/mL-0.1 % (PF) in NS 200 mL epidural infusion RTU 02-22 23:18: 00 Yes Epidural, ONCE INTRA PROCEDURE, Starting on Brittany 02/22/23 at 1818, Until Discontinu ed, Routine, Intra-op [facility] fentaNYL-ro pivacaine 2 mcg/mL-0.1 % (PF) in NS 200 mL epidural infusion RTU 02-22 23:18: 00 02-23 11:49 :57 No Epidural, ONCE INTRA PROCEDURE, Starting on Brittany 02/22/23 at 1818, Until Discontinu ed, Routine, Intra-op [facility] lactated ringers IV infusion 500 mL 02-22 09:13: 54 02-23 01:42 :00 No 500mL at 999 mL/hr, 500 mL, IV Infusion, PRN - SEE INSTRUCTIO NS, 1 dose, Starting on Brittany 02/22/23 at 0413, Until Discontinu ed, Routine [facility] oxytocin (PITOCIN) 30 units in NS 500 mL IV infusion 02-22 09:13: 51 02-23 05:20 :29 No 2mU/min at 2-40 mL/hr, IV Infusion, TITRATE, Starting on Brittany 02/22/23 at 0413, Until Sun02/23/23 at 0020, RODNEY [facility] D5W-LR IV infusion 1,000 mL 02-22 09:13: 51 02-23 05:20 :29 No 1000mL at 1-125 mL/hr, IV Infusion, TITRATE, Starting on Brittany 02/22/23 at 0413, Until Sun02/23/23 at 0020, Routine [facility] FENTanyl PF (SUBLIMAZE (PF)) injection 50 mcg 02-22 09:13: 48 02-23 05:20 :29 No 50ug 50 mcg, Slow IV Push, Q2HPRN, Starting on Brittany 02/22/23 at 0413, Until Sun02/23/23 at 0020, Routine, contractio n pain without an epidural and SVE < 8 cm and Cat I strip [facility] triamcinolo ne acetonide 0.1 % ointment 2022-0 508 00:00: 00 Yes [id number] Apply to area(s) 2 (two) times daily. [facility] triamcinolo ne acetonide 0.1 % ointment 2022-0 08 00:00: 00 Yes [id number] Apply to area(s) 2 (two) times daily. [facility] triamcinolo ne acetonide 0.1 % ointment 2022-0 08 00:00: 00 Yes [id number] Apply to area(s) 2 (two) times daily. [facility] triamcinolo ne acetonide 0.1 % ointment 0 08 00:00: 00 Yes [id number] Apply to area(s) 2 (two) times daily. [facility] triamcinolo ne acetonide 0.1 % ointment 2022-0 08 00:00: 00 Yes [id number] Apply to area(s) 2 (two) times daily. [facility] triamcinolo ne acetonide 0.1 % ointment 0 08 00:00: 00 Yes [id number] Apply to area(s) 2 (two) times daily. [facility] triamcinolo ne acetonide 0.1 % ointment 2022-0 08 00:00: 00 Yes [id number] Apply to area(s) 2 (two) times daily. [facility] triamcinolo ne acetonide 0.1 % ointment 0 08 00:00: 00 Yes [id number] Apply to area(s) 2 (two) times daily. [facility] triamcinolo ne acetonide 0.1 % ointment 0 08 00:00: 00 04-09 00:00 :00 No [id number] Apply to area(s) 2 (two) times daily. [facility] hydrOXYzine 25 mg tablet 2022-0 4-25 00:00: 00 Yes [id number] 25mg Take 1 tablet by mouth every 6 (six) hours as needed for Itching. [facility] triamcinolo ne acetonide 0.1 % ointment 3-0 4-25 00:00: 00 Yes [id number] Apply to area(s) 2 (two) times daily. [facility] hydrOXYzine 25 mg tablet 2023-0 4-25 00:00: 00 Yes [id number] 25mg Take 1 tablet by mouth every 6 (six) hours as needed for Itching. [facility] triamcinolo ne acetonide 0.1 % ointment 3-0 4-25 00:00: 00 Yes [id number] Apply to area(s) 2 (two) times daily. [facility] hydrOXYzine 25 mg tablet 3-0 4-25 00:00: 00 Yes [id number] 25mg Take 1 tablet by mouth every 6 (six) hours as needed for Itching. [facility] hydrOXYzine 25 mg tablet 3-0 4-25 00:00: 00 Yes [id number] 25mg Take 1 tablet by mouth every 6 (six) hours as needed for Itching. [facility] hydrOXYzine 25 mg tablet 3-0 4-25 00:00: 00 Yes [id number] 25mg Take 1 tablet by mouth every 6 (six) hours as needed for Itching. [facility] hydrOXYzine 25 mg tablet 2023-0 4-25 00:00: 00 Yes [id number] 25mg Take 1 tablet by mouth every 6 (six) hours as needed for Itching. [facility] hydrOXYzine 25 mg tablet 2023-0 4-25 00:00: 00 Yes [id number] 25mg Take 1 tablet by mouth every 6 (six) hours as needed for Itching. [facility] hydrOXYzine 25 mg tablet 2023-0 4-25 00:00: 00 Yes [id number] 25mg Take 1 tablet by mouth every 6 (six) hours as needed for Itching. [facility] hydrOXYzine 25 mg tablet 2023-0 4-25 00:00: 00 Yes [id number] 25mg Take 1 tablet by mouth every 6 (six) hours as needed for Itching. [facility] hydrOXYzine 25 mg tablet 3-0 4-25 00:00: 00 Yes [id number] 25mg Take 1 tablet by mouth every 6 (six) hours as needed for Itching. [facility] hydrOXYzine 25 mg tablet 2022-0 4-25 00:00: 00 Yes [id number] 25mg Take 1 tablet by mouth every 6 (six) hours as needed for Itching. [facility] 25 mg tablet 2022-0 4-25 00:00: 00 Yes [id number] 25mg Take 1 tablet by mouth every 6 (six) hours as needed for Itching. [facility] hydrOXYzine 25 mg tablet 2022-0 4-25 00:00: 00 Yes [id number] 25mg Take 1 tablet by mouth every 6 (six) hours as needed for Itching. [facility] triamcinolo ne acetonide 0.1 % ointment 2022-0 25 00:00: 00 Yes [id number] Apply to area(s) 2 (two) times daily. [facility] hydrOXYzine 25 mg tablet 2022-0 25 00:00: 00 Yes [id number] 25mg Take 1 tablet by mouth every 6 (six) hours as needed for Itching. [facility] triamcinolo ne acetonide 0.1 % ointment 0 25 00:00: 00 Yes [id number] Apply to area(s) 2 (two) times daily. [facility] hydrOXYzine 25 mg tablet 2022-0 25 00:00: 00 Yes [id number] 25mg Take 1 tablet by mouth every 6 (six) hours as needed for Itching. [facility] triamcinolo ne acetonide 0.1 % ointment 2022-0 -25 00:00: 00 Yes [id number] Apply to area(s) 2 (two) times daily. [facility] hydrOXYzine 25 mg tablet 3-0 4-25 00:00: 00 Yes [id number] 25mg Take 1 tablet by mouth every 6 (six) hours as needed for Itching. [facility] triamcinolo ne acetonide 0.1 % ointment 01-30 00:00: 00 Yes [id number] Apply to area(s) 2 (two) times daily. [facility] hydrOXYzine 25 mg tablet 25 00:00: 00 Yes [id number] 25mg Take 1 tablet by mouth every 6 (six) hours as needed for Itching. [facility] triamcinolo ne acetonide 0.1 % ointment 01-30 00:00: 00 Yes [id number] Apply to area(s) 2 (two) times daily. [facility] hydrOX[facility] 25 mg tablet 01-30 00:00: 00 04-09 00:00 :00 No [id number] 25mg Take 1 tablet by mouth every 6 (six) hours as needed for Itching. [facility] triamcinolo ne acetonide 0.1 % ointment 01-30 00:00: 00 02-12 00:00 :00 No [id number] Apply to area(s) 2 (two) times daily. [facility] iron sucrose (VENOFER) 300 mg in NaCl 0.9% (NS) 250 mL infusion 01-05 16:15: 00 01-05 18:18 :57 No 300mg 300 mg, IV Infusion, ONCE, Administer over 2.5 Hours, On Sun01/05/23 at 1115, For 1 dose [facility] iron sucrose (VENOFER) 300 mg in NaCl 0.9% (NS) 250 mL infusion 12-29 16:30: 00 12-29 18:57 :00 No 300mg 300 mg, IV Infusion, ONCE, Administer over 2.5 Hours, On Sun12/29/22 at 1130, For [facility] dose [facility] iron sucrose (VENOFER) 300 mg in NaCl 0.9% (NS) 250 mL infusion 12-22 16:45: 00 12-22 19:02 :35 No 300mg 300 mg, IV Infusion, ONCE, Administer over 2.5 Hours, On Sun12/22/22 at 1145, For 1 dose [facility] ferrous sulfate (IRON, FERROUS SULFATE,) 325 mg (65 mg iron) tablet 12-13 00:00: 00 Yes [id number] 325mg Take 1 tablet by mouth in the morning and 1 tablet in the evening. [facility] ferrous sulfate (IRON, FERROUS SULFATE,) 325 mg (65 mg iron) tablet 12-13 00:00: 00 Yes [id number] 325mg Take 1 tablet by mouth in the morning and 1 tablet in the evening. [facility] ferrous sulfate (IRON, FERROUS SULFATE,) 325 mg (65 mg iron) tablet 12-13 00:00: 00 Yes [id number] 325mg Take 1 tablet by mouth in the morning and 1 tablet in the evening. [facility] ferrous sulfate (IRON, FERROUS SULFATE,) 325 mg (65 mg iron) tablet 12-13 00:00: 00 Yes [id number] 325mg Take 1 tablet by mouth in the morning and 1 tablet in the evening. [facility] ferrous sulfate (IRON, FERROUS SULFATE,) 325 mg (65 mg iron) tablet 12-13 00:00: 00 Yes [id number] 325mg Take 1 tablet by mouth in the morning and 1 tablet in the evening. [facility] [facility] ferrous sulfate (IRON, FERROUS SULFATE,) 325 mg (65 mg iron) tablet 12-13 00:00: 00 Yes [id number] 325mg Take 1 tablet by mouth in the morning and 1 tablet in the evening. [facility] ferrous sulfate (IRON, FERROUS SULFATE,) 325 mg (65 mg iron) tablet 12-13 00:00: 00 Yes [id number] 325mg Take 1 tablet by mouth in the morning and 1 tablet in the evening. [facility] ferrous sulfate (IRON, FERROUS SULFATE,) 325 mg (65 mg iron) tablet 12-13 00:00: 00 Yes [id number] 325mg Take 1 tablet by mouth in the morning and 1 tablet in the evening. [facility] ferrous sulfate (IRON, FERROUS SULFATE,) 325 mg (65 mg iron) tablet 12-13 00:00: 00 Yes [id number] 325mg Take 1 tablet by mouth in the morning and 1 tablet in the evening. [facility] ferrous sulfate (IRON, FERROUS SULFATE,) 325 mg (65 mg iron) tablet 12-13 00:00: 00 Yes [id number] 325mg Take 1 tablet by mouth in the morning and 1 tablet in the evening. [facility] ferrous sulfate (IRON, FERROUS SULFATE,) 325 mg (65 mg iron) tablet 12-13 00:00: 00 Yes [id number] 325mg Take 1 tablet by mouth in the morning and 1 tablet in the evening. [facility] ferrous sulfate (IRON, FERROUS SULFATE,) 325 mg (65 mg iron) tablet 12-13 00:00: 00 Yes [id number] 325mg Take 1 tablet by mouth in the morning and 1 tablet in the evening. [facility] ferrous sulfate (IRON, FERROUS SULFATE,) 325 mg (65 mg iron) tablet 12-13 00:00: 00 Yes [id number] 325mg Take 1 tablet by mouth in the morning and 1 tablet in the evening. [facility] ferrous sulfate (IRON, FERROUS SULFATE,) 325 mg (65 mg iron) tablet 12-13 00:00: 00 Yes [id number] 325mg Take 1 tablet by mouth in the morning and 1 tablet in the evening. [facility] ferrous sulfate (IRON, FERROUS SULFATE,) 325 mg (65 mg iron) tablet 12-13 00:00: 00 Yes [id number] 325mg Take 1 tablet by mouth in the morning and 1 tablet in the evening. [facility] ferrous sulfate (IRON, FERROUS SULFATE,) 325 mg (65 mg iron) tablet 12-13 00:00: 00 Yes [id number] 325mg Take 1 tablet by mouth in the morning and 1 tablet in the evening. [facility] ferrous sulfate (IRON, FERROUS SULFATE,) 325 mg (65 mg iron) tablet 12-13 00:00: 00 Yes [id number] 325mg Take 1 tablet by mouth in the morning and 1 tablet in the evening. [facility] ferrous sulfate (IRON, FERROUS SULFATE,) 325 mg (65 mg iron) tablet 12-13 00:00: 00 Yes [id number] 325mg Take 1 tablet by mouth in the morning and 1 tablet in the evening. [facility] ferrous sulfate (IRON, FERROUS SULFATE,) 325 mg (65 mg iron) tablet 12-13 00:00: 00 Yes [id number] 325mg Take 1 tablet by mouth in the morning and 1 tablet in the evening. [facility] ferrous sulfate (IRON, FERROUS SULFATE,) 325 mg (65 mg iron) tablet 12-13 00:00: 00 Yes [id number] 325mg Take 1 tablet by mouth in the morning and 1 tablet in the evening. [facility] ferrous sulfate (IRON, FERROUS SULFATE,) 325 mg (65 mg iron) tablet 12-13 00:00: 00 Yes [id number] 325mg Take 1 tablet by mouth in the morning and 1 tablet in the evening. [facility] ferrous sulfate (IRON, FERROUS SULFATE,) 325 mg (65 mg iron) tablet 12-13 00:00: 00 Yes [id number] 325mg Take 1 tablet by mouth in the morning and 1 tablet in the evening. [facility] ferrous sulfate (IRON, FERROUS SULFATE,) 325 mg (65 mg iron) tablet 12-13 00:00: 00 Yes [id number] 325mg Take 1 tablet by mouth in the morning and 1 tablet in the evening. [facility] ferrous sulfate (IRON, FERROUS SULFATE,) 325 mg (65 mg iron) tablet 12-13 00:00: 00 Yes [id number] 325mg Take 1 tablet by mouth in the morning and 1 tablet in the evening. [facility] ferrous sulfate (IRON, FERROUS SULFATE,) 325 mg (65 mg iron) tablet 0 12-13 00:00: 00 Yes [id number] 325mg Take 1 tablet by mouth in the morning and 1 tablet in the evening. [facility] ferrous sulfate (IRON, FERROUS SULFATE,) 325 mg (65 mg iron) tablet 2022-0 12-13 00:00: 00 Yes [id number] 325mg Take 1 tablet by mouth in the morning and 1 tablet in the evening. [facility] ferrous sulfate (IRON, FERROUS SULFATE,) 325 mg (65 mg iron) tablet 12-13 00:00: 00 Yes [id number] 325mg Take 1 tablet by mouth in the morning and 1 tablet in the evening. [facility] ferrous sulfate (IRON, FERROUS SULFATE,) 325 mg (65 mg iron) tablet 12-13 00:00: 00 Yes [id number] 325mg Take 1 tablet by mouth in the morning and 1 tablet in the evening. [facility] ferrous sulfate (IRON, FERROUS SULFATE,) 325 mg (65 mg iron) tablet 12-13 00:00: 00 Yes [id number] 325mg Take 1 tablet by mouth in the morning and 1 tablet in the evening. [facility] ferrous sulfate (IRON, FERROUS SULFATE,) 325 mg (65 mg iron) tablet 12-13 00:00: 00 Yes [id number] 325mg Take 1 tablet by mouth in the morning and 1 tablet in the evening. [facility] ferrous sulfate (IRON, FERROUS SULFATE,) 325 mg (65 mg iron) tablet 12-13 00:00: 00 Yes [id number] 325mg Take 1 tablet by mouth in the morning and 1 tablet in the evening. [facility] ferrous sulfate (IRON, FERROUS SULFATE,) 325 mg (65 mg iron) tablet 12-13 00:00: 00 Yes [id number] 325mg Take 1 tablet by mouth in the morning and 1 tablet in the evening. [facility] ferrous sulfate (IRON, FERROUS SULFATE,) 325 mg (65 mg iron) tablet 12-13 00:00: 00 Yes [id number] 325mg Take 1 tablet by mouth in the morning and 1 tablet in the evening. [facility] ferrous sulfate (IRON, FERROUS SULFATE,) 325 mg (65 mg iron) tablet 12-13 00:00: 00 Yes [id number] 325mg Take 1 tablet by mouth in the morning and 1 tablet in the evening. [facility] ferrous sulfate (IRON, FERROUS SULFATE,) 325 mg (65 mg iron) tablet 12-13 00:00: 00 Yes [id number] 325mg Take 1 tablet by mouth in the morning and 1 tablet in the evening. [facility] ferrous sulfate (IRON, FERROUS SULFATE,) 325 mg (65 mg iron) tablet 08 00:00: 00 04-09 00:00 :00 No [id number] 325mg Take 1 tablet by mouth in the morning and 1 tablet in the evening. [facility] vitamin w/FA tablet 18 00:00: 00 Yes [id number] 1{tbl} Take 1 tablet by mouth in the morning. [facility] vitamin w/FA tablet 0 18 00:00: 00 Yes [id number] 1{tbl} Take 1 tablet by mouth in the morning. [facility] vitamin w/FA tablet 0 18 00:00: 00 Yes [id number] 1{tbl} Take 1 tablet by mouth in the morning. [facility] vitamin w/FA tablet 18 00:00: 00 Yes [id number] 1{tbl} Take 1 tablet by mouth in the morning. [facility] vitamin w/FA tablet 0 18 00:00: 00 Yes [id number] 1{tbl} Take 1 tablet by mouth in the morning. [facility] vitamin w/FA tablet 0 18 00:00: 00 Yes [id number] 1{tbl} Take 1 tablet by mouth in the morning. [facility] vitamin w/FA tablet 0 18 00:00: 00 Yes [id number] 1{tbl} Take 1 tablet by mouth in the morning. [facility] vitamin w/FA tablet 0 18 00:00: 00 Yes [id number] 1{tbl} Take 1 tablet by mouth in the morning. [facility] vitamin w/FA tablet 0 18 00:00: 00 Yes [id number] 1{tbl} Take 1 tablet by mouth in the morning. [facility] vitamin w/FA tablet 0 18 00:00: 00 Yes [id number] 1{tbl} Take 1 tablet by mouth in the morning. [facility] vitamin w/FA tablet 0 18 00:00: 00 Yes [id number] 1{tbl} Take 1 tablet by mouth in the morning. [facility] vitamin w/FA tablet 3-0 -18 00:00: 00 Yes [id number] 1{tbl} Take 1 tablet by mouth in the morning. [facility] vitamin w/FA tablet 2023-0 -18 00:00: 00 Yes [id number] 1{tbl} Take 1 tablet by mouth in the morning. [facility] vitamin w/FA tablet 3-0 18 00:00: 00 Yes [id number] 1{tbl} Take 1 tablet by mouth in the morning. [facility] vitamin w/FA tablet 3-0 18 00:00: 00 Yes [id number] 1{tbl} Take 1 tablet by mouth in the morning. [facility] vitamin w/FA tablet 3-0 18 00:00: 00 Yes [id number] 1{tbl} Take 1 tablet by mouth in the morning. [facility] vitamin w/FA tablet 3-0 18 00:00: 00 Yes [id number] 1{tbl} Take 1 tablet by mouth in the morning. [facility] vitamin w/FA tablet 3-0 18 00:00: 00 Yes [id number] 1{tbl} Take 1 tablet by mouth in the morning. [facility] vitamin w/FA tablet 3-0 18 00:00: 00 Yes [id number] 1{tbl} Take 1 tablet by mouth in the morning. [facility] vitamin w/FA tablet 3-0 18 00:00: 00 Yes [id number] 1{tbl} Take 1 tablet by mouth in the morning. [facility] vitamin w/FA tablet 3-0 -18 00:00: 00 Yes [id number] 1{tbl} Take 1 tablet by mouth in the morning. [facility] vitamin w/FA tablet 2023-0 -18 00:00: 00 Yes [id number] 1{tbl} Take 1 tablet by mouth in the morning. [facility] vitamin w/FA tablet 3-0 18 00:00: 00 Yes [id number] 1{tbl} Take 1 tablet by mouth in the morning. [facility] vitamin w/FA tablet 3-0 18 00:00: 00 Yes [id number] 1{tbl} Take 1 tablet by mouth in the morning. [facility] vitamin w/FA tablet 3-0 18 00:00: 00 Yes [id number] 1{tbl} Take 1 tablet by mouth in the morning. [facility] vitamin w/FA tablet 3-0 18 00:00: 00 Yes [id number] 1{tbl} Take 1 tablet by mouth in the morning. [facility] vitamin w/FA tablet 3-0 18 00:00: 00 Yes [id number] 1{tbl} Take 1 tablet by mouth in the morning. [facility] vitamin w/FA tablet 3-0 18 00:00: 00 Yes [id number] 1{tbl} Take 1 tablet by mouth in the morning. [facility] vitamin w/FA tablet 3-0 18 00:00: 00 Yes [id number] 1{tbl} Take 1 tablet by mouth in the morning. [facility] vitamin w/FA tablet 3-0 18 00:00: 00 Yes [id number] 1{tbl} Take 1 tablet by mouth in the morning. [facility] vitamin w/FA tablet 3-0 18 00:00: 00 Yes [id number] 1{tbl} Take 1 tablet by mouth in the morning. [facility] vitamin w/FA tablet 3-0 18 00:00: 00 Yes [id number] 1{tbl} Take 1 tablet by mouth in the morning. [facility] vitamin w/FA tablet 3-0 -18 00:00: 00 Yes [id number] 1{tbl} Take 1 tablet by mouth in the morning. [facility] vitamin w/FA tablet 3-0 -18 00:00: 00 Yes [id number] 1{tbl} Take 1 tablet by mouth in the morning. [facility] vitamin w/FA tablet 2022-0 18 00:00: 00 Yes [id number] 1{tbl} Take 1 tablet by mouth in the morning. [facility] vitamin w/FA tablet 3-0 18 00:00: 00 Yes [id number] 1{tbl} Take 1 tablet by mouth in the morning. [facility] vitamin w/FA tablet 2022-0 18 00:00: 00 Yes [id number] 1{tbl} Take 1 tablet by mouth in the morning. [facility] vitamin w/FA tablet 2022-0 18 00:00: 00 Yes [id number] 1{tbl} Take 1 tablet by mouth in the morning. [facility] vitamin w/FA tablet 3-0 18 00:00: 00 Yes [id number] 1{tbl} Take 1 tablet by mouth in the morning. [facility] vitamin w/FA tablet 2022-0 18 00:00: 00 Yes [id number] 1{tbl} Take 1 tablet by mouth in the morning. [facility] vitamin w/FA tablet 2022-0 18 00:00: 00 Yes [id number] 1{tbl} Take 1 tablet by mouth in the morning. [facility] vitamin w/FA tablet 3-0 18 00:00: 00 Yes [id number] 1{tbl} Take 1 tablet by mouth in the morning. [facility] vitamin w/FA tablet 3-0 18 00:00: 00 04-09 00:00 :00 No [id number] 1{tbl} Take 1 tablet by mouth in the morning. [facility] VITAFOL FE PLUS 90 mg iron- 1 mg-200 mg Cap 2021-10 00:00: 00 Yes [id number] TAKE 1 CAPSULE BY MOUTH DAILY. [facility] VITAFOL FE PLUS 90 mg iron- 1 mg-200 mg Cap 2021-10 00:00: 00 Yes [id number] TAKE 1 CAPSULE BY MOUTH DAILY. [facility] VITAFOL FE PLUS 90 mg iron- 1 mg-200 mg Cap 2021-10 00:00: 00 Yes [id number] TAKE 1 CAPSULE BY MOUTH DAILY. [facility] VITAFOL FE PLUS 90 mg iron- 1 mg-200 mg Cap 2021-10 00:00: 00 Yes [id number] TAKE 1 CAPSULE BY MOUTH DAILY. [facility] VITAFOL FE PLUS 90 mg iron- 1 mg-200 mg Cap 2021-10 00:00: 00 Yes [id number] TAKE 1 CAPSULE BY MOUTH DAILY. [facility] VITAFOL FE PLUS 90 mg iron- 1 mg-200 mg Cap 2021-10 00:00: 00 Yes [id number] TAKE 1 CAPSULE BY MOUTH DAILY. [facility] VITAFOL FE PLUS 90 mg iron- 1 mg-200 mg Cap 2021-10 00:00: 00 Yes [id number] TAKE 1 CAPSULE BY MOUTH DAILY. [facility] VITAFOL FE PLUS 90 mg iron- 1 mg-200 mg Cap 2021-10 00:00: 00 Yes [id number] TAKE 1 CAPSULE BY MOUTH DAILY. [facility] VITAFOL FE PLUS 90 mg iron- 1 mg-200 mg Cap 2021-10 00:00: 00 Yes [id number] TAKE 1 CAPSULE BY MOUTH DAILY. [facility] VITAFOL FE PLUS 90 mg iron- 1 mg-200 mg Cap 2021-10 00:00: 00 Yes [id number] TAKE 1 CAPSULE BY MOUTH DAILY. [facility] VITAFOL FE PLUS 90 mg iron- 1 mg-200 mg Cap 2021-10 00:00: 00 Yes [id number] TAKE 1 CAPSULE BY MOUTH DAILY. [facility] VITAFOL FE PLUS 90 mg iron- 1 mg-200 mg Cap 2021-10 00:00: 00 Yes [id number] TAKE 1 CAPSULE BY MOUTH DAILY. [facility] VITAFOL FE PLUS 90 mg iron- 1 mg-200 mg Cap 2021-11-02 00:00: 00 Yes [id number] TAKE 1 CAPSULE BY MOUTH DAILY. [facility] VITAFOL FE PLUS 90 mg iron- 1 mg-200 mg Cap 2021-11-02 00:00: 00 Yes [id number] TAKE 1 CAPSULE BY MOUTH DAILY. [facility] VITAFOL FE PLUS 90 mg iron- 1 mg-200 mg Cap 2021-11-02 00:00: 00 Yes [id number] TAKE 1 CAPSULE BY MOUTH DAILY. [facility] VITAFOL FE PLUS 90 mg iron- 1 mg-200 mg Cap 2021-10 00:00: 00 Yes [id number] TAKE 1 CAPSULE BY MOUTH DAILY. [facility] VITAFOL FE PLUS 90 mg iron- 1 mg-200 mg Cap 2021-10 00:00: 00 Yes [id number] TAKE 1 CAPSULE BY MOUTH DAILY. [facility] VITAFOL FE PLUS 90 mg iron- 1 mg-200 mg Cap 2021-10 00:00: 00 Yes [id number] TAKE 1 CAPSULE BY MOUTH DAILY. [facility] VITAFOL FE PLUS 90 mg iron- 1 mg-200 mg Cap 2021-10 00:00: 00 Yes [id number] TAKE 1 CAPSULE BY MOUTH DAILY. [facility] VITAFOL FE PLUS 90 mg iron- 1 mg-200 mg Cap 2021-10 00:00: 00 Yes [id number] TAKE 1 CAPSULE BY MOUTH DAILY. [facility] VITAFOL FE PLUS 90 mg iron- 1 mg-200 mg Cap 2021-10 00:00: 00 Yes [id number] TAKE 1 CAPSULE BY MOUTH DAILY. [facility] VITAFOL FE PLUS 90 mg iron- 1 mg-200 mg Cap 2021-10 00:00: 00 Yes [id number] TAKE 1 CAPSULE BY MOUTH DAILY. [facility] VITAFOL FE PLUS 90 mg iron- 1 mg-200 mg Cap 2021-11-02 00:00: 00 Yes [id number] TAKE 1 CAPSULE BY MOUTH DAILY. [facility] VITAFOL FE PLUS 90 mg iron- 1 mg-200 mg Cap 2021-11-02 00:00: 00 Yes [id number] TAKE 1 CAPSULE BY MOUTH DAILY. [facility] VITAFOL FE PLUS 90 mg iron- 1 mg-200 mg Cap 2021-10 00:00: 00 Yes [id number] TAKE 1 CAPSULE BY MOUTH DAILY. [facility] VITAFOL FE PLUS 90 mg iron- 1 mg-200 mg Cap 2021-10 00:00: 00 Yes [id number] TAKE 1 CAPSULE BY MOUTH DAILY. [facility] VITAFOL FE PLUS 90 mg iron- 1 mg-200 mg Cap 2021-10 00:00: 00 Yes [id number] TAKE 1 CAPSULE BY MOUTH DAILY. [facility] VITAFOL FE PLUS 90 mg iron- 1 mg-200 mg Cap 2021-10 00:00: 00 Yes [id number] TAKE 1 CAPSULE BY MOUTH DAILY. [facility] VITAFOL FE PLUS 90 mg iron- 1 mg-200 mg Cap 2021-10 00:00: 00 Yes [id number] TAKE 1 CAPSULE BY MOUTH DAILY. [facility] VITAFOL FE PLUS 90 mg iron- 1 mg-200 mg Cap 2021-10 00:00: 00 Yes [id number] TAKE 1 CAPSULE BY MOUTH DAILY. [facility] VITAFOL FE PLUS 90 mg iron- 1 mg-200 mg Cap 2021-10 00:00: 00 Yes [id number] TAKE 1 CAPSULE BY MOUTH DAILY. [facility] VITAFOL FE PLUS 90 mg iron- 1 mg-200 mg Cap 2021-10 00:00: 00 Yes [id number] TAKE 1 CAPSULE BY MOUTH DAILY. [facility] VITAFOL FE PLUS 90 mg iron- 1 mg-200 mg Cap 2021-10 00:00: 00 Yes [id number] TAKE 1 CAPSULE BY MOUTH DAILY. [facility] VITAFOL FE PLUS 90 mg iron- 1 mg-200 mg Cap 2021-11-02 00:00: 00 Yes [id number] TAKE 1 CAPSULE BY MOUTH DAILY. [facility] VITAFOL FE PLUS 90 mg iron- 1 mg-200 mg Cap 2021-11-02 00:00: 00 Yes [id number] TAKE 1 CAPSULE BY MOUTH DAILY. [facility] VITAFOL FE PLUS 90 mg iron- 1 mg-200 mg Cap 2021-11-02 00:00: 00 Yes [id number] TAKE 1 CAPSULE BY MOUTH DAILY. [facility] VITAFOL FE PLUS 90 mg iron- 1 mg-200 mg Cap 2021-10 00:00: 00 Yes [id number] TAKE 1 CAPSULE BY MOUTH DAILY. [facility] VITAFOL FE PLUS 90 mg iron- 1 mg-200 mg Cap 2021-10 00:00: 00 Yes [id number] TAKE 1 CAPSULE BY MOUTH DAILY. [facility] VITAFOL FE PLUS 90 mg iron- 1 mg-200 mg Cap 2021-11-02 00:00: 00 Yes [id number] TAKE 1 CAPSULE BY MOUTH DAILY. [facility] VITAFOL FE PLUS 90 mg iron- 1 mg-200 mg Cap 2021-10 00:00: 00 Yes [id number] TAKE 1 CAPSULE BY MOUTH DAILY. [facility] VITAFOL FE PLUS 90 mg iron- 1 mg-200 mg Cap 2021-10 00:00: 00 Yes [id number] TAKE 1 CAPSULE BY MOUTH DAILY. [facility] VITAFOL FE PLUS 90 mg iron- 1 mg-200 mg Cap 2021-10 00:00: 00 Yes [id number] TAKE 1 CAPSULE BY MOUTH DAILY. [facility] VITAFOL FE PLUS 90 mg iron- 1 mg-200 mg Cap 2021-10 00:00: 00 Yes [id number] TAKE 1 CAPSULE BY MOUTH DAILY. [facility] VITAFOL FE PLUS 90 mg iron- 1 mg-200 mg Cap 2021-10 00:00: 00 Yes [id number] TAKE 1 CAPSULE BY MOUTH DAILY. [facility] VITAFOL FE PLUS 90 mg iron- 1 mg-200 mg Cap 2021-11-02 00:00: 00 Yes [id number] TAKE 1 CAPSULE BY MOUTH DAILY. [facility] VITAFOL FE PLUS 90 mg iron- 1 mg-200 mg Cap 2021-1 11-02 00:00: 00 Yes [id number] TAKE 1 CAPSULE BY MOUTH DAILY. [facility] VITAFOL FE PLUS 90 mg iron- 1 mg-200 mg Cap 2021-10 00:00: 00 Yes [id number] TAKE 1 CAPSULE BY MOUTH DAILY. [facility] VITAFOL FE PLUS 90 mg iron- 1 mg-200 mg Cap 2021-10 00:00: 00 Yes [id number] TAKE 1 CAPSULE BY MOUTH DAILY. [facility] VITAFOL FE PLUS 90 mg iron- 1 mg-200 mg Cap 2021-10 00:00: 00 04-09 00:00 :00 No [id number] TAKE 1 CAPSULE BY MOUTH DAILY. [facility] vitamin w/FA tablet 2021-10 00:00: 00 Yes [id number] 1{tbl} Take 1 tablet by mouth in the morning. [facility] vitamin w/FA tablet 2021-10 00:00: 00 Yes [id number] 1{tbl} Take 1 tablet by mouth in the morning. [facility] vitamin w/FA tablet 2021-10 00:00: 00 Yes [id number] 1{tbl} Take 1 tablet by mouth in the morning. [facility] vitamin w/FA tablet 2021-10 00:00: 00 Yes [id number] 1{tbl} Take 1 tablet by mouth in the morning. [facility] vitamin w/FA tablet 2021-10 00:00: 00 Yes [id number] 1{tbl} Take 1 tablet by mouth in the morning. [facility] vitamin w/FA tablet 2021-10 00:00: 00 Yes [id number] 1{tbl} Take 1 tablet by mouth in the morning. [facility] vitamin w/FA tablet 2021-10 00:00: 00 Yes [id number] 1{tbl} Take 1 tablet by mouth in the morning. [facility] vitamin w/FA tablet 2021-10 00:00: 00 10-25 00:00 :00 No [id number] 1{tbl} Take 1 tablet by mouth in the morning. [facility] vitamin w/FA tablet 2021-10 00:00: 00 10-25 00:00 :00 No [id number] 1{tbl} Take 1 tablet by mouth in the morning. [facility] polyethylen e glycol 3350 (MIRALAX) 17 gram powder 2021-10 0- 00:00: 00 Yes [id number] 1{packe t} Take 1 Packet by mouth as needed for Constipati on. [facility] polycarboph il (FIBERCON) 625 mg tablet 2021-10 0 00:00: 00 Yes [id number] 625mg Take 1 tablet by mouth in the morning. [facility] polyethylen e glycol 3350 (MIRALAX) 17 gram powder 2021-10 0 00:00: 00 Yes [id number] 1{packe t} Take 1 Packet by mouth as needed for Constipati on. [facility] polycarboph il (FIBERCON) 625 mg tablet 2021-10 0 00:00: 00 Yes [id number] 625mg Take 1 tablet by mouth in the morning. [facility] polyethylen e glycol 3350 (MIRALAX) 17 gram powder 2021-10 0 00:00: 00 Yes [id number] 1{packe t} Take 1 Packet by mouth as needed for Constipati on. [facility] polycarboph il (FIBERCON) 625 mg tablet 2021-10 0 00:00: 00 Yes [id number] 625mg Take 1 tablet by mouth in the morning. [facility] polyethylen e glycol 3350 (MIRALAX) 17 gram powder 2021-10 0- 00:00: 00 Yes [id number] 1{packe t} Take 1 Packet by mouth as needed for Constipati on. [facility] polycarboph il (FIBERCON) 625 mg tablet 2021-10 0- 00:00: 00 Yes [id number] 625mg Take 1 tablet by mouth in the morning. [facility] polyethylen e glycol 3350 (MIRALAX) 17 gram powder 2021-10 0-26 00:00: 00 Yes [id number] 1{packe t} Take 1 Packet by mouth as needed for Constipati on. [facility] polycarboph il (FIBERCON) 625 mg tablet 2021-10 0 00:00: 00 Yes [id number] 625mg Take 1 tablet by mouth in the morning. [facility] polyethylen e glycol 3350 (MIRALAX) 17 gram powder 2021-10 0 00:00: 00 Yes [id number] 1{packe t} Take 1 Packet by mouth as needed for Constipati on. [facility] polycarboph il (FIBERCON) 625 mg tablet 2021-10 00:00: 00 Yes [id number] 625mg Take 1 tablet by mouth in the morning. [facility] polyethylen e glycol 3350 (MIRALAX) 17 gram powder 2021-10 00:00: 00 Yes [id number] 1{packe t} Take 1 Packet by mouth as needed for Constipati on. [facility] polycarboph il (FIBERCON) 625 mg tablet 2021-10 00:00: 00 Yes [id number] 625mg Take 1 tablet by mouth in the morning. [facility] polyethylen e glycol 3350 (MIRALAX) 17 gram powder 2021-10 0 00:00: 00 Yes [id number] 1{packe t} Take 1 Packet by mouth as needed for Constipati on. [facility] docusate (COLACE) 100 mg capsule 2021-10 00:00: 00 Yes [id number] 100mg Take 1 capsule by mouth once daily as needed for Constipati on. [facility] polyethylen e glycol 3350 (MIRALAX) 17 gram powder 2021-10 0 00:00: 00 Yes [id number] 1{packe t} Take 1 Packet by mouth as needed for Constipati on. [facility] polycarboph il (FIBERCON) 625 mg tablet 2021-10 0 00:00: 00 Yes [id number] 625mg Take 1 tablet by mouth in the morning. [facility] polycarboph il (FIBERCON) 625 mg tablet 2021-10 0 00:00: 00 Yes [id number] 625mg Take 1 tablet by mouth in the morning. [facility] PNV 102-iron-fo late-dha (VITAFOL FE PLUS) 90 mg iron- 1 mg-200 mg Cap 2021-10 0 00:00: 00 Yes [id number] Take 1 TAB-CAP/M2 by mouth daily. [facility] polyethylen e glycol 3350 (MIRALAX) 17 gram powder 2021-10 0 00:00: 00 Yes [id number] 1{packe t} Take 1 Packet by mouth as needed for Constipati on. [facility] polycarboph il (FIBERCON) 625 mg tablet 2021-10 00:00: 00 Yes [id number] 625mg Take 1 tablet by mouth in the morning. [facility] polyethylen e glycol 3350 (MIRALAX) 17 gram powder 2021-10 00:00: 00 Yes [id number] 1{packe t} Take 1 Packet by mouth as needed for Constipati on. [facility] polycarboph il (FIBERCON) 625 mg tablet 2021-10 00:00: 00 Yes [id number] 625mg Take 1 tablet by mouth in the morning. [facility] polyethylen e glycol 3350 (MIRALAX) 17 gram powder 2021-10 00:00: 00 Yes [id number] 1{packe t} Take 1 Packet by mouth as needed for Constipati on. [facility] polycarboph il (FIBERCON) 625 mg tablet 2021-10 00:00: 00 Yes [id number] 625mg Take 1 tablet by mouth in the morning. [facility] polyethylen e glycol 3350 (MIRALAX) 17 gram powder 2021-10 0 00:00: 00 Yes [id number] 1{packe t} Take 1 Packet by mouth as needed for Constipati on. [facility] polyethylen e glycol 3350 (MIRALAX) 17 gram powder 2021-10 0 00:00: 00 Yes [id number] 1{packe t} Take 1 Packet by mouth as needed for Constipati on. [facility] polycarboph il (FIBERCON) 625 mg tablet 2021-10 0 00:00: 00 Yes [id number] 625mg Take 1 tablet by mouth in the morning. [facility] docusate (COLACE) 100 mg capsule 2021-10 0 00:00: 00 Yes [id number] 100mg Take 1 capsule by mouth once daily as needed for Constipati on. [facility] polycarboph il (FIBERCON) 625 mg tablet 2021-10 00:00: 00 Yes [id number] 625mg Take 1 tablet by mouth in the morning. [facility] PNV 102-iron-fo late-dha (VITAFOL FE PLUS) 90 mg iron- 1 mg-200 mg Cap 2021-10 00:00: 00 Yes [id number] Take 1 TAB-CAP/M2 by mouth daily. [facility] polyethylen e glycol 3350 (MIRALAX) 17 gram powder 2021-10 00:00: 00 Yes [id number] 1{packe t} Take 1 Packet by mouth as needed for Constipati on. [facility] docusate (COLACE) 100 mg capsule 2021-10 00:00: 00 Yes [id number] 100mg Take 1 capsule by mouth once daily as needed for Constipati on. [facility] polycarboph il (FIBERCON) 625 mg tablet 2021-10 00:00: 00 Yes [id number] 625mg Take 1 tablet by mouth in the morning. [facility] PNV 102-iron-fo late-dha (VITAFOL FE PLUS) 90 mg iron- 1 mg-200 mg Cap 2021-10 00:00: 00 Yes [id number] Take 1 TAB-CAP/M2 by mouth daily. [facility] polyethylen e glycol 3350 (MIRALAX) 17 gram powder 2021-10 0 00:00: 00 Yes [id number] 1{packe t} Take 1 Packet by mouth as needed for Constipati on. [facility] docusate (COLACE) 100 mg capsule 2021-10 00:00: 00 Yes [id number] 100mg Take 1 capsule by mouth once daily as needed for Constipati on. [facility] polycarboph il (FIBERCON) 625 mg tablet 2021-10 00:00: 00 Yes [id number] 625mg Take 1 tablet by mouth in the morning. [facility] PNV 102-iron-fo late-dha (VITAFOL FE PLUS) 90 mg iron- 1 mg-200 mg Cap 2021-10 00:00: 00 Yes [id number] Take 1 TAB-CAP/M2 by mouth daily. [facility] polyethylen e glycol 3350 (MIRALAX) 17 gram powder 2021-10 00:00: 00 Yes [id number] 1{packe t} Take 1 Packet by mouth as needed for Constipati on. [facility] docusate (COLACE) 100 mg capsule 2021-10 00:00: 00 Yes [id number] 100mg Take 1 capsule by mouth once daily as needed for Constipati on. [facility] polycarboph il (FIBERCON) 625 mg tablet 2021-10 00:00: 00 Yes [id number] 625mg Take 1 tablet by mouth in the morning. [facility] PNV 102-iron-fo late-dha (VITAFOL FE PLUS) 90 mg iron- 1 mg-200 mg Cap 2021-10 00:00: 00 Yes [id number] Take 1 TAB-CAP/M2 by mouth daily. [facility] polyethylen e glycol 3350 (MIRALAX) 17 gram powder 2021-10 00:00: 00 Yes [id number] 1{packe t} Take 1 Packet by mouth as needed for Constipati on. [facility] docusate (COLACE) 100 mg capsule 2021-10 00:00: 00 Yes [id number] 100mg Take 1 capsule by mouth once daily as needed for Constipati on. [facility] polycarboph il (FIBERCON) 625 mg tablet 2021-10 00:00: 00 Yes [id number] 625mg Take 1 tablet by mouth in the morning. [facility] PNV 102-iron-fo late-dha (VITAFOL FE PLUS) 90 mg iron- 1 mg-200 mg Cap 2021-10 00:00: 00 Yes [id number] Take 1 TAB-CAP/M2 by mouth daily. [facility] polyethylen e glycol 3350 (MIRALAX) 17 gram powder 2021-10 0 00:00: 00 Yes [id number] 1{packe t} Take 1 Packet by mouth as needed for Constipati on. [facility] docusate (COLACE) 100 mg capsule 2021-10 0 00:00: 00 Yes [id number] 100mg Take 1 capsule by mouth once daily as needed for Constipati on. [facility] polycarboph il (FIBERCON) 625 mg tablet 2021-10 00:00: 00 Yes [id number] 625mg Take 1 tablet by mouth in the morning. [facility] PNV 102-iron-fo late-dha (VITAFOL FE PLUS) 90 mg iron- 1 mg-200 mg Cap 2021-10 00:00: 00 Yes [id number] Take 1 TAB-CAP/M2 by mouth daily. [facility] polyethylen e glycol 3350 (MIRALAX) 17 gram powder 2021-10 00:00: 00 Yes [id number] 1{packe t} Take 1 Packet by mouth as needed for Constipati on. [facility] docusate (COLACE) 100 mg capsule 2021-10 00:00: 00 Yes [id number] 100mg Take 1 capsule by mouth once daily as needed for Constipati on. [facility] polycarboph il (FIBERCON) 625 mg tablet 2021-10 00:00: 00 Yes [id number] 625mg Take 1 tablet by mouth in the morning. [facility] PNV 102-iron-fo late-dha (VITAFOL FE PLUS) 90 mg iron- 1 mg-200 mg Cap 2021-10 0 00:00: 00 Yes [id number] Take 1 TAB-CAP/M2 by mouth daily. [facility] polyethylen e glycol 3350 (MIRALAX) 17 gram powder 2021-10 0 00:00: 00 Yes [id number] 1{packe t} Take 1 Packet by mouth as needed for Constipati on. [facility] docusate (COLACE) 100 mg capsule 2021-10 0 00:00: 00 Yes [id number] 100mg Take 1 capsule by mouth once daily as needed for Constipati on. [facility] polycarboph il (FIBERCON) 625 mg tablet 2021-10 0 00:00: 00 Yes [id number] 625mg Take 1 tablet by mouth in the morning. [facility] polyethylen e glycol 3350 (MIRALAX) 17 gram powder 2021-10 0 00:00: 00 Yes [id number] 1{packe t} Take 1 Packet by mouth as needed for Constipati on. [facility] docusate (COLACE) 100 mg capsule 2021-10 0 00:00: 00 Yes [id number] 100mg Take 1 capsule by mouth once daily as needed for Constipati on. [facility] polycarboph il (FIBERCON) 625 mg tablet 2021-10 0 00:00: 00 Yes [id number] 625mg Take 1 tablet by mouth in the morning. [facility] polyethylen e glycol 3350 (MIRALAX) 17 gram powder 2021-10 0 00:00: 00 Yes [id number] 1{packe t} Take 1 Packet by mouth as needed for Constipati on. [facility] docusate (COLACE) 100 mg capsule 2021-10 0 00:00: 00 Yes [id number] 100mg Take 1 capsule by mouth once daily as needed for Constipati on. [facility] polycarboph il (FIBERCON) 625 mg tablet 2021-10 0 00:00: 00 Yes [id number] 625mg Take 1 tablet by mouth in the morning. [facility] polyethylen e glycol 3350 (MIRALAX) 17 gram powder 2021-10 0- 00:00: 00 Yes [id number] 1{packe t} Take 1 Packet by mouth as needed for Constipati on. [facility] docusate (COLACE) 100 mg capsule 2021-10 0 00:00: 00 Yes [id number] 100mg Take 1 capsule by mouth once daily as needed for Constipati on. [facility] polycarboph il (FIBERCON) 625 mg tablet 2021-10 0 00:00: 00 Yes [id number] 625mg Take 1 tablet by mouth in the morning. [facility] polyethylen e glycol 3350 (MIRALAX) 17 gram powder 2021-10 0 00:00: 00 Yes [id number] 1{packe t} Take 1 Packet by mouth as needed for Constipati on. [facility] docusate (COLACE) 100 mg capsule 2021-10 0 00:00: 00 Yes [id number] 100mg Take 1 capsule by mouth once daily as needed for Constipati on. [facility] polycarboph il (FIBERCON) 625 mg tablet 2021-10 0 00:00: 00 Yes [id number] 625mg Take 1 tablet by mouth in the morning. [facility] polyethylen e glycol 3350 (MIRALAX) 17 gram powder 2021-10 0 00:00: 00 Yes [id number] 1{packe t} Take 1 Packet by mouth as needed for Constipati on. [facility] docusate (COLACE) 100 mg capsule 2021-10 0 00:00: 00 Yes [id number] 100mg Take 1 capsule by mouth once daily as needed for Constipati on. [facility] polycarboph il (FIBERCON) 625 mg tablet 2021-10 0 00:00: 00 Yes [id number] 625mg Take 1 tablet by mouth in the morning. [facility] polyethylen e glycol 3350 (MIRALAX) 17 gram powder 2021-10 0 00:00: 00 Yes [id number] 1{packe t} Take 1 Packet by mouth as needed for Constipati on. [facility] docusate (COLACE) 100 mg capsule 2021-10 0 00:00: 00 Yes [id number] 100mg Take 1 capsule by mouth once daily as needed for Constipati on. [facility] polycarboph il (FIBERCON) 625 mg tablet 2021-10 0 00:00: 00 Yes [id number] 625mg Take 1 tablet by mouth in the morning. [facility] polyethylen e glycol 3350 (MIRALAX) 17 gram powder 2021-10 0- 00:00: 00 Yes [id number] 1{packe t} Take 1 Packet by mouth as needed for Constipati on. [facility] docusate (COLACE) 100 mg capsule 2021-10 0- 00:00: 00 Yes [id number] 100mg Take 1 capsule by mouth once daily as needed for Constipati on. [facility] polycarboph il (FIBERCON) 625 mg tablet 2021-10 0 00:00: 00 Yes [id number] 625mg Take 1 tablet by mouth in the morning. [facility] polyethylen e glycol 3350 (MIRALAX) 17 gram powder 2021-10 0 00:00: 00 Yes [id number] 1{packe t} Take 1 Packet by mouth as needed for Constipati on. [facility] docusate (COLACE) 100 mg capsule 2021-10 0 00:00: 00 Yes [id number] 100mg Take 1 capsule by mouth once daily as needed for Constipati on. [facility] polycarboph il (FIBERCON) 625 mg tablet 2021-10 0 00:00: 00 Yes [id number] 625mg Take 1 tablet by mouth in the morning. [facility] polyethylen e glycol 3350 (MIRALAX) 17 gram powder 2021-10 0 00:00: 00 Yes [id number] 1{packe t} Take 1 Packet by mouth as needed for Constipati on. [facility] docusate (COLACE) 100 mg capsule 2021-10 0 00:00: 00 Yes [id number] 100mg Take 1 capsule by mouth once daily as needed for Constipati on. [facility] polycarboph il (FIBERCON) 625 mg tablet 2021-10 0- 00:00: 00 Yes [id number] 625mg Take 1 tablet by mouth in the morning. [facility] polyethylen e glycol 3350 (MIRALAX) 17 gram powder 2021-10 0- 00:00: 00 Yes [id number] 1{packe t} Take 1 Packet by mouth as needed for Constipati on. [facility] docusate (COLACE) 100 mg capsule 2021-10 0 00:00: 00 Yes [id number] 100mg Take 1 capsule by mouth once daily as needed for Constipati on. [facility] polycarboph il (FIBERCON) 625 mg tablet 2021-10 0 00:00: 00 Yes [id number] 625mg Take 1 tablet by mouth in the morning. [facility] polyethylen e glycol 3350 (MIRALAX) 17 gram powder 2021-10 0 00:00: 00 Yes [id number] 1{packe t} Take 1 Packet by mouth as needed for Constipati on. [facility] docusate (COLACE) 100 mg capsule 2021-10 0 00:00: 00 Yes [id number] 100mg Take 1 capsule by mouth once daily as needed for Constipati on. [facility] polycarboph il (FIBERCON) 625 mg tablet 2021-10 0 00:00: 00 Yes [id number] 625mg Take 1 tablet by mouth in the morning. [facility] polyethylen e glycol 3350 (MIRALAX) 17 gram powder 2021-10 0 00:00: 00 Yes [id number] 1{packe t} Take 1 Packet by mouth as needed for Constipati on. [facility] docusate (COLACE) 100 mg capsule 2021-10 0 00:00: 00 Yes [id number] 100mg Take 1 capsule by mouth once daily as needed for Constipati on. [facility] polycarboph il (FIBERCON) 625 mg tablet 2021-10 0 00:00: 00 Yes [id number] 625mg Take 1 tablet by mouth in the morning. [facility] polyethylen e glycol 3350 (MIRALAX) 17 gram powder 2021-10 0- 00:00: 00 Yes [id number] 1{packe t} Take 1 Packet by mouth as needed for Constipati on. [facility] docusate (COLACE) 100 mg capsule 2021-10 0 00:00: 00 Yes [id number] 100mg Take 1 capsule by mouth once daily as needed for Constipati on. [facility] polycarboph il (FIBERCON) 625 mg tablet 2021-10 0 00:00: 00 Yes [id number] 625mg Take 1 tablet by mouth in the morning. [facility] polyethylen e glycol 3350 (MIRALAX) 17 gram powder 2021-10 0 00:00: 00 Yes [id number] 1{packe t} Take 1 Packet by mouth as needed for Constipati on. [facility] docusate (COLACE) 100 mg capsule 2021-10 0 00:00: 00 Yes [id number] 100mg Take 1 capsule by mouth once daily as needed for Constipati on. [facility] polycarboph il (FIBERCON) 625 mg tablet 2021-10 0 00:00: 00 Yes [id number] 625mg Take 1 tablet by mouth in the morning. [facility] polyethylen e glycol 3350 (MIRALAX) 17 gram powder 2021-10 0 00:00: 00 Yes [id number] 1{packe t} Take 1 Packet by mouth as needed for Constipati on. [facility] docusate (COLACE) 100 mg capsule 2021-10 0 00:00: 00 Yes [id number] 100mg Take 1 capsule by mouth once daily as needed for Constipati on. [facility] polycarboph il (FIBERCON) 625 mg tablet 2021-10 0 00:00: 00 Yes [id number] 625mg Take 1 tablet by mouth in the morning. [facility] polyethylen e glycol 3350 (MIRALAX) 17 gram powder 2021-10 0 00:00: 00 Yes [id number] 1{packe t} Take 1 Packet by mouth as needed for Constipati on. [facility] docusate (COLACE) 100 mg capsule 2021-10 0 00:00: 00 Yes [id number] 100mg Take 1 capsule by mouth once daily as needed for Constipati on. [facility] polycarboph il (FIBERCON) 625 mg tablet 2021-10 0 00:00: 00 Yes [id number] 625mg Take 1 tablet by mouth in the morning. [facility] polyethylen e glycol 3350 (MIRALAX) 17 gram powder 2021-10 0- 00:00: 00 Yes [id number] 1{packe t} Take 1 Packet by mouth as needed for Constipati on. [facility] docusate (COLACE) 100 mg capsule 2021-10 0- 00:00: 00 Yes [id number] 100mg Take 1 capsule by mouth once daily as needed for Constipati on. [facility] polycarboph il (FIBERCON) 625 mg tablet 2021-10 0 00:00: 00 Yes [id number] 625mg Take 1 tablet by mouth in the morning. [facility] polyethylen e glycol 3350 (MIRALAX) 17 gram powder 2021-10 0 00:00: 00 Yes [id number] 1{packe t} Take 1 Packet by mouth as needed for Constipati on. [facility] docusate (COLACE) 100 mg capsule 2021-10 0 00:00: 00 Yes [id number] 100mg Take 1 capsule by mouth once daily as needed for Constipati on. [facility] polycarboph il (FIBERCON) 625 mg tablet 2021-10 0 00:00: 00 Yes [id number] 625mg Take 1 tablet by mouth in the morning. [facility] polyethylen e glycol 3350 (MIRALAX) 17 gram powder 2021-10 0 00:00: 00 Yes [id number] 1{packe t} Take 1 Packet by mouth as needed for Constipati on. [facility] docusate (COLACE) 100 mg capsule 2021-10 0 00:00: 00 Yes [id number] 100mg Take 1 capsule by mouth once daily as needed for Constipati on. [facility] polycarboph il (FIBERCON) 625 mg tablet 2021-10 0- 00:00: 00 Yes [id number] 625mg Take 1 tablet by mouth in the morning. [facility] polyethylen e glycol 3350 (MIRALAX) 17 gram powder 2021-10 0- 00:00: 00 Yes [id number] 1{packe t} Take 1 Packet by mouth as needed for Constipati on. [facility] docusate (COLACE) 100 mg capsule 2021-10 0 00:00: 00 Yes [id number] 100mg Take 1 capsule by mouth once daily as needed for Constipati on. [facility] polycarboph il (FIBERCON) 625 mg tablet 2021-10 0 00:00: 00 Yes [id number] 625mg Take 1 tablet by mouth in the morning. [facility] polyethylen e glycol 3350 (MIRALAX) 17 gram powder 2021-10 0 00:00: 00 Yes [id number] 1{packe t} Take 1 Packet by mouth as needed for Constipati on. [facility] docusate (COLACE) 100 mg capsule 2021-10 0 00:00: 00 Yes [id number] 100mg Take 1 capsule by mouth once daily as needed for Constipati on. [facility] polycarboph il (FIBERCON) 625 mg tablet 2021-10 0 00:00: 00 Yes [id number] 625mg Take 1 tablet by mouth in the morning. [facility] polyethylen e glycol 3350 (MIRALAX) 17 gram powder 2021-10 0 00:00: 00 Yes [id number] 1{packe t} Take 1 Packet by mouth as needed for Constipati on. [facility] polycarboph il (FIBERCON) 625 mg tablet 2021-10 0 00:00: 00 Yes [id number] 625mg Take 1 tablet by mouth in the morning. [facility] polyethylen e glycol 3350 (MIRALAX) 17 gram powder 2021-10 0 00:00: 00 Yes [id number] 1{packe t} Take 1 Packet by mouth as needed for Constipati on. [facility] polycarboph il (FIBERCON) 625 mg tablet 2021-10 0 00:00: 00 Yes [id number] 625mg Take 1 tablet by mouth in the morning. [facility] polyethylen e glycol 3350 (MIRALAX) 17 gram powder 2021-10 0 00:00: 00 Yes [id number] 1{packe t} Take 1 Packet by mouth as needed for Constipati on. [facility] polycarboph il (FIBERCON) 625 mg tablet 2021-10 0 00:00: 00 Yes [id number] 625mg Take 1 tablet by mouth in the morning. [facility] polyethylen e glycol 3350 (MIRALAX) 17 gram powder 2021-10 0- 00:00: 00 Yes [id number] 1{packe t} Take 1 Packet by mouth as needed for Constipati on. [facility] polycarboph il (FIBERCON) 625 mg tablet 2021-10 0 00:00: 00 Yes [id number] 625mg Take 1 tablet by mouth in the morning. [facility] polyethylen e glycol 3350 (MIRALAX) 17 gram powder 2021-10 0 00:00: 00 Yes [id number] 1{packe t} Take 1 Packet by mouth as needed for Constipati on. [facility] polycarboph il (FIBERCON) 625 mg tablet 2021-10 0 00:00: 00 Yes [id number] 625mg Take 1 tablet by mouth in the morning. [facility] polyethylen e glycol 3350 (MIRALAX) 17 gram powder 2021-10 0 00:00: 00 Yes [id number] 1{packe t} Take 1 Packet by mouth as needed for Constipati on. [facility] polycarboph il (FIBERCON) 625 mg tablet 2021-10 0 00:00: 00 Yes [id number] 625mg Take 1 tablet by mouth in the morning. [facility] polyethylen e glycol 3350 (MIRALAX) 17 gram powder 2021-10 0- 00:00: 00 Yes [id number] 1{packe t} Take 1 Packet by mouth as needed for Constipati on. [facility] polycarboph il (FIBERCON) 625 mg tablet 2021-10 0- 00:00: 00 Yes [id number] 625mg Take 1 tablet by mouth in the morning. [facility] polyethylen e glycol 3350 (MIRALAX) 17 gram powder 2021-10 0- 00:00: 00 Yes [id number] 1{packe t} Take 1 Packet by mouth as needed for Constipati on. [facility] polycarboph il (FIBERCON) 625 mg tablet 2021-10 0 00:00: 00 Yes [id number] 625mg Take 1 tablet by mouth in the morning. [facility] polyethylen e glycol 3350 (MIRALAX) 17 gram powder 2021-10 0 00:00: 00 Yes [id number] 1{packe t} Take 1 Packet by mouth as needed for Constipati on. [facility] polycarboph il (FIBERCON) 625 mg tablet 2021-10 0 00:00: 00 Yes [id number] 625mg Take 1 tablet by mouth in the morning. [facility] polyethylen e glycol 3350 (MIRALAX) 17 gram powder 2021-10 0 00:00: 00 Yes [id number] 1{packe t} Take 1 Packet by mouth as needed for Constipati on. [facility] polycarboph il (FIBERCON) 625 mg tablet 2021-10 0 00:00: 00 Yes [id number] 625mg Take 1 tablet by mouth in the morning. [facility] polyethylen e glycol 3350 (MIRALAX) 17 gram powder 2021-10 0 00:00: 00 Yes [id number] 1{packe t} Take 1 Packet by mouth as needed for Constipati on. [facility] docusate (COLACE) 100 mg capsule 2021-10 0 00:00: 00 Yes [id number] 100mg Take 1 capsule by mouth once daily as needed for Constipati on. [facility] polyethylen e glycol 3350 (MIRALAX) 17 gram powder 2021-10 0 00:00: 00 Yes [id number] 1{packe t} Take 1 Packet by mouth as needed for Constipati on. [facility] polycarboph il (FIBERCON) 625 mg tablet 2021-10 0 00:00: 00 Yes [id number] 625mg Take 1 tablet by mouth in the morning. [facility] polycarboph il (FIBERCON) 625 mg tablet 2021-10 0 00:00: 00 Yes [id number] 625mg Take 1 tablet by mouth in the morning. [facility] polyethylen e glycol 3350 (MIRALAX) 17 gram powder 2021-10 0 00:00: 00 Yes [id number] 1{packe t} Take 1 Packet by mouth as needed for Constipati on. [facility] PNV 102-iron-fo late-dha (VITAFOL FE PLUS) 90 mg iron- 1 mg-200 mg Cap 2021-10 0 00:00: 00 Yes [id number] Take 1 TAB-CAP/M2 by mouth daily. [facility] polycarboph il (FIBERCON) 625 mg tablet 2021-10 00:00: 00 Yes [id number] 625mg Take 1 tablet by mouth in the morning. [facility] polyethylen e glycol 3350 (MIRALAX) 17 gram powder 2021-10 00:00: 00 Yes [id number] 1{packe t} Take 1 Packet by mouth as needed for Constipati on. [facility] polycarboph il (FIBERCON) 625 mg tablet 2021-10 00:00: 00 Yes [id number] 625mg Take 1 tablet by mouth in the morning. [facility] polyethylen e glycol 3350 (MIRALAX) 17 gram powder 2021-10 00:00: 00 Yes [id number] 1{packe t} Take 1 Packet by mouth as needed for Constipati on. [facility] polycarboph il (FIBERCON) 625 mg tablet 2021-10 00:00: 00 Yes [id number] 625mg Take 1 tablet by mouth in the morning. [facility] polyethylen e glycol 3350 (MIRALAX) 17 gram powder 2021-10 0 00:00: 00 04-09 00:00 :00 No [id number] 1{packe t} Take 1 Packet by mouth as needed for Constipati on. [facility] polycarboph il (FIBERCON) 625 mg tablet 2021-10 0 00:00: 00 04-09 00:00 :00 No [id number] 625mg Take 1 tablet by mouth in the morning. [facility] docusate (COLACE) 100 mg capsule 2021-10 00:00: 00 01-05 00:00 :00 No [id number] 100mg Take 1 capsule by mouth once daily as needed for Constipati on. [facility] docusate (COLACE) 100 mg capsule 2021-10 00:00: 00 01-05 00:00 :00 No [id number] 100mg Take 1 capsule by mouth once daily as needed for Constipati on. [facility] PNV 102-iron-fo late-dha (VITAFOL FE PLUS) 90 mg iron- 1 mg-200 mg Cap 2021-10 00:00: 00 09-02 00:00 :00 No [id number] Take 1 TAB-CAP/M2 by mouth daily. [facility] estradiol 1 mg tablet 2017-10 00:00: 00 Yes 1mg Take 1 tablet by mouth daily. [facility] estradiol 1 mg tablet 2017-10 00:00: 00 Yes 1mg Take 1 tablet by mouth daily. [facility] estradiol 1 mg tablet 2017-10 00:00: 00 Yes 1mg Take 1 tablet by mouth daily. [facility] estradiol 1 mg tablet 2017-10 00:00: 00 08-02 00:00 :00 No 1mg Take 1 tablet by mouth daily. [facility] Immunizations Ordered Immunization Name Filled Immunization Name Date Status Comments Source Influenza Virus Vaccine Quad .5 mL IM 6+ MO 2018-07-15 00:00:00 Completed [facility] Influenza Virus Vaccine Quad .5 mL IM 6+ MO 2018-07-15 00:00:00 Completed [facility] Influenza Virus Vaccine Quad .5 mL IM 6+ MO 2018-07-15 00:00:00 Completed [facility] Influenza Virus Vaccine Quad .5 mL IM 6+ MO 2018-07-15 00:00:00 Completed [facility] Influenza Virus Vaccine Quad .5 mL IM 6+ MO 2018-07-15 00:00:00 Completed [facility] Influenza Virus Vaccine Quad .5 mL IM 6+ MO 2018-07-15 00:00:00 Completed [facility] Influenza Virus Vaccine Quad .5 mL IM 6+ MO 2018-07-15 00:00:00 Completed [facility] Influenza Virus Vaccine Quad .5 mL IM 6+ MO 2018-07-15 00:00:00 Completed [facility] Influenza Virus Vaccine Quad .5 mL IM 6+ MO 2018-07-15 00:00:00 Completed [facility] Influenza Virus Vaccine Quad .5 mL IM 6+ MO 2018-07-15 00:00:00 Completed [facility] Influenza Virus Vaccine Quad .5 mL IM 6+ MO 2018-07-15 00:00:00 Completed [facility] Influenza Virus Vaccine Quad .5 mL IM 6+ MO 2018-07-15 00:00:00 Completed [facility] Influenza Virus Vaccine Quad .5 mL IM 6+ MO 2018-07-15 00:00:00 Completed [facility] Influenza Virus Vaccine Quad .5 mL IM 6+ MO 2018-07-15 00:00:00 Completed [facility] Influenza Virus Vaccine Quad .5 mL IM 6+ MO 2018-07-15 00:00:00 Completed [facility] Influenza Virus Vaccine Quad .5 mL IM 6+ MO 2018-07-15 00:00:00 Completed [facility] Influenza Virus Vaccine Quad .5 mL IM 6+ MO 2018-07-15 00:00:00 Completed [facility] Influenza Virus Vaccine Quad .5 mL IM 6+ MO 2018-07-15 00:00:00 Completed [facility] Influenza Virus Vaccine Quad .5 mL IM 6+ MO 2018-07-15 00:00:00 Completed [facility] Influenza Virus Vaccine Quad .5 mL IM 6+ MO 2018-07-15 00:00:00 Completed [facility] Influenza Virus Vaccine Quad .5 mL IM 6+ MO 2018-07-15 00:00:00 Completed [facility] Influenza Virus Vaccine Quad .5 mL IM 6+ MO 2018-07-15 00:00:00 Completed [facility] Influenza Virus Vaccine Quad .5 mL IM 6+ MO 2018-07-15 00:00:00 Completed [facility] Influenza Virus Vaccine Quad .5 mL IM 6+ MO 2018-07-15 00:00:00 Completed [facility] Influenza Virus Vaccine Quad .5 mL IM 6+ MO 2018-07-15 00:00:00 Completed [facility] Influenza Virus Vaccine Quad .5 mL IM 6+ MO 2018-07-15 00:00:00 Completed [facility] Influenza Virus Vaccine Quad .5 mL IM 6+ MO 2018-07-15 00:00:00 Completed [facility] Influenza Virus Vaccine Quad .5 mL IM 6+ MO 2018-07-15 00:00:00 Completed [facility] Influenza Virus Vaccine Quad .5 mL IM 6+ MO 2018-07-15 00:00:00 Completed [facility] Influenza Virus Vaccine Quad .5 mL IM 6+ MO 2018-07-15 00:00:00 Completed [facility] Influenza Virus Vaccine Quad .5 mL IM 6+ MO 2018-07-15 00:00:00 Completed [facility] Influenza Virus Vaccine Quad .5 mL IM 6+ MO 2018-07-15 00:00:00 Completed [facility] Influenza Virus Vaccine Quad .5 mL IM 6+ MO 2018-07-15 00:00:00 Completed [facility] Influenza Virus Vaccine Quad .5 mL IM 6+ MO 2018-07-15 00:00:00 Completed [facility] Influenza Virus Vaccine Quad .5 mL IM 6+ MO 2018-07-15 00:00:00 Completed [facility] Influenza Virus Vaccine Quad .5 mL IM 6+ MO 2018-07-15 00:00:00 Completed [facility] Influenza Virus Vaccine Quad .5 mL IM 6+ MO 2018-07-15 00:00:00 Completed [facility] Influenza Virus Vaccine Quad .5 mL IM 6+ MO 2018-07-15 00:00:00 Completed [facility] Influenza Virus Vaccine Quad .5 mL IM 6+ MO 2018-07-15 00:00:00 Completed [facility] Influenza Virus Vaccine Quad .5 mL IM 6+ MO 2018-07-15 00:00:00 Completed [facility] Influenza Virus Vaccine Quad .5 mL IM 6+ MO 2018-07-15 00:00:00 Completed [facility] Influenza Virus Vaccine Quad .5 mL IM 6+ MO 2018-07-15 00:00:00 Completed [facility] Influenza Virus Vaccine Quad .5 mL IM 6+ MO 2018-07-15 00:00:00 Completed [facility] Influenza Virus Vaccine Quad .5 mL IM 6+ MO 2018-07-15 00:00:00 Completed [facility] Influenza Virus Vaccine Quad .5 mL IM 6+ MO 2018-07-15 00:00:00 Completed [facility] Influenza Virus Vaccine Quad .5 mL IM 6+ MO 2018-07-15 00:00:00 Completed [facility] Influenza Virus Vaccine Quad .5 mL IM 6+ MO 2018-07-15 00:00:00 Completed [facility] Influenza Virus Vaccine Quad .5 mL IM 6+ MO 2018-07-15 00:00:00 Completed [facility] Influenza Virus Vaccine Quad .5 mL IM 6+ MO 2018-07-15 00:00:00 Completed [facility] Influenza Virus Vaccine Quad .5 mL IM 6+ MO 2018-07-15 00:00:00 Completed [facility] Influenza Virus Vaccine Quad .5 mL IM 6+ MO 2018-07-15 00:00:00 Completed [facility] Influenza Virus Vaccine Quad .5 mL IM 6+ MO 2018-07-15 00:00:00 Completed [facility] Influenza Virus Vaccine Quad .5 mL IM 6+ MO 2018-07-15 00:00:00 Completed [facility] Influenza Virus Vaccine Quad .5 mL IM 6+ MO 2018-07-15 00:00:00 Completed [facility] Influenza Virus Vaccine Quad .5 mL IM 6+ MO 2018-07-15 00:00:00 Completed [facility] Influenza Virus Vaccine Quad .5 mL IM 6+ MO 2018-07-15 00:00:00 Completed [facility] Influenza Virus Vaccine Quad .5 mL IM 6+ MO 2018-07-15 00:00:00 Completed [facility] Influenza Virus Vaccine Quad .5 mL IM 6+ MO 2018-07-15 00:00:00 Completed [facility] Influenza Virus Vaccine Quad .5 mL IM 6+ MO 2018-07-15 00:00:00 Completed [facility] Influenza Virus Vaccine Quad .5 mL IM 6+ MO 2018-07-15 00:00:00 Completed [facility] Influenza Virus Vaccine Quad .5 mL IM 6+ MO 2018-07-15 00:00:00 Completed [facility] Influenza Virus Vaccine Quad .5 mL IM 6+ MO 2018-07-15 00:00:00 Completed [facility] Influenza Virus Vaccine Quad .5 mL IM 6+ MO 2018-07-15 00:00:00 Completed [facility] Influenza Virus Vaccine Quad .5 mL IM 6+ MO 2018-07-15 00:00:00 Completed [facility] Influenza Virus Vaccine Quad .5 mL IM 6+ MO 2018-07-15 00:00:00 Completed [facility] Influenza Virus Vaccine Quad .5 mL IM 6+ MO 2018-07-15 00:00:00 Completed [facility] Influenza Virus Vaccine Quad .5 mL IM 6+ MO 2018-07-15 00:00:00 Completed [facility] Influenza Virus Vaccine Quad .5 mL IM 6+ MO 2018-07-15 00:00:00 Completed [facility] Influenza Virus Vaccine Quad .5 mL IM 6+ MO 2018-07-15 00:00:00 Completed [facility] Influenza Virus Vaccine Quad .5 mL IM 6+ MO 2018-07-15 00:00:00 Completed [facility] TDAP 2018-06-13 00:00:00 Completed [facility] TDAP 2018-06-13 00:00:00 Completed [facility] TDAP 2018-06-13 00:00:00 Completed [facility] TDAP 2018-06-13 00:00:00 Completed [facility] TDAP 2018-06-13 00:00:00 Completed [facility] TDAP 2018-06-13 00:00:00 Completed [facility] TDAP 2018-06-13 00:00:00 Completed [facility] TDAP 2018-06-13 00:00:00 Completed [facility] TDAP 2018-06-13 00:00:00 Completed [facility] TDAP 2018-06-13 00:00:00 Completed [facility] TDAP 2018-06-13 00:00:00 Completed [facility] TDAP 2018-06-13 00:00:00 Completed [facility] TDAP 2018-06-13 00:00:00 Completed [facility] TDAP 2018-06-13 00:00:00 Completed [facility] TDAP 2018-06-13 00:00:00 Completed [facility] TDAP 2018-06-13 00:00:00 Completed [facility] TDAP 2018-06-13 00:00:00 Completed [facility] TDAP 2018-06-13 00:00:00 Completed [facility] TDAP 2018-06-13 00:00:00 Completed [facility] TDAP 2018-06-13 00:00:00 Completed [facility] TDAP 2018-06-13 00:00:00 Completed [facility] TDAP 2018-06-13 00:00:00 Completed [facility] TDAP 2018-06-13 00:00:00 Completed [facility] TDAP 2018-06-13 00:00:00 Completed [facility] TDAP 2018-06-13 00:00:00 Completed [facility] TDAP 2018-06-13 00:00:00 Completed [facility] TDAP 2018-06-13 00:00:00 Completed [facility] TDAP 2018-06-13 00:00:00 Completed [facility] TDAP 2018-06-13 00:00:00 Completed [facility] TDAP 2018-06-13 00:00:00 Completed [facility] TDAP 2018-06-13 00:00:00 Completed [facility] TDAP 2018-06-13 00:00:00 Completed [facility] TDAP 2018-06-13 00:00:00 Completed [facility] TDAP 2018-06-13 00:00:00 Completed [facility] TDAP 2018-06-13 00:00:00 Completed [facility] TDAP 2018-06-13 00:00:00 Completed [facility] TDAP 2018-06-13 00:00:00 Completed [facility] TDAP 2018-06-13 00:00:00 Completed [facility] TDAP 2018-06-13 00:00:00 Completed [facility] TDAP 2018-06-13 00:00:00 Completed [facility] TDAP 2018-06-13 00:00:00 Completed [facility] TDAP 2018-06-13 00:00:00 Completed [facility] TDAP 2018-06-13 00:00:00 Completed [facility] TDAP 2018-06-13 00:00:00 Completed [facility] TDAP 2018-06-13 00:00:00 Completed [facility] TDAP 2018-06-13 00:00:00 Completed [facility] TDAP 2018-06-13 00:00:00 Completed [facility] TDAP 2018-06-13 00:00:00 Completed [facility] TDAP 2018-06-13 00:00:00 Completed [facility] TDAP 2018-06-13 00:00:00 Completed [facility] TDAP 2018-06-13 00:00:00 Completed [facility] TDAP 2018-06-13 00:00:00 Completed [facility] TDAP 2018-06-13 00:00:00 Completed [facility] TDAP 2018-06-13 00:00:00 Completed [facility] TDAP 2018-06-13 00:00:00 Completed [facility] TDAP 2018-06-13 00:00:00 Completed [facility] TDAP 2018-06-13 00:00:00 Completed [facility] TDAP 2018-06-13 00:00:00 Completed [facility] TDAP 2018-06-13 00:00:00 Completed [facility] TDAP 2018-06-13 00:00:00 Completed [facility] TDAP 2018-06-13 00:00:00 Completed [facility] TDAP 2018-06-13 00:00:00 Completed [facility] TDAP 2018-06-13 00:00:00 Completed [facility] TDAP 2018-06-13 00:00:00 Completed [facility] TDAP 2018-06-13 00:00:00 Completed [facility] TDAP 2018-06-13 00:00:00 Completed [facility] TDAP 2018-06-13 00:00:00 Completed [facility] TDAP 2018-06-13 00:00:00 Completed [facility] TDAP 2018-06-13 00:00:00 Completed [facility] TDAP 2018-06-13 00:00:00 Completed [facility] HPV9 2017-09-26 00:00:00 Completed [facility] HPV9 2017-09-26 00:00:00 Completed [facility] HPV9 2017-09-26 00:00:00 Completed [facility] HPV9 2017-09-26 00:00:00 Completed [facility] HPV9 2017-09-26 00:00:00 Completed [facility] HPV9 2017-09-26 00:00:00 Completed [facility] HPV9 2017-09-26 00:00:00 Completed [facility] HPV9 2017-09-26 00:00:00 Completed [facility] HPV9 2017-09-26 00:00:00 Completed [facility] HPV9 2017-09-26 00:00:00 Completed [facility] HPV9 2017-09-26 00:00:00 Completed [facility] HPV9 2017-09-26 00:00:00 Completed [facility] HPV9 2017-09-26 00:00:00 Completed [facility] HPV9 2017-09-26 00:00:00 Completed [facility] HPV9 2017-09-26 00:00:00 Completed [facility] HPV9 2017-09-26 00:00:00 Completed [facility] HPV9 2017-09-26 00:00:00 Completed [facility] HPV9 2017-09-26 00:00:00 Completed [facility] HPV9 2017-09-26 00:00:00 Completed [facility] HPV9 2017-09-26 00:00:00 Completed [facility] HPV9 2017-09-26 00:00:00 Completed [facility] HPV9 2017-09-26 00:00:00 Completed [facility] HPV9 2017-09-26 00:00:00 Completed [facility] HPV9 2017-09-26 00:00:00 Completed [facility] HPV9 2017-09-26 00:00:00 Completed [facility] HPV9 2017-09-26 00:00:00 Completed [facility] HPV9 2017-09-26 00:00:00 Completed [facility] HPV9 2017-09-26 00:00:00 Completed [facility] HPV9 2017-09-26 00:00:00 Completed [facility] HPV9 2017-09-26 00:00:00 Completed [facility] HPV9 2017-09-26 00:00:00 Completed [facility] HPV9 2017-09-26 00:00:00 Completed [facility] HPV9 2017-09-26 00:00:00 Completed [facility] HPV9 2017-09-26 00:00:00 Completed [facility] HPV9 2017-09-26 00:00:00 Completed [facility] HPV9 2017-09-26 00:00:00 Completed [facility] HPV9 2017-09-26 00:00:00 Completed [facility] HPV9 2017-09-26 00:00:00 Completed [facility] HPV9 2017-09-26 00:00:00 Completed [facility] HPV9 2017-09-26 00:00:00 Completed [facility] HPV9 2017-09-26 00:00:00 Completed [facility] HPV9 2017-09-26 00:00:00 Completed [facility] HPV9 2017-09-26 00:00:00 Completed [facility] HPV9 2017-09-26 00:00:00 Completed [facility] HPV9 2017-09-26 00:00:00 Completed [facility] HPV9 2017-09-26 00:00:00 Completed [facility] HPV9 2017-09-26 00:00:00 Completed [facility] HPV9 2017-09-26 00:00:00 Completed [facility] HPV9 2017-09-26 00:00:00 Completed [facility] HPV9 2017-09-26 00:00:00 Completed [facility] HPV9 2017-09-26 00:00:00 Completed [facility] HPV9 2017-09-26 00:00:00 Completed [facility] HPV9 2017-09-26 00:00:00 Completed [facility] HPV9 2017-09-26 00:00:00 Completed [facility] HPV9 2017-09-26 00:00:00 Completed [facility] HPV9 2017-09-26 00:00:00 Completed [facility] HPV9 2017-09-26 00:00:00 Completed [facility] HPV9 2017-09-26 00:00:00 Completed [facility] HPV9 2017-09-26 00:00:00 Completed [facility] HPV9 2017-09-26 00:00:00 Completed [facility] HPV9 2017-09-26 00:00:00 Completed [facility] HPV9 2017-09-26 00:00:00 Completed [facility] HPV9 2017-09-26 00:00:00 Completed [facility] HPV9 2017-09-26 00:00:00 Completed [facility] HPV9 2017-09-26 00:00:00 Completed [facility] HPV9 2017-09-26 00:00:00 Completed [facility] HPV9 2017-09-26 00:00:00 Completed [facility] HPV9 2017-09-26 00:00:00 Completed [facility] HPV9 2017-09-26 00:00:00 Completed [facility] HPV9 2017-09-26 00:00:00 Completed [facility] TDAP 2017-07-27 00:00:00 Completed [facility] HPV9 2017-07-27 00:00:00 Completed [facility] TDAP 2017-07-27 00:00:00 Completed [facility] HPV9 2017-07-27 00:00:00 Completed [facility] TDAP 2017-07-27 00:00:00 Completed [facility] HPV9 2017-07-27 00:00:00 Completed [facility] TDAP 2017-07-27 00:00:00 Completed [facility] HPV9 2017-07-27 00:00:00 Completed [facility] TDAP 2017-07-27 00:00:00 Completed [facility] HPV9 2017-07-27 00:00:00 Completed [facility] TDAP 2017-07-27 00:00:00 Completed [facility] HPV9 2017-07-27 00:00:00 Completed [facility] TDAP 2017-07-27 00:00:00 Completed [facility] HPV9 2017-07-27 00:00:00 Completed [facility] TDAP 2017-07-27 00:00:00 Completed [facility] HPV9 2017-07-27 00:00:00 Completed [facility] TDAP 2017-07-27 00:00:00 Completed [facility] TDAP 2017-07-27 00:00:00 Completed [facility] HPV9 2017-07-27 00:00:00 Completed [facility] HPV9 2017-07-27 00:00:00 Completed [facility] TDAP 2017-07-27 00:00:00 Completed [facility] HPV9 2017-07-27 00:00:00 Completed [facility] TDAP 2017-07-27 00:00:00 Completed [facility] HPV9 2017-07-27 00:00:00 Completed [facility] TDAP 2017-07-27 00:00:00 Completed [facility] HPV9 2017-07-27 00:00:00 Completed [facility] TDAP 2017-07-27 00:00:00 Completed [facility] TDAP 2017-07-27 00:00:00 Completed [facility] HPV9 2017-07-27 00:00:00 Completed [facility] HPV9 2017-07-27 00:00:00 Completed [facility] TDAP 2017-07-27 00:00:00 Completed [facility] HPV9 2017-07-27 00:00:00 Completed [facility] TDAP 2017-07-27 00:00:00 Completed [facility] HPV9 2017-07-27 00:00:00 Completed [facility] TDAP 2017-07-27 00:00:00 Completed [facility] HPV9 2017-07-27 00:00:00 Completed [facility] TDAP 2017-07-27 00:00:00 Completed [facility] HPV9 2017-07-27 00:00:00 Completed [facility] TDAP 2017-07-27 00:00:00 Completed [facility] HPV9 2017-07-27 00:00:00 Completed [facility] TDAP 2017-07-27 00:00:00 Completed [facility] HPV9 2017-07-27 00:00:00 Completed [facility] TDAP 2017-07-27 00:00:00 Completed [facility] HPV9 2017-07-27 00:00:00 Completed [facility] TDAP 2017-07-27 00:00:00 Completed [facility] HPV9 2017-07-27 00:00:00 Completed [facility] TDAP 2017-07-27 00:00:00 Completed [facility] HPV9 2017-07-27 00:00:00 Completed [facility] TDAP 2017-07-27 00:00:00 Completed [facility] HPV9 2017-07-27 00:00:00 Completed [facility] TDAP 2017-07-27 00:00:00 Completed [facility] HPV9 2017-07-27 00:00:00 Completed [facility] TDAP 2017-07-27 00:00:00 Completed [facility] HPV9 2017-07-27 00:00:00 Completed [facility] TDAP 2017-07-27 00:00:00 Completed [facility] TDAP 2017-07-27 00:00:00 Completed [facility] HPV9 2017-07-27 00:00:00 Completed [facility] HPV9 2017-07-27 00:00:00 Completed [facility] TDAP 2017-07-27 00:00:00 Completed [facility] HPV9 2017-07-27 00:00:00 Completed [facility] TDAP 2017-07-27 00:00:00 Completed [facility] HPV9 2017-07-27 00:00:00 Completed [facility] TDAP 2017-07-27 00:00:00 Completed [facility] HPV9 2017-07-27 00:00:00 Completed [facility] TDAP 2017-07-27 00:00:00 Completed [facility] HPV9 2017-07-27 00:00:00 Completed [facility] TDAP 2017-07-27 00:00:00 Completed [facility] HPV9 2017-07-27 00:00:00 Completed [facility] TDAP 2017-07-27 00:00:00 Completed [facility] HPV9 2017-07-27 00:00:00 Completed [facility] TDAP 2017-07-27 00:00:00 Completed [facility] HPV9 2017-07-27 00:00:00 Completed [facility] TDAP 2017-07-27 00:00:00 Completed [facility] HPV9 2017-07-27 00:00:00 Completed [facility] TDAP 2017-07-27 00:00:00 Completed [facility] HPV9 2017-07-27 00:00:00 Completed [facility] TDAP 2017-07-27 00:00:00 Completed [facility] HPV9 2017-07-27 00:00:00 Completed [facility] TDAP 2017-07-27 00:00:00 Completed [facility] HPV9 2017-07-27 00:00:00 Completed [facility] TDAP 2017-07-27 00:00:00 Completed [facility] HPV9 2017-07-27 00:00:00 Completed [facility] TDAP 2017-07-27 00:00:00 Completed [facility] HPV9 2017-07-27 00:00:00 Completed [facility] TDAP 2017-07-27 00:00:00 Completed [facility] HPV9 2017-07-27 00:00:00 Completed [facility] TDAP 2017-07-27 00:00:00 Completed [facility] HPV9 2017-07-27 00:00:00 Completed [facility] TDAP 2017-07-27 00:00:00 Completed [facility] HPV9 2017-07-27 00:00:00 Completed [facility] TDAP 2017-07-27 00:00:00 Completed [facility] HPV9 2017-07-27 00:00:00 Completed [facility] TDAP 2017-07-27 00:00:00 Completed [facility] HPV9 2017-07-27 00:00:00 Completed [facility] TDAP 2017-07-27 00:00:00 Completed [facility] HPV9 2017-07-27 00:00:00 Completed [facility] TDAP 2017-07-27 00:00:00 Completed [facility] HPV9 2017-07-27 00:00:00 Completed [facility] TDAP 2017-07-27 00:00:00 Completed [facility] HPV9 2017-07-27 00:00:00 Completed [facility] TDAP 2017-07-27 00:00:00 Completed [facility] HPV9 2017-07-27 00:00:00 Completed [facility] TDAP 2017-07-27 00:00:00 Completed [facility] HPV9 2017-07-27 00:00:00 Completed [facility] TDAP 2017-07-27 00:00:00 Completed [facility] HPV9 2017-07-27 00:00:00 Completed [facility] TDAP 2017-07-27 00:00:00 Completed [facility] HPV9 2017-07-27 00:00:00 Completed [facility] TDAP 2017-07-27 00:00:00 Completed [facility] HPV9 2017-07-27 00:00:00 Completed [facility] TDAP 2017-07-27 00:00:00 Completed [facility] HPV9 2017-07-27 00:00:00 Completed [facility] TDAP 2017-07-27 00:00:00 Completed [facility] HPV9 2017-07-27 00:00:00 Completed [facility] TDAP 2017-07-27 00:00:00 Completed [facility] HPV9 2017-07-27 00:00:00 Completed [facility] TDAP 2017-07-27 00:00:00 Completed [facility] HPV9 2017-07-27 00:00:00 Completed [facility] TDAP 2017-07-27 00:00:00 Completed [facility] HPV9 2017-07-27 00:00:00 Completed [facility] TDAP 2017-07-27 00:00:00 Completed [facility] HPV9 2017-07-27 00:00:00 Completed [facility] TDAP 2017-07-27 00:00:00 Completed [facility] HPV9 2017-07-27 00:00:00 Completed [facility] TDAP 2017-07-27 00:00:00 Completed [facility] HPV9 2017-07-27 00:00:00 Completed [facility] TDAP 2017-07-27 00:00:00 Completed [facility] HPV9 2017-07-27 00:00:00 Completed [facility] TDAP 2017-07-27 00:00:00 Completed [facility] HPV9 2017-07-27 00:00:00 Completed [facility] TDAP 2017-07-27 00:00:00 Completed [facility] HPV9 2017-07-27 00:00:00 Completed [facility] TDAP 2017-07-27 00:00:00 Completed [facility] HPV9 2017-07-27 00:00:00 Completed [facility] TDAP 2017-07-27 00:00:00 Completed [facility] HPV9 2017-07-27 00:00:00 Completed [facility] TDAP 2017-07-27 00:00:00 Completed [facility] HPV9 2017-07-27 00:00:00 Completed [facility] TDAP 2017-07-27 00:00:00 Completed [facility] HPV9 2017-07-27 00:00:00 Completed [facility] TDAP Unknown Completed [facility] HPV9 Unknown Completed [facility] HPV9 Unknown Completed [facility] TDAP Unknown Completed [facility] Influenza Virus Vaccine Quad .5 mL IM 6+ MO (FLUZONE/FLULAVAL/F LUARIX) Unknown Completed [facility] TDAP Unknown Completed [facility] HPV9 Unknown Completed [facility] HPV9 Unknown Completed [facility] TDAP Unknown Completed [facility] Influenza Virus Vaccine Quad .5 mL IM 6+ MO (FLUZONE/FLULAVAL/F LUARIX) Unknown Completed [facility] SARS-COV-2 COVID-19 PFIZER TABBY-SUCROSE VACCINE (MCDANIEL TOP) Unknown Completed [facility] Vital Signs Vital Name Observation Time Observation Value Comments S ource Systolic blood pressure 2023-05-29 18:06:00 106 mm[facility]Hg[facility] Di[facility] 2023-05-29 18:06:00 67 mm[Hg[facility] Heart rate 2023-05-29 18[facility]06:00 65 [facility] 2023-05-29 18:06:00 36.78 [facility] Body weight 2023-05-29 18:06:00 57.516 kg [facility] BMI 2023-05-29 18:06:00 27.44 kg/m2 [facility] Systolic blood pressure 2023-05-15 14:30:00 104 mm[Hg] [facility] Diastolic blood pressure 2023-05-15 14:30:00 69 mm[Hg] [facility] Heart rate 2023-05-15 14:30:00 64 /min [facility] Respiratory rate 2023-05-15 14:30:00 14 /min [facility] Oxygen saturation in Arterial blood by Pulse oximetry 2023-05-15 14:30:00 99 /min [facility] Body temperature 2023-05-15 13:48:00 36.06 [facility] Body height 2023-05-07 19:00:00 144.8 cm [facility] Body weight 2023-05-07 19:00:00 58.514 kg [facility] BMI 2023-05-07 19:00:00 27.92 kg/m2 [facility] Systolic blood pressure 2023-05-15 14:30:00 104 mm[Hg] [facility] Diastolic blood pressure 2023-05-15 14:30:00 69 mm[Hg] [facility] Heart rate 2023-05-15 14:30:00 64 /min [facility] Respiratory rate 2023-05-15 14:30:00 14 /min [facility] Oxygen saturation in Arterial blood by Pulse oximetry 2023-05-15 14:30:00 99 /min [facility] Body temperature 2023-05-15 13:48:00 36.06 [facility] Body height 2023-05-07 19:00:00 144.8 cm [facility] Body weight 2023-05-07 19:00:00 58.514 kg [facility] BMI 2023-05-07 19:00:00 27.92 kg/m2 [facility] Systolic blood pressure 2023-05-07 14:14:00 104 mm[Hg[facility] Diastolic blood pressure 2023-05-07 14:14:00 62 mm[Hg] [facility] Heart rate 2023-05-07 14:14:00 55 /min [facility] Body temperature 2023-05-07 14:14:00 36.72 [facility] Body height 2023-05-07 14:14:00 144.8 cm [facility] Body weight 2023-05-07 14:14:00 58.695 kg [facility] BMI 2023-05-07 14:14:00 28.00 kg/m2 [facility] Systolic blood pressure 2023-04-09 21:30:00 109 mm[Hg[facility] Diastolic blood pressure 2023-04-09 21:30:00 66 mm[Hg[facility] Heart rate 2023-04-09 21:30:00 68 /min [facility] Body temperature 2023-04-09 21:30:00 36.61 [facility] Respiratory rate 2023-04-09 21:30:00 16 /min [facility] Body height 2023-04-09 21:30:00 144.8 cm [facility] Body weight 2023-04-09 21:30:00 60.147 kg [facility] BMI 2023-04-09 21:30:00 28.69 kg/m2 [facility] Oxygen saturation in Arterial blood by Pulse oximetry 2023-04-09 21:30:00 100 /min [facility] Systolic blood pressure 2023-03-19 16:11:00 105 mm[Hg] [facility] Diastolic blood pressure 2023-03-19 16:11:00 74 mm[Hg] [facility] Heart rate 2023-03-19 16:11:00 72 /min [facility] Body temperature 2023-03-19 16:11:00 36.67 [facility] Respiratory rate 2023-03-19 16:11:00 18 /min [facility] Body height 2023-03-19 16:11:00 144.8 cm [facility] Body weight 2023-03-19 16:11:00 59.421 kg [facility] BMI 2023-03-19 16:11:00 28.35 kg/m2 [facility] Systolic blood pressure 2023-02-24 19:33:00 102 mm[Hg[facility] Diastolic blood pressure 2023-02-24 19:33:00 47 mm[Hg] [facility] Heart rate 2023-02-24 19:33:00 70 /min [facility] Oxygen saturation in Arterial blood by Pulse oximetry 2023-02-24 19:33:00 99 /min [facility] Body temperature 2023-02-24 18:32:00 36.67 [facility] Respiratory rate 2023-02-24 12:55:00 18 /min [facility] Body weight 2023-02-23 04:45:00 69.854 kg [facility] BMI 2023-02-23 04:45:00 33.33 kg/m2 [facility] Systolic blood pressure 2023-02-15 20:36:00 107 mm[Hg[facility] Diastolic blood pressure 2023-02-15 20:36:00 66 mm[Hg] [facility] Heart rate 2023-02-15 20:36:00 99 /min [facility] Body temperature 2023-02-15 20:36:00 36.72 [facility] Body height 2023-02-15 20:36:00 144.8 cm [facility] Body weight 2023-02-15 20:36:00 69.854 kg [facility] BMI 2023-02-15 20:36:00 33.33 kg/m2 [facility] Systolic blood pressure 2023-02-12 18:53:00 93 mm[Hg[facility] Diastolic blood pressure 2023-02-12 18:53:00 56 mm[Hg] [facility] Heart rate 2023-02-12 18:53:00 88 /min [facility] Body temperature 2023-02-12 18:53:00 36.56 [facility] Respiratory rate 2023-02-12 18:53:00 18 /min [facility] Body height 2023-02-12 18:53:00 144.8 cm [facility] Body weight 2023-02-12 18:53:00 69.128 kg [facility] BMI 2023-02-12 18:53:00 32.98 kg/m2 [facility] Oxygen saturation in Arterial blood by Pulse oximetry 2023-02-12 18:53:00 99 /min [facility] Systolic blood pressure 2023-02-08 20:48:00 105 mm[Hg[facility] Diastolic blood pressure 2023-02-08 20:48:00 65 mm[Hg[facility] Heart rate 2023-02-08 20:48:00 76 /min [facility] Body temperature 2023-02-08 20:48:00 36.72 [facility] Respiratory rate 2023-02-08 20:48:00 18 /min [facility] Body height 2023-02-08 20:48:00 144.8 cm [facility] Body weight 2023-02-08 20:48:00 68.584 kg [facility] BMI 2023-02-08 20:48:00 32.72 kg/m2 [facility] Heart rate 2023-02-08 07:40:00 94 /min [facility] Oxygen saturation in Arterial blood by Pulse oximetry 2023-02-08 07:40:00 98 /min [facility] Systolic blood pressure 2023-02-08 07:30:00 119 mm[Hg] [facility] Diastolic blood pressure 2023-02-08 07:30:00 61 mm[Hg] [facility] Body temperature 2023-02-08 07:12:00 36.94 [facility] Respiratory rate 2023-02-08 07:12:00 18 /min [facility] Body height 2023-02-08 07:12:00 144.8 cm [facility] 2023-02-08 07:12:00 68.947 kg [facility] BMI 2023-02-08 07:12:00 32.89 kg/m2 [facility] BMI 2023-01-30 21:35:00 32.24 kg/m2 [facility] Systolic blood pressure 2023-01-30 21:35:00 98 mm[Hg[facility] Diastolic blood pressure 2023-01-30 21:35:00 61 mm[Hg] [facility] Heart rate 2023-01-30 21:35:00 76 /min [facility] Body temperature 2023-01-30 21:35:00 36.89 [facility] Body height 2023-01-30 21:35:00 144.8 cm [facility] Body weight 2023-01-30 21:35:00 67.586 kg [facility] Systolic blood pressure 2023-01-25 19:24:00 111 mm[Hg[facility] Diastolic blood pressure 2023-01-25 19:24:00 70 mm[Hg[facility] Heart rate 2023-01-25 19:24:00 72 /min [facility] Body temperature 2023-01-25 19:24:00 36.72 [facility] Respiratory rate 2023-01-25 19:24:00 18 /min [facility] Body weight 2023-01-25 19:24:00 67.132 kg [facility] BMI 2023-01-25 19:24:00 32.03 kg/m2 [facility] Systolic blood pressure 2023-01-05 19:39:00 90 mm[Hg[facility] Diastolic blood pressure 2023-01-05 19:39:00 54 mm[Hg] [facility] Heart rate 2023-01-05 19:39:00 99 /min [facility] Respiratory rate 2023-01-05 19:39:00 18 /min [facility] Oxygen saturation in Arterial blood by Pulse oximetry 2023-01-05 19:39:00 99 /min [facility] Body temperature 2023-01-05 19:30:00 36.67 [facility] Systolic blood pressure 2023-01-05 14:20:00 110 mm[Hg[facility] Diastolic blood pressure 2023-01-05 14:20:00 71 mm[Hg] [facility] Heart rate 2023-01-05 14:20:00 101 /min [facility] Respiratory rate 2023-01-05 14:20:00 19 /min [facility] Body height 2023-01-05 14:20:00 144.8 cm [facility] Body weight 2023-01-05 14:20:00 66.633 kg [facility] BMI 2023-01-05 14:20:00 31.79 kg/m2 [facility] Oxygen saturation in Arterial blood by Pulse oximetry 2023-01-05 14:20:00 97 /min [facility] Systolic blood pressure 2023-01-03 20:25:00 110 mm[Hg[facility] Diastolic blood pressure 2023-01-03 20:25:00 70 mm[Hg] [facility] Heart rate 2023-01-03 20:25:00 112 /min [facility] Body temperature 2023-01-03 20:25:00 36.72 [facility] Respiratory rate 2023-01-03 20:25:00 16 /min [facility] Body height 2023-01-03 20:25:00 144.8 cm [facility] Body weight 2023-01-03 20:25:00 66.225 kg [facility] BMI 2023-01-03 20:25:00 31.59 kg/m2 [facility] Systolic blood pressure 2022-12-29 19:00:00 97 mm[Hg[facility] Diastolic blood pressure 2022-12-29 19:00:00 46 mm[Hg] [facility] Heart rate 2022-12-29 19:00:00 97 /min [facility] Oxygen saturation in Arterial blood by Pulse oximetry 2022-12-29 19:00:00 99 /min [facility] Body height 2022-12-29 16:45:00 144.8 cm [facility] 2022-12-29 16:45:00 65.772 kg [facility] BMI 2022-12-29 16:45:00 31.38 kg/m2 [facility] Systolic blood pressure 2022-12-22 20:00:00 112 mm[Hg[facility] Diastolic blood pressure 2022-12-22 20:00:00 55 mm[Hg[facility] Heart rate 2022-12-22 20:00:00 115 /min [facility] Oxygen saturation in Arterial blood by Pulse oximetry 2022-12-22 20:00:00 100 /min [facility] Body temperature 2022-12-22 19:00:00 36.67 [facility] Respiratory rate 2022-12-22 19:00:00 16 /min [facility] Body height 2022-12-22 15:30:00 144.8 cm [facility] Body weight 2022-12-22 15:30:00 65.318 kg [facility] BMI 2022-12-22 15:30:00 31.16 kg/m2 [facility] Systolic blood pressure 2022-12-20 21:15:00 107 mm[Hg[facility] Diastolic blood pressure 2022-12-20 21:15:00 58 mm[Hg[facility] Heart rate 2022-12-20 21:15:00 115 /min [facility] Body temperature 2022-12-20 21:15:00 36.5 [facility] Respiratory rate 2022-12-20 21:15:00 18 /min [facility] Body height 2022-12-20 21:15:00 144.8 cm [facility] Body weight 2022-12-20 21:15:00 64.592 kg [facility] BMI 2022-12-20 21:15:00 30.82 kg/m2 [facility] Systolic blood pressure 2022-11-22 19:32:00 118 mm[Hg[facility] Diastolic blood pressure 2022-11-22 19:32:00 68 mm[Hg[facility] Heart rate 2022-11-22 19:32:00 106 /min [facility] Body temperature 2022-11-22 19:32:00 36.94 [facility] Respiratory rate 2022-11-22 19:32:00 18 /min [facility] Body height 2022-11-22 19:32:00 144.8 cm [facility] Body weight 2022-11-22 19:32:00 62.415 kg [facility] BMI 2022-11-22 19:32:00 29.78 kg/m2 [facility] Systolic blood pressure 2022-10-25 16:53:00 100 mm[Hg[facility] Diastolic blood pressure 2022-10-25 16:53:00 64 mm[Hg[facility] Heart rate 2022-10-25 16:53:00 90 /min [facility] Body temperature 2022-10-25 16:53:00 36.83 [facility] Respiratory rate 2022-10-25 16:53:00 17 /min [facility] Body height 2022-10-25 16:53:00 144.8 cm [facility] Body weight 2022-10-25 16:53:00 59.693 kg [facility] BMI 2022-10-25 16:53:00 28.48 kg/m2 [facility] Systolic blood pressure 2022-09-27 16:17:00 109 mm[facility]Hg[facility] Diastolic blood pressure 2022-09-27 16:17:00 70 mm[Hg] [facility] Heart rate 2022-09-27 16:17:00 105 /min [facility] 2022-09-27 16:17:00 36.61 [facility] Respiratory rate 2022-09-27 16:17:00 18 /min [facility] Body height 2022-09-27 16:17:00 144.8 cm [facility] Body weight 2022-09-27 16:17:00 57.244 kg [facility] BMI 2022-09-27 16:17:00 27.31 kg/m2 [facility] Systolic blood pressure 2022-08-30 16:58:00 99 mm[Hg[facility] Diastolic blood pressure 2022-08-30 16:58:00 63 mm[Hg] [facility] Heart rate 2022-08-30 16:58:00 79 /min [facility] Body temperature 2022-08-30 16:58:00 36.61 [facility] Respiratory rate 2022-08-30 16:58:00 17 /min [facility] Body height 2022-08-30 16:58:00 144.8 cm [facility] Body weight 2022-08-30 16:58:00 56.246 kg [facility] BMI 2022-08-30 16:58:00 26.83 kg/m2 [facility] Systolic blood pressure 2022-08-02 15:15:00 97 mm[Hg[facility] Diastolic blood pressure 2022-08-02 15:15:00 66 mm[Hg] [facility] Heart rate 2022-08-02 15:15:00 77 /min [facility] Body temperature 2022-08-02 15:15:00 36.72 [facility] Respiratory rate 2022-08-02 15:15:00 18 /min [facility] Body height 2022-08-02 15:15:00 144.8 cm [facility] 2022-08-02 15:15:00 54.885 kg [facility] BMI 2022-08-02 15:15:00 26.18 kg/m2 [facility] Systolic blood pressure 2020-07-26 05:07:00 112 mm[Hg[facility] Diastolic blood pressure 2020-07-26 05:07:00 76 mm[Hg[facility] Heart rate 2020-07-26 05:07:00 80 /min [facility] Body temperature 2020-07-26 05:07:00 37.5 [facility] Respiratory rate 2020-07-26 05:07:00 20 /min [facility] Body height 2020-07-26 05:07:00 144.8 cm [facility] Body weight 2020-07-26 05:07:00 49.896 kg [facility] BMI 2020-07-26 05:07:00 23.80 kg/m2 [facility] Oxygen saturation in Arterial blood by Pulse oximetry 2020-07-26 05:07:00 96 /min [facility] Systolic blood pressure 2020-07-26 05:07:00 112 mm[Hg] [facility] Diastolic blood pressure 2020-07-26 05:07:00 76 mm[Hg[facility] Heart rate 2020-07-26 05:07:00 80 /min [facility] Body temperature 2020-07-26 05:07:00 37.5 [facility] Respiratory rate 2020-07-26 05:07:00 20 /min [facility] Body height 2020-07-26 05:07:00 144.8 cm [facility] Body weight 2020-07-26 05:07:00 49.896 kg [facility] BMI 2020-07-26 05:07:00 23.80 kg/m2 [facility] Oxygen saturation in Arterial blood by Pulse oximetry 2020-07-26 05:07:00 96 /min [facility] Procedures Procedure Date / Time Performed Performing Clinician Source LAPAROSCOPIC SALPINGECTOMY 2023-05-15 12:29:00 Goldie Miranda [facility] DAY SURGERY - ADC 2023-05-15 05:01:00 Doctor Emely ssigned, [place] [facility] CONSENT FOR CONTRACEPTION 2023-05-07 05:01:00 Doctor Unassigned, [place] [facility] POCT TEST 2023-04-09 00:00:00 RuthGoldie [facility] CBC WITH DIFF 2023-02-23 08:56:00 RuthGoldie [facility] CENTRAL NEURAXIAL BLOCK 2023-02-23 [facility]:52[facility] 2023-02-22 23:00:00 Steve Shah [facility] CBC WITH DIFF 2023-02-22 09:43[facility] ANTIGEN 2023-02-22 09:43:00 Ruth [facility] HB ABO GROUPING 2023-02-22 09:43:00 [facility]HO [facility] IMMUNE GLOBULIN 2023-02-22 09:43:00 [facility] - RPR 2023-02-22 09:43:00 Ruth [facility] HIV 1/2 AG-AB WITH REFLEX 2023-02-22 09:43:00 Ruth [facility] ASSIGNMENT OF BENEFITS 2023-02-22 09:02:43 Docto r Unassigned, [place] [facility] POCT URINALYSIS W/O SPECIFIC GRAVITY 2023-02-15 00:00:00 Ruth Gold[facility] POCT URINALYSIS W/O SPECIFIC GRAVITY 2023-02-12 00:00:00 Ruth [facility] ASSIGNMENT OF BENEFITS 2023-02-08 06:48:41 Docto r Unassigned, [place] [facility] CONSENT/REFUSAL FOR DIAGNOSIS AND TREATMENT 2023-02-08 06:47:36 Doctor Unassigned, [place] [facility] AUTHORIZATION FOR RELEASE OF PHI 2023-02-08 05:01:00 Doctor Unassigned, [place] [facility] L&D VISIT (NON-DELIVERED) 2023-02-08 05:01:00 Doctor Unassigned, [place] [facility] POCT URINALYSIS W/O SPECIFIC GRAVITY 2023-02-08 00:00:00 Goldie Miranda [facility] DME/SUPPLY JUSTIFICATION 2023-02-06 05:01:00 Doc tor Unassigned, [place] [facility] POCT URINALYSIS W/O SPECIFIC GRAVITY 2023-01-30 00:00:00 Goldie Miranda [facility] >14 WEEKS US LIMITED 2023-01-25 20:16:38 Goldie Miranda [facility] DSU PRE-OP 2023-01-25 05:01:00 Doctor Unass igned, [place] [facility] POCT URINALYSIS W/O SPECIFIC GRAVITY 2023-01-25 00:00:00 Goldie Miranda [facility] POCT URINALYSIS W/O SPECIFIC GRAVITY 2023-01-03 00:00:00 Goldie Miranda [facility] NON-STRESS TEST 2022-12-29 20:08:36 Goldie Miranda [facility] NON-STRESS TEST 2022-12-22 20:18:46 Goldie Miranda [facility] OB TRANSVAGINAL 2022-12-22 20:18:10 Goldie Miranda [facility] NOTICE OF PRIVACY PRACTICES 2022-12-22 15:24:20 Doctor Unassigned, [place] [facility] CONSENT/REFUSAL FOR DIAGNOSIS AND TREATMENT 2022-12-22 15:24:07 Doctor Unassigned, [place] [facility] ASSIGNMENT OF BENEFITS 2022-12-22 15:23:47 Docto r Unassigned, [place] [facility] L&D VISIT (NON-DELIVERED) 2022-12-22 05:01:00 Doctor Unassigned, [place] [facility] POCT URINALYSIS W/O SPECIFIC GRAVITY 2022-12-20 00:00:00 Nelida Castañeda [facility] STERILIZATION CONSENT FORM 2022-11-22 06:01:00 Doctor Unassigned, [place] [facility] POCT URINALYSIS W/O SPECIFIC GRAVITY 2022-11-22 00:00:00 Goldie Miranda [facility] POCT URINALYSIS W/O SPECIFIC GRAVITY 2022-10-25 17:11:00 Nelida Castañeda [facility] POCT URINALYSIS W/O SPECIFIC GRAVITY 2022-09-27 00:00:00 Ruth Goldie Birch [facility] POCT URINALYSIS W/O SPECIFIC GRAVITY 2022-08-30 16:58:00 Nelida Castañeda [facility] <14 WEEKS US LIMITED 2022-08-02 18:49:11 Goldie Miranda [facility] ASSIGNMENT OF BENEFITS 2022-08-02 14:54:02 Docto r Unassigned, [place] [facility] POCT TEST 2022-08-02 00:00:00 Goldie Miranda [facility] POCT URINALYSIS W/O SPECIFIC GRAVITY 2022-08-02 00:00:00 Goldie Miranda [facility] POCT TEST 2020-07-26 05:28:00 Gustavo Gonzalez [facility] NOTICE OF PRIVACY PRACTICES 2020-07-26 05:04:36 Doctor Unassigned, [place] [facility] CONSENT/REFUSAL FOR DIAGNOSIS AND TREATMENT 2020-07-26 05:03:14 Doctor Unassigned, [place] [facility] Encounters Start Date/Time End Date/Time Encounter Type Admission Type Attending [facility] Facility Care Department Encounter ID Source 2023-05-14 13:05:28 Emergency [facility] [id number] [facility] 2023-01-05 14:56:18 Outpatient P [facility] [id number] [facility] 2021-08-05 23:35:55 Emergency [facility] [id number] [facility] 2023-09-24 10:30:00 2023-09-24 10:30:00 Outpatient R RUTH GOLDIE [facility] [id number] [facility] 2023-09-11 00:00:00 2023-09-11 00:00:00 Pre Visit Outreach Alissa Ch [id number] 350.1.13.10 4.2.7.2.686 [id number] [facility] 2023-05-29 13:00:00 2023-05-29 13:15:03 Outpatient R GOLDIE MIRANDA [facility] [id number] [facility] 2023-05-29 13:00:00 2023-05-29 13:15:03 [facility] 1.0.114 350.1.13.10 4.2.7.2.686 [id number] [facility] 2023-05-15 07:45:00 2023-05-15 10:26:00 Surgery RuthGoldie [facility] SURGICAL TESUQUE 1..114 350.1.13.10 4.2.7.2.686 [id number] [facility] 2023-05-15 06:57:00 2023-05-15 09:36:00 Outpatient R GOLDIE 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 [facility] 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 1..114 350.1.13.10 4.2.7.2.686 [id number] [facility] 2023-05-14 13:15:00 2023-05-14 13:15:00 Outpatient R ANN MONTALVO [facility] [id number] [facility] 2023-05-07 09:15:00 2023-05-07 13:19:03 Outpatient R GOLDIE MIRANDA [facility] [id number] [facility] 2023-05-07 09:15:00 2023-05-07 13:19:03 Office Visit [facility] 1.2.840.114 350.1.13.10 4.2.7.2.686 [id number] [facility] 2023-05-07 00:00:00 2023-05-07 00:00:00 Orders Only Doctor Unassigned, [place] [facility] 1..840.114 350.1.13.10 4.2.7.2.686 [id number] [facility] 2023-04-16 16:00:00 2023-04-16 16:00:00 Outpatient R GOLDIE MIRANDA [facility] [id number] [facility] 2023-04-09 16:15:00 2023-04-09 16:51:33 Outpatient R GOLDIE MIRANDA [facility] [id number] [facility] 2023-04-09 16:15:00 2023-04-09 16:51:33 Routine Visit Goldie Miranda [facility] 1.2.840.114 350.1.13.10 4.2.7.2.686 [id number] 134 [id number] [facility] 2023-03-29 11:00:00 2023-03-29 11:00:00 Outpatient R MIRANDAGOLDIE [facility] [id number] [facility] 2023-03-19 11:00:00 2023-03-19 11:34:52 Outpatient R NELIDA CASTAÑEDA [facility] [id number] [facility] 2023-03-19 11:00:00 2023-03-19 11:34:52 Routine Visit Nelida Castañeda [facility] 1.2.840.114 350.1.13.10 4.2.7.2.686 [id number] [facility] 2023-03-19 00:00:00 2023-03-19 00:00:00 Telephone Goldie Miranda [facility] 1.2.840.114 350.1.13.10 4.2.7.2.686 [id number] [facility] 2023-02-22 04:02:00 2023-02-24 17:00:00 Hospital Encounter Goldie Miranda [facility] 1.2.840.114 350.1.13.10 4.2.7.2.686 [id number] [facility] 2023-02-22 04:02:00 2023-02-24 17:00:00 Inpatient P MIRANDAGERALDINEEN [facility] [id number] [facility] 2023-02-23 20:03:30 2023-02-23 20:03:30 Anesthesia Event JanetteLawrence [facility] 1.2.840.114 350.1.13.10 4.2.7.2.686 [id number] [facility] 2023-02-22 18:00:00 2023-02-23 06:49:00 Anesthesia Event Adry Shah [facility] 1.2.840.114 350.1.13.10 4.2.7.2.686 [id number] [facility] 2023-02-22 10:45:00 2023-02-22 10:45:00 Outpatient R GOLDIE MIRANDA [facility] [id number] [facility] 2023-02-22 00:00:00 2023-02-22 00:00:00 Orders Only Doctor Unassigned, [place] [facility] CENTER 1.2.840.114 350.1.13.10 4.2.7.2.686 [id number] [facility] 2023-02-15 15:30:00 2023-02-15 15:45:00 Routine Visit Goldie Miranda [facility] BUILDING 1.2.840.114 350.1.13.10 4.2.7.2.686 [id number] 134 [id number] [facility] 2023-02-15 15:30:00 2023-02-15 15:30:00 [facility] [id number] [facility] 2023-02-13 09:00:00 2023-02-13 09:00:00 Outpatient R AYLIN SUAREZ [facility] [id number] [facility] 2023-02-12 13:45:00 2023-02-12 14:00:00 Routine Visit Goldie Miranda [facility] 1.2.840.114 350.1.13.10 4.2.7.2.686 [id number] 134 [id number] [facility] 2023-02-12 13:45:00 2023-02-12 13:45:00 Outpatient R GOLDIE MIRANDA [facility] [id number] [facility] 2023-02-12 13:30:00 2023-02-12 13:45:00 [employer] Visit 2, Adc Lab Goldie Miranda [facility] BUILDING 1.2.840.114 350.1.13.10 4.2.7.2.686 [id number] [facility] 2023-02-12 00:00:00 2023-02-12 00:00:00 Telephone Goldie Miranda [facility] BUILDING 1.2840.114 350.1.13.10 4.2.7.2.686 [id number] 134 [id number] [facility] 2023-02-08 15:45:00 2023-02-08 16:06:28 Outpatient R GOLDIE MIRANDA [facility] [id number] [facility] 2023-02-08 15:45:00 2023-02-08 16:06:28 Routine Visit Goldie Miranda [facility] BUILDING 1.2840.114 350.1.13.10 4.2.7.2.686 [id number] 134 [id number] [facility] 2023-02-08 02:07:00 2023-02-08 04:35:00 Outpatient P GOLDIE MIRANDA [facility] [id number] [facility] 2023-02-08 02:07:00 2023-02-08 04:35:00 Hospital Encounter Goldie Miranda [facility] 1.2840.114 350.1.13.10 4.2.7.2.686 [id number] 083 [id number] [facility] 2023-02-08 00:00:00 2023-02-08 00:00:00 Orders Only Doctor Unassigned, [place] [facility] 1.2840.114 350.1.13.10 4.2.7.2.686 [id number] [id number] [facility] 2023-02-06 00:00:00 2023-02-06 00:00:00 Orders Only Doctor Unassigned, [place] [facility] 1.2.840.114 350.1.13.10 4.2.7.2.686 [id number] [id number] [facility] 2023-02-06 00:00:00 2023-02-06 00:00:00 Telephone Goldie Miranda [facility] BUILDING 1.2.840.114 350.1.13.10 4.2.7.2.686 [id number] 134 [id number] [facility] 2023-01-30 16:00:00 2023-01-30 17:00:57 Outpatient R GOLDIE MIRANDA [facility] [id number] [facility] 2023-01-30 16:00:00 2023-01-30 17:00:57 Routine Visit Goldie Miranda [facility] BUILDING 1.2.840.114 350.1.13.10 4.2.7.2.686 [id number] 134 [id number] [facility] 2023-01-30 00:00:00 2023-01-30 00:00:00 Telephone Goldie Miranda [facility] 1.2.840.114 350.1.13.10 4.2.7.2.686 [id number] 134 [id number] [facility] 2023-01-25 15:00:00 2023-01-25 15:15:00 [employer] Visit 2, Adc Lab Goldie Miranda [facility] 1.2.840.114 350.1.13.10 4.2.7.2.686 [id number] [facility] 2023-01-25 14:15:00 2023-01-25 15:00:05 Outpatient R GOLDIE MIRANDA [facility] [id number] [facility] 2023-01-25 14:15:00 2023-01-25 15:00:05 Routine Visit Goldei Miranda [facility] 1.2.840.114 350.1.13.10 4.2.7.2.686 [id number] 134 [id number] [facility] 2023-01-25 00:00:00 2023-01-25 00:00:00 Orders Only Doctor Unassigned, [place] [facility] 1.2840.114 350.1.13.10 4.2.7.2.686 [id number] [id number] [facility] 2023-01-23 00:00:00 2023-01-23 00:00:00 Telephone Aylin Suarez [facility] BUILDING 1.2.840.114 350.1.13.10 4.2.7.2.686 [id number] 059 [id number] [facility] 2023-01-18 00:00:00 2023-01-18 00:00:00 Telephone Aylin SuarezHMaximo [facility] 1.2.840.114 350.1.13.10 4.2.7.2.686 [id number] 059 [id number] [facility] 2023-01-15 14:18:36 2023-01-15 23:59:00 Outpatient R AYLIN SUAREZ [facility] [id number] [facility] 2023-01-05 10:06:00 2023-01-05 14:46:00 Outpatient P GOLDIE MIRANDA [facility] [id number] [facility] 2023-01-05 10:06:00 2023-01-05 14:46:00 Hospital Encounter Geraldine Mirandaen [facility] 1.2.840.114 350.1.13.10 4.2.7.2.686 [id number] 083 [id number] [facility] 2023-01-05 09:00:00 2023-01-05 09:41:50 Outpatient R AYLIN SUAREZ [facility] [id number] [facility] 2023-01-05 09:00:00 2023-01-05 09:41:50 Office Visit Aylin Suarez [facility] 1.2.840.114 350.1.13.10 4.2.7.2.686 [id number] 059 [id number] [facility] 2023-01-03 15:45:00 2023-01-03 15:50:44 [employer] Visit 2, Adc Lab Goldie Miranda [facility] BUILDING 1..840.114 350.1.13.10 4.2.7.2.686 [id number] 353 [id number] [facility] 2023-01-03 15:30:00 2023-01-03 15:43:51 Outpatient R GOLDEI MIRANDA [facility] [id number] [facility] 2023-01-03 15:30:00 2023-01-03 15:43:51 Routine Visit Goldie Miranda [facility] BUILDING 1.2840.114 350.1.13.10 4.2.7.2.686 [id number] 134 [id number] [facility] 2022-12-29 10:20:00 2022-12-29 15:00:00 Outpatient P GOLDIE MIRANDA [facility] [id number] [facility] 2022-12-29 10:20:00 2022-12-29 15:00:00 Hospital Encounter Goldie Miranda [facility] [place] 1.84.114 350.1.13.10 4.2.7.2.686 [id number] 083 [id number] [facility] 2022-12-26 00:00:00 2022-12-26 00:00:00 Telephone Goldie Miranda [facility] 1..114 350.1.13.10 4.2.7.2.686 [id number] 134 [id number] [facility] 2022-12-22 10:11:00 2022-12-22 15:23:00 Outpatient P GOLDIE MIRANDA [facility] [id number] [facility] 2022-12-22 10:11:00 2022-12-22 15:23:00 Hospital Encounter Goldie Miranda [facility] 1.2.840.114 350.1.13.10 4.2.7.2.686 [id number] 083 [id number] [facility] 2022-12-22 00:00:00 2022-12-22 00:00:00 Telephone Miranda Goldie Eyal [facility] 1.2840.114 350.1.13.10 4.2.7.2.686 [id number] 134 [id number] [facility] 2022-12-20 16:00:00 2022-12-20 16:36:40 [id number] 2022-12-20 16:00:00 2022-12-20 16:36:40 Routine Visit Maddy Nelida [facility] 1.2.840.114 350.1.13.10 4.2.7.2.686 [id number] 134 [id number] [facility] 2022-12-13 09:15:00 2022-12-13 09:30:00 [employer] Visit 2, Adc Lab Goldie Miranda [facility] BUILDING 1.2.840.114 350.1.13.10 4.2.7.2.686 [id number] [facility] 2022-12-13 09:15:00 2022-12-13 09:15:00 Outpatient R RUTH GOLDIE [facility] [id number] [facility] 2022-12-13 00:00:00 2022-12-13 00:00:00 Case Management MirandaGoldie Eyal [facility] BUILDING 1.2.840.114 350.1.13.10 4.2.7.2.686 [id number] 134 [id number] [facility] 2022-11-24 00:00:00 2022-11-24 00:00:00 Telephone MirandaGoldie [facility] BUILDING 1.2.840.114 350.1.13.10 4.2.7.2.686 [id number] 134 [id number] [facility] 2022-11-22 13:00:00 2022-11-22 14:11:58 Outpatient R GOLDIE MIRANDA [facility] [id number] [facility] 2022-11-22 13:00:00 2022-11-22 14:11:58 Routine Visit Goldie Miranda [facility] 1.84.114 350.1.13.10 4.2.7.2.686 [id number] 134 [id number] [facility] 2022-11-22 00:00:00 2022-11-22 00:00:00 Orders Only Doctor Unassigned, [place] [facility] 1..114 350.1.13.10 4.2.7.2.686 [id number] [id number] [facility] 2022-10-25 11:15:00 2022-10-25 11:36:53 [facility] [id number] 2022-10-25 11:15:00 2022-10-25 11:36:53 Routine Visit Nelida Castañeda [facility] 1.84.114 350.1.13.10 4.2.7.2.686 [id number] 134 [id number] [facility] 2022-10-10 10:00:00 2022-10-10 11:00:00 [employer] Visit Ultrasound, Adc Mfm Trish Ashley [facility] 1..114 350.1.13.10 4.2.7.2.686 [id number] 134 [id number] [facility] 2022-10-10 10:00:00 2022-10-10 10:47:24 Outpatient R TRISH ASHLEY [facility] [id number] [facility] 2022-10-04 08:00:00 2022-10-04 11:45:07 Outpatient R GOLDIE MIRANDA [facility] [id number] [facility] 2022-10-04 08:00:00 2022-10-04 11:45:07 [employer] Visit 2, Adc Lab Goldie Miranda [facility] BUILDING 1.2.840.114 350.1.13.10 4.2.7.2.686 [id number] [facility] 2022-09-27 13:15:00 2022-09-27 13:15:00 Outpatient R RUTH GOLDIE [facility] [id number] [facility] 2022-09-27 10:00:00 2022-09-27 10:52:19 [facility] [id number] [facility] 2022-09-27 10:00:00 2022-09-27 10:52:19 Routine Visit Goldie Miranda [facility] BUILDING 1.2.840.114 350.1.13.10 4.2.7.2.686 [id number] 134 [id number] [facility] 2022-09-11 08:30:00 2022-09-11 08:30:00 Outpatient R [facility] [id number] [facility] 2022-09-08 00:00:00 2022-09-08 00:00:00 Telephone Goldie Miranda [facility] BUILDING 1.2.840.114 350.1.13.10 4.2.7.2.686 [id number] 134 [id number] [facility] 2022-09-08 00:00:00 2022-09-08 00:00:00 Telephone Goldie Miranda [facility] BUILDING 1.2.840.114 350.1.13.10 4.2.7.2.686 [id number] 134 [id number] [facility] 2022-09-06 08:15:00 2022-09-06 08:15:00 Outpatient R [facility] [id number] [facility] 2022-08-30 11:00:00 2022-08-30 11:15:00 Routine Visit Nelida Castañeda [facility] 1.2.840.114 350.1.13.10 4.2.7.2.686 [id number] 134 [id number] [facility] 2022-08-30 11:00:00 2022-08-30 11:00:00 Outpatient R NELIDA CASTAÑEDA [facility] [id number] [facility] 2022-08-30 00:00:00 2022-08-30 00:00:00 Refill Goldie Miranda [facility] 1.2.840.114 350.1.13.10 4.2.7.2.686 [id number] 134 [id number] [facility] 2022-08-17 00:00:00 2022-08-17 00:00:00 Telephone Goldie Miranda [facility] 1.2.840.114 350.1.13.10 4.2.7.2.686 [id number] 134 [id number] [facility] 2022-08-10 00:00:00 2022-08-10 00:00:00 Telephone Goldie Miranda [facility] 1.2.840.114 350.1.13.10 4.2.7.2.686 [id number] 134 [id number] [facility] 2022-08-09 10:15:00 2022-08-09 10:30:00 [employer] Visit 2, Adc Lab Goldie Miranda [facility] BUILDING 1.2.840.114 350.1.13.10 4.2.7.2.686 [id number] [facility] 2022-08-09 10:15:00 2022-08-09 10:15:00 Outpatient R GERALDINE MIRANDAEN [facility] [id number] [facility] 2022-08-09 00:00:00 2022-08-09 00:00:00 Case Management Goldie Miranda [facility] BUILDING 1.840.114 350.1.13.10 4.2.7.2.686 [id number] 134 [id number] [facility] 2022-08-02 10:00:00 2022-08-02 10:54:11 Outpatient R MIRANDAGERALDINEEN [facility] [id number] [facility] 2022-08-02 10:00:00 2022-08-02 10:54:11 Initial Visit Goldie Miranda [facility] BUILDING 1.84.114 350.1.13.10 4.2.7.2.686 [id number] 134 [id number] [facility] 2022-08-02 00:00:00 2022-08-02 00:00:00 Telephone Goldie Miranda [facility] BUILDING 1.84.114 350.1.13.10 4.2.7.2.686 [id number] 044 [id number] [facility] 2022-08-02 00:00:00 2022-08-02 00:00:00 Refill Goldie Miranda [facility] BUILDING 1.840.114 350.1.13.10 4.2.7.2.686 [id number] 134 [id number] [facility] 2022-08-02 00:00:00 2022-08-02 00:00:00 Orders Only Doctor Unassigned, [place] [facility] 1.84.114 350.1.13.10 4.2.7.2.686 [id number] [id number] [facility] 2020-07-27 00:00:00 2020-07-27 00:00:00 Letter (Out) Yelitza [facility] 1.2.840.114 350.1.13.10 4.2.7.2.686 [id number] 019 [id number] 2020-07-27 00:00:00 2020-07-27 00:00:00 Patient Secure Msg Doctor Unassigned, [place] [facility] 1.2.840.114 350.1.13.10 4.2.7.2.686 [id number] 019 [id number] [facility] 2020-07-27 00:00:00 2020-07-27 00:00:00 Letter (Out) Yelitza, [facility] 1.2.840.114 350.1.13.10 4.2.7.2.686 [id number] 019 [id number] [facility] 2020-07-26 00:09:00 2020-07-26 01:21:00 Emergency [facility] 1.2.840.114 350.1.13.10 4.2.7.2.686 [id number] 084 [id number] [facility] 2020-07-26 00:09:00 2020-07-26 01:21:00 [facility] 1.2.840.114 350.1.13.10 4.2.7.2.686 [id number] 084 [id number] Results Test Description Test Time Test Comments Results Result Co mments Source [facility] IMMUNE [id number] 18:13:04* Test Item Value Reference Range Interpretation Comme nts RHIG CANDIDATE? (test code = 5188) No- see comment Patient is not a candidate for RhIg- Patient is Rh Positive.Performed at [facility] Laboratory Services - [facility] Blood [address] [place] [id number] Free: [phone] No. [id number] [facility] with [id number] 11:58:12* Test Item Value Reference Range Interpretation Comme nts WBC (test code = 6690-2) 16.12 See_Comment H [Automated message] The system which generated this result transmitted reference range: 4.30 - 11.10 10*3/?L. The reference range was not used to interpret this result as normal/abnormal. RBC (test code = 789-8) 3.42 See_Comment L [Automated message] The system which generated this result transmitted reference range: 3.93 - 5.25 10*6/?L. The reference range was not used to interpret this result as normal/abnormal. HGB (test code = 718-7) 10.6 g/dL 11.6-15.0 L HCT (test code = 4544-3) 32.3 % 35.7-45.2 L MCV (test code = 787-2) 94.4 fL 80.6-95.5 MCH (test code = 785-6) 31.0 pg 25.9-32.8 MCHC (test code = 786-4) 32.8 g/dL 31.6-35.1 RDW-SD (test code = 41170-6) 58.8 fL 39.0-49.9 H RDW-CV (test code = 788-0) 17.0 % 12.0-15.5 H PLT (test code = 777-3) 170 See_Comment [Automated message] The system which generated this result transmitted reference range: 166 - 358 10*3/?L. The reference range was not used to interpret this result as normal/abnormal. MPV (test code = 45903-2) 9.8 fL 9.5-12.9 NRBC/100 WBC (test code = 3025787667) 0.0 See_Comment [Automated message] The system which generated this result transmitted reference range: 0.0 - 10.0 /100 WBCs. The reference range was not used to interpret this result as normal/abnormal. NRBC x10^3 (test code = 9950298758) See_Comment [Automated message] The system which generated this result transmitted reference range: 10*3/?L. The reference range was not used to interpret this result as normal/abnormal. GRAN MAT (NEUT) % (test code = 770-8) 83.2 % IMM GRAN % (test code = 4387720101) 0.50 % LYMPH % (test code = 736-9) 5.6 % MONO % (test code = 5905-5) 10.5 % EOS % (test code = 713-8) 0.0 % BASO % (test code = 706-2) 0.2 % GRAN MAT x10^3(ANC) (test code = 1290480006) 13.42 10*3/uL 1.88-7.09 H IMM GRAN x10^3 (test code = 0442161396) 0.08 10*3/uL 0.00-0.06 H LYMPH x10^3 (test code = 731-0) 0.90 10*3/uL 1.32-3.29 L MONO x10^3 (test code = 742-7) 1.69 10*3/uL 0.33-0.92 H EOS x10^3 (test code = 711-2) 0.03-0.39 L BASO x10^3 (test code = 704-7) 0.03 10*3/uL 0.01-0.07 BANDS (test code = 7281738694) Increased A Lab Interpretation (test code = 27571-1) Abnormal [facility] OR MADHURI ONLY - [id number] 09:11:52* Test Item Value Reference Range Interpretation Comme nts RPR (Qualitative) (test code = 68994-3) Nonreactive Nonreactive Lab Interpretation (test cod e = 13470-9) Normal [facility] CenterHepatitis B Surface [id number] 16:37:21 * Test Item Value Reference Range Interpretation Comme nts HBsAg Semi-Quantitative (abner t code = 5195-3) 0.06 Negative [facility] Center[facility]/2 AG-AB WITH [id number] 14:17:40* Test Item Value Reference Range Interpretation Comme nts HIV Semi-quantitative (test code = 47005-7) 0.15 Negative CODIE (test code = CODIE) Non-reactive for HIV-1 antigen and HIV-1/HIV-2 antibodies. ?No laboratory evidence of HIV infection. ?Repeat in 2-4 weeks if acute HIV infection is suspected. [facility] with [id number] 11:27:06* Test Item Value Reference Range Interpretation Comme nts WBC (test code = 6690-2) 10.82 See_Comment [Automated messa ge] The system which generated this result transmitted reference range: 4.30 - 11.10 10*3/?L. The reference range was not used to interpret this result as normal/abnormal. RBC (test code = 789-8) 3.73 See_Comment L [Automated messa ge] The system which generated this result transmitted reference range: 3.93 - 5.25 10*6/?L. The reference range was not used to interpret this result as normal/abnormal. HGB (test code = 718-7) 11.8 g/dL 11.6-15.0 HCT (test code = 4544-3) 35.2 % 35.7-45.2 L MCV (test code = 787-2) 94.4 fL 80.6-95.5 MCH (test code = 785-6) 31.6 pg 25.9-32.8 MCHC (test code = 786-4) 33.5 g/dL 31.6-35.1 RDW-SD (test code = 23430-0) 58.6 fL 39.0-49.9 H RDW-CV (test code = 788-0) 16.8 % 12.0-15.5 H PLT (test code = 777-3) 181 See_Comment [Automated messa ge] The system which generated this result transmitted reference range: 166 - 358 10*3/?L. The reference range was not used to interpret this result as normal/abnormal. MPV (test code = 30133-5) 9.6 fL 9.5-12.9 NRBC/100 WBC (test code = 9282825154) 0.0 See_Comment [Automated [employer] ssage] The system which generated this result transmitted reference range: 0.0 - 10.0 /100 WBCs. The reference range was not used to interpret this result as normal/abnormal. NRBC x10^3 (test code = 1269703072) See_Comment [Automated messa ge] The system which generated this result transmitted reference range: 10*3/?L. The reference range was not used to interpret this result as normal/abnormal. GRAN MAT (NEUT) % (test code = 770-8) 68.7 % IMM GRAN % (test code = 6641821966) 1.80 % LYMPH % (test code = 736-9) 19.1 % MONO % (test code = 5905-5) 9.2 % EOS % (test code = 713-8) 0.9 % BASO % (test code = 706-2) 0.3 % GRAN MAT x10^3(ANC) (test code = 8646167542) 7.42 10*3/uL 1.88-7.09 H IMM GRAN x10^3 (test code = 8331087139) 0.20 10*3/uL 0.00-0.06 H LYMPH x10^3 (test code = 731-0) 2.07 10*3/uL 1.32-3.29 MONO x10^3 (test code = 742-7) 1.00 10*3/uL 0.33-0.92 H EOS x10^3 (test code = 711-2) 0.10 10*3/uL 0.03-0.39 BASO x10^3 (test code = 704-7) 0.03 10*3/uL 0.01-0.07 Lab Interpretation (test code = 65109-2) Abnormal [facility] CenterType and Screen - ONCE [id number] 11:03:00 * Test Item Value Reference Range Interpretation Comme nts ABO & RH (test code = 20) O Positive IAT (test code = 1185) Negative [facility] CenterPO[facility] W/O SPECIFIC [id number] 20:42:00* Test Item Value Reference Range Interpretation Comme nts POCT PH U (test code = 3254) n/a 5-8 POCT U LEUK EST (test code = 3263) n/a Negative - Negative POCT U NIT (test code = 3262) n/a Negative - Negati ve POCT U PROT (test code = 3259) Negative Negative - Negat colin POCT U GLU (test code = 3256) Normal Negative - Negati ve POCT U KETONE (test code = 3258) n/a Negative - Neg ative POCT U BLD (test code = 3257) n/a Negative - Negati ve [facility] URINALYSIS W/O SPECIFIC [id number] 18:51:00* Test Item Value Reference Range Interpretation Comme nts POCT PH U (test code = 3254) n/a 5-8 POCT U LEUK EST (test code = 3263) n/a Negative - Negative POCT U NIT (test code = 3262) n/a Negative - Negati ve POCT U PROT (test code = 3259) negative Negative - Negat colin POCT U GLU (test code = 3256) negative Negative - Negati ve POCT U KETONE (test code = 3258) n/a Negative - Neg ative POCT U BLD (test code = 3257) n/a Negative - Negati ve [facility] URINALYSIS W/O SPECIFIC [id number] 20:52:00* Test Item Value Reference Range Interpretation Comme nts POCT PH U (test code = 3254) n/a 5-8 POCT U LEUK EST (test code = 3263) n/a Negative - Negative POCT U NIT (test code = 3262) n/a Negative - Negati ve POCT U PROT (test code = 3259) Negative Negative - Negat colin POCT U GLU (test code = 3256) Normal Negative - Negati ve POCT U KETONE (test code = 3258) n/a Negative - Neg ative POCT U BLD (test code = 3257) n/a Negative - Negati ve [facility] URINALYSIS W/O SPECIFIC [id number] 21:33:00* Test Item Value Reference Range Interpretation Comme nts POCT PH U (test code = 3254) 7 mg/dl 5-8 POCT U LEUK EST (test code = 3263) + Negative - Negative POCT U NIT (test code = 3262) Negative Negative - Negati ve POCT U PROT (test code = 3259) Negative Negative - Negat colin POCT U GLU (test code = 3256) Normal Negative - Negati ve POCT U KETONE (test code = 3258) Negative Negative - Neg ative POCT U BLD (test code = 3257) Negative Negative - Negati ve [facility] URINALYSIS W/O SPECIFIC [id number] 19:26:00* Test Item Value Reference Range Interpretation Comme nts POCT PH U (test code = 3254) n/a 5-8 POCT U LEUK EST (test code = 3263) n/a Negative - Negative POCT U NIT (test code = 3262) n/a Negative - Negati ve POCT U PROT (test code = 3259) Negative Negative - Negat colin POCT U GLU (test code = 3256) Negative Negative - Negati ve POCT U KETONE (test code = 3258) n/a Negative - Neg ative POCT U BLD (test code = 3257) n/a Negative - Negati ve [facility] URINALYSIS W/O SPECIFIC [id number] 20:35:00* Test Item Value Reference Range Interpretation Comme nts POCT PH U (test code = 3254) N/A 5-8 POCT U LEUK EST (test code = 3263) N/A Negative - N egative POCT U NIT (test code = 3262) N/A Negative - Negati ve POCT U PROT (test code = 3259) trace Negative - Negat colin POCT U GLU (test code = 3256) 100 Negative - Negati ve POCT U KETONE (test code = 3258) N/A Negative - Neg ative POCT U BLD (test code = 3257) N/A Negative - Negati ve [facility] URINALYSIS W/O SPECIFIC [id number] 20:35:00* Test Item Value Reference Range Interpretation Comme nts POCT PH U (test code = 3254) N/A 5-8 POCT U LEUK EST (test code = 3263) N/A Negative - N egative POCT U NIT (test code = 3262) N/A Negative - Negati ve POCT U PROT (test code = 3259) trace Negative - Negat colin POCT U GLU (test code = 3256) 100 Negative - Negati ve POCT U KETONE (test code = 3258) N/A Negative - Neg ative POCT U BLD (test code = 3257) N/A Negative - Negati ve [facility] URINALYSIS W/O SPECIFIC [id number] 21:15:00* Test Item Value Reference Range Interpretation Comme nts POCT PH U (test code = 3254) n/a 5-8 POCT U LEUK EST (test code = 3263) n/a Negative - Negative POCT U NIT (test code = 3262) n/a Negative - Negati ve POCT U PROT (test code = 3259) trace Negative - Negat colin POCT U GLU (test code = 3256) negative Negative - Negati ve POCT U KETONE (test code = 3258) n/a Negative - Neg ative POCT U BLD (test code = 3257) n/a Negative - Negati ve [facility] URINALYSIS W/O SPECIFIC [id number] 19:32:00* Test Item Value Reference Range Interpretation Comme nts POCT PH U (test code = 3254) 5 mg/dl 5-8 POCT U LEUK EST (test code = 3263) Negative Negative - Negative POCT U NIT (test code = 3262) Negative Negative - Negati ve POCT U PROT (test code = 3259) Negative Negative - Negat colin POCT U GLU (test code = 3256) Negative Negative - Negati ve POCT U KETONE (test code = 3258) Trace Negative - Neg ative POCT U BLD (test code = 3257) Negative Negative - Negati ve [facility] URINALYSIS W/O SPECIFIC [id number] 19:32:00* Test Item Value Reference Range Interpretation Comme nts POCT PH U (test code = 3254) 5 mg/dl 5-8 POCT U LEUK EST (test code = 3263) Negative Negative - Negative POCT U NIT (test code = 3262) Negative Negative - Negati ve POCT U PROT (test code = 3259) Negative Negative - Negat colin POCT U GLU (test code = 3256) Negative Negative - Negati ve POCT U KETONE (test code = 3258) Trace Negative - Neg ative POCT U BLD (test code = 3257) Negative Negative - Negati ve [facility] URINALYSIS W/O SPECIFIC [id number] 17:12:00* Test Item Value Reference Range Interpretation Comme nts POCT PH U (test code = 3254) n/a 5-8 POCT U LEUK EST (test code = 3263) n/a Negative - Negative POCT U NIT (test code = 3262) n/a Negative - Negati ve POCT U PROT (test code = 3259) negative Negative - Negat colin POCT U GLU (test code = 3256) negative Negative - Negati ve POCT U KETONE (test code = 3258) n/a Negative - Neg ative POCT U BLD (test code = 3257) n/a Negative - Negati ve [facility] URINALYSIS W/O SPECIFIC [id number] 17:12:00* Test Item Value Reference Range Interpretation Comme nts POCT PH U (test code = 3254) n/a 5-8 POCT U LEUK EST (test code = 3263) n/a Negative - Negative POCT U NIT (test code = 3262) n/a Negative - Negati ve POCT U PROT (test code = 3259) negative Negative - Negat colin POCT U GLU (test code = 3256) negative Negative - Negati ve POCT U KETONE (test code = 3258) n/a Negative - Neg ative POCT U BLD (test code = 3257) n/a Negative - Negati ve [facility] URINALYSIS W/O SPECIFIC [id number] 16:14:00* Test Item Value Reference Range Interpretation Comme nts POCT PH U (test code = 3254) n/a 5-8 POCT U LEUK EST (test code = 3263) n/a Negative - Negative POCT U NIT (test code = 3262) n/a Negative - Negati ve POCT U PROT (test code = 3259) negative Negative - Negat colin POCT U GLU (test code = 3256) negative Negative - Negati ve POCT U KETONE (test code = 3258) n/a Negative - Neg ative POCT U BLD (test code = 3257) n/a Negative - Negati ve [facility] URINALYSIS W/O SPECIFIC [id number] 16:58:00* Test Item Value Reference Range Interpretation Comme nts POCT PH U (test code = 3254) n/a 5-8 POCT U LEUK EST (test code = 3263) n/a Negative - Negative POCT U NIT (test code = 3262) n/a Negative - Negati ve POCT U PROT (test code = 3259) negative Negative - Negat colin POCT U GLU (test code = 3256) negative Negative - Negati ve POCT U KETONE (test code = 3258) n/a Negative - Neg ative POCT U BLD (test code = 3257) n/a Negative - [id number]:21[facility]* Test Item Value Reference Range Interpretation Comme nts POCT PREG (test code = 1605) Positive On board controls acceptable with C Line (test code = 3574) Yes POCT PREG LOT # (test code = 3575) POCT PREG TEST DATE ( test code = 357) [facility] URINALYSIS W/O SPECIFIC [id number] 15:21:00* Test Item Value Reference Range Interpretation Comme nts POCT PH U (test code = 3254) n/a 5-8 POCT U LEUK EST (test code = 3263) n/a Negative - Negative POCT U NIT (test code = 3262) n/a Negative - Negati ve POCT U PROT (test code = 3259) negative Negative - Negat colin POCT U GLU (test code = 3256) negative Negative - Negati ve POCT U KETONE (test code = 3258) n/a Negative - Neg ative POCT U BLD (test code = 3257) n/a Negative - [facility]ati ve [facility] [id number] 05:28:00* Test Item Value Reference Range Interpretation Comme nts POCT PREG (test code = 1605) negative On board controls acceptable with C Line (test code = 3574) present POCT PREG LOT # (test code = 3575) [id number] POCT PREG TEST DATE ( test code = 3576) Lab Interpretation (test cod e = 12820-1) Normal [facility] History and Physical Notes Date/Time Note Provider Source 2023-05-15 07:07:46 [id number]:07:46F ormatting of this note might be different from the original.I have seen and examined the patient. Denies interval changes. Desires bilateral salpingectomy. Currently has tampons in for light vaginal bleeding.NADRRRBreathing unlaboredSoft, NTTP, no rashNo edemaA/P: Will proceed with laparoscopic bilateral salpingectomy. All questions answered.Goldie Miranda MD 05/15/2023 7:09 AM ource Note - Goldie Miranda MD - 05/07/2023 9:15 AM CDT Chief Complaint Patient presents with Pre-op Clearance HPI: Bryant Thompson is a 27 year old female here for pre-op BTL and follow-up EPDS. Last Depo Provera injection given on 04/09/2023.Past Medical History: Diagnosis Date Abnormal maternal glucose tolerance, antepartum 06/13/2018 Breakthrough bleeding on Nexplanon 01/14/2015 with Nexplanon BV (bacterial vaginosis) 07/27/2017 Screening for STDs (sexually transmitted diseases) 04/15/2015 Chlamydia / treated Past Surgical History: Procedure Laterality Date INSERT CERVICAL DILATOR 02/22/2023 OB History Para Term AB Living 3 2 2 1 2 SAB IAB Ectopic Multiple Live Births 1 0 2 # Outcome Date GA Lbr Titus/2nd Weight Sex Delivery Anes PTL Lv 3 Term 02/22/23 39w0d 7 lb 7.9 oz (3.4 kg) F NORMAL SPONT EPI N DAYANNA 2 Term 08/01/18 38w3d 7 lb 6 oz (3.35 kg) M VAGINAL EPI DAYANNA 1 IAB 02/22/14 No Known AllergiesPatient's Medications No medications on file Family History Problem Relation Age of Onset Breast Cancer Paternal Grandmother Arthritis NoFHx Asthma NoFHx defects NoFHx Colon Cancer NoFHx Ovarian Cancer NoFHx Uterine Cancer NoFHx Cancer NoFHx Depression NoFHx Diabetes NoFHx Genetic NoFHx Heart NoFHx High cholesterol NoFHx Hypertension NoFHx Mental retardation NoFHx Neurological NoFHx Osteoporosis NoFHx Psychiatry NoFHx Social History Socioeconomic History Marital status: Single Occupational History Comment: looking for employment Tobacco Use Smoking status: Never Smokeless tobacco: Never Vaping Use Vaping Use: Never used Substance and Sexual Activity Alcohol use: Not Currently Drug use: No Comment: Marijuana exposure in the past Sexual activity: Yes Partners: Male control/protection: None Social History Narrative Lives with aunt; and her four children ages 14-7 Aunt was her receiving lead Denies domestic or physical violence within the home Review of Systems Constitutional: Negative for chills, fatigue and fever. HENT: Negative for congestion, rhinorrhea, sneezing and sore throat. Respiratory: Negative for cough, chest tightness, shortness of breath and wheezing. Cardiovascular: Negative for chest pain and palpitations. Gastrointestinal: Negative for abdominal distention, abdominal pain, anal bleeding, blood in stool, constipation, diarrhea, nausea and vomiting. Genitourinary: Negative for dysuria, urgency, frequency, vaginal bleeding and vaginal discharge. Musculoskeletal: Negative for gait problem. Skin: Negative for rash. Neurological: Negative for syncope, light-headedness and headaches. Psychiatric/Behavioral: Negative for dysphoric mood, self-injury and suicidal ideas. Hematological: Does not bruise/bleed easily. BP: (104)/(62) Temp: [36.7 ?C (98.1 ?F)] Temp source: --Pulse: [55] Resp: --SpO2: --Height: [4' 9" (144.8 cm)] Weight: [129 lb 6.4 oz (58.7 kg)] BMI (calculated): [28] Physical Exam Vitals reviewed.Constitutional: She is oriented to person, place, and time. Her body habitus is overweight. Cardiovascular: Regular rate and rhythm. Pulmonary/Chest: Breath sounds clear to auscultation. Normal inspiratory effort. Abdominal: Abdomen is soft. No tenderness present. No hernia palpated or inspected. Neuro/Psychiatric: She has a normal mood and affect. She is oriented to person, place, and time. A/P: Preoperative evaluation for tubal ligation (primary encounter diagnosis)- Tubal consent signed on 11/22/2022"I counseled the patient regarding risks, benefits and alternatives of laparoscopic Bilateral Tubal Ligation including: risk of infection, bleeding, need for transfusion of blood/blood products, injury to ureter, bladder, bowel with possible further surgery, stint, catheterization or colostomy to repair, conversion to open. The permanence of this procedure and risk of regret in 1 in 3 women were discussed. tubal ligation failure rate is 0.75% and higher in women younger than 30 years old. There is an increased risk for ectopic and the need to seek medical attention should failure of tubal ligation occur. Alternatives discussed include: Oral Contraceptive Agents, Intrauterine Device, Nexplanon, Depo Provera, Ring, Patch, Condoms/foam, vasectomy of partner, or bilateral salpingectomy. Salpingectomy has been shown to decrease risk of ovarian cancer, similar to tubal ligation; however, no tubal reversal will be able to be done in the future and might be able to achieve with in vitro fertilization only. All questions answered, and patient expressed her desire to proceed with bilateral tubal ligation surgery."- RTC in 2 wks for post-op visitEncounter for screening for maternal depressionComment: EPDS 5. Improved from 11 on 04/09/2023.Plan: Continue to monitor. [place] [id number] History and physical [id number]:09:22Attending History and physical noteTXT1.2.840.342156.1.13.104.2.7.2.60136 9|[id number] for patient wqhs52868-9Toovhnp and physical noteLNUT[address] XcxgOffflperqGtizzfizdZARW4448946277VXARDK XIJXXVGKSBXEQWEJ3248-95-27X80:09:221.2.840 .615591.1.72.3.15|1.2.840.300067.1.13.104. 2.7.2.727879_[id number] [facility] Procedure Notes Date/Time Note Provider Source 2023-05-15 08:42:49 [id number]:42:49P rocedure(s): LAPAROSCOPIC SALPINGECTOMYPre-Procedure Diagnose(s): Encounter for tubal ligationPost-Procedure Diagnose(s): Encounter for tubal ligation; Status post bilateral salpingectomy LAPAROSCOPIC TUBAL SALPINGECTOMYDate of Service: 05/15/2023 Faculty Surgeon: Goldie MirandaAnesthesia Type: GeneralIV Fluids: 1000 cc Lactated RingersColloid Fluids: NoneSpecimens Sent to Pathology: bilateral fallopian tubesUrine Output: 450 cc of clear urineComplications: noneEstimated Blood Loss: < 10 mLPatient Status: Patient in stable condition and taken to recovery roomNarrative: Bryant Thompson is a 27 year old female desires permanent sterilization with laparoscopic bilateral salpingectomy. Description of Findings: Normal liver edge, normal uterus, fallopian tubes and ovaries. The trocar sites were inspected and no injury or bleeding identified.Summary of Procedure: After informed written consent was given by patient to proceed with above procedure for above indications, the patient was taken to the operating room and general endotracheal anesthesia induced. Patient was placed in dorsal lithotomy position, and prepped and draped. [place] catheter placed. Sponge stick placed in the vagina. A half inch incision was made in the umbilicus . The 5 mm laparoscopic trocar and laparoscopic camera were then introduced under direct visualization confirming placement in the peritoneal cavity and CO2 was then allowed to insufflate the peritoneal cavity with attention to adequate pressures. Under direct laparoscopic guidance, 2 skin incisions were made in the left lower quadrant and 8 mm and 5 mm laparoscopic trocars introduced. The inspection of the pelvis then ensued with findings as above. Each fallopian tube was grasped and removed with ligasure. Hemostasis noted. CO2 was allowed to egress through the trocars until abdominal pressure at 5 mmHg and hemostasis noted. 20 cc of 0.5% Marcaine placed intraperitoneally. Trocars were then removed under laparoscopic guidance. The skin incision sites were closed with 4-0 monycryl suture and dermabond and covered with dressing. All instruments removed. Patient's sponge and needle counts were correct times 2. Patient tolerated the procedure well and was awakened and taken to the PAC-U in stable condition.Goldie Miranda MD 05/15/2023 8:43 AM 90799-1Ysocckxgm prptOX4969-34-80P48:44:13Procedure noteTXT1.2.840.304176.1.13.104.2.7.2.59599 9|[id number] for patient udzr93888-6Ykhhelznx note[address] [id number] SJLGPQVEUFCMATCH6372-93-51Q41:44:131.2.840 .348031.1.72.3.15|1.2.840.887749.1.13.104. 2.7.2.727879_[id number] [facility] Notes Date/Time Note Provider Source 2023-05-15 08:21:58 [id number]:21:58F ormatting of this note might be different from the original.CALLED AND UPDATED PT'S BOYFRIEND, MIKI, AT 0822. 81560-7Xofty WnckPA1553-80-47S57:22:13Nurse NoteTXT1.2.840.977027.1.13.104.2 .7.2.218407|[id number] e for patient [id number] C Damian RN[address] StreetTXTX[address] 7633UWGPRMMBYQLARCJPIPRNIJ0892-6 08:22:131.2.840.572349.1.72 .3.15|1.2.840.324255.1.13.104.2. 7.2.727879_[id number] Corky Stephenson RN [facility] 2023-05-14 13:15:00 [id number]:15:00F ormatting of this note is different from the original.Images from the original note were not included.Venipuncture collection performed by clean technique on the right anticubitus. Total of 1 attempts were made. Slight pressure and a bandage/dressing were applied to the site(s). The patient experienced no complications. The following specimens were processed according to instructions and sent to [facility] laboratories per lab order on 05/14/2023: LT BLUE SST 1 RED LAV 3 PPT DK GREEN (LiHep) DK GREEN (SodH) MCDANIEL DK BLUE (K2) DK BLUE (S) ACD Blood Culture NIPT/NTD Patient has been identified by and name and was provided with cup, antiseptic towelette, and clean catch instructions. 1 urine specimen(s) sent. Unpreserved Urine Culture Aptima tube 1 Other urine [id number] KqspXK2867-04-10Y48:21:07Nurse NoteTXT1.2.840.156633.1.13.104.2 .7.2.302173|[id number] e for patient phrk38743-1Rzwvv NoteLNUT[address] ZqmkRvydgjftnUwefmznzsRIMV983859 6056NMWASHVVHRYDMOEOWQURDV0094-6 3:21:071.2.840.651116.1.72 .3.15|1.2.840.922338.1.13.104.2. 7.2.727879_[id number] [facility] 2023-05-07 14:19:57 [id number]:19:57F ormatting of this note might be different from the original.Images from the original note were not included.Your procedure is at [facility] on 05/15/23. The address is [address] [place] [address], [address]. [facility] nursing staff will call you the workday before your procedure to let you know what time to arrive.On the day of your procedure, please go inside that door and check in at the desk.Please note: You may not travel home alone and that includes in a taxi or by bus. We must speak to your Responsible Adult (who will be picking you up) the morning of your procedure, before the start of your procedure. This person must be an adult over the age of 18 years of age. Do not eat any solid food after midnight the night before surgery. You may have sips of clear liquids such as water, gatorade, and sprite up until two hours before your scheduled procedure.You may take your medications with a sip of water as directed by physician. Anticoagulants will be per physician guidance. Medication Note(s)/Instructions:n/aPending screening, we may test for COVID. If a patient tests positive, their cases are cancelled and/or rescheduled. COVID SCREENING NOTE: Denies COVID symptoms, no testing required.Additional requests, questions, concerns:n/aPatient verbalized understanding of pre-op instructions and voiced no further questions at this time. 03881-0Nqbyi QodyGW2121-40-73B07:20:14Nurse NoteTXT1.2.840.847418.1.13.104.2 .7.2.899040|[id number] e for patient hjjo52662-6VljrDAQEPUMNWL[address] UbxfGpiyxphkuZqqolhqmhONQL509256 9762RHBCCRSAFJABKQKFZXRRVK2728-3 4:20:141.2.840.787363.1.72 .3.15|1.2.840.511480.1.13.104.2. 7.2.727879_[id number] [facility]
--- NOTE | 2023-09-18 14:57 | ER ---
Nurse's Notes [facility] Name: Raegan Jeffrey Age: 27 yrs Sex: Female : 1995 Arrival Date: 09/18/2023 Time: 13:15 Bed 9 Private MD: Diagnosis: SARS-associated coronavirus as the cause of diseases classified elsewhere Presentation: 09/18 13:20 Chief complaint: Patient states: Pt c/o cough, congestion, runny nose, dry cough and VENCES cm10 x 2 days. No relief with dose x 1 of Theraflu. Coronavirus screen: Vaccine status: Patient reports receiving the 1st dose of the Covid vaccine. Client denies travel out of the [place] in the last 14 days. congestion, cough unrelated to allergies, headache, runny nose, Client presents with at least one sign or symptom that may indicate coronavirus-19. Standard/surgical mask placed on the client. Ebola Screen: Patient negative for fever greater than or equal to 101.5 degrees Fahrenheit, and additional compatible Ebola Virus Disease symptoms Patient denies exposure to infectious person. Patient denies travel to an Ebola-affected area in the 21 days before illness onset. No symptoms or risks identified at this time. Initial Sepsis Screen: Does the patient meet any 2 criteria? No. Patient's initial sepsis screen is negative. Does the patient have a suspected source of infection? No. Patient's initial sepsis screen is negative. Risk Assessment: Do you want to hurt yourself or someone else? Patient reports no desire to harm self or others. Onset of symptoms was September 16, 2023. 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 - Social history:: Smoking status: Reported history of juuling and/or vaping. Screenin:14 [facility] ED Fall Risk Assessment (Adult) History of falling in the last 3 months, me1 including since admission No falls in past 3 months (0 pts) Confusion or Disorientation No (0 pts) Intoxicated or Sedated No (0 pts) Impaired Gait No (0 pts) Mobility Assist Device Used No (0 pt) Altered Elimination No (0 pt) Score/Fall Risk Level 0 - 2 = Low Risk Maintained a safe environment, Provided non-skid footwear, Hourly rounding (assess needs \T\ fall precautionary measures) done. Abuse screen: Denies threats or abuse. Nutritional screening: No deficits noted. Tuberculosis screening: No symptoms or risk factors identified. Assessment: 14:14 General: Appears uncomfortable, well groomed, well developed, well nourished, Behavior me1 is calm, cooperative, appropriate for age, Reports Pt c/o cough, congestion, runny nose, dry cough and VENCES x 2 days. No relief with dose x 1 of Theraflu. Pain: Denies pain. Neuro: Level of Consciousness is awake, alert, obeys commands, Oriented to person, place, time, situation, Appropriate for age. Neuro: Reports headache since 2 days ago. Cardiovascular: Capillary refill < 3 seconds Patient's skin is warm and dry. Respiratory: Reports cough that is dry, Airway is patent Respiratory effort is even, unlabored, Respiratory pattern is regular, symmetrical. Vital Signs: 13:20 BP 109 / 73; Pulse 90; Temp 97.3; Pulse Ox 100% ; Weight 52.16 kg; Height 4 ft. 9 in. ; cm10 Pain 7/10; 15:20 BP 112 / 70; Pulse 89; Resp 16; Pulse Ox 100% on R/A; me1 13:20 Body Mass Index 24.89 (52.16 kg, 144.78 cm) cm10 13:20 Pain Scale: Adult cm10 ED Course: 13:17 Patient arrived in ED. im 13:18 [facility]l [facility]ushing [facility]C [facility] kb 13:18 Thierry Jose MD is Attending Physician. kb 13:23 Triage completed. cm10 13:24 Arm band placed on Patient placed in an exam room, on a stretcher. cm10 13:39 More Velazquez, DERECK is Primary Nurse. me1 13:52 COVID-19 SARS RT PCR Sent. me1 13:52 Flu Sent. me1 14:14 Patient has correct armband on for positive identification. Bed in low position. Call me1 light in reach. Side rails up X 1. Provided Education on: POC. Verbalized understanding. . 14:14 No provider procedures requiring assistance completed. me1 15:22 Patient did not have IV access during this emergency room visit. me1 Administered Medications: No medications were administered Medication: 14:14 VIS not applicable for this client. me1 Outcome: 14:56 Discharge ordered by MD. pyle 15:21 Discharged to home ambulatory, with family, me1 15:21 Condition: stable 15:21 Discharge instructions given to patient, Instructed on discharge instructions, follow up and referral plans. Demonstrated understanding of instructions, follow-up care, 15:22 Patient left the ED. me1 Signatures: Xochitl Rushing, CONTRACT ADMINISTRATION SPECIALIST-C CONTRACT ADMINISTRATION SPECIALIST-Rebeka Rashid Clarissa, DERECK RN cm10 Moer Velazquez RN RN me1 Corrections: (The following items were deleted from the chart) 13:24 13:23 PSHx: None; cm10 cm10 14:14 13:20 Chief complaint: Patient states: Pt c/o cough, congestion, runny nose, dry cough me1 and VENCES x 2 days. No relief with dose x 1 of Theraflu. cm10
--- NOTE | 2023-09-18 14:57 | EDPHYS ---
Physician Documentation [facility] Name: Raegan Jeffrey Age: 27 yrs Sex: Female : 1995 Arrival Date: 09/18/2023 Time: 13:15 Bed 9 Private MD: ED Physician Thierry Jose HPI: 09/18 13:23 This 27 yrs old Black Female presents to ER via Unassigned with complaints of Flu kb Symptoms. 13:24 Patient is a 27-year-old female who presents for cough, congestion, headache and kb malaise that started 2 days ago.. WIG STYLIST: 15:21 LMP N/A - , Not me1 Historical: - Allergies: 13:23 No Known Allergies; cm10 - Home Meds: 13:23 None [Active]; cm10 - PMHx: 13:23 None; cm10 - PSHx: 13:23 Ligation of fallopian tube; cm10 - Immunization history:: Adult Immunizations unknown. - Social history:: Smoking status: Reported history of juuling and/or vaping. ROS: 13:23 Constitutional: Negative for fever, chills, and weight loss, kb 13:23 ENT: Positive for sinus congestion, 13:23 Respiratory: Positive for cough, 13:23 Neuro: Positive for headache, 13:23 All other systems are negative, Exam: 13:23 Constitutional: This is a well developed, well nourished patient who is awake, alert, kb and in no acute distress. Head/Face: Normocephalic, atraumatic. ENT: Moist Mucous membranes Cardiovascular: Regular rate Respiratory: Respirations even and unlabored. No increased work of breathing. Talking in full sentences Skin: Warm, dry with normal turgor. Normal color. MS/ Extremity: Pulses equal, no cyanosis. Neurovascular intact. Full, normal range of motion. Neuro: Awake and alert, GCS 15, oriented to person, place, time, and situation. Moves all extremities. Normal gait. Vital Signs: 13:20 BP 109 / 73; Pulse 90; Temp 97.3; Pulse Ox 100% ; Weight 52.16 kg; Height 4 ft. 9 in. ; cm10 Pain 7/10; 15:20 BP 112 / 70; Pulse 89; Resp 16; Pulse Ox 100% on R/A; me1 13:20 Body Mass Index 24.89 (52.16 kg, 144.78 cm) cm10 13:20 Pain Scale: Adult cm10 MDM: 13:18 Patient medically screened. kb 13:24 Differential Diagnosis: Bronchitis Influenza Upper Respiratory Infection Other covid. Data reviewed: vital signs, nurses notes. 14:55 Counseling: I had a detailed discussion with the patient and/or guardian regarding the historical points, exam findings, and any diagnostic results supporting the discharge/admit diagnosis, lab results, the need for outpatient follow up, a family practitioner, to return to the emergency department if symptoms worsen or persist or if there are any questions or concerns that arise at home. 14:55 I considered the following discharge prescriptions or medication management in the emergency department I discussed and recommended Over The Counter medications, Antibiotics: At this time antibiotics are not recommended. 09/18 13:23 Order name: Flu; Complete Time: 14:33 kb 09/18 13:23 Order name: COVID-19 SARS RT PCR; Complete Time: 14:55 kb Administered Medications: No medications were administered Disposition: 15:25 Co-signature as Attending Physician, Thierry Jose MD I reviewed the patient's care rn provided by the Advanced Practice Provider and agree with the diagnosis and treatment plan. Disposition Summary: 09/18/23 14:56 Discharge Ordered Notes: Location: Home kb Condition: Stable kb Diagnosis - SARS-associated coronavirus as the cause of diseases classified elsewhere kb Followup: kb - With: Emergency Department - When: As needed - Reason: Worsening of condition Followup: kb - With: Private Physician - When: 2 - 3 days - Reason: Recheck today's complaints, Continuance of care, Re-evaluation by your physician Discharge Instructions: - Discharge Summary Sheet kb - COVID-19 kb - Viral Illness, Adult kb Forms: - Medication Reconciliation Form kb - Thank You Letter kb - Antibiotic Education kb - Prescription Opioid Use kb - Patient Portal Instructions kb - Leadership Thank You Letter kb Signatures: Dispatcher [employer] Xochitl Perez FNP-C FNP-Thierry Hutson MD MD rn Martinez, Clarissa, RN RN cm10 Corrections: (The following items were deleted from the chart) 13:24 13:23 PSHx: None; cm10 cm10
[2023-09-18 15:55] VITALS: TEMP 97.3; O2SAT 100
[2023-09-18 15:58] VITALS: BP 112/70
== END 2023-09-18 15:22 | disposition home or self-care (01) ==
LOC: ER 13:15
DX: U07.1 COVID-19 (principal)
CPT/HCPCS: 87635; 87804; 99283

== ENCOUNTER 2024-11-17 22:08 | Emergency (ER) | payer SELFPAY ==
--- OUTSIDE RECORDS SUMMARY | 2024-11-17 22:14 | XMS REPORT | Continuity of Care Document ---
Author Name Unknown Address [address] [facility] [address] [place] [address] [facility] Address [address] [facility] [address] [place] [address] Care Team Providers Care Fourth Hand Name Role Phone PCP, PATIENT DOES NOT HAVE A Primary Care Physic joselo Unavailable RAKESH FRANCIS Attending Clinician JENNIFER Aguirre Attending Clinician Unavailable GOLDIE MIRANDA Attending Clinician Unavailable Alissa Ch MA Attending Clinician Goldie Leggett MD Attending Clinician [phone] Doctor Unassigned, Benjamin Attending Clinician [facility] Attending Clinician Ann Tony MD Attending Clinician [phone] ANN MONTALVO Attending Clinician NELIDA Casas Attending Clinician Unavailable Nelida Castañeda PA-C Attending Clinician [phone] Lawrence Savage CRNA Attending Clinician [phone] Adry Shah MD Attending Clinician [phone] AYLIN SUAREZ Attending Clinician Abiola billings 2, [facility] Attending Clinician Unavailable Keenan DEWEY, Aylin Mock Attending Clinician [phone] Ultrasound, [facility] Attending Clinician Unavailevaristo Severino MD, Chambers Attending Clinician + TRISH UMANZOR Attending Clinician Danita Torre RN, Fiona Samayoa Attending Clinician Unavailab Chisholm PALLET SORTER, Gustavo B Attending Clinician [phone] GOLDIE MIRANDA Admitting Clinician Unavailable JENNIFER VILLAGRAN Admitting Clinician Unavailable Ruth DEWEY, Goldie Birch Admitting Clinician Payers Payer Name Policy Type Policy Number Effective Date Expirati on Date Source [facility] [id number] 2022 00:00:00 [facility] [place] [facility] [id number] 2019 00:00:00 [facility] [id number] 2022 00:00:00 Problems Condition Name Condition Details Condition Category Status Onset Date Resolution Date Last Treatment Date Treating Clinician Comments Source Generalize d abdominal pain Generalize d abdominal pain Disease Active 4-16 00:00: 00 [facility] Urinary tract infection without hematuria, site unspecifie d Urinary tract infection without hematuria, site unspecifie d Disease Active 4-16 00:00: 00 [facility] Status post bilateral salpingect carson Status post bilateral salpingect carson Disease Active 8-08 00:00: 00 [facility] Routine follow-up Routine follow-up Disease Active 7-03 00:00: 00 [facility] Liveborn infant, of [place] , born in hospital by vaginal delivery Liveborn infant, of [place] , born in hospital by vaginal delivery Disease Active 5-18 00:00: 00 [facility] Vulvar itching Vulvar itching Disease Active 4-25 00:00: 00 [facility] Itching Itching Disease Active 4-25 00:00: 00 [facility] Palpitatio ns Palpitatio ns Disease Active 4-20 00:00: 00 [facility] Dizziness and giddiness Dizziness and giddiness Disease Active 4-20 00:00: 00 [facility] Low back pain during in second trimester Low back pain during in second trimester Disease Active 2-15 00:00: 00 [facility] Encounter for tubal ligation counseling Encounter for tubal ligation counseling Disease Active 2-15 00:00: 00 [facility] High risk , antepartum High risk , antepartum Disease Active 2021-10 0-26 00:00: 00 [facility] 39 weeks gestation of 39 weeks gestation of Disease Active 2017-10 0-25 00:00: 00 [facility] Obesity (BMI 30-39.9) Obesity (BMI 30-39.9) Disease Active 2017-10 0-25 00:00: 00 [facility] Excessive weight gain Excessive weight gain Disease Active 2017-10 0-08 00:00: 00 [facility] Abnormal maternal glucose tolerance, antepartum Abnormal maternal glucose tolerance, antepartum Disease Active 9-06 00:00: 00 [facility] Group B streptococ kimberly infection during Group B streptococ kimberly infection during Disease Active 7-24 00:00: 00 [facility] Family history of cleft lip and palate Family history of cleft lip and palate Disease Active 18 00:00: 00 [facility] Constipati on, unspecifie d constipati on type Constipati on, unspecifie d constipati on type Disease Active 18 00:00: 00 [facility] Allergies, Adverse Reactions, Alerts Allergy Name Allergy Type Status Severity Reaction(s) Onset Date Inactive Date Treating Clinician Comments Source NO KNOWN ALLERGIE S Drug Class Active [facility] Social History Social Habit Start Date Stop Date Quantity Comments Source ASSERTION 2022-06-08 00:00:00 [facility] Alcohol intake 2023-05-29 00:00:00 2023-05-29 00:00:00 Ex-drinker (finding) [facility] History of Social function 2023-05-15 00:00:00 2023-05-15 00:00:00 [facility] Exposure to SARS-CoV-2 (event) 2023-02-05 00:00:00 2023-02-15 15:23:00 Not sure [facility] Tobacco use and exposure 2022-08-02 00:00:00 2022-08-02 00:00:00 Smokeless tobacco non-user [facility] Sex Assigned At 1995 00:00:00 1995 00:00:00 [facility] Smoking Status Start Date Stop Date Source Never smoked tobacco [facility] Medications Ordered Medication Name Filled Medication Name Start Date Stop Date Current Medication? Ordering Clinician Indication Dosage Frequency Signature (SIG) Comments Components Source iopamidol (ISOVUE 370-500 mL) injection 100 mL 01-21 10:30: 00 01-21 10:30 :00 No [id number] 100mL 100 mL, Intravenou s, ONCE, 1 dose, On Sun01/22/24 at 0530, Routine [facility] ondansetron (ZOFRAN (PF)) injection 4 mg 01-21 09:15: 00 01-21 08:56 :00 No 4mg 4 mg, Slow IV Push, ONCE, 1 dose, On Sun01/22/24 at 0415, RODNEY [facility] ketorolac (TORADOL) injection 15 mg 01-21 09:15: 00 01-21 08:57 :00 No 15mg 15 mg, Slow IV Push, ONCE, 1 dose, On Sun01/22/24 at 0415, RODNEY [facility] NaCl 0.9% (NS) bolus infusion 1,000 mL 01-21 09:15: 00 01-21 09:54 :00 No 1000mL at 999 mL/hr, 1,000 mL, IV Infusion, ONCE, 1 dose, On Sun01/22/24 at 0415, RODNEY [facility] cephALEXin (KEFLEX) 500 mg capsule 01-21 00:00: 00 01-29 04:59 :00 No [id number] 500mg Take 1 capsule by mouth in the morning and 1 capsule at noon and 1 capsule in the evening. Do all this for 7 days. [facility] HYDROmorphO ne (DILAUDID) injection 0.2 mg 05-15 13:53: 37 Yes .2mg 0.2 mg, Slow IV Push, Q5MIN PRN, 5 doses, Starting on Sun05/15/23 at 0853, Until Discontinu ed, Routine, Pain (scale 7-10), PACU
Us e approved by (Faculty): PACU USE -ANESTHESI A SERVICE-HY DROMORPHON E INJECTIONS [facility] FENTanyl PF (SUBLIMAZE (PF)) injection 25 mcg 05-15 13:53: 37 Yes 25ug 25 mcg, Slow IV Push, Q5MIN PRN, 4 doses, Starting on Sun05/15/23 at 0853, Until Discontinu ed, Routine, Pain (scale 4-6), PACU [facility] ondansetron (ZOFRAN (PF)) injection 4 mg 05-15 13:53: 37 Yes 4mg 4 mg, Slow IV Push, PRN, 1 dose, Starting on Sun05/15/23 at 0853, Until Discontinu ed, Routine, Nausea and Vomiting (N/V), PACU [facility] sodium chloride 0.9 % irrigation solution 05-15 13:36: 00 05-15 13:52 :00 No PRN, Starting on Sun05/15/23 at 0836, Until Sun05/15/23 at 0852, Intra-op [facility] bupivacaine (preserv free) 0.5% (SENSORCAIN E MPF) injection 05-15 13:11: 00 05-15 13:52 :00 No PRN, Starting on Sun05/15/23 at 0811, Until Sun05/15/23 at 0852, Routine, Intra-op [facility] lactated ringers IV infusion 1,000 mL 05-15 12:00: 00 05-15 12:11 :00 No 1000mL at 42 mL/hr, 1,000 mL, IV Infusion, ONCE, 1 dose, On Sun05/15/23 at 0700, Routine, DSU Pre-op [facility] acetaminoph en (TYLENOL) 325 mg tablet 05-15 00:00: 00 05-29 00:00 :00 No [id number] 650mg Take 2 tablets by mouth every 6 (six) hours as needed for Pain (scale 1-3) or Pain (scale 4-6). [facility] ibuprofen 600 mg tablet 05-15 00:00: 00 05-29 00:00 :00 No [id number] 600mg Take 1 tablet by mouth every 6 (six) hours as needed for Pain (scale 1-3) or Pain (scale 4-6). [facility] simethicone 80 mg chewable tablet 05-15 00:00: 00 05-29 00:00 :00 No [id number] 80mg Take 1 tablet by mouth after meals and at bedtime. [facility] HYDROcodone -acetaminop hen 5-325 mg tablet 05-15 00:00: 05-17 04:59 :00 No [id number] 1{tbl} Take 1 tablet by mouth every 6 (six) hours as needed for Pain (scale 7-10) for up to 1 day. Indication s: acute pain [facility] medroxyPROG ESTERone (DEPO-PROVE RA) syringe 150 mg 04-09 22:45: 00 04-09 21:50 :00 No [id number] 150mg [facility] SERTraline (ZOLOFT) 50 mg tablet 03-19 00:00: 00 Yes [id number] 50mg Take 1 tablet by mouth in the morning. [facility] ibuprofen 600 mg tablet 02-24 00:00: 00 04-09 00:00 :00 No [id number] 102 600mg Take 1 tablet by mouth every 6 (six) hours as needed (Pain). Take with food or milk. [facility] rho(D) immune globulin (RHOGAM) syringe 300 mcg 02-23 05:20: 31 Yes 300ug 300 mcg, Intramuscu lar, ONCE, For 1 dose, Conditiona l, Routine [facility] witch Yusef (TUCKS) 50 % topical pad 02-23 05:20: 27 Yes Topical, Q4HPRN, Starting on Sun02/23/23 at 0020, Until Discontinu ed, Routine, rectal/hem orrhoidal pain [facility] HYDROcodone -acetaminop hen (NORCO 5) 5-325 mg tablet 1 tablet 02-23 05:20: 27 Yes 1{tbl} 1 tablet, Oral, Q6HPRN, Starting on Sun02/23/23 at 0020, Until Discontinu ed, Routine, Pain (scale 7-10) [facility] ibuprofen (IBU) tablet 600 mg 02-23 05:20: 27 Yes 600mg 600 mg, Oral, Q6HPRN, Starting on Sun02/23/23 at 0020, Until Discontinu ed, Routine, Pain (scale 4-6) [facility] acetaminoph en (TYLENOL) tablet 650 mg 02-23 05:20: 27 Yes 650mg 650 mg, Oral, Q6HPRN, Starting on Sun02/23/23 at 0020, Until Discontinu ed, Routine, Pain (scale 1-3) [facility] diphenhydrA MINE (BENADRYL) tablet 25 mg 02-23 05:20: 27 Yes 25mg 25 mg, Oral, Q6HPRN, Starting on Sun02/23/23 at 0020, Until Discontinu ed, Routine, Sleep, Itching [facility] ondansetron (ZOFRAN (PF)) injection 4 mg 02-23 05:20: 27 Yes 4mg 4 mg, Slow IV Push, Q8HPRN, Starting on Sun02/23/23 at 0020, Until Discontinu ed, Routine, Nausea and Vomiting (N/V) [facility] simethicone (GAS RELIEF (SIMETHICON E)) chewable tablet 160 mg 02-23 05:20: 27 Yes 160mg 160 mg, Oral, PC+HSPRN, Starting on Sun02/23/23 at 0020, Until Discontinu ed, Routine, Gas [facility] docusate (COLACE) capsule 200 mg 02-23 05:20: 27 Yes 200mg 200 mg, Oral, QDAILYPRN, Starting on Sun02/23/23 at 0020, Until Discontinu ed, Routine, Constipati on [facility] magnesium hydroxide (MILK OF MAGNESIA) 400 mg/5 mL suspension 30 mL 02-23 05:20: 27 Yes 30mL 30 mL, Oral, QDAILYPRN, Starting on Sun02/23/23 at 0020, Until Discontinu ed, Routine, Constipati on [facility] benzocaine- menthol (DERMOPLAST ) 20-0.5 % topical spray 02-23 05:20: 27 Yes Topical, PRN, Starting on Sun02/23/23 at 0020, Until Discontinu ed, Routine, Perineum discomfort [facility] fentaNYL-ro pivacaine 2 mcg/mL-0.1 % (PF) in NS 200 mL epidural infusion RTU 02-22 23:18: 00 Yes Epidural, ONCE INTRA PROCEDURE, Starting on Sun02/22/23 at 1818, Until Discontinu ed, Routine, Intra-op [facility] lactated ringers IV infusion 500 mL 02-22 09:13: 54 02-23 01:42 :00 No 500mL at 999 mL/hr, 500 mL, IV Infusion, PRN - SEE INSTRUCTIO NS, 1 dose, Starting on Sun02/22/23 at 0413, Until Discontinu ed, Routine [facility] oxytocin (PITOCIN) 30 units in NS 500 mL IV infusion 02-22 09:13: 51 02-23 05:20 :29 No 2mU/min at 2-40 mL/hr, IV Infusion, TITRATE, Starting on Brittany 02/22/23 at 0413, Until Sun02/23/23 at 0020, RODNEY [facility] D5W-LR IV infusion 1,000 mL 02-22 09:13: 51 02-23 05:20 :29 No 1000mL at 1-125 mL/hr, IV Infusion, TITRATE, Starting on Brittany 02/22/23 at 0413, Until Sun02/23/23 at 0020, Routine [facility] FENTanyl PF (SUBLIMAZE (PF)) injection 50 mcg 02-22 09:13: 48 02-23 05:20 :29 No 50ug 50 mcg, Slow IV Push, Q2HPRN, Starting on Brittany 02/22/23 at 0413, Until Sun02/23/23 at 0020, Routine, contractio n pain without an epidural and SVE < 8 cm and Cat I strip [facility] triamcinolo ne acetonide 0.1 % ointment 02-12 00:00: 00 04-09 00:00 :00 No [id number] Apply to area(s) 2 (two) times daily. [facility] hydrOXYzine 25 mg tablet 25 00:00: 00 04-09 00:00 :00 No [id number] 25mg Take 1 tablet by mouth every 6 (six) hours as needed for Itching. [facility] triamcinolo ne acetonide 0.1 % ointment -25 00:00: 00 02-12 00:00 :00 No [id number] Apply to area(s) 2 (two) times daily. [facility] iron sucrose (VENOFER) 300 mg in NaCl 0.9% (NS) 250 mL infusion 01-05 16:15: 00 01-05 18:18 :57 No 300mg 300 mg, IV Infusion, ONCE, Administer over 2.5 Hours, On Sun01/05/23 at 1115, For 1 dose [facility] iron sucrose (VENOFER) 300 mg in NaCl 0.9% (NS) 250 mL infusion 12-29 16:30: 00 12-29 18:57 :00 No 300mg 300 mg, IV Infusion, ONCE, Administer over 2.5 Hours, On Sun12/29/22 at 1130, For 1 dose [facility] iron sucrose (VENOFER) 300 mg in NaCl 0.9% (NS) 250 mL infusion 12-22 16:45: 00 12-22 19:02 :35 No 300mg 300 mg, IV Infusion, ONCE, Administer over 2.5 Hours, On Sun12/22/22 at 1145, For 1 dose [facility] ferrous sulfate (IRON, FERROUS SULFATE,) 325 mg (65 mg iron) tablet 12-13 00:00: 00 04-09 00:00 :00 No [id number] 325mg Take 1 tablet by mouth in the morning and 1 tablet in the evening. [facility] vitamin w/FA tablet 10-25 00:00: 00 04-09 00:00 :00 No [id number] 1{tbl} Take 1 tablet by mouth in the morning. [facility] VITAFOL FE PLUS 90 mg iron- 1 mg-200 mg Cap 2021-10 00:00: 00 04-09 00:00 :00 No [id number] TAKE 1 CAPSULE BY MOUTH DAILY. [facility] vitamin w/FA tablet 2021-10 00:00: 00 10-25 00:00 :00 No [id number] 1{tbl} Take 1 tablet by mouth in the morning. [facility] polyethylen e glycol 3350 (MIRALAX) 17 gram powder 2021-10 00:00: 00 04-09 00:00 :00 No [id number] 1{packe t} Take 1 Packet by mouth as needed for Constipati on. [facility] polycarboph il (FIBERCON) 625 mg tablet 2021-10 00:00: 00 04-09 00:00 :00 No [id number] 625mg Take 1 tablet by mouth in the morning. [facility] docusate (COLACE) 100 mg capsule 2021-10 00:00: 00 01-05 00:00 :00 No [id number] 100mg Take 1 capsule by mouth once daily as needed for Constipati on. [facility] PNV 102-iron-fo late-dha (VITAFOL FE PLUS) 90 mg iron- 1 mg-200 mg Cap 2021-10 00:00: 00 09-02 00:00 :00 No [id number] Take 1 TAB-CAP/M2 by mouth daily. [facility] estradiol 1 mg tablet 2017-10 00:00: 00 08-02 00:00 :00 No 1mg Take 1 tablet by mouth daily. [facility] Immunizations Ordered Immunization Name Filled Immunization Name Date Status Comments Source Influenza Virus Vaccine Quad .5 mL IM 6+ MO 2018-07-15 00:00:00 Completed [facility] Influenza Virus Vaccine Quad .5 mL IM 6+ MO 2018-07-15 00:00:00 Completed [facility] Influenza Virus Vaccine Quad .5 mL IM 6+ MO 2018-07-15 00:00:00 Completed [facility] Influenza Virus Vaccine Quad .5 mL IM 6+ MO 2018-07-15 00:00:00 Completed [facility] Influenza Virus Vaccine Quad .5 mL IM 6+ MO 2018-07-15 00:00:00 Completed [facility] Influenza Virus Vaccine Quad .5 mL IM 6+ MO 2018-07-15 00:00:00 Completed [facility] Influenza Virus Vaccine Quad .5 mL IM 6+ MO 2018-07-15 00:00:00 Completed [facility] Influenza Virus Vaccine Quad .5 mL IM 6+ MO 2018-07-15 00:00:00 Completed [facility] Influenza Virus Vaccine Quad .5 mL IM 6+ MO 2018-07-15 00:00:00 Completed [facility] Influenza Virus Vaccine Quad .5 mL IM 6+ MO 2018-07-15 00:00:00 Completed [facility] Influenza Virus Vaccine Quad .5 mL IM 6+ MO 2018-07-15 00:00:00 Completed [facility] Influenza Virus Vaccine Quad .5 mL IM 6+ MO 2018-07-15 00:00:00 Completed [facility] Influenza Virus Vaccine Quad .5 mL IM 6+ MO 2018-07-15 00:00:00 Completed [facility] Influenza Virus Vaccine Quad .5 mL IM 6+ MO 2018-07-15 00:00:00 Completed [facility] Influenza Virus Vaccine Quad .5 mL IM 6+ MO 2018-07-15 00:00:00 Completed [facility] Influenza Virus Vaccine Quad .5 mL IM 6+ MO 2018-07-15 00:00:00 Completed [facility] Influenza Virus Vaccine Quad .5 mL IM 6+ MO 2018-07-15 00:00:00 Completed [facility] Influenza Virus Vaccine Quad .5 mL IM 6+ MO 2018-07-15 00:00:00 Completed [facility] Influenza Virus Vaccine Quad .5 mL IM 6+ MO 2018-07-15 00:00:00 Completed [facility] Influenza Virus Vaccine Quad .5 mL IM 6+ MO 2018-07-15 00:00:00 Completed [facility] Influenza Virus Vaccine Quad .5 mL IM 6+ MO 2018-07-15 00:00:00 Completed [facility] Influenza Virus Vaccine Quad .5 mL IM 6+ MO 2018-07-15 00:00:00 Completed [facility] Influenza Virus Vaccine Quad .5 mL IM 6+ MO 2018-07-15 00:00:00 Completed [facility] Influenza Virus Vaccine Quad .5 mL IM 6+ MO 2018-07-15 00:00:00 Completed [facility] Influenza Virus Vaccine Quad .5 mL IM 6+ MO 2018-07-15 00:00:00 Completed [facility] Influenza Virus Vaccine Quad .5 mL IM 6+ MO 2018-07-15 00:00:00 Completed [facility] Influenza Virus Vaccine Quad .5 mL IM 6+ MO 2018-07-15 00:00:00 Completed [facility] Influenza Virus Vaccine Quad .5 mL IM 6+ MO 2018-07-15 00:00:00 Completed [facility] Influenza Virus Vaccine Quad .5 mL IM 6+ MO 2018-07-15 00:00:00 Completed [facility] Influenza Virus Vaccine Quad .5 mL IM 6+ MO 2018-07-15 00:00:00 Completed [facility] Influenza Virus Vaccine Quad .5 mL IM 6+ MO 2018-07-15 00:00:00 Completed [facility] Influenza Virus Vaccine Quad .5 mL IM 6+ MO 2018-07-15 00:00:00 Completed [facility] Influenza Virus Vaccine Quad .5 mL IM 6+ MO 2018-07-15 00:00:00 Completed [facility] Influenza Virus Vaccine Quad .5 mL IM 6+ MO 2018-07-15 00:00:00 Completed [facility] Influenza Virus Vaccine Quad .5 mL IM 6+ MO 2018-07-15 00:00:00 Completed [facility] Influenza Virus Vaccine Quad .5 mL IM 6+ MO 2018-07-15 00:00:00 Completed [facility] Influenza Virus Vaccine Quad .5 mL IM 6+ MO 2018-07-15 00:00:00 Completed [facility] Influenza Virus Vaccine Quad .5 mL IM 6+ MO 2018-07-15 00:00:00 Completed [facility] Influenza Virus Vaccine Quad .5 mL IM 6+ MO 2018-07-15 00:00:00 Completed [facility] Influenza Virus Vaccine Quad .5 mL IM 6+ MO 2018-07-15 00:00:00 Completed [facility] Influenza Virus Vaccine Quad .5 mL IM 6+ MO 2018-07-15 00:00:00 Completed [facility] Influenza Virus Vaccine Quad .5 mL IM 6+ MO 2018-07-15 00:00:00 Completed [facility] Influenza Virus Vaccine Quad .5 mL IM 6+ MO 2018-07-15 00:00:00 Completed [facility] Influenza Virus Vaccine Quad .5 mL IM 6+ MO 2018-07-15 00:00:00 Completed [facility] Influenza Virus Vaccine Quad .5 mL IM 6+ MO 2018-07-15 00:00:00 Completed [facility] Influenza Virus Vaccine Quad .5 mL IM 6+ MO 2018-07-15 00:00:00 Completed [facility] Influenza Virus Vaccine Quad .5 mL IM 6+ MO 2018-07-15 00:00:00 Completed [facility] Influenza Virus Vaccine Quad .5 mL IM 6+ MO 2018-07-15 00:00:00 Completed [facility] Influenza Virus Vaccine Quad .5 mL IM 6+ MO 2018-07-15 00:00:00 Completed [facility] Influenza Virus Vaccine Quad .5 mL IM 6+ MO 2018-07-15 00:00:00 Completed [facility] Influenza Virus Vaccine Quad .5 mL IM 6+ MO 2018-07-15 00:00:00 Completed [facility] Influenza Virus Vaccine Quad .5 mL IM 6+ MO 2018-07-15 00:00:00 Completed [facility] Influenza Virus Vaccine Quad .5 mL IM 6+ MO 2018-07-15 00:00:00 Completed [facility] Influenza Virus Vaccine Quad .5 mL IM 6+ MO 2018-07-15 00:00:00 Completed [facility] Influenza Virus Vaccine Quad .5 mL IM 6+ MO 2018-07-15 00:00:00 Completed [facility] Influenza Virus Vaccine Quad .5 mL IM 6+ MO 2018-07-15 00:00:00 Completed [facility] Influenza Virus Vaccine Quad .5 mL IM 6+ MO 2018-07-15 00:00:00 Completed [facility] Influenza Virus Vaccine Quad .5 mL IM 6+ MO 2018-07-15 00:00:00 Completed [facility] Influenza Virus Vaccine Quad .5 mL IM 6+ MO 2018-07-15 00:00:00 Completed [facility] Influenza Virus Vaccine Quad .5 mL IM 6+ MO 2018-07-15 00:00:00 Completed [facility] Influenza Virus Vaccine Quad .5 mL IM 6+ MO 2018-07-15 00:00:00 Completed [facility] Influenza Virus Vaccine Quad .5 mL IM 6+ MO 2018-07-15 00:00:00 Completed [facility] TDAP 2018-06-13 00:00:00 Completed [facility] TDAP 2018-06-13 00:00:00 Completed [facility] TDAP 2018-06-13 00:00:00 Completed [facility] TDAP 2018-06-13 00:00:00 Completed [facility] TDAP 2018-06-13 00:00:00 Completed [facility] TDAP 2018-06-13 00:00:00 Completed [facility] TDAP 2018-06-13 00:00:00 Completed [facility] TDAP 2018-06-13 00:00:00 Completed [facility] TDAP 2018-06-13 00:00:00 Completed [facility] TDAP 2018-06-13 00:00:00 Completed [facility] TDAP 2018-06-13 00:00:00 Completed [facility] TDAP 2018-06-13 00:00:00 Completed [facility] TDAP 2018-06-13 00:00:00 Completed [facility] TDAP 2018-06-13 00:00:00 Completed [facility] TDAP 2018-06-13 00:00:00 Completed [facility] TDAP 2018-06-13 00:00:00 Completed [facility] TDAP 2018-06-13 00:00:00 Completed [facility] TDAP 2018-06-13 00:00:00 Completed [facility] TDAP 2018-06-13 00:00:00 Completed [facility] TDAP 2018-06-13 00:00:00 Completed [facility] TDAP 2018-06-13 00:00:00 Completed [facility] TDAP 2018-06-13 00:00:00 Completed [facility] TDAP 2018-06-13 00:00:00 Completed [facility] TDAP 2018-06-13 00:00:00 Completed [facility] TDAP 2018-06-13 00:00:00 Completed [facility] TDAP 2018-06-13 00:00:00 Completed [facility] TDAP 2018-06-13 00:00:00 Completed [facility] TDAP 2018-06-13 00:00:00 Completed [facility] TDAP 2018-06-13 00:00:00 Completed [facility] TDAP 2018-06-13 00:00:00 Completed [facility] TDAP 2018-06-13 00:00:00 Completed [facility] TDAP 2018-06-13 00:00:00 Completed [facility] TDAP 2018-06-13 00:00:00 Completed [facility] TDAP 2018-06-13 00:00:00 Completed [facility] TDAP 2018-06-13 00:00:00 Completed [facility] TDAP 2018-06-13 00:00:00 Completed [facility] TDAP 2018-06-13 00:00:00 Completed [facility] TDAP 2018-06-13 00:00:00 Completed [facility] TDAP 2018-06-13 00:00:00 Completed [facility] TDAP 2018-06-13 00:00:00 Completed [facility] TDAP 2018-06-13 00:00:00 Completed [facility] TDAP 2018-06-13 00:00:00 Completed [facility] TDAP 2018-06-13 00:00:00 Completed [facility] TDAP 2018-06-13 00:00:00 Completed [facility] TDAP 2018-06-13 00:00:00 Completed [facility] TDAP 2018-06-13 00:00:00 Completed [facility] TDAP 2018-06-13 00:00:00 Completed [facility] TDAP 2018-06-13 00:00:00 Completed [facility] TDAP 2018-06-13 00:00:00 Completed [facility] TDAP 2018-06-13 00:00:00 Completed [facility] TDAP 2018-06-13 00:00:00 Completed [facility] TDAP 2018-06-13 00:00:00 Completed [facility] TDAP 2018-06-13 00:00:00 Completed [facility] TDAP 2018-06-13 00:00:00 Completed [facility] TDAP 2018-06-13 00:00:00 Completed [facility] TDAP 2018-06-13 00:00:00 Completed [facility] TDAP 2018-06-13 00:00:00 Completed [facility] TDAP 2018-06-13 00:00:00 Completed [facility] TDAP 2018-06-13 00:00:00 Completed [facility] TDAP 2018-06-13 00:00:00 Completed [facility] TDAP 2018-06-13 00:00:00 Completed [facility] TDAP 2018-06-13 00:00:00 Completed [facility] HPV9 2017-09-26 00:00:00 Completed [facility] HPV9 2017-09-26 00:00:00 Completed [facility] HPV9 2017-09-26 00:00:00 Completed [facility] HPV9 2017-09-26 00:00:00 Completed [facility] HPV9 2017-09-26 00:00:00 Completed [facility] HPV9 2017-09-26 00:00:00 Completed [facility] HPV9 2017-09-26 00:00:00 Completed [facility] HPV9 2017-09-26 00:00:00 Completed [facility] HPV9 2017-09-26 00:00:00 Completed [facility] HPV9 2017-09-26 00:00:00 Completed [facility] HPV9 2017-09-26 00:00:00 Completed [facility] HPV9 2017-09-26 00:00:00 Completed [facility] HPV9 2017-09-26 00:00:00 Completed [facility] HPV9 2017-09-26 00:00:00 Completed [facility] HPV9 2017-09-26 00:00:00 Completed [facility] HPV9 2017-09-26 00:00:00 Completed [facility] HPV9 2017-09-26 00:00:00 Completed [facility] HPV9 2017-09-26 00:00:00 Completed [facility] HPV9 2017-09-26 00:00:00 Completed [facility] HPV9 2017-09-26 00:00:00 Completed [facility] HPV9 2017-09-26 00:00:00 Completed [facility] HPV9 2017-09-26 00:00:00 Completed [facility] HPV9 2017-09-26 00:00:00 Completed [facility] HPV9 2017-09-26 00:00:00 Completed [facility] HPV9 2017-09-26 00:00:00 Completed [facility] HPV9 2017-09-26 00:00:00 Completed [facility] HPV9 2017-09-26 00:00:00 Completed [facility] HPV9 2017-09-26 00:00:00 Completed [facility] HPV9 2017-09-26 00:00:00 Completed [facility] HPV9 2017-09-26 00:00:00 Completed [facility] HPV9 2017-09-26 00:00:00 Completed [facility] HPV9 2017-09-26 00:00:00 Completed [facility] HPV9 2017-09-26 00:00:00 Completed [facility] HPV9 2017-09-26 00:00:00 Completed [facility] HPV9 2017-09-26 00:00:00 Completed [facility] HPV9 2017-09-26 00:00:00 Completed [facility] HPV9 2017-09-26 00:00:00 Completed [facility] HPV9 2017-09-26 00:00:00 Completed [facility] HPV9 2017-09-26 00:00:00 Completed [facility] HPV9 2017-09-26 00:00:00 Completed [facility] HPV9 2017-09-26 00:00:00 Completed [facility] HPV9 2017-09-26 00:00:00 Completed [facility] HPV9 2017-09-26 00:00:00 Completed [facility] HPV9 2017-09-26 00:00:00 Completed [facility] HPV9 2017-09-26 00:00:00 Completed [facility] HPV9 2017-09-26 00:00:00 Completed [facility] HPV9 2017-09-26 00:00:00 Completed [facility] HPV9 2017-09-26 00:00:00 Completed [facility] HPV9 2017-09-26 00:00:00 Completed [facility] HPV9 2017-09-26 00:00:00 Completed [facility] HPV9 2017-09-26 00:00:00 Completed [facility] HPV9 2017-09-26 00:00:00 Completed [facility] HPV9 2017-09-26 00:00:00 Completed [facility] HPV9 2017-09-26 00:00:00 Completed [facility] HPV9 2017-09-26 00:00:00 Completed [facility] HPV9 2017-09-26 00:00:00 Completed [facility] HPV9 2017-09-26 00:00:00 Completed [facility] HPV9 2017-09-26 00:00:00 Completed [facility] HPV9 2017-09-26 00:00:00 Completed [facility] HPV9 2017-09-26 00:00:00 Completed [facility] HPV9 2017-09-26 00:00:00 Completed [facility] HPV9 2017-09-26 00:00:00 Completed [facility] TDAP 2017-07-27 00:00:00 Completed [facility] HPV9 2017-07-27 00:00:00 Completed [facility] TDAP 2017-07-27 00:00:00 Completed [facility] HPV9 2017-07-27 00:00:00 Completed [facility] TDAP 2017-07-27 00:00:00 Completed [facility] HPV9 2017-07-27 00:00:00 Completed [facility] TDAP 2017-07-27 00:00:00 Completed [facility] HPV9 2017-07-27 00:00:00 Completed [facility] TDAP 2017-07-27 00:00:00 Completed [facility] HPV9 2017-07-27 00:00:00 Completed [facility] TDAP 2017-07-27 00:00:00 Completed [facility] HPV9 2017-07-27 00:00:00 Completed [facility] TDAP 2017-07-27 00:00:00 Completed [facility] HPV9 2017-07-27 00:00:00 Completed [facility] TDAP 2017-07-27 00:00:00 Completed [facility] TDAP 2017-07-27 00:00:00 Completed [facility] HPV9 2017-07-27 00:00:00 Completed [facility] HPV9 2017-07-27 00:00:00 Completed [facility] TDAP 2017-07-27 00:00:00 Completed [facility] HPV9 2017-07-27 00:00:00 Completed [facility] TDAP 2017-07-27 00:00:00 Completed [facility] HPV9 2017-07-27 00:00:00 Completed [facility] TDAP 2017-07-27 00:00:00 Completed [facility] HPV9 2017-07-27 00:00:00 Completed [facility] TDAP 2017-07-27 00:00:00 Completed [facility] TDAP 2017-07-27 00:00:00 Completed [facility] HPV9 2017-07-27 00:00:00 Completed [facility] HPV9 2017-07-27 00:00:00 Completed [facility] TDAP 2017-07-27 00:00:00 Completed [facility] HPV9 2017-07-27 00:00:00 Completed [facility] TDAP 2017-07-27 00:00:00 Completed [facility] HPV9 2017-07-27 00:00:00 Completed [facility] TDAP 2017-07-27 00:00:00 Completed [facility] HPV9 2017-07-27 00:00:00 Completed [facility] TDAP 2017-07-27 00:00:00 Completed [facility] HPV9 2017-07-27 00:00:00 Completed [facility] TDAP 2017-07-27 00:00:00 Completed [facility] HPV9 2017-07-27 00:00:00 Completed [facility] TDAP 2017-07-27 00:00:00 Completed [facility] HPV9 2017-07-27 00:00:00 Completed [facility] TDAP 2017-07-27 00:00:00 Completed [facility] HPV9 2017-07-27 00:00:00 Completed [facility] TDAP 2017-07-27 00:00:00 Completed [facility] HPV9 2017-07-27 00:00:00 Completed [facility] TDAP 2017-07-27 00:00:00 Completed [facility] HPV9 2017-07-27 00:00:00 Completed [facility] TDAP 2017-07-27 00:00:00 Completed [facility] HPV9 2017-07-27 00:00:00 Completed [facility] TDAP 2017-07-27 00:00:00 Completed [facility] TDAP 2017-07-27 00:00:00 Completed [facility] HPV9 2017-07-27 00:00:00 Completed [facility] HPV9 2017-07-27 00:00:00 Completed [facility] TDAP 2017-07-27 00:00:00 Completed [facility] HPV9 2017-07-27 00:00:00 Completed [facility] TDAP 2017-07-27 00:00:00 Completed [facility] HPV9 2017-07-27 00:00:00 Completed [facility] TDAP 2017-07-27 00:00:00 Completed [facility] HPV9 2017-07-27 00:00:00 Completed [facility] TDAP 2017-07-27 00:00:00 Completed [facility] HPV9 2017-07-27 00:00:00 Completed [facility] TDAP 2017-07-27 00:00:00 Completed [facility] HPV9 2017-07-27 00:00:00 Completed [facility] TDAP 2017-07-27 00:00:00 Completed [facility] HPV9 2017-07-27 00:00:00 Completed [facility] TDAP 2017-07-27 00:00:00 Completed [facility] HPV9 2017-07-27 00:00:00 Completed [facility] TDAP 2017-07-27 00:00:00 Completed [facility] HPV9 2017-07-27 00:00:00 Completed [facility] TDAP 2017-07-27 00:00:00 Completed [facility] HPV9 2017-07-27 00:00:00 Completed [facility] TDAP 2017-07-27 00:00:00 Completed [facility] HPV9 2017-07-27 00:00:00 Completed [facility] TDAP 2017-07-27 00:00:00 Completed [facility] HPV9 2017-07-27 00:00:00 Completed [facility] TDAP 2017-07-27 00:00:00 Completed [facility] HPV9 2017-07-27 00:00:00 Completed [facility] TDAP 2017-07-27 00:00:00 Completed [facility] HPV9 2017-07-27 00:00:00 Completed [facility] TDAP 2017-07-27 00:00:00 Completed [facility] HPV9 2017-07-27 00:00:00 Completed [facility] TDAP 2017-07-27 00:00:00 Completed [facility] HPV9 2017-07-27 00:00:00 Completed [facility] TDAP 2017-07-27 00:00:00 Completed [facility] HPV9 2017-07-27 00:00:00 Completed [facility] TDAP 2017-07-27 00:00:00 Completed [facility] HPV9 2017-07-27 00:00:00 Completed [facility] TDAP 2017-07-27 00:00:00 Completed [facility] HPV9 2017-07-27 00:00:00 Completed [facility] TDAP 2017-07-27 00:00:00 Completed [facility] HPV9 2017-07-27 00:00:00 Completed [facility] TDAP 2017-07-27 00:00:00 Completed [facility] HPV9 2017-07-27 00:00:00 Completed [facility] TDAP 2017-07-27 00:00:00 Completed [facility] HPV9 2017-07-27 00:00:00 Completed [facility] TDAP 2017-07-27 00:00:00 Completed [facility] HPV9 2017-07-27 00:00:00 Completed [facility] TDAP 2017-07-27 00:00:00 Completed [facility] HPV9 2017-07-27 00:00:00 Completed [facility] TDAP 2017-07-27 00:00:00 Completed [facility] HPV9 2017-07-27 00:00:00 Completed [facility] TDAP 2017-07-27 00:00:00 Completed [facility] HPV9 2017-07-27 00:00:00 Completed [facility] TDAP 2017-07-27 00:00:00 Completed [facility] HPV9 2017-07-27 00:00:00 Completed [facility] TDAP 2017-07-27 00:00:00 Completed [facility] HPV9 2017-07-27 00:00:00 Completed [facility] TDAP 2017-07-27 00:00:00 Completed [facility] HPV9 2017-07-27 00:00:00 Completed [facility] TDAP 2017-07-27 00:00:00 Completed [facility] HPV9 2017-07-27 00:00:00 Completed [facility] TDAP 2017-07-27 00:00:00 Completed [facility] HPV9 2017-07-27 00:00:00 Completed [facility] TDAP 2017-07-27 00:00:00 Completed [facility] HPV9 2017-07-27 00:00:00 Completed [facility] TDAP 2017-07-27 00:00:00 Completed [facility] HPV9 2017-07-27 00:00:00 Completed [facility] TDAP 2017-07-27 00:00:00 Completed [facility] HPV9 2017-07-27 00:00:00 Completed [facility] TDAP 2017-07-27 00:00:00 Completed [facility] HPV9 2017-07-27 00:00:00 Completed [facility] TDAP 2017-07-27 00:00:00 Completed [facility] HPV9 2017-07-27 00:00:00 Completed [facility] TDAP 2017-07-27 00:00:00 Completed [facility] HPV9 2017-07-27 00:00:00 Completed [facility] TDAP Unknown Completed [facility] HPV9 Unknown Completed [facility] Influenza Virus Vaccine Quad .5 mL IM 6+ MO (FLUZONE/FLULAVAL/F LUARIX) Unknown Completed [facility] TDAP Unknown Completed [facility] HPV9 Unknown Completed [facility] Influenza Virus Vaccine Quad .5 mL IM 6+ MO (FLUZONE/FLULAVAL/F LUARIX) Unknown Completed [facility] SARS-COV-2 COVID-19 PFIZER TABBY-SUCROSE VACCINE (MCDANIEL TOP) Unknown Completed [facility] TDAP Unknown Completed [facility] HPV9 Unknown Completed [facility] Influenza Virus Vaccine Quad .5 mL IM 6+ MO (FLUZONE/FLULAVAL/F LUARIX) Unknown Completed [facility] SARS-COV-2 COVID-19 PFIZER TABBY-SUCROSE VACCINE (MCDANIEL TOP) Unknown Completed [facility] Vital Signs Vital Name Observation Time Observation Value Comments S ource Systolic blood pressure 2024-01-22 10:06:00 102 mm[Hg] [facility] Diastolic blood pressure 2024-01-22 10:06:00 56 mm[Hg] [facility] Heart rate 2024-01-22 10:06:00 55 /min [facility] Body temperature 2024-01-22 10:06:00 36.06 Karrie [facility] Respiratory rate 2024-01-22 10:06:00 16 /min [facility] Oxygen saturation in Arterial blood by Pulse oximetry 2024-01-22 10:06:00 96 /min [facility] Body weight 2024-01-22 08:12:00 56.7 kg [facility] BMI 2024-01-22 08:12:00 27.05 kg/m2 [facility] Systolic blood pressure 2023-05-29 18:06:00 106 mm[Hg] [facility] Diastolic blood pressure 2023-05-29 18:06:00 67 mm[Hg] [facility] Heart rate 2023-05-29 18:06:00 65 /min [facility] Body temperature 2023-05-29 18:06:00 36.78 Karrie [facility] Body weight 2023-05-29 18:06:00 57.516 kg [facility] BMI 2023-05-29 18:06:00 27.44 kg/m2 [facility] Systolic blood pressure 2023-05-15 14:30:00 104 mm[Hg] [facility] Diastolic blood pressure 2023-05-15 14:30:00 69 mm[Hg] [facility] Heart rate 2023-05-15 14:30:00 64 /min [facility] Respiratory rate 2023-05-15 14:30:00 14 /min [facility] Oxygen saturation in Arterial blood by Pulse oximetry 2023-05-15 14:30:00 99 /min [facility] Body temperature 2023-05-15 13:48:00 36.06 Karrie [facility] Body height 2023-05-07 19:00:00 144.8 cm [facility] 2023-05-07 19:00:00 58.514 kg [facility] BMI 2023-05-07 19:00:00 27.92 kg/m2 [facility] Systolic blood pressure 2023-05-15 14:30:00 104 mm[Hg] [place] [facility] Diastolic blood pressure 2023-05-15 14:30:00 69 mm[Hg] [facility] Heart rate 2023-05-15 14:30:00 64 /min [facility] Respiratory rate 2023-05-15 14:30:00 14 /min [facility] Oxygen saturation in Arterial blood by Pulse oximetry 2023-05-15 14:30:00 99 /min [facility] Body temperature 2023-05-15 13:48:00 36.06 Karrie [facility] Body height 2023-05-07 19:00:00 144.8 cm [facility] Body weight 2023-05-07 19:00:00 58.514 kg [facility] BMI 2023-05-07 19:00:00 27.92 kg/m2 [facility] Systolic blood pressure 2023-05-07 14:14:00 104 mm[Hg] [facility] Diastolic blood pressure 2023-05-07 14:14:00 62 mm[Hg] [facility] Heart rate 2023-05-07 14:14:00 55 /min [facility] Body temperature 2023-05-07 14:14:00 36.72 Karrie [facility] Body height 2023-05-07 14:14:00 144.8 cm [facility] Body weight 2023-05-07 14:14:00 58.695 kg [facility] BMI 2023-05-07 14:14:00 28.00 kg/m2 [facility] Systolic blood pressure 2023-04-09 21:30:00 109 mm[Hg] [facility] Diastolic blood pressure 2023-04-09 21:30:00 66 mm[Hg] [facility] Heart rate 2023-04-09 21:30:00 68 /min [facility] Body temperature 2023-04-09 21:30:00 36.61 Karrie [facility] Respiratory rate 2023-04-09 21:30:00 16 /min [facility] Body height 2023-04-09 21:30:00 144.8 cm [facility] Body weight 2023-04-09 21:30:00 60.147 kg [facility] BMI 2023-04-09 21:30:00 28.69 kg/m2 [facility] Oxygen saturation in Arterial blood by Pulse oximetry 2023-04-09 21:30:00 100 /min [facility] Systolic blood pressure 2023-03-19 16:11:00 105 mm[Hg] [facility] Diastolic blood pressure 2023-03-19 16:11:00 74 mm[Hg] [facility] Heart rate 2023-03-19 16:11:00 72 /min [facility] Body temperature 2023-03-19 16:11:00 36.67 Karrie [facility] Respiratory rate 2023-03-19 16:11:00 18 /min [facility] Body height 2023-03-19 16:11:00 144.8 cm [facility] Body weight 2023-03-19 16:11:00 59.421 kg [facility] BMI 2023-03-19 16:11:00 28.35 kg/m2 [facility] Systolic blood pressure 2023-02-24 19:33:00 102 mm[Hg] [facility] Diastolic blood pressure 2023-02-24 19:33:00 47 mm[Hg] [facility] Heart rate 2023-02-24 19:33:00 70 /min [facility] Oxygen saturation in Arterial blood by Pulse oximetry 2023-02-24 19:33:00 99 /min [facility] Body temperature 2023-02-24 18:32:00 36.67 Karrie [facility] Respiratory rate 2023-02-24 12:55:00 18 /min [facility] Body weight 2023-02-23 04:45:00 69.854 kg [facility] BMI 2023-02-23 04:45:00 33.33 kg/m2 [facility] Systolic blood pressure 2023-02-15 20:36:00 107 mm[Hg] [facility] Diastolic blood pressure 2023-02-15 20:36:00 66 mm[Hg] [facility] Heart rate 2023-02-15 20:36:00 99 /min [facility] Body temperature 2023-02-15 20:36:00 36.72 Karrie [facility] Body height 2023-02-15 20:36:00 144.8 cm [facility] Body weight 2023-02-15 20:36:00 69.854 kg [facility] BMI 2023-02-15 20:36:00 33.33 kg/m2 [facility] Systolic blood pressure 2023-02-12 18:53:00 93 mm[Hg] [facility] Diastolic blood pressure 2023-02-12 18:53:00 56 mm[Hg] [facility] Heart rate 2023-02-12 18:53:00 88 /min [facility] Body temperature 2023-02-12 18:53:00 36.56 Karrie [facility] Respiratory rate 2023-02-12 18:53:00 18 /min [facility] Body height 2023-02-12 18:53:00 144.8 cm [facility] Body weight 2023-02-12 18:53:00 69.128 kg [facility] BMI 2023-02-12 18:53:00 32.98 kg/m2 [facility] Oxygen saturation in Arterial blood by Pulse oximetry 2023-02-12 18:53:00 99 /min [facility] Systolic blood pressure 2023-02-08 20:48:00 105 mm[Hg] [facility] Diastolic blood pressure 2023-02-08 20:48:00 65 mm[Hg] [facility] Heart rate 2023-02-08 20:48:00 76 /min [facility] Body temperature 2023-02-08 20:48:00 36.72 Karrie [facility] Respiratory rate 2023-02-08 20:48:00 18 /min [facility] Body height 2023-02-08 20:48:00 144.8 cm [facility] Body weight 2023-02-08 20:48:00 68.584 kg [facility] BMI 2023-02-08 20:48:00 32.72 kg/m2 [facility] Heart rate 2023-02-08 07:40:00 94 /min [facility] Oxygen saturation in Arterial blood by Pulse oximetry 2023-02-08 07:40:00 98 /min [facility] Systolic blood pressure 2023-02-08 07:30:00 119 mm[Hg] [facility] Diastolic blood pressure 2023-02-08 07:30:00 61 mm[Hg] [facility] Body temperature 2023-02-08 07:12:00 36.94 Karrie [facility] Respiratory rate 2023-02-08 07:12:00 18 /min [facility] Body height 2023-02-08 07:12:00 144.8 cm [facility] Body weight 2023-02-08 07:12:00 68.947 kg [facility] BMI 2023-02-08 07:12:00 32.89 kg/m2 [facility] Systolic blood pressure 2023-01-30 21:35:00 98 mm[Hg] [facility] Diastolic blood pressure 2023-01-30 21:35:00 61 mm[Hg] [facility] Heart rate 2023-01-30 21:35:00 76 /min [facility] Body temperature 2023-01-30 21:35:00 36.89 Karrie [facility] Body height 2023-01-30 21:35:00 144.8 cm [facility] Body weight 2023-01-30 21:35:00 67.586 kg [facility] BMI 2023-01-30 21:35:00 32.24 kg/m2 [facility] Systolic blood pressure 2023-01-25 19:24:00 111 mm[Hg] [facility] Diastolic blood pressure 2023-01-25 19:24:00 70 mm[Hg] [facility] Heart rate 2023-01-25 19:24:00 72 /min [facility] Body temperature 2023-01-25 19:24:00 36.72 Karrie [facility] Respiratory rate 2023-01-25 19:24:00 18 /min [facility] Body weight 2023-01-25 19:24:00 67.132 kg [facility] BMI 2023-01-25 19:24:00 32.03 kg/m2 [facility] Systolic blood pressure 2023-01-05 19:39:00 90 mm[Hg] [facility] Diastolic blood pressure 2023-01-05 19:39:00 54 mm[Hg] [facility] Heart rate 2023-01-05 19:39:00 99 /min [facility] Respiratory rate 2023-01-05 19:39:00 18 /min [facility] Oxygen saturation in Arterial blood by Pulse oximetry 2023-01-05 19:39:00 99 /min [facility] Body temperature 2023-01-05 19:30:00 36.67 Karrie [facility] Systolic blood pressure 2023-01-05 14:20:00 110 mm[Hg] [facility] Diastolic blood pressure 2023-01-05 14:20:00 71 mm[Hg] [facility] Heart rate 2023-01-05 14:20:00 101 /min [facility] Respiratory rate 2023-01-05 14:20:00 19 /min [facility] Body height 2023-01-05 14:20:00 144.8 cm [facility] 2023-01-05 14:20:00 66.633 kg [facility] BMI 2023-01-05 14:20:00 31.79 kg/m2 [facility] Oxygen saturation in Arterial blood by Pulse oximetry 2023-01-05 14:20:00 97 /min [facility] Systolic blood pressure 2023-01-03 20:25:00 110 mm[Hg] [facility] Diastolic blood pressure 2023-01-03 20:25:00 70 mm[Hg] [facility] Heart rate 2023-01-03 20:25:00 112 /min [facility] Body temperature 2023-01-03 20:25:00 36.72 Karrie [facility] Respiratory rate 2023-01-03 20:25:00 16 /min [facility] Body height 2023-01-03 20:25:00 144.8 cm [facility] Body weight 2023-01-03 20:25:00 66.225 kg [facility] BMI 2023-01-03 20:25:00 31.59 kg/m2 [facility] Systolic blood pressure 2022-12-29 19:00:00 97 mm[Hg] [facility] Diastolic blood pressure 2022-12-29 19:00:00 46 mm[Hg] [facility] Heart rate 2022-12-29 19:00:00 97 /min [facility] Oxygen saturation in Arterial blood by Pulse oximetry 2022-12-29 19:00:00 99 /min [facility] Body height 2022-12-29 16:45:00 144.8 cm [facility] Body weight 2022-12-29 16:45:00 65.772 kg [facility] BMI 2022-12-29 16:45:00 31.38 kg/m2 [facility] Systolic blood pressure 2022-12-22 20:00:00 112 mm[Hg] [facility] Diastolic blood pressure 2022-12-22 20:00:00 55 mm[Hg] [facility] Heart rate 2022-12-22 20:00:00 115 /min [facility] Oxygen saturation in Arterial blood by Pulse oximetry 2022-12-22 20:00:00 100 /min [facility] Body temperature 2022-12-22 19:00:00 36.67 Karrie [facility] Respiratory rate 2022-12-22 19:00:00 16 /min [facility] Body height 2022-12-22 15:30:00 144.8 cm [facility] Body weight 2022-12-22 15:30:00 65.318 kg [facility] BMI 2022-12-22 15:30:00 31.16 kg/m2 [facility] Systolic blood pressure 2022-12-20 21:15:00 107 mm[Hg] [facility] Diastolic blood pressure 2022-12-20 21:15:00 58 mm[Hg] [facility] Heart rate 2022-12-20 21:15:00 115 /min [facility] Body temperature 2022-12-20 21:15:00 36.5 Karrie [facility] Respiratory rate 2022-12-20 21:15:00 18 /min [facility] Body height 2022-12-20 21:15:00 144.8 cm [facility] Body weight 2022-12-20 21:15:00 64.592 kg [facility] BMI 2022-12-20 21:15:00 30.82 kg/m2 [facility] Systolic blood pressure 2022-11-22 19:32:00 118 mm[Hg] [facility] Diastolic blood pressure 2022-11-22 19:32:00 68 mm[Hg] [facility] Heart rate 2022-11-22 19:32:00 106 /min [facility] Body temperature 2022-11-22 19:32:00 36.94 Karrie [facility] Respiratory rate 2022-11-22 19:32:00 18 /min [facility] Body height 2022-11-22 19:32:00 144.8 cm [facility] weight 2022-11-22 19:32:00 62.415 kg [facility] BMI 2022-11-22 19:32:00 29.78 kg/m2 [facility] Systolic blood pressure 2022-10-25 16:53:00 100 mm[Hg] [place] [facility] Diastolic blood pressure 2022-10-25 16:53:00 64 mm[Hg] [facility] Heart rate 2022-10-25 16:53:00 90 /min [facility] Body temperature 2022-10-25 16:53:00 36.83 Karrie [facility] Respiratory rate 2022-10-25 16:53:00 17 /min [facility] Body height 2022-10-25 16:53:00 144.8 cm [facility] Body weight 2022-10-25 16:53:00 59.693 kg [facility] BMI 2022-10-25 16:53:00 28.48 kg/m2 [facility] Systolic blood pressure 2022-09-27 16:17:00 109 mm[Hg] [facility] Diastolic blood pressure 2022-09-27 16:17:00 70 mm[Hg] [facility] Heart rate 2022-09-27 16:17:00 105 /min [facility] Body temperature 2022-09-27 16:17:00 36.61 Karrie [facility] Respiratory rate 2022-09-27 16:17:00 18 /min [facility] Body height 2022-09-27 16:17:00 144.8 cm [facility] Body weight 2022-09-27 16:17:00 57.244 kg [facility] BMI 2022-09-27 16:17:00 27.31 kg/m2 [facility] Systolic blood pressure 2022-08-30 16:58:00 99 mm[Hg] [facility] Diastolic blood pressure 2022-08-30 16:58:00 63 mm[Hg] [place] [facility] Heart rate 2022-08-30 16:58:00 79 /min [facility] Body temperature 2022-08-30 16:58:00 36.61 Karrie [facility] Respiratory rate 2022-08-30 16:58:00 17 /min [facility] Body height 2022-08-30 16:58:00 144.8 cm [facility] Body weight 2022-08-30 16:58:00 56.246 kg [facility] BMI 2022-08-30 16:58:00 26.83 kg/m2 [facility] Systolic blood pressure 2022-08-02 15:15:00 97 mm[Hg] [facility] Diastolic blood pressure 2022-08-02 15:15:00 66 mm[Hg] [facility] Heart rate 2022-08-02 15:15:00 77 /min [facility] Body temperature 2022-08-02 15:15:00 36.72 Karrie [facility] Respiratory rate 2022-08-02 15:15:00 18 /min [facility] Body height 2022-08-02 15:15:00 144.8 cm [facility] Body weight 2022-08-02 15:15:00 54.885 kg [facility] BMI 2022-08-02 15:15:00 26.18 kg/m2 [facility] Systolic blood pressure 2020-07-26 05:07:00 112 mm[Hg] [facility] Diastolic blood pressure 2020-07-26 05:07:00 76 mm[Hg] [facility] Heart rate 2020-07-26 05:07:00 80 /min [facility] Body temperature 2020-07-26 05:07:00 37.5 Karrie [facility] Respiratory rate 2020-07-26 05:07:00 20 /min [facility] Body height 2020-07-26 05:07:00 144.8 cm [facility] Body weight 2020-07-26 05:07:00 49.896 kg [facility] BMI 2020-07-26 05:07:00 23.80 kg/m2 [facility] Oxygen saturation in Arterial blood by Pulse oximetry 2020-07-26 05:07:00 96 /min [facility] Systolic blood pressure 2020-07-26 05:07:00 112 mm[Hg] [facility] Diastolic blood pressure 2020-07-26 05:07:00 76 mm[Hg] [facility] Heart rate 2020-07-26 05:07:00 80 /min [facility] Body temperature 2020-07-26 05:07:00 37.5 Karrie [facility] Respiratory rate 2020-07-26 05:07:00 20 /min [facility] Body height 2020-07-26 05:07:00 144.8 cm [facility] Body weight 2020-07-26 05:07:00 49.896 kg [facility] BMI 2020-07-26 05:07:00 23.80 kg/m2 [facility] Oxygen saturation in Arterial blood by Pulse oximetry 2020-07-26 05:07:00 96 /min [facility] Procedures Procedure Date / Time Performed Performing Clinician Source CT ABDOMEN PELVIS W CONTRAST 2024-01-22 09:34:08 Jennifer Villagran [facility] TROPONIN I 2024-01-22 08:49:00 Jennifer Villagran [facility] COMP. METABOLIC PANEL (63256) 2024-01-22 08:49:00 Jennifer Villagran [facility] CBC WITH DIFF 2024-01-22 08:49:00 Jennifer Villagran [facility] URINALYSIS 2024-01-22 08:48:00 Jennifer Villagran [facility] POCT TEST 2024-01-22 08:48:00 Danny Villagran [facility] LAPAROSCOPIC SALPINGECTOMY 2023-05-15 12:29:00 Goldie Miranda [facility] DAY SURGERY - ADC 2023-05-15 05:01:00 Doctor Emely ssigned, Benjamin [facility] CONSENT FOR CONTRACEPTION 2023-05-07 05:01:00 Doctor Unassigned, Benjamin [facility] POCT TEST 2023-04-09 00:00:00 RuthGoldie [facility] CBC WITH DIFF 2023-02-23 08:56:00 [facility]Goldie [facility] CENTRAL NEURAXIAL BLOCK 2023-02-23 [facility] 2023-02-22 23:00:00 Steve Shah [facility] CBC WITH DIFF 2023-02-22 09:43:[address] [facility] HEPATITIS B SURFACE ANTIGEN 2023-02-22 09:43:00 Ruth [facility] HB ABO GROUPING 2023-02-22 09:43:00 [facility] GLOBULIN 2023-02-22 09:43:00 Ruth [facility] ADC OR MADHURI ONLY - RPR 2023-02-22 09:43:00 Ruth [facility] HIV 1/2 AG-AB WITH REFLEX 2023-02-22 09:43:00 Ruth [facility] ASSIGNMENT OF BENEFITS 2023-02-22 09:02:43 Docto r Unassigned, Benjamin [facility] POCT URINALYSIS W/O SPECIFIC GRAVITY 2023-02-15 00:00:00 Ruth Goldie [facility] POCT URINALYSIS W/O SPECIFIC GRAVITY 2023-02-12 00:00:00 Ruth [facility] ASSIGNMENT OF BENEFITS 2023-02-08 06:48:41 Docto r Unassigned, Benjamin [facility] CONSENT/REFUSAL FOR DIAGNOSIS AND TREATMENT 2023-02-08 06:47:36 Doctor Unassigned, Benjamin [facility] AUTHORIZATION FOR RELEASE OF PHI 2023-02-08 05:01:00 Doctor Unassigned, Benjamin [facility] L&D VISIT (NON-DELIVERED) 2023-02-08 05:01:00 Doctor Unassigned, Benjamin [facility] POCT URINALYSIS W/O SPECIFIC GRAVITY 2023-02-08 00:00:00 Goldie Miranda [facility] DME/SUPPLY JUSTIFICATION 2023-02-06 05:01:00 Doc tor Unassigned, Benjamin [facility] POCT URINALYSIS W/O SPECIFIC GRAVITY 2023-01-30 00:00:00 Goldie Miranda [facility] >14 WEEKS US LIMITED 2023-01-25 20:16:38 Goldie Miranda [facility] DSU PRE-OP 2023-01-25 05:01:00 Doctor Unass igned, Benjamin [facility] POCT URINALYSIS W/O SPECIFIC GRAVITY 2023-01-25 00:00:00 Goldie Miranda [facility] POCT URINALYSIS W/O SPECIFIC GRAVITY 2023-01-03 00:00:00 Goldie Miranda [facility] NON-STRESS TEST 2022-12-29 20:08:36 Goldie Miranda [facility] NON-STRESS TEST 2022-12-22 20:18:46 Goldie Miranda [facility] US OB TRANSVAGINAL 2022-12-22 20:18:10 Goldie Miranda U [facility] NOTICE OF PRIVACY PRACTICES 2022-12-22 15:24:20 Doctor Unassigned, Benjamin [facility] CONSENT/REFUSAL FOR DIAGNOSIS AND TREATMENT 2022-12-22 15:24:07 Doctor Unassigned, Benjamin [facility] ASSIGNMENT OF BENEFITS 2022-12-22 15:23:47 Docto r Unassigned, Benjamin [facility] L&D VISIT (NON-DELIVERED) 2022-12-22 05:01:00 Doctor Unassigned, Benjamin [facility] POCT URINALYSIS W/O SPECIFIC GRAVITY 2022-12-20 00:00:00 Nelida Castañeda [facility] STERILIZATION CONSENT FORM 2022-11-22 06:01:00 Doctor Unassigned, Benjamin [facility] POCT URINALYSIS W/O SPECIFIC GRAVITY 2022-11-22 00:00:00 Goldie Miranda [facility] POCT URINALYSIS W/O SPECIFIC GRAVITY 2022-10-25 17:11:00 Nelida Castañeda [facility] POCT URINALYSIS W/O SPECIFIC GRAVITY 2022-09-27 00:00:00 Ruth Goldie Birch [facility] POCT URINALYSIS W/O SPECIFIC GRAVITY 2022-08-30 16:58:00 Nelida Castañeda [facility] <14 WEEKS US LIMITED 2022-08-02 18:49:11 Goldie Miranda [facility] ASSIGNMENT OF BENEFITS 2022-08-02 14:54:02 Docto r Unassigned, Benjamin [facility] POCT TEST 2022-08-02 00:00:00 Goldie Miranda [facility] POCT URINALYSIS W/O SPECIFIC GRAVITY 2022-08-02 00:00:00 Goldie Miranda [facility] POCT TEST 2020-07-26 05:28:00 Gustavo Gonzalez [facility] NOTICE OF PRIVACY PRACTICES 2020-07-26 05:04:36 Doctor Unassigned, Benjamin [facility] CONSENT/REFUSAL FOR DIAGNOSIS AND TREATMENT 2020-07-26 05:03:14 Doctor Unassigned, Benjamin [facility] Encounters Start Date/Time End Date/Time Encounter Type Admission Type Attending [facility] Facility Care Department Encounter ID Source 2023-05-14 13:05:28 Emergency [facility] [id number] [facility] 2023-01-05 14:56:18 Outpatient P [facility] [id number] [facility] 2021-08-05 23:35:55 Emergency [facility] [id number] [facility] 2024-03-14 09:30:00 2024-03-14 09:30:00 Outpatient RAKESH LANCASTER [facility] [id number] [facility] 2024-01-29 10:30:00 2024-01-29 10:30:00 Outpatient RAKESH LANCASTER [facility] [id number] [facility] 2024-01-22 03:13:00 2024-01-22 06:04:00 Emergency X SANDHIR, AMBICA [facility] ERT [id number] [facility] 2024-01-22 03:13:00 2024-01-22 06:04:00 Emergency Jennifer Villagran [facility] [id number] [facility] 2024-01-15 09:45:00 2024-01-15 09:45:00 Outpatient RAKESH LANCASTER [facility] [id number] [facility] 2023-09-24 10:30:00 2023-09-24 10:30:00 Outpatient GOLDIE MACHADO [facility] [id number] [facility] 2023-09-11 00:00:00 2023-09-11 00:00:00 Pre Visit Outreach Alissa [facility] [id number] [facility] 2023-05-29 13:00:00 2023-05-29 13:15:03 Outpatient GOLDIE MACHADO [facility] [id number] [facility] 2023-05-29 13:00:00 2023-05-29 13:15:03 Office Visit Goldie Miranda [facility] PROFESSIO [facility] [id number] [facility] 2023-05-15 07:45:00 2023-05-15 10:26:00 Surgery Goldie Miranda [facility] [id number] [facility] 2023-05-15 06:57:00 2023-05-15 09:36:00 Outpatient GOLDIE MACHADO [facility] DIRECTOR OF BUSINESS CONTINUITY [id number] [facility] 2023-05-15 06:57:00 2023-05-15 09:36:00 Hospital Encounter Goldie Miranda Eyal [facility] [id number] [facility] 2023-05-15 00:00:00 2023-05-15 00:00:00 Orders Only Doctor Unassigned, Benjamin [facility] [facility] 1.2840.114 350.1.13.10 4.2.7.2.686 [id number] 009 [id number] [facility] 2023-05-14 13:15:00 2023-05-14 13:30:00 Linter Operator Visit Pob, Adc Lab Main Radha [facility] BUILDING 1.840.114 350.1.13.10 4.2.7.2.686 [id number] [facility] 2023-05-14 13:15:00 2023-05-14 13:15:00 Outpatient ANN VARGAS [facility] [id number] [facility] 2023-05-07 09:15:00 2023-05-07 13:19:03 Outpatient R GOLDIE MIRANDA [facility] [id number] [facility] 2023-05-07 09:15:00 2023-05-07 13:19:03 Office Visit MirandaGoldie [facility] BUILDING 1.2840.114 350.1.13.10 4.2.7.2.686 [id number] 134 [id number] [facility] 2023-05-07 00:00:00 2023-05-07 00:00:00 Orders Only Doctor Unassigned, Benjamin [facility] 1.2840.114 350.1.13.10 4.2.7.2.686 [id number] 009 [id number] [facility] 2023-04-16 16:00:00 2023-04-16 16:00:00 Outpatient R GOLDIE MIRANDA [facility] [id number] [facility] 2023-04-09 16:15:00 2023-04-09 16:51:33 Outpatient R GOLDIE MIRANDA [facility] [id number] [facility] 2023-04-09 16:15:00 2023-04-09 16:51:33 [facility] 1.2.840.114 350.1.13.10 4.2.7.2.686 [id number] 134 [id number] [facility] 2023-03-29 11:00:00 2023-03-29 11:00:00 Outpatient R GOLDIE MIRANDA [facility] [id number] [facility] 2023-03-19 11:00:00 2023-03-19 11:34:52 Outpatient R NELIDA CASTAÑEDA [facility] [id number] [facility] 2023-03-19 11:00:00 2023-03-19 11:34:52 Routine Visit Nelida Castañeda [facility] BUILDING 1.2.840.114 350.1.13.10 4.2.7.2.686 [id number] 134 [id number] [facility] 2023-03-19 00:00:00 2023-03-19 00:00:00 Telephone Goldie [facility] 1.2.840.114 350.1.13.10 4.2.7.2.686 [id number] 134 [id number] [facility] 2023-02-22 04:02:00 2023-02-24 17:00:00 Hospital Encounter Goldie Miranda [facility] 1.2.840.114 350.1.13.10 4.2.7.2.686 [id number] 083 [id number] [facility] 2023-02-22 04:02:00 2023-02-24 17:00:00 Inpatient P GOLDIE MIRANDA [facility] [id number] [facility] 2023-02-23 20:03:30 2023-02-23 20:03:30 Anesthesia Event Lawrence Savage [facility] 1.2.840.114 350.1.13.10 4.2.7.2.686 [id number] 083 [id number] [facility] 2023-02-22 18:00:00 2023-02-23 06:49:00 Anesthesia Event Adry Shah [facility] 1.2840.114 350.1.13.10 4.2.7.2.686 [id number] 083 [id number] [facility] 2023-02-22 10:45:00 2023-02-22 10:45:00 Outpatient R RUTH GOLDIE [facility] [id number] [facility] 2023-02-22 00:00:00 2023-02-22 00:00:00 Orders Only Doctor Unassigned, Benjamin [facility] 1.2840.114 350.1.13.10 4.2.7.2.686 [id number] 009 [id number] [facility] 2023-02-15 15:30:00 2023-02-15 15:45:00 Routine Visit Goldie Miranda [facility] 1.2840.114 350.1.13.10 4.2.7.2.686 [id number] 134 [id number] [facility] 2023-02-15 15:30:00 2023-02-15 15:30:00 Outpatient R GOLDIE MIRANDA [facility] [id number] [facility] 2023-02-13 09:00:00 2023-02-13 09:00:00 Outpatient R AYLIN SUAREZ [facility] [id number] [facility] 2023-02-12 13:45:00 2023-02-12 14:00:00 Routine Visit Goldie Miranda [facility] PROF[facility] NAL BUILDING 1.2.840.114 350.1.13.10 4.2.7.2.686 [id number] 134 [id number] [facility] 2023-02-12 13:45:00 2023-02-12 13:45:00 Outpatient R GOLDIE MIRANDA [facility] [id number] [facility] 2023-02-12 13:30:00 2023-02-12 13:45:00 Linter Operator Visit 2, Adc Lab Goldie Miranda [facility] NAL BUILDING 1.2.840.114 350.1.13.10 4.2.7.2.686 [id number] 353 [id number] [facility] 2023-02-12 00:00:00 2023-02-12 00:00:00 Telephone Goldie Miranda [facility] NAL BUILDING 1.2.840.114 350.1.13.10 4.2.7.2.686 [id number] 134 [id number] [facility] 2023-02-08 15:45:00 2023-02-08 16:06:28 Outpatient R GOLDIE MIRANDA [facility] [id number] [facility] 2023-02-08 15:45:00 2023-02-08 16:06:28 Routine Visit Goldie [facility] 1.2.840.114 350.1.13.10 4.2.7.2.686 [id number] 134 [id number] [facility] 2023-02-08 02:07:00 2023-02-08 04:35:00 [facility] [id number] 2023-02-08 02:07:00 2023-02-08 04:35:00 Hospital Encounter Goldie Miranda [facility] 1.2.840.114 350.1.13.10 4.2.7.2.686 [id number] 083 [id number] [facility] 2023-02-08 00:00:00 2023-02-08 00:00:00 Orders Only Doctor Unassigned, Benjamin [facility] 1.2.840.114 350.1.13.10 4.2.7.2.686 [id number] 009 [id number] [facility] 2023-02-06 00:00:00 2023-02-06 00:00:00 Orders Only Doctor Unassigned, Benjamin [facility] 1.2.840.114 350.1.13.10 4.2.7.2.686 [id number] 009 [id number] [facility] 2023-02-06 00:00:00 2023-02-06 00:00:00 Telephone Goldie Miranda [facility] 1.2840.114 350.1.13.10 4.2.7.2.686 [id number] 134 [id number] [facility] 2023-01-30 16:00:00 2023-01-30 17:00:57 Outpatient R GOLDIE MIRANDA [facility] [id number] [facility] 2023-01-30 16:00:00 2023-01-30 17:00:57 Routine Visit Goldie Miranda [facility] 1.2840.114 350.1.13.10 4.2.7.2.686 [id number] 134 [id number] [facility] 2023-01-30 00:00:00 2023-01-30 00:00:00 [facility] 1.2.840.114 350.1.13.10 4.2.7.2.686 [id number] 134 [id number] [facility] 2023-01-25 15:00:00 2023-01-25 15:15:00 Linter Operator Visit 2, Adc Lab Goldie Miranda [facility] BUILDING 1.2.840.114 350.1.13.10 4.2.7.2.686 [id number] 353 [id number] [facility] 2023-01-25 14:15:00 2023-01-25 15:00:05 Outpatient R RUTH GOLDIE [facility] [id number] [facility] 2023-01-25 14:15:00 2023-01-25 15:00:05 Routine Visit Goldie Miranda [facility] 1.2.840.114 350.1.13.10 4.2.7.2.686 [id number] 134 [id number] [facility] 2023-01-25 00:00:00 2023-01-25 00:00:00 Orders Only Doctor Unassigned, Benjamin [facility] 1.2.840.114 350.1.13.10 4.2.7.2.686 [id number] 009 [id number] [facility] 2023-01-23 00:00:00 2023-01-23 00:00:00 Telephone Aylin SuarezHMaximo [facility] 1.2.840.114 350.1.13.10 4.2.7.2.686 [id number] 059 [id number] [facility] 2023-01-18 00:00:00 2023-01-18 00:00:00 Telephone Aylin SuarezHMaximo [facility] 1.2.840.114 350.1.13.10 4.2.7.2.686 [id number] 059 [id number] [facility] 2023-01-15 14:18:36 2023-01-15 23:59:00 Outpatient R AYLIN SUAREZ [facility] [id number] [facility] 2023-01-05 10:06:00 2023-01-05 14:46:00 Outpatient P GOLDIE MIRANDA [facility] [place] [id number] [facility] 2023-01-05 10:06:00 2023-01-05 14:46:00 Hospital Encounter Goldie Miranda [facility] 1.2.840.114 350.1.13.10 4.2.7.2.686 [id number] 083 [id number] [facility] 2023-01-05 09:00:00 2023-01-05 09:41:50 Outpatient R AYLIN SUAREZ [facility] [id number] [facility] 2023-01-05 09:00:00 2023-01-05 09:41:50 Office Visit Aylin Suarez [facility] BUILDING 1..840.114 350.1.13.10 4.2.7.2.686 [id number] 059 [id number] [facility] 2023-01-03 15:45:00 2023-01-03 15:50:44 Linter Operator Visit 2, [facility] 1.2.840.114 350.1.13.10 4.2.7.2.686 [id number] 353 [id number] [facility] 2023-01-03 15:30:00 2023-01-03 15:43:51 Outpatient R GOLDIE MIRANDA [facility] [id number] [facility] 2023-01-03 15:30:00 2023-01-03 15:43:51 Routine Visit Goldie Miranda [facility] BUILDING 1.2.840.114 350.1.13.10 4.2.7.2.686 [id number] 134 [id number] [facility] 2022-12-29 10:20:00 2022-12-29 15:00:00 Outpatient P GOLDIE MIRANDA [facility] [place] [id number] [facility] 2022-12-29 10:20:00 2022-12-29 15:00:00 Hospital Encounter Goldie Miranda [facility] 1.2.840.114 350.1.13.10 4.2.7.2.686 [id number] 083 [id number] [facility] 2022-12-26 00:00:00 2022-12-26 00:00:00 Telephone Goldie Miranda [facility] 1.2840.114 350.1.13.10 4.2.7.2.686 [id number] 134 [id number] [facility] 2022-12-22 10:11:00 2022-12-22 15:23:00 Outpatient P RUTH [facility] [id number] [facility] 2022-12-22 10:11:00 2022-12-22 15:23:00 Hospital Encounter Goldie Miranda [facility] 1.2840.114 350.1.13.10 4.2.7.2.686 [id number] 083 [id number] [facility] 2022-12-22 00:00:00 2022-12-22 00:00:00 Telephone Goldie Miranda [facility] 1.2.840.114 350.1.13.10 4.2.7.2.686 [id number] 134 [id number] [facility] 2022-12-20 16:00:00 2022-12-20 16:36:40 [facility] [id number] [facility] 2022-12-20 16:00:00 2022-12-20 16:36:40 Routine Visit Maddy [facility] 1.2.840.114 350.1.13.10 4.2.7.2.686 [id number] 134 [id number] [facility] 2022-12-13 09:15:00 2022-12-13 09:30:00 Linter Operator Visit 2, Adc Lab Goldie Miranda [facility] BUILDING 1.2.840.114 350.1.13.10 4.2.7.2.686 [id number] 353 [id number] [facility] 2022-12-13 09:15:00 2022-12-13 09:15:00 Outpatient R GOLDIE MIRANDA [facility] [id number] [facility] 2022-12-13 00:00:00 2022-12-13 00:00:00 Case Management Goldie Miranda [facility] 1.2.840.114 350.1.13.10 4.2.7.2.686 [id number] 134 [id number] [facility] 2022-11-24 00:00:00 2022-11-24 00:00:00 Telephone Goldie Miranda [facility] 1.2.840.114 350.1.13.10 4.2.7.2.686 [id number] 134 [id number] [facility] 2022-11-22 13:00:00 2022-11-22 14:11:58 Outpatient R GOLDIE MIRANDA [facility] [id number] [facility] 2022-11-22 13:00:00 2022-11-22 14:11:58 Routine Visit Goldie Miranda [facility] 1.2.840.114 350.1.13.10 4.2.7.2.686 [id number] 134 [id number] [facility] 2022-11-22 00:00:00 2022-11-22 00:00:00 Orders Only Doctor Unassigned, Benjamin [facility] 1.2.840.114 350.1.13.10 4.2.7.2.686 [id number] 009 [id number] [facility] 2022-10-25 11:15:00 2022-10-25 11:36:53 Outpatient R NELIDA CASTAÑEDA [facility] [id number] [facility] 2022-10-25 11:15:00 2022-10-25 11:36:53 Routine Visit Nelida [facility] 1.2.840.114 350.1.13.10 4.2.7.2.686 [id number] 134 [id number] [facility] 2022-10-10 10:00:00 2022-10-10 11:00:00 Linter Operator Visit Ultrasound, Adc [facility] Debbie Ann Trish belcher [facility] BUILDING 1.2.840.114 350.1.13.10 4.2.7.2.686 [id number] 134 [id number] [facility] 2022-10-10 10:00:00 2022-10-10 10:47:24 Outpatient R DEBBIE ANN Steve [facility] [id number] [facility] 2022-10-04 08:00:00 2022-10-04 11:45:07 Outpatient R GOLDIE MIRANDA [facility] [id number] [facility] 2022-10-04 08:00:00 2022-10-04 11:45:07 Linter Operator Visit 2, Adc Goldie Waters [facility] BUILDING 1.2.840.114 350.1.13.10 4.2.7.2.686 [id number] 353 [id number] [facility] 2022-09-27 13:15:00 2022-09-27 13:15:00 Outpatient R GOLDIE MIRANDA [facility] [id number] [facility] 2022-09-27 10:00:00 2022-09-27 10:52:19 Outpatient R GOLDIE MIRANDA [facility] [id number] [facility] 2022-09-27 10:00:00 2022-09-27 10:52:19 Routine Visit Goldie Miranda [facility] 1.2.840.114 350.1.13.10 4.2.7.2.686 [id number] 134 [id number] [facility] 2022-09-11 08:30:00 2022-09-11 08:30:00 Outpatient R [facility] [id number] [facility] 2022-09-08 00:00:00 2022-09-08 00:00:00 Telephone Goldie Miranda [facility] 1.2.840.114 350.1.13.10 4.2.7.2.686 [id number] 134 [id number] [facility] 2022-09-08 00:00:00 2022-09-08 00:00:00 Telephone Goldie Miranda [facility] 1.2.840.114 350.1.13.10 4.2.7.2.686 [id number] 134 [id number] [facility] 2022-09-06 08:15:00 2022-09-06 08:15:00 Outpatient R [facility] [id number] [facility] 2022-08-30 11:00:00 2022-08-30 11:15:00 Routine Visit Maddy Nelida [facility] 1.2.840.114 350.1.13.10 4.2.7.2.686 [id number] 134 [id number] [facility] 2022-08-30 11:00:00 2022-08-30 11:00:00 [facility] [id number] [facility] 2022-08-30 00:00:00 2022-08-30 00:00:00 Refill Goldie Miranda [facility] 1.2.840.114 350.1.13.10 4.2.7.2.686 [id number] 134 [id number] [facility] 2022-08-17 00:00:00 2022-08-17 00:00:00 Telephone Goldie Miranda [facility]ICK[facility] 1.2.840.114 350.1.13.10 4.2.7.2.686 [id number] 134 [id number] [facility] 2022-08-10 00:00:00 2022-08-10 00:00:00 Telephone Goldie Miranda [facility] 1.2.840.114 350.1.13.10 4.2.7.2.686 [id number] 134 [id number] [facility] 2022-08-09 10:15:00 2022-08-09 10:30:00 Linter Operator Visit 2, Adc Lab Goldie Miranda [facility] 1.2.840.114 350.1.13.10 4.2.7.2.686 [id number] 353 [id number] [facility] 2022-08-09 10:15:00 2022-08-09 10:15:00 Outpatient R MIRANDA GOLDIE [facility] [id number] [facility] 2022-08-09 00:00:00 2022-08-09 00:00:00 Case Management Goldie Miranda [facility] 1.2.840.114 350.1.13.10 4.2.7.2.686 [id number] 134 [id number] [facility] 2022-08-02 10:00:00 2022-08-02 10:54:11 Outpatient R GOLDIE MIRANDA [facility] [id number] [facility] 2022-08-02 10:00:00 2022-08-02 10:54:11 Initial Visit Goldie Miranda [facility] 1.2.840.114 350.1.13.10 4.2.7.2.686 [id number] 134 [id number] [facility] 2022-08-02 00:00:00 2022-08-02 00:00:00 Telephone Goldie Miranda Eyal [facility] BU[facility] 1.2840.114 350.1.13.10 4.2.7.2.686 [id number] [id number] [facility] 2022-08-02 00:00:00 2022-08-02 00:00:00 Refill Goldie Miranda Eyal [facility] PROFESS[facility] NAL BUILDING 1.0.114 350.1.13.10 4.2.7.2.686 [id number] 134 [id number] [facility] 2022-08-02 00:00:00 2022-08-02 00:00:00 Orders Only Doctor Unassigned, Benjamin [facility] 1.2840.114 350.1.13.10 4.2.7.2.686 [id number] 009 [id number] [facility] 2020-07-27 00:00:00 2020-07-27 00:00:00 Letter (Out) [facility] 1.2840.114 350.1.13.10 4.2.7.2.686 [id number] 019 [id number] 2020-07-27 00:00:00 2020-07-27 00:00:00 Patient Secure Msg Doctor Unassigned, Benjamin [facility] 1.2.840.114 350.1.13.10 4.2.7.2.686 [id number] 019 [id number] [facility] 2020-07-27 00:00:00 2020-07-27 00:00:00 Letter (Out) [facility] 1.2840.114 350.1.13.10 4.2.7.2.686 [id number] 019 [id number] [facility] 2020-07-26 00:09:2020-07-26 01:21:00 Emergency Gustavo Gonzalez [facility] 1.2.840.114 350.1.13.10 4.2.7.2.686 [id number] 084 [id number] [facility] 2020-07-26 00:09:00 2020-07-26 01:21:00 Emergency Gustavo Gonzalez B [facility] 1.2.840.114 350.1.13.10 4.2.7.2.686 [id number] 084 [id number] Results Test Description Test Time Test Comments Results Resul t Comments Source CT ABDOMEN PELVIS W CONTRAST 2024-01-22 10:27:54 ORDERING PHYSICIAN: JENNIFER VILLAGRAN CLINICAL HISTORY: Abdominal pain, acute COMPARISON: None available. TECHNIQUE: Helical CT images of the abdomen and pelvis obtained with IVcontrast. CT scan performed according to ALARA (As low as reasonablyachiev able) principles. FINDINGS: Heart size is normal. Lower lungs are clear. The liver is mildly fattyinfiltrated . Gallbladder is mildly distended. There are no visiblegallstone s. The pancreas, spleen, adrenals, and kidneys are unremarkable.Norman dder is unremarkable. Uterus and adnexa are unremarkable. There is nofree fluid. Appendix is normal. The bones are [facility]remarkable. [id number] 21:31:00* Test Item Value Reference Range Interpretation Comme [facility] POCT PREG (test code = 1605) Negative On board controls acceptable with C Line (test code = 3574) Yes POCT PREG LOT # (test code = 3575) POCT PREG TEST DATE ( test code = 3576) [facility] IMMUNE [id number] 18:13:04* Test Item Value Reference Range Interpretation Comme nts RHIG CANDIDATE? (test code = 5188) No- see comment Patient is not a candidate for RhIg- Patient is Rh Positive.Performed at [facility] Laboratory Services - ADC Blood [address] [place] [address]Sjur Free: [phone] No. [id number] [facility] with [id number] 11:58:12* Test Item Value Reference Range Interpretation [...] 32.8 g/dL 31.6-35.1 RDW-SD (test code = 99100-4) 58.8 fL 39.0-49.9 H RDW-CV (test code = 788-0) 17.0 % 12.0-15.5 H PLT (test code = 777-3) 170 See_Comment [Automated message] The system which generated this result transmitted reference range: 166 - 358 10*3/?L. The reference range was not used to interpret this result as normal/abnormal. MPV (test code = 95215-6) 9.8 fL 9.5-12.9 NRBC/100 WBC (test code = 4958052750) 0.0 See_Comment [Automated message] The system which generated this result transmitted reference range: 0.0 - 10.0 /100 WBCs. The reference range was not used to interpret this result as normal/abnormal. NRBC x10^3 (test code = 3127417291) See_Comment [Automated message] The system which generated this result transmitted reference range: 10*3/?L. The reference range was not used to interpret this result as normal/abnormal. GRAN MAT (NEUT) % (test code = 770-8) 83.2 % IMM GRAN % (test code = 8495470786) 0.50 % LYMPH % (test code = 736-9) 5.6 % MONO % (test code = 5905-5) 10.5 % EOS % (test code = 713-8) 0.0 % BASO % (test code = 706-2) 0.2 % GRAN MAT x10^3(ANC) (test code = 7807527635) 13.42 10*3/uL 1.88-7.09 H IMM GRAN x10^3 (test code = 0929089035) 0.08 10*3/uL 0.00-0.06 H LYMPH x10^3 (test code = 731-0) 0.90 10*3/uL 1.32-3.29 L MONO x10^3 (test code = 742-7) 1.69 10*3/uL 0.33-0.92 H EOS x10^3 (test code = 711-2) 0.03-0.39 L BASO x10^3 (test code = 704-7) 0.03 10*3/uL 0.01-0.07 BANDS (test code = 6345115926) Increased A Lab Interpretation (test code = 55059-9) Abnormal [facility] OR MADHURI ONLY - [id number] 09:11:52* Test Item Value Reference Range Interpretation Comme nts RPR (Qualitative) (test code = 17765-1) Nonreactive Nonreactive Lab Interpretation (test cod e = 40801-4) Normal [facility] B Surface [id number] 16:37:21 * Test Item Value Reference Range Interpretation Comme nts HBsAg Semi-Quantitative (abner t code = 5195-3) 0.06 Negative [facility]/2 AG-AB WITH [id number] 14:17:40* Test Item Value Reference Range Interpretation Comme nts HIV Semi-quantitative (test code = 61385-6) 0.15 Negative CODIE (test code = CODIE) Non-reactive for HIV-1 antigen and HIV-1/HIV-2 antibodies. ?No laboratory evidence of HIV infection. ?Repeat in 2-4 weeks if acute HIV infection is suspected. [facility] with [id number] 11:27:06* Test Item Value Reference Range Interpretation [...] 33.5 g/dL 31.6-35.1 RDW-SD (test code = 07721-9) 58.6 fL 39.0-49.9 H RDW-CV (test code = 788-0) 16.8 % 12.0-15.5 H PLT (test code = 777-3) 181 See_Comment [Automated messa ge] The system which generated this result transmitted reference range: 166 - 358 10*3/?L. The reference range was not used to interpret this result as normal/abnormal. MPV (test code = 91268-6) 9.6 fL 9.5-12.9 NRBC/100 WBC (test code = 0857838731) 0.0 See_Comment [Automated me ssage] The system which generated this result transmitted reference range: 0.0 - 10.0 /100 WBCs. The reference range was not used to interpret this result as normal/abnormal. NRBC x10^3 (test code = 8271893095) See_Comment [Automated messa ge] The system which generated this result transmitted reference range: 10*3/?L. The reference range was not used to interpret this result as normal/abnormal. GRAN MAT (NEUT) % (test code = 770-8) 68.7 % IMM GRAN % (test code = 8294668598) 1.80 % LYMPH % (test code = 736-9) 19.1 % MONO % (test code = 5905-5) 9.2 % EOS % (test code = 713-8) 0.9 % BASO % (test code = 706-2) 0.3 % GRAN MAT x10^3(ANC) (test code = 4317725451) 7.42 10*3/uL 1.88-7.09 H IMM GRAN x10^3 (test code = 0428901251) 0.20 10*3/uL 0.00-0.06 H LYMPH x10^3 (test code = 731-0) 2.07 10*3/uL 1.32-3.29 MONO x10^3 (test code = 742-7) 1.00 10*3/uL 0.33-0.92 H EOS x10^3 (test code = 711-2) 0.10 10*3/uL 0.03-0.39 BASO x10^3 (test code = 704-7) 0.03 10*3/uL 0.01-0.07 Lab Interpretation (test code = 09589-3) [facility] [id number] 11:03:00 * Test Item Value Reference Range Interpretation Comme nts ABO & RH (test code = 20) O Positive IAT (test code = 1185) Negative [facility]/O SPECIFIC [id number] 20:42:00* Test Item Value Reference Range Interpretation [...] = 3257) n/a Negative - Negati ve [facility] URINALYSIS W/O SPECIFIC [id number] 18:51:00* Test Item Value Reference Range Interpretation [...] = 3257) n/a Negative - Negati ve [facility] URINALYSIS W/O SPECIFIC [id number] 20:52:00* Test Item Value Reference Range Interpretation [...] = 3257) n/a Negative - Negati ve [facility] URINALYSIS W/O SPECIFIC [id number] 21:33:00* Test Item Value Reference Range Interpretation [...] = 3257) Negative Negative - Negati ve [facility] URINALYSIS W/O SPECIFIC [id number] 19:26:00* Test Item Value Reference Range Interpretation [...] = 3257) n/a Negative - Negati ve [facility] URINALYSIS W/O SPECIFIC [id number] 20:35:00* Test Item Value Reference Range Interpretation [...] = 3257) N/A Negative - Negati ve [facility] URINALYSIS W/O SPECIFIC [id number] 20:35:00* Test Item Value Reference Range Interpretation [...] = 3257) N/A Negative - Negati ve [facility] URINALYSIS W/O SPECIFIC [id number] 21:15:00* Test Item Value Reference Range Interpretation [...] = 3257) n/a Negative - Negati ve [facility] URINALYSIS W/O SPECIFIC [id number] 19:32:00* Test Item Value Reference Range Interpretation [...] = 3257) Negative Negative - Negati ve [facility] URINALYSIS W/O SPECIFIC [id number] 19:32:00* Test Item Value Reference Range Interpretation [...] = 3257) Negative Negative - Negati ve [facility] URINALYSIS W/O SPECIFIC [id number] 17:12:00* Test Item Value Reference Range Interpretation [...] = 3257) n/a Negative - Negati ve [facility] URINALYSIS W/O SPECIFIC [id number] 17:12:00* Test Item Value Reference Range Interpretation [...] = 3257) n/a Negative - Negati ve [facility] URINALYSIS W/O SPECIFIC [id number] 16:14:00* Test Item Value Reference Range Interpretation [...] = 3257) n/a Negative - Negati ve [facility] URINALYSIS W/O SPECIFIC [id number] 16:58:00* Test Item Value Reference Range Interpretation [...] = 3257) n/a Negative - [facility]ati ve [id number] 15:21:00* Test Item Value Reference Range Interpretation Comme nts POCT PREG (test code = 1605) Positive On board controls acceptable with C Line (test code = 3574) Yes POCT PREG LOT # (test code = 3575) POCT PREG TEST DATE ( test code = 357) [facility] URINALYSIS W/O SPECIFIC [id number] 15:21:00* Test Item Value Reference Range Interpretation [...] = 3257) n/a Negative - [facility]ati ve [facility] [id number] 05:28:00* Test Item Value Reference Range Interpretation Comme nts POCT PREG (test code = 1605) negative On board controls acceptable with C Line (test code = 3574) present POCT PREG LOT # (test code = 3575) [id number] POCT PREG TEST DATE ( test code = 3576) Lab Interpretation (test cod e = 68322-7) Normal [facility] History and Physical Notes Date/Time Note Provider Source 2023-05-15 07:07:46 Formatting of this n ote might be different from the original. I have seen and examined the patient. Denies interval changes. Desires bilateral salpingectomy. Currently has tampons in for light vaginal bleeding. NAD RRR Breathing unlabored Soft, NTTP, no rash No edema A/P: Will proceed with laparoscopic bilateral salpingectomy. All questions answered. Goldie Miranda MD 05/15/2023 7:09 AM Source Note - Goldie Miranda MD - 05/07/2023 9:15 AM CDT Chief Complaint Patient presents with Pre-op Clearance HPI: Bryant hTompson is a 27 year old female here for pre-op BTL and follow-up EPDS. Last Depo Provera injection given on 04/09/2023. Past Medical History: Diagnosis Date Abnormal maternal glucose [...] EPI DAYANNA 1 IAB 02/22/14 No Known Allergies Patient's Medications No medications on file Family History [...] four children ages 14-7 Aunt was her head custodian Denies domestic or physical violence within the [...] Temp: [36.7 ?C (98.1 ?F)] Temp source: -- Pulse: [55] Resp: -- SpO2: -- Height: [4' 9" (144.8 cm)] Weight: [129 lb 6.4 oz (58.7 kg)] BMI (calculated): [28] Physical Exam Vitals reviewed. Constitutional: She is oriented to person, place, and time. Her body habitus is overweight. Cardiovascular: Regular rate and rhythm. Pulmonary/Chest: Breath sounds clear to auscultation. Normal inspiratory effort. Abdominal: Abdomen is soft. No tenderness present. No hernia palpated or inspected. Neuro/Psychiatric: She has a normal mood and affect. She is oriented to person, place, and time. A/P: Preoperative evaluation for tubal ligation (primary encounter diagnosis) - Tubal consent signed on 11/22/2022 "I counseled the patient regarding risks, benefits and [...] desire to proceed with bilateral tubal ligation surgery." - RTC in 2 wks for post-op visit Encounter for screening for maternal depression Comment: EPDS 5. Improved from 11 on 04/09/2023. Plan: Continue to monitor. Follow-up as needed Goldie Miranda MD T [facility] Procedure Notes Date/Time Note Provider Source 2023-05-15 08:42:49 Procedure(s): LAPARO SCOPIC SALPINGECTOMY Pre-Procedure Diagnose(s): Encounter for tubal ligation Post-Procedure Diagnose(s): Encounter for tubal ligation; Status post bilateral salpingectomy LAPAROSCOPIC TUBAL SALPINGECTOMY Date of Service: 05/15/2023 Faculty Surgeon: Goldie Miranda Anesthesia Type: General IV Fluids: 1000 cc Lactated Ringers Colloid Fluids: None Specimens Sent to Pathology: bilateral fallopian tubes Urine Output: 450 cc of clear urine Complications: none Estimated Blood Loss: < 10 mL Patient Status: Patient in stable condition and taken to recovery room Narrative: Bryant Thompson is a 27 year old female desires permanent sterilization with laparoscopic bilateral salpingectomy. Description of Findings: Normal liver edge, normal uterus, fallopian tubes and ovaries. The trocar sites were inspected and no injury or bleeding identified. Summary of Procedure: After informed written consent was [...] and taken to the PAC-U in stable condition. Goldie Miranda MD 05/15/2023 8:43 AM [facility]
--- NOTE | 2024-11-17 22:46 | ER ---
Nurse's Notes [facility] Name: Raegan Jeffrey Age: 29 yrs Sex: Female : 1995 Arrival Date: 11/17/2024 Time: 22:08 Bed Waiting Private MD: Diagnosis: Presentation: 11/17 22:20 Note Called patient. Not in lobby. me1 22:30 Note Called patient. Not in lobby. me1 22:46 Note Called patient. Not in lobby. me1 ED Course: 22:11 Patient arrived in ED. gm2 22:15 Brooks Valentine PA is PHCP. cp 22:15 Xiang Smart MD is Attending Physician. cp Administered Medications: No medications were administered Outcome: 22:47 Patient left the ED. ut1 Signatures: Brooks Valentine PA PA cp More Velazquez RN RN me1 Anabelle Pollock gm2
== END 2024-11-17 22:47 | disposition left against medical advice (07) ==
LOC: ER 22:08
DX: Z02.9 Encounter for administrative examinations, unspecified (principal)

== ENCOUNTER 2025-06-02 11:47 | Emergency (ER) | payer SELFPAY ==
--- OUTSIDE RECORDS SUMMARY | 2025-06-02 12:02 | XMS REPORT | Continuity of Care Document ---
Author Name Unknown Address [address] [facility] [place] [address] [facility] [address] [facility] [address] [place] [address] Care Team Providers Care Dipper Operator Name Role Phone PCP, PATIENT DOES NOT HAVE A Primary Care Physic Mendy Teresa RN Attending Clinician Unav ailable MANAV STREETER Attending Clinician Unavail MANAV Durham Attending Clinician Unavail Manav Durham MD Attending Clinician RAKESH FRANCIS Attending Clinician UnavailJENNIFER Zamudio Attending Clinician Unavailable GOLDIE MIRANDA Attending Clinician Unavailable Alissa Ch MA Attending Clinician Goldie Leggett MD Attending Clinician [phone] Doctor Unassigned, Slaughters Attending Clinician U navailnorberto Pob, [facility] Main Attending Clinician Ann Tony MD Attending Clinician ANN MONTALVO Attending Clinician UnavailJENNA Hughes Attending Clinician Unavailable Tano HERNÁNDEZ, Jenna Attending Clinician [phone] Lawrence Savage CRNA Attending Clinician [phone] Pablo DEWEY, Adry Attending Clinician [phone] MAYUR SUAREZ K.HMaximo Attending Clinician Unavaila ble 2, [facility] Attending Clinician Unavailable Keenan DEWEY, Mayur K.H. Attending Clinician [phone] Ultrasound, Adc Mfm Attending Clinician Unavaila arnulfo Severino MD, Trish Attending Clinician + TRISH UMANZOR Attending Clinician Danita Torre RN, Fiona Samayoa Attending Clinician Unavailab hazel PIZANO, Gustavo Fraire Attending Clinician [phone] GOLDIE MIRANDA Admitting Clinician Unavailable MANAV STREETER Admitting Clinician Unavail JENNIFER Burrell Admitting Clinician Unavailable Ruth DEWEY, Goldie Birch Admitting Clinician [phone] Payers Payer Name Policy Type Policy Number Effective Date Expirati on Date Source [facility] [id number] 2022 00:00:00 [facility] [place] [facility] [id number] 2019 00:00:00 [facility] [id number] 2022 00:00:00 Problems Condition Name Condition Details Condition Category Status Onset Date Resolution Date Last Treatment Date Treating Clinician Comments Source Generalize d abdominal pain Generalize d abdominal pain Disease Active 01-21 00:00: 00 [facility] Urinary tract infection without hematuria, site unspecifie d Urinary tract infection without hematuria, site unspecifie d Disease Active 01-21 00:00: 00 [facility] Status post bilateral salpingect carson Status post bilateral salpingect carson Disease Active 05-15 00:00: 00 [facility] Routine follow-up Routine follow-up Disease Resolve d 7-03 00:00: 00 2023-05-29 00:00:00 2023-05-29 12:59:55 [facility] Encounter for tubal ligation counseling Encounter for tubal ligation counseling Disease Resolve d 2022-0 2-15 00:00: 00 2023-05-29 00:00:00 2023-05-29 12:59:57 [facility] Liveborn , of anderson , born in hospital by vaginal delivery Liveborn , of [place] , born in hospital by vaginal delivery Disease Resolve d 2022-0 5-18 00:00: 00 2023-04-09 00:00:00 2023-04-09 16:18:00 [facility] Itching Itching Disease Resolve d 2022-0 4-25 00:00: 00 2023-04-09 00:00:00 2023-04-09 17:18:40 [facility] Palpitatio ns Palpitatio ns Disease Resolve d 2022-0 4-20 00:00: 00 2023-04-09 00:00:00 2023-04-09 17:18:38 [facility] Dizziness and giddiness Dizziness and giddiness Disease Resolve d 2022-0 4-20 00:00: 00 2023-04-09 00:00:00 2023-04-09 17:18:39 [facility] Low back pain during in second trimester Low back pain during in second trimester Disease Resolve d 2022-0 2-15 00:00: 00 2023-04-09 00:00:00 2023-04-09 17:18:33 [facility] High risk , antepartum High risk , antepartum Disease Resolve d 2021-1 0-26 00:00: 00 2023-04-09 00:00:00 2023-04-09 17:18:32 [facility] 39 weeks gestation of 39 weeks gestation of Disease Resolve d 2017-1 0-25 00:00: 00 2023-04-09 00:00:00 2023-04-09 17:18:29 [facility] Family history of cleft lip and palate Family history of cleft lip and palate Disease Resolve d 2017-0 6-18 00:00: 00 2023-04-09 00:00:00 2023-04-09 17:18:30 [facility] Constipati on, unspecifie d constipati on type Constipati on, unspecifie d constipati on type Disease Resolve d 6-18 00:00: 00 2023-04-09 00:00:00 2023-04-09 17:18:31 [facility] Vulvar itching Vulvar itching Disease Resolve d 25 00:00: 00 2023-02-12 00:00:00 2023-02-12 14:12:35 [facility] Obesity (BMI 30-39.9) Obesity (BMI 30-39.9) Disease Resolve d 2017-10 00:00: 00 2022-08-02 00:00:00 2022-08-02 12:15:44 [facility] Excessive weight gain Excessive weight gain Disease Resolve d 2017-10 00:00: 00 2022-08-02 00:00:00 2022-08-02 12:15:42 [facility] Abnormal maternal glucose tolerance, antepartum Abnormal maternal glucose tolerance, antepartum Disease Resolve d 06-13 00:00: 00 2022-08-02 00:00:00 2022-08-02 12:15:40 [facility] Group B streptococ kimberly infection during Group B streptococ kimberly infection during Disease Resolve d 04-30 00:00: 00 2022-08-02 00:00:00 2022-08-02 12:15:38 [facility] Normal labor Normal labor Disease Resolve d 2017-10 00:00: 00 2018-09-11 00:00:00 2018-09-11 13:30:15 [facility] Screening examinatio n for venereal disease Screening examinatio n for venereal disease Disease Resolve d 2-14 00:00: 00 2018-08-01 00:00:00 2018-08-01 07:57:56 [facility] Vaginal discharge Vaginal discharge Disease Resolve d 2-14 00:00: 00 2018-08-01 00:00:00 2018-08-01 07:57:57 [facility] Well woman exam Well woman exam Disease Resolve d 2016-10 00:00: 00 2018-08-01 00:00:00 2018-08-01 07:54:56 [facility] BV (bacterial vaginosis) BV (bacterial vaginosis) Disease Resolve d 2016-10 00:00: 00 2018-08-01 00:00:00 2018-08-01 07:54:59 [facility] Contracept colin management Contracept colin management Disease Resolve d 01-14 00:00: 00 2018-08-01 00:00:00 2022-04-23 00:35:28 [facility] Need for HPV vaccine Need for HPV vaccine Disease Resolve d 04-15 00:00: 00 2017-07-27 00:00:00 2017-07-27 15:51:59 [facility] Screening examinatio n for rubella Screening examinatio n for rubella Disease Resolve d 04-15 00:00: 00 2017-07-27 00:00:00 2017-07-27 15:52:02 [facility] Screening for STDs (sexually transmitte d diseases) Screening for STDs (sexually transmitte d diseases) Disease Resolve d 04-15 00:00: 00 2017-07-27 00:00:00 2017-07-27 15:52:04 [facility] Breakthrou gh bleeding on Nexplanon Breakthrou gh bleeding on Nexplanon Disease Resolve d 01-14 00:00: 00 2015-04-15 00:00:00 2015-04-15 16:42:24 [facility] Allergies, Adverse Reactions, Alerts Allergy Name Allergy Type Status Severity Reaction(s) Onset Date Inactive Date Treating Clinician Comments Source NO KNOWN ALLERGIE S Drug Class Active [facility] Social History Social Habit Start Date Stop Date Quantity Comments Source ASSERTION 2022-06-08 00:00:00 [facility] Gender identity [facility] 2023-05-29 00:00:00 2023-05-29 00:00:00 Ex-drinker (finding) [facility] History of Social function 2023-05-15 00:00:00 2023-05-15 00:00:00 [facility] Exposure to SARS-CoV-2 (event) 2023-02-05 00:00:00 2023-02-15 15:23:00 Not sure [facility] Alcoholic beverage intake 2015-01-14 00:00:00 2015-01-14 00:00:00 Current non-drinker of alcohol (finding) [facility] Tobacco use and exposure 2014-04-16 00:00:00 2014-04-16 00:00:00 Smokeless tobacco non-user [facility] Sex assigned at 1995 00:00:00 1995 00:00:00 [facility] Smoking Status Start Date Stop Date Source Never smoked tobacco [facility] Medications Ordered Medication Name Filled Medication Name Start Date Stop Date Current Medication? Ordering Clinician Indication Dosage Frequency Signature (SIG) Comments Components Source pantoprazol e (PROTONIX) injection 80 mg 11-18 06:15: 00 11-18 05:28 :00 No 80mg 80 mg, Slow IV Push, ONCE, 1 dose, On Sun11/18/24 at 0015, Routine [facility] ketorolac (TORADOL) injection 15 mg 11-18 06:15: 00 11-18 05:26 :00 No 15mg 15 mg, Slow IV Push, ONCE, 1 dose, On Sun11/18/24 at 0015, Routine [facility] NaCl 0.9% (NS) bolus infusion 500 mL 11-18 05:00: 00 11-18 05:40 :00 No 500mL at 999 mL/hr, 500 mL, IV Infusion, ONCE, 1 dose, On Sun11/17/24 at 2300, STAT [facility] maalox/diph enhydrAMINE :lidocaine2 %viscous 1:1:1: suspension (COMPOUNDED ) 11-18 05:00: 00 11-18 04:57 :00 No 15mL 15 mL, Oral, ONCE, 1 dose, On Sun11/17/24 at 2300, Routine [facility] metoclopram mason HCl (REGLAN) injection 10 mg 11-18 05:00: 00 11-18 04:58 :00 No 10mg 10 mg, Slow IV Push, ONCE, 1 dose, On Sun11/17/24 at 2300, RODNEY [facility] lactulose 10 gram/15 mL solution 11-18 00:00: 00 Yes [id number] 30mL Take 30 mL by mouth 3 (three) times daily as needed for Constipati on. [facility] metoclopram mason HCl 10 mg tablet 11-17 00:00: 00 Yes [id number] 10mg Take 1 tablet by mouth every 6 (six) hours as needed for Nausea and Vomiting (N/V) or Gastroesop hageal reflux. [facility] iopamidol (ISOVUE 370-500 mL) injection 100 mL 01-21 10:30: 00 01-21 10:30 :00 No [id number] 100mL 100 mL, Intravenou s, ONCE, 1 dose, On Sun01/22/24 at 0530, Routine [facility] ondansetron (ZOFRAN (PF)) injection 4 mg 01-21 09:15: 00 01-21 08:56 :00 No 4mg 4 mg, Slow IV Push, ONCE, 1 dose, On Sun01/22/24 at 0415, RODNEY [facility] ketorolac (TORADOL) injection 15 mg 01-21 09:15: 00 01-21 08:57 :00 No 15mg 15 mg, Slow IV Push, ONCE, 1 dose, On Sun01/22/24 at 0415, RODNEY [facility] NaCl 0.9% (NS) bolus infusion 1,000 mL 01-21 09:15: 00 01-21 09:54 :00 No 1000mL at 999 mL/hr, 1,000 mL, IV Infusion, ONCE, 1 dose, On Sun01/22/24 at 0415, RODNEY [facility] cephALEXin (KEFLEX) 500 mg capsule 01-21 00:00: 00 01-29 04:59 :00 No [id number] 500mg Take 1 capsule by mouth in the morning and 1 capsule at noon and 1 capsule in the evening. Do all this for 7 days. [facility] HYDROmorphO ne (DILAUDID) injection 0.2 mg 05-15 13:53: 37 Yes .2mg 0.2 mg, Slow IV Push, Q5MIN PRN, 5 doses, Starting on Sun05/15/23 at 0853, Until Discontinu ed, Routine, Pain (scale 7-10), PACU
Us e approved by (Faculty): PACU USE -ANESTHESI A SERVICE-HY DROMORPHON E INJECTIONS [facility] FENTanyl PF (SUBLIMAZE (PF)) injection 25 mcg 05-15 13:53: 37 Yes 25ug 25 mcg, Slow IV Push, Q5MIN PRN, 4 doses, Starting on Sun05/15/23 at 0853, Until Discontinu ed, Routine, Pain (scale 4-6), PACU [facility] ondansetron (ZOFRAN (PF)) injection 4 mg 05-15 13:53: 37 Yes 4mg 4 mg, Slow IV Push, PRN, 1 dose, Starting on Sun05/15/23 at 0853, Until Discontinu ed, Routine, Nausea and Vomiting (N/V), PACU [facility] sodium chloride 0.9 % irrigation solution 05-15 13:36: 00 05-15 13:52 :00 No PRN, Starting on Sun05/15/23 at 0836, Until Sun05/15/23 at 0852, Intra-op [facility] bupivacaine (preserv free) 0.5% (SENSORCAIN E MPF) injection 05-15 13:11: 00 05-15 13:52 :00 No PRN, Starting on Sun05/15/23 at 0811, Until Sun05/15/23 at 0852, Routine, Intra-op [facility] lactated ringers IV infusion 1,000 mL 05-15 12:00: 00 05-15 12:11 :00 No 1000mL at 42 mL/hr, 1,000 mL, IV Infusion, ONCE, 1 dose, On Sun05/15/23 at 0700, Routine, DSU Pre-op [facility] acetaminoph en (TYLENOL) 325 mg tablet 05-15 00:00: 00 05-29 00:00 :00 No [id number] 650mg Take 2 tablets by mouth every 6 (six) hours as needed for Pain (scale 1-3) or Pain (scale 4-6). [facility] ibuprofen 600 mg tablet 05-15 00:00: 00 05-29 00:00 :00 No [id number] 600mg Take 1 tablet by mouth every 6 (six) hours as needed for Pain (scale 1-3) or Pain (scale 4-6). [facility] simethicone 80 mg chewable tablet 05-15 00:00: 00 05-29 00:00 :00 No [id number] 80mg Take 1 tablet by mouth after meals and at bedtime. [facility] HYDROcodone -acetaminop hen 5-325 mg tablet 05-15 00:00: 00 05-17 04:59 :00 No [id number] 1{tbl} Take 1 tablet by mouth every 6 (six) hours as needed for Pain (scale 7-10) for up to 1 day. Indication s: acute pain [facility] medroxyPROG ESTERone (DEPO-PROVE RA) syringe 150 mg 04-09 22:45: 00 04-09 21:50 :00 No [id number] 150mg [facility] SERTraline (ZOLOFT) 50 mg tablet 03-19 00:00: 00 Yes [id number] 50mg Take 1 tablet by mouth in the morning. [facility] ibuprofen 600 mg tablet 20 00:00: 00 04-09 00:00 :00 No [id number] 102 600mg Take 1 tablet by mouth every 6 (six) hours as needed (Pain). Take with food or milk. [facility] rho(D) immune globulin (RHOGAM) syringe 300 mcg 02-23 05:20: 31 Yes 300ug 300 mcg, Intramuscu lar, ONCE, For 1 dose, Conditiona l, Routine [facility] witch Yusef (TUCKS) 50 % topical pad 02-23 05:20: 27 Yes Topical, Q4HPRN, Starting on Sun02/23/23 at 0020, Until Discontinu ed, Routine, rectal/hem orrhoidal pain [facility] HYDROcodone -acetaminop hen (NORCO 5) 5-325 mg tablet 1 tablet 02-23 05:20: 27 Yes 1{tbl} 1 tablet, Oral, Q6HPRN, Starting on Sun02/23/23 at 0020, Until Discontinu ed, Routine, Pain (scale 7-10) [facility] ibuprofen (IBU) tablet 600 mg 02-23 05:20: 27 Yes 600mg 600 mg, Oral, Q6HPRN, Starting on Sun02/23/23 at 0020, Until Discontinu ed, Routine, Pain (scale 4-6) [facility] acetaminoph en (TYLENOL) tablet 650 mg 02-23 05:20: 27 Yes 650mg 650 mg, Oral, Q6HPRN, Starting on Sun02/23/23 at 0020, Until Discontinu ed, Routine, Pain (scale 1-3) [facility] diphenhydrA MINE (BENADRYL) tablet 25 mg 02-23 05:20: 27 Yes 25mg 25 mg, Oral, Q6HPRN, Starting on Sun02/23/23 at 0020, Until Discontinu ed, Routine, Sleep, Itching [facility] ondansetron (ZOFRAN (PF)) injection 4 mg 02-23 05:20: 27 Yes 4mg 4 mg, Slow IV Push, Q8HPRN, Starting on Sun02/23/23 at 0020, Until Discontinu ed, Routine, Nausea and Vomiting (N/V) [facility] simethicone (GAS RELIEF (SIMETHICON E)) chewable tablet 160 mg 02-23 05:20: 27 Yes 160mg 160 mg, Oral, PC+HSPRN, Starting on Sun02/23/23 at 0020, Until Discontinu ed, Routine, Gas [facility] docusate (COLACE) capsule 200 mg 02-23 05:20: 27 Yes 200mg 200 mg, Oral, QDAILYPRN, Starting on Sun02/23/23 at 0020, Until Discontinu ed, Routine, Constipati on [facility] magnesium hydroxide (MILK OF MAGNESIA) 400 mg/5 mL suspension 30 mL 02-23 05:20: 27 Yes 30mL 30 mL, Oral, QDAILYPRN, Starting on Sun02/23/23 at 0020, Until Discontinu ed, Routine, Constipati on [facility] benzocaine- menthol (DERMOPLAST ) 20-0.5 % topical spray 02-23 05:20: 27 Yes Topical, PRN, Starting on Sun02/23/23 at 0020, Until Discontinu ed, Routine, Perineum discomfort [facility] fentaNYL-ro pivacaine 2 mcg/mL-0.1 % (PF) in NS 200 mL epidural infusion RTU 02-22 23:18: 00 Yes Epidural, ONCE INTRA PROCEDURE, Starting on Sun02/22/23 at 1818, Until Discontinu ed, Routine, Intra-op [facility] lactated ringers IV infusion 500 mL 02-22 09:13: 54 02-23 01:42 :00 No 500mL at 999 mL/hr, 500 mL, IV Infusion, PRN - SEE INSTRUCTIO NS, 1 dose, Starting on Sun02/22/23 at 0413, Until Discontinu ed, Routine [facility] oxytocin (PITOCIN) 30 units in NS 500 mL IV infusion 02-22 09:13: 51 02-23 05:20 :29 No 2mU/min at 2-40 mL/hr, IV Infusion, TITRATE, Starting on Brittany 02/22/23 at 0413, Until Sun02/23/23 at 0020, RODNEY [facility] D5W-LR IV infusion 1,000 mL 02-22 09:13: 51 02-23 05:20 :29 No 1000mL at 1-125 mL/hr, IV Infusion, TITRATE, Starting on Brittany 02/22/23 at 0413, Until Sun02/23/23 at 0020, Routine [facility] FENTanyl PF (SUBLIMAZE (PF)) injection 50 mcg 02-22 09:13: 48 02-23 05:20 :29 No 50ug 50 mcg, Slow IV Push, Q2HPRN, Starting on Brittany 02/22/23 at 0413, Until Sun02/23/23 at 0020, Routine, contractio n pain without an epidural and SVE < 8 cm and Cat I strip [facility]on[facility] 0.1 % ointment 02-12 00:00: 00 04-09 00:00 :00 No [id number] Apply to area(s) 2 (two) times daily. [facility] hydrOXYzine 25 mg tablet 25 00:00: 00 04-09 00:00 :00 No [id number] 25mg Take 1 tablet by mouth every 6 (six) hours as needed for Itching. [facility] triamcinolo ne acetonide 0.1 % ointment 25 00:00: 00 02-12 00:00 :00 No [id number] Apply to area(s) 2 (two) times daily. [facility] iron sucrose (VENOFER) 300 mg in NaCl 0.9% (NS) 250 mL infusion 01-05 16:15: 00 01-05 18:18 :57 No 300mg 300 mg, IV Infusion, ONCE, Administer over 2.5 Hours, On Sun01/05/23 at 1115, For 1 dose [facility] iron sucrose (VENOFER) 300 mg in NaCl 0.9% (NS) 250 mL infusion 12-29 16:30: 00 12-29 18:57 :00 No 300mg 300 mg, IV Infusion, ONCE, Administer over 2.5 Hours, On Sun12/29/22 at 1130, For 1 dose [facility] iron sucrose (VENOFER) 300 mg in NaCl 0.9% (NS) 250 mL infusion 12-22 16:45: 00 12-22 19:02 :35 No 300mg 300 mg, IV Infusion, ONCE, Administer over 2.5 Hours, On Sun12/22/22 at 1145, For 1 dose [facility] ferrous sulfate (IRON, FERROUS SULFATE,) 325 mg (65 mg iron) tablet 12-13 00:00: 00 04-09 00:00 :00 No [id number] 325mg Take 1 tablet by mouth in the morning and 1 tablet in the evening. [facility] vitamin w/FA tablet 10-25 00:00: 00 04-09 00:00 :00 No [id number] 1{tbl} Take 1 tablet by mouth in the morning. [facility] VITAFOL FE PLUS 90 mg iron- 1 mg-200 mg Cap 2021-10 00:00: 00 04-09 00:00 :00 No [id number] TAKE 1 CAPSULE BY MOUTH DAILY. [facility] vitamin w/FA tablet 2021-10 00:00: 00 10-25 00:00 :00 No [id number] 1{tbl} Take 1 tablet by mouth in the morning. [facility] polyethylen e glycol 3350 (MIRALAX) 17 gram powder 2021-10 00:00: 00 04-09 00:00 :00 No [id number] 1{packe t} Take 1 Packet by mouth as needed for Constipati on. [facility] polycarboph il (FIBERCON) 625 mg tablet 2021-10 00:00: 00 04-09 00:00 :00 No [id number] 625mg Take 1 tablet by mouth in the morning. [facility] docusate (COLACE) 100 mg capsule 2021-10 00:00: 00 01-05 00:00 :00 No [id number] 100mg Take 1 capsule by mouth once daily as needed for Constipati on. [facility] PNV 102-iron-fo late-dha (VITAFOL FE PLUS) 90 mg iron- 1 mg-200 mg Cap 2021-10 00:00: 00 09-02 00:00 :00 No [id number] Take 1 TAB-CAP/M2 by mouth daily. [facility] estradiol 1 mg tablet 2017-10 00:00: 00 08-02 00:00 :00 No 1mg Take 1 tablet by mouth daily. [facility] Immunizations Ordered Immunization Name Filled Immunization Name Date Status Comments Source TDAP 2024-01-22 03:13:00 Completed [facility] HPV9 2024-01-22 03:13:00 Completed [facility] Influenza Virus Vaccine Quad .5 mL IM 6+ MO (FLUZONE/FLULAVAL/F LUARIX) 2024-01-22 03:13:00 Completed [facility] SARS-COV-2 COVID-19 PFIZER TABBY-SUCROSE VACCINE (MCDANIEL TOP) 2024-01-22 03:13:00 Completed [facility] TDAP 2023-09-11 00:00:00 Completed [facility] HPV9 2023-09-11 00:00:00 Completed [facility] Influenza Virus Vaccine Quad .5 mL IM 6+ MO (FLUZONE/FLULAVAL/F LUARIX) 2023-09-11 00:00:00 Completed [facility] SARS-COV-2 COVID-19 PFIZER TABBY-SUCROSE VACCINE (MCDANIEL TOP) 2023-09-11 00:00:00 Completed [facility] SARS-COV-2 COVID-19 PFIZER TABBY-SUCROSE VACCINE (MCDANIEL TOP) 2021-12-05 00:00:00 Completed [facility] TDAP 2020-07-27 00:00:00 Completed [facility] HPV9 2020-07-27 00:00:00 Completed [facility] Influenza Virus Vaccine Quad .5 mL IM 6+ MO (FLUZONE/FLULAVAL/F LUARIX) 2020-07-27 00:00:00 Completed [facility] Influenza Virus Vaccine Quad .5 mL IM 6+ MO 2018-07-15 00:00:00 Completed [facility] Influenza Virus Vaccine Quad .5 mL IM 6+ MO 2018-07-15 00:00:00 Completed [facility] Influenza Virus Vaccine Quad .5 mL IM 6+ MO 2018-07-15 00:00:00 Completed [facility] Influenza Virus Vaccine Quad .5 mL IM 6+ MO 2018-07-15 00:00:00 Completed [facility] Influenza Virus Vaccine Quad .5 mL IM 6+ MO 2018-07-15 00:00:00 Completed [facility] Influenza Virus Vaccine Quad .5 mL IM 6+ MO 2018-07-15 00:00:00 Completed [facility] Influenza Virus Vaccine Quad .5 mL IM 6+ MO 2018-07-15 00:00:00 Completed [facility] Influenza Virus Vaccine Quad .5 mL IM 6+ MO 2018-07-15 00:00:00 Completed [facility] Influenza Virus Vaccine Quad .5 mL IM 6+ MO 2018-07-15 00:00:00 Completed [facility] Influenza Virus Vaccine Quad .5 mL IM 6+ MO 2018-07-15 00:00:00 Completed [facility] Influenza Virus Vaccine Quad .5 mL IM 6+ MO 2018-07-15 00:00:00 Completed [facility] Influenza Virus Vaccine Quad .5 mL IM 6+ MO 2018-07-15 00:00:00 Completed [facility] Influenza Virus Vaccine Quad .5 mL IM 6+ MO 2018-07-15 00:00:00 Completed [facility] Influenza Virus Vaccine Quad .5 mL IM 6+ MO 2018-07-15 00:00:00 Completed [facility] Influenza Virus Vaccine Quad .5 mL IM 6+ MO 2018-07-15 00:00:00 Completed [facility] Influenza Virus Vaccine Quad .5 mL IM 6+ MO 2018-07-15 00:00:00 Completed [facility] Influenza Virus Vaccine Quad .5 mL IM 6+ MO 2018-07-15 00:00:00 Completed [facility] Influenza Virus Vaccine Quad .5 mL IM 6+ MO 2018-07-15 00:00:00 Completed [facility] Influenza Virus Vaccine Quad .5 mL IM 6+ MO 2018-07-15 00:00:00 Completed [facility] Influenza Virus Vaccine Quad .5 mL IM 6+ MO 2018-07-15 00:00:00 Completed [facility] Influenza Virus Vaccine Quad .5 mL IM 6+ MO 2018-07-15 00:00:00 Completed [facility] Influenza Virus Vaccine Quad .5 mL IM 6+ MO 2018-07-15 00:00:00 Completed [facility] Influenza Virus Vaccine Quad .5 mL IM 6+ MO (FLUZONE/FLULAVAL/F LUARIX) 2018-07-15 00:00:00 Completed Influenza Virus Vaccine Quad .5 mL IM 6+ MO 2018-07-15 00:00:00 Completed [facility] Influenza Virus Vaccine Quad .5 mL IM 6+ MO 2018-07-15 00:00:00 Completed [facility] Influenza Virus Vaccine Quad .5 mL IM 6+ MO 2018-07-15 00:00:00 Completed [facility] Influenza Virus Vaccine Quad .5 mL IM 6+ MO 2018-07-15 00:00:00 Completed [facility] Influenza Virus Vaccine Quad .5 mL IM 6+ MO 2018-07-15 00:00:00 Completed [facility] Influenza Virus Vaccine Quad .5 mL IM 6+ MO 2018-07-15 00:00:00 Completed [facility] Influenza Virus Vaccine Quad .5 mL IM 6+ MO 2018-07-15 00:00:00 Completed [facility] Influenza Virus Vaccine Quad .5 mL IM 6+ MO 2018-07-15 00:00:00 Completed [facility] Influenza Virus Vaccine Quad .5 mL IM 6+ MO 2018-07-15 00:00:00 Completed [facility] Influenza Virus Vaccine Quad .5 mL IM 6+ MO 2018-07-15 00:00:00 Completed [facility] Influenza Virus Vaccine Quad .5 mL IM 6+ MO 2018-07-15 00:00:00 Completed [facility] Influenza Virus Vaccine Quad .5 mL IM 6+ MO 2018-07-15 00:00:00 Completed [facility] Influenza Virus Vaccine Quad .5 mL IM 6+ MO 2018-07-15 00:00:00 Completed [facility] Influenza Virus Vaccine Quad .5 mL IM 6+ MO 2018-07-15 00:00:00 [facility] [facility] Influ[facility] Virus Vaccine Quad .5 mL IM 6+ MO 2018-07-15 00:00:00 Completed [facility] Influenza Virus Vaccine Quad .5 mL IM 6+ MO 2018-07-15 00:00:00 Completed [facility] Influenza Virus Vaccine Quad .5 mL IM 6+ MO 2018-07-15 00:00:00 Completed [facility] Influenza Virus Vaccine Quad .5 mL IM 6+ MO 2018-07-15 00:00:00 Completed [facility] Influenza Virus Vaccine Quad .5 mL IM 6+ MO 2018-07-15 00:00:00 Completed [facility] Influenza Virus Vaccine Quad .5 mL IM 6+ MO 2018-07-15 00:00:00 Completed [facility] Influenza Virus Vaccine Quad .5 mL IM 6+ MO 2018-07-15 00:00:00 Completed [facility] Influenza Virus Vaccine Quad .5 mL IM 6+ MO 2018-07-15 00:00:00 Completed [facility] Influenza Virus Vaccine Quad .5 mL IM 6+ MO 2018-07-15 00:00:00 Completed [facility] Influenza Virus Vaccine Quad .5 mL IM 6+ MO 2018-07-15 00:00:00 Completed [facility] Influenza Virus Vaccine Quad .5 mL IM 6+ MO 2018-07-15 00:00:00 Completed [facility] Influenza Virus Vaccine Quad .5 mL IM 6+ MO 2018-07-15 00:00:00 Completed [facility] Influenza Virus Vaccine Quad .5 mL IM 6+ MO 2018-07-15 00:00:00 Completed [facility] Influenza Virus Vaccine Quad .5 mL IM 6+ MO 2018-07-15 00:00:00 Completed [facility] Influenza Virus Vaccine Quad .5 mL IM 6+ MO 2018-07-15 00:00:00 Completed [facility] Influenza Virus Vaccine Quad .5 mL IM 6+ MO 2018-07-15 00:00:00 Completed [facility] Influenza Virus Vaccine Quad .5 mL IM 6+ MO 2018-07-15 00:00:00 Completed [facility] Influenza Virus Vaccine Quad .5 mL IM 6+ MO 2018-07-15 00:00:00 Completed [facility] Influenza Virus Vaccine Quad .5 mL IM 6+ MO 2018-07-15 00:00:00 Completed [facility] Influenza Virus Vaccine Quad .5 mL IM 6+ MO 2018-07-15 00:00:00 Completed [facility] Influenza Virus Vaccine Quad .5 mL IM 6+ MO 2018-07-15 00:00:00 Completed [facility] Influenza Virus Vaccine Quad .5 mL IM 6+ MO 2018-07-15 00:00:00 Completed [facility] Influenza Virus Vaccine Quad .5 mL IM 6+ MO 2018-07-15 00:00:00 Completed [facility] Influenza Virus Vaccine Quad .5 mL IM 6+ MO 2018-07-15 00:00:00 Completed [facility] Influenza Virus Vaccine Quad .5 mL IM 6+ MO 2018-07-15 00:00:00 Completed [facility] Influenza Virus Vaccine Quad .5 mL IM 6+ MO 2018-07-15 00:00:00 Completed [facility] TDAP 2018-06-13 00:00:00 Completed [facility] TDAP 2018-06-13 00:00:00 Completed [facility] TDAP 2018-06-13 00:00:00 Completed [facility] TDAP 2018-06-13 00:00:00 Completed [facility] TDAP 2018-06-13 00:00:00 Completed [facility] TDAP 2018-06-13 00:00:00 Completed [facility] TDAP 2018-06-13 00:00:00 Completed [facility] TDAP 2018-06-13 00:00:00 Completed [facility] TDAP 2018-06-13 00:00:00 Completed [facility] TDAP 2018-06-13 00:00:00 Completed [facility] TDAP 2018-06-13 00:00:00 Completed [facility] TDAP 2018-06-13 00:00:00 Completed [facility] TDAP 2018-06-13 00:00:00 Completed [facility] TDAP 2018-06-13 00:00:00 Completed [facility] TDAP 2018-06-13 00:00:00 Completed [facility] TDAP 2018-06-13 00:00:00 Completed [facility] TDAP 2018-06-13 00:00:00 Completed [facility] TDAP 2018-06-13 00:00:00 Completed [facility] TDAP 2018-06-13 00:00:00 Completed [facility] TDAP 2018-06-13 00:00:00 Completed [facility] TDAP 2018-06-13 00:00:00 Completed [facility] TDAP 2018-06-13 00:00:00 Completed [facility] TDAP 2018-06-13 00:00:00 Completed [facility] TDAP 2018-06-13 00:00:00 Completed [facility] TDAP 2018-06-13 00:00:00 Completed [facility] TDAP 2018-06-13 00:00:00 Completed [facility] TDAP 2018-06-13 00:00:00 Completed [facility] TDAP 2018-06-13 00:00:00 Completed [facility] TDAP 2018-06-13 00:00:00 Completed [facility] TDAP 2018-06-13 00:00:00 Completed [facility] TDAP 2018-06-13 00:00:00 Completed [facility] TDAP 2018-06-13 00:00:00 Completed [facility] TDAP 2018-06-13 00:00:00 Completed [facility] TDAP 2018-06-13 00:00:00 Completed [facility] TDAP 2018-06-13 00:00:00 Completed [facility] TDAP 2018-06-13 00:00:00 Completed [facility] TDAP 2018-06-13 00:00:00 Completed [facility] TDAP 2018-06-13 00:00:00 Completed [facility] TDAP 2018-06-13 00:00:00 Completed [facility] TDAP 2018-06-13 00:00:00 Completed [facility] TDAP 2018-06-13 00:00:00 Completed [facility] TDAP 2018-06-13 00:00:00 Completed [facility] TDAP 2018-06-13 00:00:00 Completed [facility] TDAP 2018-06-13 00:00:00 Completed [facility] TDAP 2018-06-13 00:00:00 Completed [facility] TDAP 2018-06-13 00:00:00 Completed [facility] TDAP 2018-06-13 00:00:00 Completed [facility] TDAP 2018-06-13 00:00:00 Completed [facility] TDAP 2018-06-13 00:00:00 Completed [facility] TDAP 2018-06-13 00:00:00 Completed [facility] TDAP 2018-06-13 00:00:00 Completed [facility] TDAP 2018-06-13 00:00:00 Completed [facility] TDAP 2018-06-13 00:00:00 Completed [facility] TDAP 2018-06-13 00:00:00 Completed [facility] TDAP 2018-06-13 00:00:00 Completed [facility] TDAP 2018-06-13 00:00:00 Completed [facility] TDAP 2018-06-13 00:00:00 Completed [facility] TDAP 2018-06-13 00:00:00 Completed [facility] TDAP 2018-06-13 00:00:00 Completed [facility] TDAP 2018-06-13 00:00:00 Completed [facility] TDAP 2018-06-13 00:00:00 Completed [facility] TDAP 2018-06-13 00:00:00 Completed [facility] TDAP 2018-06-13 00:00:00 Completed [facility] HPV9 2017-09-26 00:00:00 Completed [facility] HPV9 2017-09-26 00:00:00 Completed [facility] HPV9 2017-09-26 00:00:00 Completed [facility] HPV9 2017-09-26 00:00:00 Completed [facility] HPV9 2017-09-26 00:00:00 Completed [facility] HPV9 2017-09-26 00:00:00 Completed [facility] HPV9 2017-09-26 00:00:00 Completed [facility] HPV9 2017-09-26 00:00:00 Completed [facility] HPV9 2017-09-26 00:00:00 Completed [facility] HPV9 2017-09-26 00:00:00 Completed [facility] HPV9 2017-09-26 00:00:00 Completed [facility] HPV9 2017-09-26 00:00:00 Completed [facility] HPV9 2017-09-26 00:00:00 Completed [facility] HPV9 2017-09-26 00:00:00 Completed [facility] HPV9 2017-09-26 00:00:00 Completed [facility] HPV9 2017-09-26 00:00:00 Completed [facility] HPV9 2017-09-26 00:00:00 Completed [facility] HPV9 2017-09-26 00:00:00 Completed [facility] HPV9 2017-09-26 00:00:00 Completed [facility] HPV9 2017-09-26 00:00:00 Completed [facility] HPV9 2017-09-26 00:00:00 Completed [facility] HPV9 2017-09-26 00:00:00 Completed [facility] HPV9 2017-09-26 00:00:00 Completed [facility] HPV9 2017-09-26 00:00:00 Completed [facility] HPV9 2017-09-26 00:00:00 Completed [facility] HPV9 2017-09-26 00:00:00 Completed [facility] HPV9 2017-09-26 00:00:00 Completed [facility] HPV9 2017-09-26 00:00:00 Completed [facility] HPV9 2017-09-26 00:00:00 Completed [facility] HPV9 2017-09-26 00:00:00 Completed [facility] HPV9 2017-09-26 00:00:00 Completed [facility] HPV9 2017-09-26 00:00:00 Completed [facility] HPV9 2017-09-26 00:00:00 Completed [facility] HPV9 2017-09-26 00:00:00 Completed [facility] HPV9 2017-09-26 00:00:00 Completed [facility] HPV9 2017-09-26 00:00:00 Completed [facility] HPV9 2017-09-26 00:00:00 Completed [facility] HPV9 2017-09-26 00:00:00 Completed [facility] HPV9 2017-09-26 00:00:00 Completed [facility] HPV9 2017-09-26 00:00:00 Completed [facility] HPV9 2017-09-26 00:00:00 Completed [facility] HPV9 2017-09-26 00:00:00 Completed [facility] HPV9 2017-09-26 00:00:00 Completed [facility] HPV9 2017-09-26 00:00:00 Completed [facility] HPV9 2017-09-26 00:00:00 Completed [facility] HPV9 2017-09-26 00:00:00 Completed [facility] HPV9 2017-09-26 00:00:00 Completed [facility] HPV9 2017-09-26 00:00:00 Completed [facility] HPV9 2017-09-26 00:00:00 Completed [facility] HPV9 2017-09-26 00:00:00 Completed [facility] HPV9 2017-09-26 00:00:00 Completed [facility] HPV9 2017-09-26 00:00:00 Completed [facility] HPV9 2017-09-26 00:00:00 Completed [facility] HPV9 2017-09-26 00:00:00 Completed [facility] HPV9 2017-09-26 00:00:00 Completed [facility] HPV9 2017-09-26 00:00:00 Completed [facility] HPV9 2017-09-26 00:00:00 Completed [facility] HPV9 2017-09-26 00:00:00 Completed [facility] HPV9 2017-09-26 00:00:00 Completed [facility] HPV9 2017-09-26 00:00:00 Completed [facility] HPV9 2017-09-26 00:00:00 Completed [facility] HPV9 2017-09-26 00:00:00 Completed [facility] HPV9 2017-09-26 00:00:00 Completed [facility] TDAP 2017-07-27 00:00:00 Completed [facility] HPV9 2017-07-27 00:00:00 Completed [facility] TDAP 2017-07-27 00:00:00 Completed [facility] HPV9 2017-07-27 00:00:00 Completed [facility] TDAP 2017-07-27 00:00:00 Completed [facility] HPV9 2017-07-27 00:00:00 Completed [facility] TDAP 2017-07-27 00:00:00 Completed [facility] HPV9 2017-07-27 00:00:00 Completed [facility] TDAP 2017-07-27 00:00:00 Completed [facility] HPV9 2017-07-27 00:00:00 Completed [facility] TDAP 2017-07-27 00:00:00 Completed [facility] HPV9 2017-07-27 00:00:00 Completed [facility] TDAP 2017-07-27 00:00:00 Completed [facility] HPV9 2017-07-27 00:00:00 Completed [facility] TDAP 2017-07-27 00:00:00 Completed [facility] TDAP 2017-07-27 00:00:00 Completed [facility] HPV9 2017-07-27 00:00:00 Completed [facility] HPV9 2017-07-27 00:00:00 Completed [facility] TDAP 2017-07-27 00:00:00 Completed [facility] HPV9 2017-07-27 00:00:00 Completed [facility] TDAP 2017-07-27 00:00:00 Completed [facility] HPV9 2017-07-27 00:00:00 Completed [facility] TDAP 2017-07-27 00:00:00 Completed [facility] HPV9 2017-07-27 00:00:00 Completed [facility] TDAP 2017-07-27 00:00:00 Completed [facility] TDAP 2017-07-27 00:00:00 Completed [facility] HPV9 2017-07-27 00:00:00 Completed [facility] HPV9 2017-07-27 00:00:00 Completed [facility] TDAP 2017-07-27 00:00:00 Completed [facility] HPV9 2017-07-27 00:00:00 Completed [facility] TDAP 2017-07-27 00:00:00 Completed [facility] HPV9 2017-07-27 00:00:00 Completed [facility] TDAP 2017-07-27 00:00:00 Completed [facility] HPV9 2017-07-27 00:00:00 Completed [facility] TDAP 2017-07-27 00:00:00 Completed [facility] HPV9 2017-07-27 00:00:00 Completed [facility] TDAP 2017-07-27 00:00:00 Completed [facility] HPV9 2017-07-27 00:00:00 Completed [facility] TDAP 2017-07-27 00:00:00 Completed [facility] HPV9 2017-07-27 00:00:00 Completed [facility] TDAP 2017-07-27 00:00:00 Completed [facility] HPV9 2017-07-27 00:00:00 Completed [facility] TDAP 2017-07-27 00:00:00 Completed [facility] HPV9 2017-07-27 00:00:00 Completed [facility] TDAP 2017-07-27 00:00:00 Completed [facility] HPV9 2017-07-27 00:00:00 Completed TDAP 2017-07-27 00:00:00 Completed [facility] HPV9 2017-07-27 00:00:00 Completed [facility] TDAP 2017-07-27 00:00:00 Completed [facility] HPV9 2017-07-27 00:00:00 Completed [facility] TDAP 2017-07-27 00:00:00 Completed [facility] TDAP 2017-07-27 00:00:00 Completed [facility] HPV9 2017-07-27 00:00:00 Completed [facility] HPV9 2017-07-27 00:00:00 Completed [facility] TDAP 2017-07-27 00:00:00 Completed [facility] HPV9 2017-07-27 00:00:00 Completed [facility] TDAP 2017-07-27 00:00:00 Completed [facility] HPV9 2017-07-27 00:00:00 Completed [facility] TDAP 2017-07-27 00:00:00 Completed [facility] HPV9 2017-07-27 00:00:00 Completed [facility] TDAP 2017-07-27 00:00:00 Completed [facility] HPV9 2017-07-27 00:00:00 Completed [facility] TDAP 2017-07-27 00:00:00 Completed [facility] HPV9 2017-07-27 00:00:00 Completed [facility] TDAP 2017-07-27 00:00:00 Completed [facility] HPV9 2017-07-27 00:00:00 Completed [facility] TDAP 2017-07-27 00:00:00 Completed [facility] HPV9 2017-07-27 00:00:00 Completed [facility] TDAP 2017-07-27 00:00:00 Completed [facility] HPV9 2017-07-27 00:00:00 Completed [facility] TDAP 2017-07-27 00:00:00 Completed [facility] HPV9 2017-07-27 00:00:00 Completed [facility] TDAP 2017-07-27 00:00:00 Completed [facility] HPV9 2017-07-27 00:00:00 Completed [facility] TDAP 2017-07-27 00:00:00 Completed [facility] HPV9 2017-07-27 00:00:00 Completed [facility] TDAP 2017-07-27 00:00:00 Completed [facility] HPV9 2017-07-27 00:00:00 Completed [facility] TDAP 2017-07-27 00:00:00 Completed [facility] HPV9 2017-07-27 00:00:00 Completed [facility] TDAP 2017-07-27 00:00:00 Completed [facility] HPV9 2017-07-27 00:00:00 Completed [facility] TDAP 2017-07-27 00:00:00 Completed [facility] HPV9 2017-07-27 00:00:00 Completed [facility] TDAP 2017-07-27 00:00:00 Completed [facility] HPV9 2017-07-27 00:00:00 Completed [facility] TDAP 2017-07-27 00:00:00 Completed [facility] HPV9 2017-07-27 00:00:00 Completed [facility] TDAP 2017-07-27 00:00:00 Completed [facility] HPV9 2017-07-27 00:00:00 Completed [facility] TDAP 2017-07-27 00:00:00 Completed [facility] HPV9 2017-07-27 00:00:00 Completed [facility] TDAP 2017-07-27 00:00:00 Completed [facility] HPV9 2017-07-27 00:00:00 Completed [facility] TDAP 2017-07-27 00:00:00 Completed [facility] HPV9 2017-07-27 00:00:00 Completed [facility] TDAP 2017-07-27 00:00:00 Completed [facility] HPV9 2017-07-27 00:00:00 Completed [facility] TDAP 2017-07-27 00:00:00 Completed [facility] HPV9 2017-07-27 00:00:00 Completed [facility] TDAP 2017-07-27 00:00:00 Completed [facility] HPV9 2017-07-27 00:00:00 Completed [facility] TDAP 2017-07-27 00:00:00 Completed [facility] HPV9 2017-07-27 00:00:00 Completed [facility] TDAP 2017-07-27 00:00:00 Completed [facility] HPV9 2017-07-27 00:00:00 Completed [facility] TDAP 2017-07-27 00:00:00 Completed [facility] HPV9 2017-07-27 00:00:00 Completed [facility] TDAP 2017-07-27 00:00:00 Completed [facility] HPV9 2017-07-27 00:00:00 Completed [facility] TDAP 2017-07-27 00:00:00 Completed [facility] HPV9 2017-07-27 00:00:00 Completed [facility] TDAP 2017-07-27 00:00:00 Completed [facility] HPV9 2017-07-27 00:00:00 Completed [facility] TDAP 2017-07-27 00:00:00 Completed [facility] HPV9 2017-07-27 00:00:00 Completed [facility] TDAP 2017-07-27 00:00:00 Completed [facility] HPV9 2017-07-27 00:00:00 Completed [facility] TDAP 2017-07-27 00:00:00 Completed [facility] HPV9 2017-07-27 00:00:00 Completed [facility] TDAP 2017-07-27 00:00:00 Completed [facility] HPV9 2017-07-27 00:00:00 Completed [facility] TDAP 2017-07-27 00:00:00 Completed [facility] HPV9 2017-07-27 00:00:00 Completed [facility] TDAP 2017-07-27 00:00:00 Completed [facility] HPV9 2017-07-27 00:00:00 Completed [facility] Vital Signs Vital Name Observation Time Observation Value Comments S ource Body temperature 2024-11-18 07:21:00 36.67 Karrie [facility] Systolic blood pressure 2024-11-18 07:00:00 105 mm[Hg] [facility] Diastolic blood pressure 2024-11-18 07:00:00 64 mm[Hg] [facility] Heart rate 2024-11-18 07:00:00 68 /min [facility] Respiratory rate 2024-11-18 07:00:00 14 /min [facility] Oxygen saturation in Arterial blood by Pulse oximetry 2024-11-18 07:00:00 95 /min [facility] Body height 2024-11-18 04:54:00 144.8 cm [facility] Body weight 2024-11-18 04:54:00 58.968 kg [facility] BMI 2024-11-18 04:54:00 28.13 kg/m2 [facility] Systolic blood pressure 2024-01-22 10:06:00 102 mm[Hg] [facility] Diastolic blood pressure 2024-01-22 10:06:00 56 mm[Hg] [facility] Heart rate 2024-01-22 10:06:00 55 /min [facility] Body temperature 2024-01-22 10:06:00 36.06 Karrie [facility] Respiratory rate 2024-01-22 10:06:00 16 /min [facility] Oxygen saturation in Arterial blood by Pulse oximetry 2024-01-22 10:06:00 96 /min [facility] Body weight 2024-01-22 08:12:00 56.7 kg [facility] BMI 2024-01-22 08:12:00 27.05 kg/m2 [facility] Systolic blood pressure 2023-05-29 18:06:00 106 mm[Hg] [facility] Diastolic blood pressure 2023-05-29 18:06:00 67 mm[Hg] [facility] Heart rate 2023-05-29 18:06:00 65 /min [facility] Body temperature 2023-05-29 18:06:00 36.78 Karrie [facility] Body weight 2023-05-29 18:06:00 57.516 kg [facility] BMI 2023-05-29 18:06:00 27.44 kg/m2 [facility] Systolic blood pressure 2023-05-15 14:30:00 104 mm[Hg] [facility] Diastolic blood pressure 2023-05-15 14:30:00 69 mm[Hg] [facility] Heart rate 2023-05-15 14:30:00 64 /min [facility] Respiratory rate 2023-05-15 14:30:00 14 /min [facility] Oxygen saturation in Arterial blood by Pulse oximetry 2023-05-15 14:30:00 99 /min [facility] Body temperature 2023-05-15 13:48:00 36.06 Karrie [facility] Body height 2023-05-07 19:00:00 144.8 cm [facility] Body weight 2023-05-07 19:00:00 58.514 kg [facility] BMI 2023-05-07 19:00:00 27.92 kg/m2 [facility] Systolic blood pressure 2023-05-15 14:30:00 104 mm[Hg] [facility] Diastolic blood pressure 2023-05-15 14:30:00 69 mm[Hg] [facility] Heart rate 2023-05-15 14:30:00 64 /min [facility] Respiratory rate 2023-05-15 14:30:00 14 /min [facility] Oxygen saturation in Arterial blood by Pulse oximetry 2023-05-15 14:30:00 99 /min [facility] Body temperature 2023-05-15 13:48:00 36.06 Karrie [facility] Body height 2023-05-07 19:00:00 144.8 cm [facility] Body weight 2023-05-07 19:00:00 58.514 kg [facility] BMI 2023-05-07 19:00:00 27.92 kg/m2 [facility] Systolic blood pressure 2023-05-07 14:14:00 104 mm[Hg] [facility] Diastolic blood pressure 2023-05-07 14:14:00 62 mm[Hg] [facility] Heart rate 2023-05-07 14:14:00 55 /min [facility] 2023-05-07 14:14:00 36.72 Karrie [facility] Body height 2023-05-07 14:14:00 144.8 cm [facility] Body weight 2023-05-07 14:14:00 58.695 kg [facility] BMI 2023-05-07 14:14:00 28.00 kg/m2 [facility] Systolic blood pressure 2023-04-09 21:30:00 109 mm[Hg] [facility] Diastolic blood pressure 2023-04-09 21:30:00 66 mm[Hg] [facility] Heart rate 2023-04-09 21:30:00 68 /min [facility] Body temperature 2023-04-09 21:30:00 36.61 Karrie [facility] Respiratory rate 2023-04-09 21:30:00 16 /min [facility] Body height 2023-04-09 21:30:00 144.8 cm [facility] Body weight 2023-04-09 21:30:00 60.147 kg [facility] BMI 2023-04-09 21:30:00 28.69 kg/m2 [facility] Oxygen saturation in Arterial blood by Pulse oximetry 2023-04-09 21:30:00 100 /min [facility] Systolic blood pressure 2023-03-19 16:11:00 105 mm[Hg] [facility] Diastolic blood pressure 2023-03-19 16:11:00 74 mm[Hg] [facility] Heart rate 2023-03-19 16:11:00 72 /min [facility] Body temperature 2023-03-19 16:11:00 36.67 Karrie [facility] Respiratory rate 2023-03-19 16:11:00 18 /min [facility] Body height 2023-03-19 16:11:00 144.8 cm [facility] Body weight 2023-03-19 16:11:00 59.421 kg [facility] BMI 2023-03-19 16:11:00 28.35 kg/m2 [facility] Systolic blood pressure 2023-02-24 19:33:00 102 mm[Hg] [facility] Diastolic blood pressure 2023-02-24 19:33:00 47 mm[Hg] [facility] Heart rate 2023-02-24 19:33:00 70 /min [facility] Oxygen saturation in Arterial blood by Pulse oximetry 2023-02-24 19:33:00 99 /min [facility] Body temperature 2023-02-24 18:32:00 36.67 Karrie [facility] Respiratory rate 2023-02-24 12:55:00 18 /min [facility] Body weight 2023-02-23 04:45:00 69.854 kg [facility] BMI 2023-02-23 04:45:00 33.33 kg/m2 [facility] Systolic blood pressure 2023-02-15 20:36:00 107 mm[Hg] [facility] Diastolic blood pressure 2023-02-15 20:36:00 66 mm[Hg] [facility] Heart rate 2023-02-15 20:36:00 99 /[facility] Body temperature 2023-02-15 20:36:00 36.72 Karrie [facility] Body height 2023-02-15 20:36:00 144.8 cm [facility] Body weight 2023-02-15 20:36:00 69.854 kg [facility] BMI 2023-02-15 20:36:00 33.33 kg/m2 [facility] Systolic blood pressure 2023-02-12 18:53:00 93 mm[Hg] [facility] Diastolic blood pressure 2023-02-12 18:53:00 56 mm[Hg] [facility] Heart rate 2023-02-12 18:53:00 88 /min [facility] Body temperature 2023-02-12 18:53:00 36.56 Karrie [facility] Respiratory rate 2023-02-12 18:53:00 18 /min [facility] Body height 2023-02-12 18:53:00 144.8 cm [facility] Body weight 2023-02-12 18:53:00 69.128 kg [facility] BMI 2023-02-12 18:53:00 32.98 kg/m2 [facility] Oxygen saturation in Arterial blood by Pulse oximetry 2023-02-12 18:53:00 99 /min [facility] Systolic blood pressure 2023-02-08 20:48:00 105 mm[Hg] [facility] Diastolic blood pressure 2023-02-08 20:48:00 65 mm[Hg] [facility] Heart rate 2023-02-08 20:48:00 76 /min [facility] Body temperature 2023-02-08 20:48:00 36.72 Karrie [facility] Respiratory rate 2023-02-08 20:48:00 18 /min [facility] Body height 2023-02-08 20:48:00 144.8 cm [facility] Body weight 2023-02-08 20:48:00 68.584 kg [facility] BMI 2023-02-08 20:48:00 32.72 kg/m2 [facility] Heart rate 2023-02-08 07:40:00 94 /min [facility] Oxygen saturation in Arterial blood by Pulse oximetry 2023-02-08 07:40:00 98 /min [facility] Systolic blood pressure 2023-02-08 07:30:00 119 mm[Hg] [facility] Diastolic blood pressure 2023-02-08 07:30:00 61 mm[Hg] [facility] Body temperature 2023-02-08 07:12:00 36.94 Karrie [facility] Respiratory rate 2023-02-08 07:12:00 18 /min [facility] Body height 2023-02-08 07:12:00 144.8 cm [facility] Body weight 2023-02-08 07:12:00 68.947 kg [facility] BMI 2023-02-08 07:12:00 32.89 kg/m2 [facility] Systolic blood pressure 2023-01-30 21:35:00 98 mm[Hg] [facility] Diastolic blood pressure 2023-01-30 21:35:00 61 mm[Hg] [facility] Heart rate 2023-01-30 21:35:00 76 /min [facility] Body temperature 2023-01-30 21:35:00 36.89 Karrie [facility] Body height 2023-01-30 21:35:00 144.8 cm [facility] Body weight 2023-01-30 21:35:00 67.586 kg [facility] BMI 2023-01-30 21:35:00 32.24 kg/m2 [facility] Systolic blood pressure 2023-01-25 19:24:00 111 mm[Hg] [facility] Diastolic blood pressure 2023-01-25 19:24:00 70 mm[Hg] [facility] Heart rate 2023-01-25 19:24:00 72 /min [facility] Body temperature 2023-01-25 19:24:00 36.72 Karrie [facility] Respiratory rate 2023-01-25 19:24:00 18 /min [facility] Body weight 2023-01-25 19:24:00 67.132 kg [facility] BMI 2023-01-25 19:24:00 32.03 kg/m2 [facility] Systolic blood pressure 2023-01-05 19:39:00 90 mm[Hg] [facility] Diastolic blood pressure 2023-01-05 19:39:00 54 mm[Hg] [facility] Heart rate 2023-01-05 19:39:00 99 /min [facility] Respiratory rate 2023-01-05 19:39:00 18 /min [facility] Oxygen saturation in Arterial blood by Pulse oximetry 2023-01-05 19:39:00 99 /min [facility] Body temperature 2023-01-05 19:30:00 36.67 Karrie [facility] Systolic blood pressure 2023-01-05 14:20:00 110 mm[Hg] [facility] Diastolic blood pressure 2023-01-05 14:20:00 71 mm[Hg] [facility] Heart rate 2023-01-05 14:20:00 101 /min [facility] Respiratory rate 2023-01-05 14:20:00 19 /min [facility] Body height 2023-01-05 14:20:00 144.8 cm [facility] Body weight 2023-01-05 14:20:00 66.633 kg [facility] BMI 2023-01-05 14:20:00 31.79 kg/m2 [facility] Oxygen saturation in Arterial blood by Pulse oximetry 2023-01-05 14:20:00 97 /min [facility] Systolic blood pressure 2023-01-03 20:25:00 110 mm[Hg] [facility] Diastolic blood pressure 2023-01-03 20:25:00 70 mm[Hg] [facility] Heart rate 2023-01-03 20:25:00 112 /min [facility] Body temperature 2023-01-03 20:25:00 36.72 Karrie [facility] Respiratory rate 2023-01-03 20:25:00 16 /min [facility] Body height 2023-01-03 20:25:00 144.8 cm [facility] Body weight 2023-01-03 20:25:00 66.225 kg [facility] BMI 2023-01-03 20:25:00 31.59 kg/m2 [facility] Systolic blood pressure 2022-12-29 19:00:00 97 mm[Hg] [facility] Diastolic blood pressure 2022-12-29 19:00:00 46 mm[Hg] [facility] Heart rate 2022-12-29 19:00:00 97 /min [facility] Oxygen saturation in Arterial blood by Pulse oximetry 2022-12-29 19:00:00 99 /min [facility] Body height 2022-12-29 16:45:00 144.8 cm [facility] Body weight 2022-12-29 16:45:00 65.772 kg [facility] BMI 2022-12-29 16:45:00 31.38 kg/m2 [facility] Systolic blood pressure 2022-12-22 20:00:00 112 mm[Hg] [facility] Diastolic blood pressure 2022-12-22 20:00:00 55 mm[Hg] [facility] Heart rate 2022-12-22 20:00:00 115 /min [facility] Oxygen saturation in Arterial blood by Pulse oximetry 2022-12-22 20:00:00 100 /min [facility] Body temperature 2022-12-22 19:00:00 36.67 Karrie [facility] Respiratory rate 2022-12-22 19:00:00 16 /min [facility] Body height 2022-12-22 15:30:00 144.8 cm [facility] Body weight 2022-12-22 15:30:00 65.318 kg [facility] BMI 2022-12-22 15:30:00 31.16 kg/m2 [facility] Systolic blood pressure 2022-12-20 21:15:00 107 mm[Hg] [facility] Diastolic blood pressure 2022-12-20 21:15:00 58 mm[Hg] [facility] Heart rate 2022-12-20 21:15:00 115 /min [facility] Body temperature 2022-12-20 21:15:00 36.5 Karrie [facility] Respiratory rate 2022-12-20 21:15:00 18 /min [facility] Body height 2022-12-20 21:15:00 144.8 cm [facility] Body weight 2022-12-20 21:15:00 64.592 kg [facility] BMI 2022-12-20 21:15:00 30.82 kg/m2 [facility] Systolic blood pressure 2022-11-22 19:32:00 118 mm[Hg] [facility] Diastolic blood pressure 2022-11-22 19:32:00 68 mm[Hg] [facility] Heart rate 2022-11-22 19:32:00 106 /min [facility] Body temperature 2022-11-22 19:32:00 36.94 Karrie [facility] Respiratory rate 2022-11-22 19:32:00 18 /min [facility] Body height 2022-11-22 19:32:00 144.8 cm [facility] Body weight 2022-11-22 19:32:00 62.415 kg [facility] BMI 2022-11-22 19:32:00 29.78 kg/m2 [facility] Systolic blood pressure 2022-10-25 16:53:00 100 mm[Hg] [facility] Diastolic blood pressure 2022-10-25 16:53:00 64 mm[Hg] [facility] Heart rate 2022-10-25 16:53:00 90 /min [facility] Body temperature 2022-10-25 16:53:00 36.83 Karrie [facility] Respiratory rate 2022-10-25 16:53:00 17 /min [facility] Body height 2022-10-25 16:53:00 144.8 cm [facility] Body weight 2022-10-25 16:53:00 59.693 kg [facility] BMI 2022-10-25 16:53:00 28.48 kg/m2 [facility] Systolic blood pressure 2022-09-27 16:17:00 109 mm[Hg] [facility] Diastolic blood pressure 2022-09-27 16:17:00 70 mm[Hg] [facility] Heart rate 2022-09-27 16:17:00 105 /min [facility] Body temperature 2022-09-27 16:17:00 36.61 Karrie [facility] Respiratory rate 2022-09-27 16:17:00 18 /min [facility] Body height 2022-09-27 16:17:00 144.8 cm [facility] Body weight 2022-09-27 16:17:00 57.244 kg [facility] BMI 2022-09-27 16:17:00 27.31 kg/m2 [facility] Systolic blood pressure 2022-08-30 16:58:00 99 mm[Hg] [facility] Diastolic blood pressure 2022-08-30 16:58:00 63 mm[Hg] [facility] Heart rate 2022-08-30 16:58:00 79 /min [facility] Body temperature 2022-08-30 16:58:00 36.61 Karrie [facility] Respiratory rate 2022-08-30 16:58:00 17 /min [facility] Body height 2022-08-30 16:58:00 144.8 cm [facility] Body weight 2022-08-30 16:58:00 56.246 kg [facility] BMI 2022-08-30 16:58:00 26.83 kg/m2 [facility] Systolic blood pressure 2022-08-02 15:15:00 97 mm[Hg] [facility] Diastolic blood pressure 2022-08-02 15:15:00 66 mm[Hg] [facility] Heart rate 2022-08-02 15:15:00 77 /min [facility] Body temperature 2022-08-02 15:15:00 36.72 Karrie [facility] Respiratory rate 2022-08-02 15:15:00 18 /min [facility] Body height 2022-08-02 15:15:00 144.8 cm [facility] Body weight 2022-08-02 15:15:00 54.885 kg [facility] BMI 2022-08-02 15:15:00 26.18 kg/m2 [facility] Systolic blood pressure 2020-07-26 05:07:00 112 mm[Hg] [facility] Diastolic blood pressure 2020-07-26 05:07:00 76 mm[Hg] [facility] Heart rate 2020-07-26 05:07:00 80 /min [facility] Body temperature 2020-07-26 05:07:00 37.5 Karrie [facility] Respiratory rate 2020-07-26 05:07:00 20 /min [facility] Body height 2020-07-26 05:07:00 144.8 cm [facility] Body weight 2020-07-26 05:07:00 49.896 kg [facility] BMI 2020-07-26 05:07:00 23.80 kg/m2 [facility] Oxygen saturation in Arterial blood by Pulse oximetry 2020-07-26 05:07:00 96 /min [facility] Systolic blood pressure 2020-07-26 05:07:00 112 mm[Hg] [facility] Diastolic blood pressure 2020-07-26 05:07:00 76 mm[Hg] [facility] Heart rate 2020-07-26 05:07:00 80 /min [facility] Body temperature 2020-07-26 05:07:00 37.5 Karrie [facility] Respiratory rate 2020-07-26 05:07:00 20 /min [facility] Body height 2020-07-26 05:07:00 144.8 cm [facility] Body weight 2020-07-26 05:07:00 49.896 kg [facility] BMI 2020-07-26 05:07:00 23.80 kg/m2 [facility] Oxygen saturation in Arterial blood by Pulse oximetry 2020-07-26 05:07:00 96 /min [facility] Procedures Procedure Date / Time Performed Performing Clinician Source LIPASE 2024-11-18 04:56:00 Manav Streeter [facility] COMP. METABOLIC PANEL (65723) 2024-11-18 04:56:00 Manav Streeter [facility] CBC WITH DIFF 2024-11-18 04:56:00 Manav Streeter [facility] CT ABDOMEN PELVIS W CONTRAST 2024-01-22 09:34:08 Jennifer Villagran [facility] TROPONIN I 2024-01-22 08:49:00 [facility] COMP. METABOLIC PANEL (45488) 2024-01-22 08:49:00 Jennifer Villagran [facility] CBC WITH DIFF 2024-01-22 08:49:00 Jennifer Villagran [facility] URINALYSIS 2024-01-22 08:48:00 [facility] POCT TEST 2024-01-22 08:48:00 Danny Villagran [facility] LAPAROSCOPIC SALPINGECTOMY 2023-05-15 12:29:00 Goldie Miranda [facility] DAY SURGERY - ADC 2023-05-15 05:01:00 Doctor Emely ssigned, [facility] CONSENT FOR CONTRACEPTION 2023-05-07 05:01:00 Doctor Unassigned, [facility] POCT TEST 2023-04-09 00:00:00 RuthGoldie [facility] CBC WITH DIFF 2023-02-23 08:56:00 Ruth [facility] CENTRAL NEURAXIAL BLOCK 2023-02-23 00:52:00 [facility] 2023-02-22 23:00:00 Steve Shah [facility] CBC WITH DIFF 2023-02-22 09:43:00 Ruth [facility] HEPATITIS B SURFACE ANTIGEN 2023-02-22 09:43:00 [facility] HB ABO GROUPING 2023-02-22 09:43:00 Ruth [facility] RHO (D) IMMUNE GLOBULIN 2023-02-22 09:43:00 Ruth [facility] ADC OR MADHURI ONLY - RPR 2023-02-22 09:43:00 Ruth [facility] HIV 1/2 AG-AB WITH REFLEX 2023-02-22 09:43:00 Ruth [facility] ASSIGNMENT OF BENEFITS 2023-02-22 09:02:43 Docto r Unassigned, [facility] POCT URINALYSIS W/O SPECIFIC GRAVITY 2023-02-15 00:00:00 Ruth [facility] POCT URINALYSIS W/O SPECIFIC GRAVITY 2023-02-12 00:00:00 [facility] ASSIGNMENT OF BENEFITS 2023-02-08 06:48:41 Docto r Unassigned, [facility] CONSENT/REFUSAL FOR DIAGNOSIS AND TREATMENT 2023-02-08 06:47:36 Doctor Unassigned, [facility] AUTHORIZATION FOR RELEASE OF PHI 2023-02-08 05:01:00 Doctor Unassigned, [facility] L&D VISIT (NON-DELIVERED) 2023-02-08 05:01:00 Doctor Unassigned, [facility] POCT URINALYSIS W/O SPECIFIC GRAVITY 2023-02-08 00:00:00 Goldie Miranda [facility] DME/SUPPLY JUSTIFICATION 2023-02-06 05:01:00 Doc tor Unassigned, [facility] POCT URINALYSIS W/O SPECIFIC GRAVITY 2023-01-30 00:00:00 Goldie Miranda [facility] >14 WEEKS US LIMITED 2023-01-25 20:16:38 Goldie Miranda [facility] DSU PRE-OP 2023-01-25 05:01:00 Doctor Unass igned, [facility] POCT URINALYSIS W/O SPECIFIC GRAVITY 2023-01-25 00:00:00 Goldie Miranda [facility] POCT URINALYSIS W/O SPECIFIC GRAVITY 2023-01-03 00:00:00 Goldie Miranda [facility] NON-STRESS TEST 2022-12-29 20:08:36 Goldie Miranda [facility] NON-STRESS TEST 2022-12-22 20:18:46 Goldie Miranda [facility] US OB TRANSVAGINAL 2022-12-22 20:18:10 Goldie Miranda [facility] NOTICE OF PRIVACY PRACTICES 2022-12-22 15:24:20 Doctor Unassigned, [facility] CONSENT/REFUSAL FOR DIAGNOSIS AND TREATMENT 2022-12-22 15:24:07 Doctor Unassigned, [facility] ASSIGNMENT OF BENEFITS 2022-12-22 15:23:47 Docto r Unassigned, [facility] L&D VISIT (NON-DELIVERED) 2022-12-22 05:01:00 Doctor Unassigned, [facility] POCT URINALYSIS W/O SPECIFIC GRAVITY 2022-12-20 00:00:00 Jenna Castañeda [facility] STERILIZATION CONSENT FORM 2022-11-22 06:01:00 Doctor Unassigned, [facility] POCT URINALYSIS W/O SPECIFIC GRAVITY 2022-11-22 00:00:00 Goldie Miranda [facility] POCT URINALYSIS W/O SPECIFIC GRAVITY 2022-10-25 17:11:00 Jenna Castañeda [facility] POCT URINALYSIS W/O SPECIFIC GRAVITY 2022-09-27 00:00:00 Goldie Miranda [facility] POCT URINALYSIS W/O SPECIFIC GRAVITY 2022-08-30 16:58:00 Jenna Castañeda [facility] <14 WEEKS US LIMITED 2022-08-02 18:49:11 Goldie Miranda [facility] ASSIGNMENT OF BENEFITS 2022-08-02 14:54:02 Docto r Unassigned, [facility] POCT TEST 2022-08-02 00:00:00 Goldie Miranda [facility] POCT URINALYSIS W/O SPECIFIC GRAVITY 2022-08-02 00:00:00 Goldie Miranda [facility] POCT TEST 2020-07-26 05:28:00 Gustavo Gonzalez [facility] NOTICE OF PRIVACY PRACTICES 2020-07-26 05:04:36 Doctor Unassigned, [facility] CONSENT/REFUSAL FOR DIAGNOSIS AND TREATMENT 2020-07-26 05:03:14 Doctor Unassigned, [facility] Encounters Start Date/Time End Date/Time Encounter Type Admission Type Attending [facility] Care Facility Care Department Encounter ID Source 2023-05-14 13:05:28 Emergency [facility] [id number] [facility] 2023-01-05 14:56:18 Outpatient P [facility] [id number] [facility] 2021-08-05 23:35:55 Emergency [facility] [id number] [facility] 2015-01-27 00:00:00 2024-11-22 04:29:32 Orders Only Mendy Cook Priscilla [facility] SYSTEM ADMINISTRATION MANAGER [facility] 1.2.840.114 350.1.13.10 4.2.7.2.686 [id number] [facility] 2024-11-17 22:51:00 2024-11-18 01:27:[address] Murcia [facility] ERT [id number] [facility] 2024-11-17 22:51:00 2024-11-18 01:27:00 Emergency Manav Streeter Agus [facility] 1..840.114 350.1.13.10 4.2.7.2.686 [id number] [facility] 2024-03-14 09:30:00 2024-03-14 09:30:00 Outpatient RAKESH LANCASTER [facility] [id number] [facility] 2024-01-29 10:30:00 2024-01-29 10:30:00 Outpatient RAKESH LANCASTER [facility] [id number] [facility] 2024-01-22 03:13:00 2024-01-22 06:04:00 Emergency X JENNIFER VILLAGRAN [facility] ERT [id number] [facility] 2024-01-22 03:13:00 2024-01-22 06:04:00 Emergency Jennifer Villagran [facility] 1.840.114 350.1.13.10 4.2.7.2.686 [id number] [facility] 2024-01-15 09:45:00 2024-01-15 09:45:00 Outpatient RAKESH LANCASTER [facility] [id number] [facility] 2023-09-24 10:30:00 2023-09-24 10:30:00 Outpatient GOLDIE MACHADO [facility] [id number] [facility] 2023-09-11 00:00:00 2023-09-11 00:00:00 Pre Visit Outreach Alissa Ch 1..840.114 350.1.13.10 4.2.7.2.686 [id number] [facility] 2023-05-29 13:00:00 2023-05-29 13:15:03 Outpatient R RUTH GOLDIE [facility] [id number] [facility] 2023-05-29 13:00:00 2023-05-29 13:15:03 Office Visit Goldie Miranda [facility] PROFESSIO NAL [facility]ILD[facility] 1.2840.114 350.1.13.10 4.2.7.2.686 [id number] [facility] 2023-05-15 07:45:00 2023-05-15 10:26:00 Surgery Goldie Miranda [facility] SURGICAL [place] 1..114 350.1.13.10 4.2.7.2.686 [id number] [facility] 2023-05-15 06:57:00 2023-05-15 09:36:00 Outpatient R GOLDIE MIRANDA [facility] LEAD FABRICATOR [id number] [facility] 2023-05-15 06:57:00 2023-05-15 09:36:00 Hospital Encounter Goldie Miranda [facility] SURGICAL [place] 1.0.114 350.1.13.10 4.2.7.2.686 [id number] [facility] 2023-05-15 00:00:00 2023-05-15 00:00:00 Orders Only Doctor Unassigned, [facility] 1.2840.114 350.1.13.10 4.2.7.2.686 [id number] [facility] 2023-05-14 13:15:00 2023-05-14 13:30:00 Rolloff Driver Visit Pob, Adc Lab Main Ann Montalvo [facility] 1.2840.114 350.1.13.10 4.2.7.2.686 [id number] [facility] 2023-05-14 13:15:00 2023-05-14 13:15:00 Outpatient R GONZALEZWILIANN CLAYTON [facility] [id number] [facility] 2023-05-07 09:15:00 2023-05-07 13:19:03 Outpatient R GOLDIE MIRANDA [facility] [id number] [facility] 2023-05-07 09:15:00 2023-05-07 13:19:03 Office Visit Goldie Miranda [facility] BUILDING 1..840.114 350.1.13.10 4.2.7.2.686 [id number] 134 [id number] [facility] 2023-05-07 00:00:00 2023-05-07 00:00:00 Orders Only Doctor Unassigned, [facility] 1..840.114 350.1.13.10 4.2.7.2.686 [id number] [facility] 2023-04-16 16:00:00 2023-04-16 16:00:00 Outpatient R GOLDIE MIRANDA [facility] [id number] [facility] 2023-04-09 16:15:00 2023-04-09 16:51:33 Outpatient R GOLDIE MIRANDA [facility] [id number] [facility] 2023-04-09 16:15:00 2023-04-09 16:51:33 Routine Visit Goldie Miranda [facility] 1..840.114 350.1.13.10 4.2.7.2.686 [id number] [facility] 2023-03-29 11:00:00 2023-03-29 11:00:00 Outpatient R GOLDIE MIRANDA [facility] [id number] [facility] 2023-03-19 11:00:00 2023-03-19 11:34:52 Outpatient R JENNA CASTAÑEDA [facility] [id number] [facility] 2023-03-19 11:00:00 2023-03-19 11:34:52 [facility] 1.2.840.114 350.1.13.10 4.2.7.2.686 [id number] [facility] 2023-03-19 00:00:00 2023-03-19 00:00:00 Telephone Goldie Miranda [facility] 1.2.840.114 350.1.13.10 4.2.7.2.686 [id number] [facility] 2023-02-22 04:02:00 2023-02-24 17:00:00 Hospital Encounter Goldie Miranda [facility] 1.2.840.114 350.1.13.10 4.2.7.2.686 [id number] 083 [id number] [facility] 2023-02-22 04:02:00 2023-02-24 17:00:00 Inpatient P GOLDIE MIRANDA [facility] [id number] [facility] 2023-02-23 20:03:30 2023-02-23 20:03:30 Anesthesia Event Lawrence Savage [facility] 1.2.840.114 350.1.13.10 4.2.7.2.686 [id number] 083 [id number] [facility] 2023-02-22 18:00:00 2023-02-23 06:49:00 Anesthesia Event Shah, Adry [facility] 1.2.840.114 350.1.13.10 4.2.7.2.686 [id number] 083 [id number] [facility] 2023-02-22 10:45:00 2023-02-22 10:45:00 Outpatient R MIRANDA GOLDIE [facility] [id number] [facility] 2023-02-22 00:00:00 2023-02-22 00:00:00 Orders Only Doctor Unassigned, Slaughters [facility] 1.2.840.114 350.1.13.10 4.2.7.2.686 [id number] 009 [id number] [facility] 2023-02-15 15:30:00 2023-02-15 15:45:00 Routine Visit Goldie Miranda [facility] 1.2.840.114 350.1.13.10 4.2.7.2.686 [id number] 134 [id number] [facility] 2023-02-15 15:30:00 2023-02-15 15:30:00 Outpatient R RUTH GOLDIE [facility] [id number] [facility] 2023-02-13 09:00:00 2023-02-13 09:00:00 Outpatient R MAYUR SUAREZ [facility] [id number] [facility] 2023-02-12 13:45:00 2023-02-12 14:00:00 Routine Visit Goldie Miranda [facility] 1.2.840.114 350.1.13.10 4.2.7.2.686 [id number] 134 [id number] [facility] 2023-02-12 13:45:00 2023-02-12 13:45:00 Outpatient R GOLDIE MIRANDA [facility] [id number] [facility] 2023-02-12 13:30:00 2023-02-12 13:45:00 Rolloff Driver Visit 2, Adc Lab Goldie Miranda [facility] 1.2.840.114 350.1.13.10 4.2.7.2.686 [id number] 353 [id number] [facility] 2023-02-12 00:00:00 2023-02-12 00:00:00 Telephone Goldie Miranda [facility] 1.2.840.114 350.1.13.10 4.2.7.2.686 [id number] 134 [id number] [facility] 2023-02-08 15:45:00 2023-02-08 16:06:28 Outpatient R GOLDIE MIRANDA [facility] [id number] [facility] 2023-02-08 15:45:00 2023-02-08 16:06:28 Routine Visit Goldie Miranda [facility] 1.840.114 350.1.13.10 4.2.7.2.686 [id number] 134 [id number] [facility] 2023-02-08 02:07:00 2023-02-08 04:35:00 Outpatient P GOLDIE MIRANDA [facility] [id number] [facility] 2023-02-08 02:07:00 2023-02-08 04:35:00 Hospital Encounter Goldie Miranda [facility] 1.0.114 350.1.13.10 4.2.7.2.686 [id number] 083 [id number] [facility] 2023-02-08 00:00:00 2023-02-08 00:00:00 Orders Only Doctor Unassigned, Slaughters [facility] 1.2840.114 350.1.13.10 4.2.7.2.686 [id number] 009 [id number] [facility] 2023-02-06 00:00:00 2023-02-06 00:00:00 Orders Only Doctor Unassigned, Slaughters [facility] 1.2840.114 350.1.13.10 4.2.7.2.686 [id number] 009 [id number] [facility] 2023-02-06 00:00:00 2023-02-06 00:00:00 Telephone Goldie Miranda [facility] 1.2840.114 350.1.13.10 4.2.7.2.686 [id number] 134 [id number] [facility] 2023-01-30 16:00:00 2023-01-30 17:00:57 Outpatient R GOLDIE MIRANDA [facility] [id number] [facility] 2023-01-30 16:00:00 2023-01-30 17:00:57 Routine Visit Goldie Miranda [facility] 1.2.840.114 350.1.13.10 4.2.7.2.686 [id number] 134 [id number] [facility] 2023-01-30 00:00:00 2023-01-30 00:00:00 Telephone Goldie Miranda [facility] 1.2.840.114 350.1.13.10 4.2.7.2.686 [id number] 134 [id number] [facility] 2023-01-25 15:00:00 2023-01-25 15:15:00 Rolloff Driver Visit 2, Adc Lab Goldie Miranda [facility] 1.20.114 350.1.13.10 4.2.7.2.686 [id number] 353 [id number] [facility] 2023-01-25 14:15:00 2023-01-25 15:00:05 Outpatient R GOLDIE MIRANDA [facility] [id number] [facility] 2023-01-25 14:15:00 2023-01-25 15:00:05 Routine Visit Goldie Miranda [facility] 1.2840.114 350.1.13.10 4.2.7.2.686 [id number] 134 [id number] [facility] 2023-01-25 00:00:00 2023-01-25 00:00:00 Orders Only Doctor Unassigned, Slaughters [facility] 1.2840.114 350.1.13.10 4.2.7.2.686 [id number] 009 [id number] [facility] 2023-01-23 00:00:00 2023-01-23 00:00:00 [facility] 1.2.840.114 350.1.13.10 4.2.7.2.686 [id number] 059 [id number] [facility] 2023-01-18 00:00:00 2023-01-18 00:00:00 Telephone Mayur Suarez [facility] 1.2.840.114 350.1.13.10 4.2.7.2.686 [id number] 059 [id number] [facility] 2023-01-15 14:18:36 2023-01-15 23:59:00 Outpatient R MAYUR SUAREZ [facility] [id number] [facility] 2023-01-05 10:06:00 2023-01-05 14:46:00 Outpatient P GOLDIE MIRANDA [facility] [id number] [facility] 2023-01-05 10:06:00 2023-01-05 14:46:00 Hospital Encounter Goldie Miranda [facility] 1.2.840.114 350.1.13.10 4.2.7.2.686 [id number] 083 [id number] [facility] 2023-01-05 09:00:00 2023-01-05 09:41:50 Outpatient R MAYUR SUAREZ [facility] [id number] [facility] 2023-01-05 09:00:00 2023-01-05 09:41:50 Office Visit Mayur Suarez [facility] 1.2.840.114 350.1.13.10 4.2.7.2.686 [id number] 059 [id number] [facility] 2023-01-03 15:45:00 2023-01-03 15:50:44 Rolloff Driver Visit 2, Adc Lab Goldie Miranda [facility] 1.284.114 350.1.13.10 4.2.7.2.686 [id number] [facility] 2023-01-03 15:30:00 2023-01-03 15:43:51 Outpatient R GOLDIE MIRANDA [facility] [id number] [facility] 2023-01-03 15:30:00 2023-01-03 15:43:51 Routine Visit Goldie Miranda [facility] 1.284.114 350.1.13.10 4.2.7.2.686 [id number] 134 [id number] [facility] 2022-12-29 10:20:00 2022-12-29 15:00:00 Outpatient P GOLDIE MIRANDA [facility] [id number] [facility] 2022-12-29 10:20:00 2022-12-29 15:00:00 Hospital Encounter Goldie Miranda [facility] 1.284.114 350.1.13.10 4.2.7.2.686 [id number] 083 [id number] [facility] 2022-12-26 00:00:00 2022-12-26 00:00:00 Telephone Goldie Miranda [facility] 1..114 350.1.13.10 4.2.7.2.686 [id number] 134 [id number] [facility] 2022-12-22 10:11:00 2022-12-22 15:23:00 Outpatient P GOLDIE MIRANDA [facility] [id number] [facility] 2022-12-22 10:11:00 2022-12-22 15:23:00 Hospital Encounter Goldie Miranda [facility] 1.284.114 350.1.13.10 4.2.7.2.686 [id number] 083 [id number] [facility] 2022-12-22 00:00:00 2022-12-22 00:00:00 Telephone Goldie Miranda [facility] 1.2.114 350.1.13.10 4.2.7.2.686 [id number] 134 [id number] [facility] 2022-12-20 16:00:00 2022-12-20 16:36:40 [facility] [id number] 2022-12-20 16:00:00 2022-12-20 16:36:40 Routine Visit AndrewjackieJenna jack [facility] 1.2840.114 350.1.13.10 4.2.7.2.686 [id number] 134 [id number] [facility] 2022-12-13 09:15:00 2022-12-13 09:30:00 Rolloff Driver Visit 2, Adc Lab Goldie Miranda [facility] 1.2.114 350.1.13.10 4.2.7.2.686 [id number] 353 [id number] [facility] 2022-12-13 09:15:00 2022-12-13 09:15:00 Outpatient R RUTH GOLDIE [facility] [id number] [facility] 2022-12-13 00:00:00 2022-12-13 00:00:00 Case Management Goldie Miranda [facility] 1.284.114 350.1.13.10 4.2.7.2.686 [id number] 134 [id number] [facility] 2022-11-24 00:00:00 2022-11-24 00:00:00 Telephone Goldie Miranda [facility] 1.2.840.114 350.1.13.10 4.2.7.2.686 [id number] 134 [id number] [facility] 2022-11-22 13:00:00 2022-11-22 14:11:58 Outpatient R GOLDIE MIRANDA [facility] [id number] [facility] 2022-11-22 13:00:00 2022-11-22 14:11:58 [facility]ine Visit [facility] 1.284.114 350.1.13.10 4.2.7.2.686 [id number] 134 [id number] [facility] 2022-11-22 00:00:00 2022-11-22 00:00:00 Orders Only Doctor Unassigned, Slaughters [facility] 1.84.114 350.1.13.10 4.2.7.2.686 [id number] 009 [id number] [facility] 2022-10-25 11:15:00 2022-10-25 11:36:53 Outpatient R JAVONPAGE [facility] [id number] [facility] 2022-10-25 11:15:00 2022-10-25 11:36:53 [facility] [place] [place] 1.84.114 350.1.13.10 4.2.7.2.686 [id number] 134 [id number] [facility] 2022-10-10 10:00:00 2022-10-10 11:00:00 Rolloff Driver Visit Ultrasound, Adc [facility] Trish Ashley [facility] 1.84.114 350.1.13.10 4.2.7.2.686 [id number] 134 [id number] [facility] 2022-10-10 10:00:00 2022-10-10 10:47:24 Outpatient R TRISH ASHLEY [facility] [id number] [facility] 2022-10-04 08:00:00 2022-10-04 11:45:07 Outpatient R GOLDIE MIRANDA [facility] [id number] [facility] 2022-10-04 08:00:00 2022-10-04 11:45:07 Rolloff Driver Visit 2, Adc Lab Goldie Miranda [facility] 1.2.840.114 350.1.13.10 4.2.7.2.686 [id number] 353 [id number] [facility] 2022-09-27 13:15:00 2022-09-27 13:15:00 Outpatient R GOLDIE MIRANDA [facility] [id number] [facility] 2022-09-27 10:00:00 2022-09-27 10:52:19 [facility] [id number] 2022-09-27 10:00:00 2022-09-27 10:52:19 [facility] 1.2.840.114 350.1.13.10 4.2.7.2.686 [id number] 134 [id number] [facility] 2022-09-11 08:30:00 2022-09-11 08:30:00 Outpatient R [facility] [id number] [facility] 2022-09-08 00:00:00 2022-09-08 00:00:00 Telephone Goldie Miranda [facility] 1.2.840.114 350.1.13.10 4.2.7.2.686 [id number] 134 [id number] [facility] 2022-09-08 00:00:00 2022-09-08 00:00:00 Telephone Goldie Miranda [facility] 1.2.840.114 350.1.13.10 4.2.7.2.686 [id number] 134 [id number] [facility] 2022-09-06 08:15:00 2022-09-06 08:15:00 Outpatient R [facility] [id number] [facility] 2022-08-30 11:00:00 2022-08-30 11:15:00 Routine Visit Jenna Castañeda [facility] 1.2.840.114 350.1.13.10 4.2.7.2.686 [id number] 134 [id number] [facility] 2022-08-30 11:00:00 2022-08-30 11:00:00 Outpatient R JENNA CASTAÑEDA [facility] [id number] [facility] 2022-08-30 00:00:00 2022-08-30 00:00:00 Refill Goldie Miranda [facility] 1.2.840.114 350.1.13.10 4.2.7.2.686 [id number] 134 [id number] [facility] 2022-08-17 00:00:00 2022-08-17 00:00:00 Telephone Goldie Miranda [facility] 1.2.840.114 350.1.13.10 4.2.7.2.686 [id number] 134 [id number] [facility] 2022-08-10 00:00:00 2022-08-10 00:00:00 Telephone Goldie Miranda [facility] 1.2.840.114 350.1.13.10 4.2.7.2.686 [id number] 134 [id number] [facility] 2022-08-09 10:15:00 2022-08-09 10:30:00 Rolloff Driver Visit 2, Adc Lab Goldie Miranda [facility] 1.2.840.114 350.1.13.10 4.2.7.2.686 [id number] [facility] 2022-08-09 10:15:00 2022-08-09 10:15:00 Outpatient R GOLDIE MIRANDA [facility] [id number] [facility] 2022-08-09 00:00:00 2022-08-09 00:00:00 Case Management Goldie Miranda [facility] 1.2.840.114 350.1.13.10 4.2.7.2.686 [id number] 134 [id number] [facility] 2022-08-02 10:00:00 2022-08-02 10:54:11 Outpatient R GOLDIE MIRANDA [facility] [id number] [facility] 2022-08-02 10:00:00 2022-08-02 10:54:11 Initial Visit Goldie Miranda [facility] 1.2840.114 350.1.13.10 4.2.7.2.686 [id number] 134 [id number] [facility] 2022-08-02 00:00:00 2022-08-02 00:00:00 Telephone Goldie Miranda [facility] 1.2840.114 350.1.13.10 4.2.7.2.686 [id number] 044 [id number] [facility] 2022-08-02 00:00:00 2022-08-02 00:00:00 Refill Goldie Miranda [facility] 1.2.840.114 350.1.13.10 4.2.7.2.686 [id number] 134 [id number] [facility] 2022-08-02 00:00:00 2022-08-02 00:00:00 Orders Only Doctor Unassigned, Slaughters [facility] 1.2840.114 350.1.13.10 4.2.7.2.686 [id number] 009 [id number] [facility] 2020-07-27 00:00:00 2020-07-27 00:00:00 Letter (Out) Fiona Torre [facility] 1.2.840.114 350.1.13.10 4.2.7.2.686 [id number] 019 [id number] 2020-07-27 00:00:00 2020-07-27 00:00:00 Patient Secure Msg Doctor Unassigned, Slaughters [facility] 1.2.840.114 350.1.13.10 4.2.7.2.686 [id number] 019 [id number] [facility] 2020-07-27 00:00:00 2020-07-27 00:00:00 Letter (Out) Fiona Torre [facility] 1.2.840.114 350.1.13.10 4.2.7.2.686 [id number] 019 [id number] [facility] 2020-07-26 00:09:00 2020-07-26 01:21:00 Emergency [facility] 1.2.840.114 350.1.13.10 4.2.7.2.686 [id number] 084 [id number] [facility] 2020-07-26 00:09:00 2020-07-26 01:21:00 [facility] 1.2.840.114 350.1.13.10 4.2.7.2.686 [id number] 084 [id number] Results Test Description Test Time Test Comments [...] Appendix is normal. The bones are unremarkable. [id number] 21:31:00* Test Item Value Reference Range Interpretation Comme nts POCT PREG (test code = 1605) Negative On board controls acceptable with C Line (test code = 3574) Yes POCT PREG LOT # (test code = 3575) POCT PREG TEST DATE ( test code = 3576) [facility] IMMUNE [id number] 18:13:04* Test Item Value Reference Range Interpretation Comme nts RHIG CANDIDATE? (test code = 5188) No- see comment Patient is not a candidate for RhIg- Patient is Rh Positive.Performed at [facility] Laboratory Services - [facility] Blood [address] [place], [place] [id number] Free: [phone] No. [id number] [facility] with [id number] 11:58:12* Test Item Value Reference Range Interpretation [...] 32.8 g/dL 31.6-35.1 RDW-SD (test code = 53396-2) 58.8 fL 39.0-49.9 H RDW-CV (test code = 788-0) 17.0 % 12.0-15.5 H PLT (test code = 777-3) 170 See_Comment [Automated message] The system which generated this result transmitted reference range: 166 - 358 10*3/?L. The reference range was not used to interpret this result as normal/abnormal. MPV (test code = 98581-0) 9.8 fL 9.5-12.9 NRBC/100 WBC (test code = 5546249374) 0.0 See_Comment [Automated message] The system which generated this result transmitted reference range: 0.0 - 10.0 /100 WBCs. The reference range was not used to interpret this result as normal/abnormal. NRBC x10^3 (test code = 6575785904) See_Comment [Automated message] The system which generated this result transmitted reference range: 10*3/?L. The reference range was not used to interpret this result as normal/abnormal. GRAN MAT (NEUT) % (test code = 770-8) 83.2 % IMM GRAN % (test code = 4530914221) 0.50 % LYMPH % (test code = 736-9) 5.6 % MONO % (test code = 5905-5) 10.5 % EOS % (test code = 713-8) 0.0 % BASO % (test code = 706-2) 0.2 % GRAN MAT x10^3(ANC) (test code = 9382723712) 13.42 10*3/uL 1.88-7.09 H IMM GRAN x10^3 (test code = 0331093652) 0.08 10*3/uL 0.00-0.06 H LYMPH x10^3 (test code = 731-0) 0.90 10*3/uL 1.32-3.29 L MONO x10^3 (test code = 742-7) 1.69 10*3/uL 0.33-0.92 H EOS x10^3 (test code = 711-2) 0.03-0.39 L BASO x10^3 (test code = 704-7) 0.03 10*3/uL 0.01-0.07 BANDS (test code = 4051586763) Increased A Lab Interpretation (test code = 56523-3) Abnormal [facility] OR MADHURI ONLY - [id number] 09:11:52* Test Item Value Reference Range Interpretation Comme nts RPR (Qualitative) (test code = 84927-2) Nonreactive Nonreactive Lab Interpretation (test cod e = 42497-3) Normal [facility] CenterHepatitis B Surface [id number] 16:37:21 * Test Item Value Reference Range Interpretation Comme nts HBsAg Semi-Quantitative (abner t code = 5195-3) 0.06 Negative [facility]2 AG-AB WITH [id number] 14:17:40* Test Item Value Reference Range Interpretation Comme nts HIV Semi-quantitative (test code = 74384-1) 0.15 Negative CODIE (test code = CODIE) Non-reactive for HIV-1 antigen and HIV-1/HIV-2 antibodies. ?No laboratory evidence of HIV infection. ?Repeat in 2-4 weeks if acute HIV infection is suspected. [facility] with [id number] 11:27:06* Test Item Value Reference Range Interpretation Comme nts WBC (test code = 6690-2) 10.82 See_Comment [Automated [employer]] The system which generated this result transmitted reference range: 4.30 - 11.10 10*3/?L. The reference range was not used to interpret this result as normal/abnormal. RBC (test code = 789-8) 3.73 See_Comment L [Automated [employer]] The system which generated this result [...] 33.5 g/dL 31.6-35.1 RDW-SD (test code = 20924-2) 58.6 fL 39.0-49.9 H RDW-CV (test code = 788-0) 16.8 % 12.0-15.5 H PLT (test code = 777-3) 181 See_Comment [Automated messa ge] The system which generated this result transmitted reference range: 166 - 358 10*3/?L. The reference range was not used to interpret this result as normal/abnormal. MPV (test code = 66631-3) 9.6 fL 9.5-12.9 NRBC/100 WBC (test code = 7437815974) 0.0 See_Comment [Automated [employer]] The system which generated this result transmitted reference range: 0.0 - 10.0 /100 WBCs. The reference range was not used to interpret this result as normal/abnormal. NRBC x10^3 (test code = 6425585359) See_Comment [Automated messa ge] The system which generated this result transmitted reference range: 10*3/?L. The reference range was not used to interpret this result as normal/abnormal. GRAN MAT (NEUT) % (test code = 770-8) 68.7 % IMM GRAN % (test code = 2354737959) 1.80 % LYMPH % (test code = 736-9) 19.1 % MONO % (test code = 5905-5) 9.2 % EOS % (test code = 713-8) 0.9 % BASO % (test code = 706-2) 0.3 % GRAN MAT x10^3(ANC) (test code = 9413122580) 7.42 10*3/uL 1.88-7.09 H IMM GRAN x10^3 (test code = 9861218125) 0.20 10*3/uL 0.00-0.06 H LYMPH x10^3 (test code = 731-0) 2.07 10*3/uL 1.32-3.29 MONO x10^3 (test code = 742-7) 1.00 10*3/uL 0.33-0.92 H EOS x10^3 (test code = 711-2) 0.10 10*3/uL 0.03-0.39 BASO x10^3 (test code = 704-7) 0.03 10*3/uL 0.01-0.07 Lab Interpretation (test code = 70745-7) Abnormal [facility] Screen - ONCE [id number] 11:03:00 * Test Item Value Reference Range Interpretation Comme nts ABO & RH (test code = 20) O Positive IAT (test code = 1185) Negative [facility] CenterPO[facility] W/O SPECIFIC [id number] 20:42:00* Test Item Value Reference Range Interpretation Comme nts POCT PH U (test code = 3254) n/a 5-8 POCT U LEUK EST (test code = 3263) n/a Negative - Negative POCT U NIT (test code = 3262) n/a Negative - Negati ve POCT U PROT (test code = 3259) Negative Negative - Negat cloin POCT U GLU (test code = 3256) Normal Negative - Negati ve POCT U KETONE (test code = 3258) n/a Negative - Neg ative POCT U BLD (test code = 3257) n/a Negative - Negati ve [facility] W/O SPECIFIC [id number] 18:51:00* Test Item Value Reference Range Interpretation [...] = 3257) n/a Negative - Negati ve [facility]PO[facility] W/O SPECIFIC [id number] 20:52:00* Test Item Value Reference Range Interpretation [...] = 3257) n/a Negative - Negati ve [facility] URINALYSIS W/O SPECIFIC [id number] 21:33:00* Test Item Value Reference Range Interpretation [...] = 3257) Negative Negative - Negati ve [facility] URINALYSIS W/O SPECIFIC [id number] 19:26:00* Test Item Value Reference Range Interpretation [...] = 3257) n/a Negative - Negati ve [facility] URINALYSIS W/O SPECIFIC [id number] 20:35:00* Test Item Value Reference Range Interpretation [...] = 3257) N/A Negative - Negati ve [facility] URINALYSIS W/O SPECIFIC [id number] 20:35:00* Test Item Value Reference Range Interpretation [...] = 3257) N/A Negative - Negati ve [facility] URINALYSIS W/O SPECIFIC [id number] 21:15:00* Test Item Value Reference Range Interpretation [...] = 3257) n/a Negative - Negati ve [facility] URINALYSIS W/O SPECIFIC [id number] 19:32:00* Test Item Value Reference Range Interpretation [...] = 3257) Negative Negative - Negati ve [facility] URINALYSIS W/O SPECIFIC [id number] 19:32:00* Test Item Value Reference Range Interpretation [...] = 3257) Negative Negative - Negati ve [facility] URINALYSIS W/O SPECIFIC [id number] 17:12:00* Test Item Value Reference Range Interpretation [...] = 3257) n/a Negative - Negati ve [facility] URINALYSIS W/O SPECIFIC [id number] 17:12:00* Test Item Value Reference Range Interpretation [...] = 3257) n/a Negative - Negati ve [facility] URINALYSIS W/O SPECIFIC [id number] 16:14:00* Test Item Value Reference Range Interpretation [...] = 3257) n/a Negative - Negati ve [facility] URINALYSIS W/O SPECIFIC [id number] 16:58:00* Test Item Value Reference Range Interpretation [...] = 3257) n/a Negative - Negati ve [facility] [id number] 15:21:00* Test Item Value Reference Range Interpretation Comme nts POCT PREG (test code = 1605) Positive On board controls acceptable with C Line (test code = 3574) Yes POCT PREG LOT # (test code = 3575) POCT PREG TEST DATE ( test code = 3576) [facility] URINALYSIS W/O SPECIFIC [id number] 15:21:00* Test Item Value Reference Range Interpretation [...] = 3257) n/a [id number]:28[facility]* Test Item Value Reference Range Interpretation Comme nts POCT PREG (test code = 1605) negative On board controls acceptable with C Line (test code = 3574) present POCT PREG LOT # (test code = 3575) [id number] POCT PREG TEST DATE ( test code = 3576) Lab Interpretation (test cod e = 65451-3) Normal [facility] History and Physical Notes Date/Time [...] Complaint Patient presents with Pre-op Clearance HPI: Raegan Thompson is a 27 year old female [...] four children ages 14-7 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 Goldie Miranda MD 05/15/2023 8:43 AM [facility] Notes Date/Time Note Provider Source 2024-11-18 01:26:26 Awake, alert oriented X4, respiratory even and unlabored,skin w/d color appropriate for race, moves all ext well, pt encouraged to follow up with pcp and or return as needed. Pt given printed and verbal discharge instructions regarding RUQ pain, nausea, and constipation. Patient verbalized understanding and signature obtained, patient denies any other concerns. Prescriptions provided. Advised to seek medical attention for new/prolonged/worsening of symptoms. No adverse reaction to meds given in ER noted upon discharge. Pt ambulated to the lobby with steady gait. CTOR PATIENT ACCOUNTING Julee Osuna RN [facility] 2024-11-17 22:52:55 RUQ pain for 3 days that starts in the evening after she eats. Pt states the pain is sharp. Pt denies any urinary symptoms, diarrhea. Pt states she has nausea. CTOR PATIENT ACCOUNTING Rina Marie RN [facility] 2024-11-17 22:44:00 [facility] Emergency Department Note Patient Name: Raegan Thompson Date of : 1995 29 year old female Treatment Room: [facility]6/[facility] Primary Care Physician: PATIENT DOES NOT HAVE A PCP Patient Escorted by: Family [5] Mode of Arrival: Personal means [1] EMS Treatment Prior to ED Arrival: [employer] treatment: None Travel and Exposure Screening: Symptoms Does patient have any of these symptoms?: (not recorded) Exposure Screening Has patient had contact with someone with a communicable disease in the last month?: (not recorded) Diseases exposed to:: (not recorded) Is Patient ?: (not recorded) Exposure Date: (not recorded) Chief Complaint: Chief Complaint Patient presents with Abdominal Pain History of Present Illness: Very pleasant young lady presents for two days of RUQ abd pain and n/v. Was at [place] [facility] but left due to delay in being seen. Pt says she gets this occasional and it will last up to seven days sometimes, then won't be back for months. History provided by: Patient Past Medical History/Immunizations: Past Medical History: Diagnosis Date Abnormal maternal glucose tolerance, antepartum 06/13/2018 Breakthrough bleeding on Nexplanon 01/14/2015 with Nexplanon BV (bacterial vaginosis) 07/27/2017 Screening for STDs (sexually transmitted diseases) 04/15/2015 Chlamydia / treated Tetanus received in last 5 years: Unknown Childhood immunizations: Up-to-date Allergies: No Known Allergies Past Social History: Tobacco Use Never smoked or used smokeless tobacco. Vaping Use Never used Alcohol Use Not Currently. Drug Use No. Comments: Marijuana exposure in the past Sexual Activity Sexually active; Partners: Male; Control/Protection: None. Past Surgical History: Past Surgical History: Procedure Laterality Date INSERT CERVICAL DILATOR 02/22/2023 LAPAROSCOPIC SALPINGECTOMY 05/15/2023 LAPAROSCOPIC SALPINGECTOMY N/A 05/15/2023 Surgeon: Goldie Miranda MD; [place] [facility] [place] of Systems: Review of Systems Constitutional: Negative for activity change, appetite change, chills, diaphoresis, fatigue and fever. HENT: Negative for congestion, ear discharge, ear pain, facial swelling, hearing loss, sore throat, tinnitus, trouble swallowing and voice change. Eyes: Negative for photophobia, pain, discharge, redness, itching and visual disturbance. Respiratory: Negative for apnea, cough, choking, chest tightness, shortness of breath and stridor. Breasts: Negative for discharge. Cardiovascular: Negative for chest pain, palpitations and leg swelling. Gastrointestinal: Positive for abdominal pain, nausea and vomiting. Negative for abdominal distention, blood in stool and diarrhea. Genitourinary: Negative for dysuria, frequency, hematuria, flank pain, enuresis and difficulty urinating. Musculoskeletal: Negative for arthralgias, back pain, gait problem, joint swelling, myalgias, neck pain and neck stiffness. Skin: Negative for color change, pallor, rash and wound. Neurological: Negative for dizziness, syncope, facial asymmetry, speech difficulty, weakness, light-headedness and headaches. Psychiatric/Behavioral: Negative for agitation, confusion, hallucinations and self-injury. The patient is not nervous/anxious. Hematological: Negative for adenopathy, cold intolerance and heat intolerance. Does not bruise/bleed easily. Endocrine: Negative for cold intolerance, heat intolerance, polydipsia and polyphagia. Physical Exam: ED Triage Vitals [11/17/24 2254] Weight 59 kg (130 lb) Actual or estimated Actual Height 1.448 m (4' 9") BP 128/74 Pulse 70 Resp 20 Temp 36.8 ?C (98.2 ?F) Temp source Oral SpO2 95 % Measured on Room air Physical Exam Constitutional: General: She is not in acute distress. Appearance: She is well-developed. She is not ill-appearing, toxic-appearing or diaphoretic. HENT: Head: Normocephalic and atraumatic. Right Ear: External ear normal. Left Ear: External ear normal. Eyes: General: No scleral icterus. Right eye: No discharge. Left eye: No discharge. Neck: Trachea: No tracheal deviation. Cardiovascular: Rate and Rhythm: Normal rate and regular rhythm. Heart sounds: Normal heart sounds. Pulmonary: Effort: Pulmonary effort is normal. No respiratory distress. Breath sounds: Normal breath sounds. No stridor. No wheezing or rales. Chest: Chest wall: No tenderness. Abdominal: General: There is no distension. Palpations: Abdomen is soft. Tenderness: There is abdominal tenderness (mild TTP w/o peritonitis). There is no guarding. Comments: Bedside U/S w/o gallstones; gallbladder wall is not thickened; no perichol edema; nl CBD on Rashawn Mouse view; neg Sonographic Tijerina's sign Musculoskeletal: General: No tenderness or deformity. Normal range of motion. Cervical back: Normal range of motion and neck supple. Lymphadenopathy: Cervical: No cervical adenopathy. Skin: General: Skin is warm. Coloration: Skin is not pale. Findings: No erythema or rash. Neurological: General: No focal deficit present. Mental Status: She is alert and oriented to person, place, and time. Motor: No abnormal muscle tone. Psychiatric: Behavior: Behavior normal. Thought Content: Thought content normal. Judgment: Judgment normal. Radiology: No orders to display Lab Results: Lab Results CBC WITH DIFF - Abnormal Result Value Ref Range WBC 6.52 4.30 - 11.10 10*3/?L RBC 4.05 3.93 - 5.25 10*6/?L HGB 13.0 11.6 - 15.0 g/dL HCT 38.5 35.7 - 45.2 % MCV 95.1 80.6 - 95.5 fL MCH 32.1 25.9 - 32.8 pg MCHC 33.8 31.6 - 35.1 g/dL RDW-SD 42.6 39.0 - 49.9 fL RDW-CV 12.3 12.0 - 15.5 % PLT 282 166 - 358 10*3/?L MPV 9.0 (*) 9.5 - 12.9 fL NRBC/100 WBC 0.0 0.0 - 10.0 /100 WBCs NRBC x10 3 <0.01 10*3/?L GRAN MAT (NEUT) % 52.8 % IMM GRAN % 0.20 % LYMPH % 32.4 % MONO % 8.9 % EOS % 5.2 % BASO % 0.5 % GRAN MAT x10 3 (ANC) 3.45 1.88 - 7.09 10*3/uL IMM GRAN x10 3 <0.03 0.00 - 0.06 10*3/uL LYMPH x10 3 2.11 1.32 - 3.29 10*3/uL MONO x10 3 0.58 0.33 - 0.92 10*3/uL EOS x10 3 0.34 0.03 - 0.39 10*3/uL BASO x10 3 0.03 0.01 - 0.07 10*3/uL LIPASE - Normal LIPASE 153 0 - 220 U/L COMP. METABOLIC PANEL (55926) NA 137 135 - 145 mmol/L K 4.1 3.5 - 5.0 mmol/L CL 106 98 - 108 mmol/L CO2 TOTAL 27 23 - 31 mmol/L AGAP 4 2 - 16 BUN 13 7 - 23 mg/dL GLUCOSE 99 70 - 110 mg/dL CREATININE 0.83 0.50 - 1.04 mg/dL TOTAL BILI 0.4 0.1 - 1.1 mg/dL CALCIUM 9.7 8.6 - 10.6 mg/dL T PROTEIN 8.2 6.3 - 8.2 g/dL ALBUMIN 4.8 3.5 - 5.0 g/dL ALK PHOS 72 34 - 122 U/L ALTv 14 5 - 35 U/L AST(SGOT) 25 13 - 40 U/L eGFR 99.2 mL/min/1.73m2 POCT TEST EKG: If EKG completed, see Procedure Note. Orders and Treatments: Orders Placed This Encounter Procedures XR Kub POCT Test Cbc with Diff Comp. Metabolic Panel (29466) Lipase Orders Placed This Encounter Medications metoclopramide HCl (REGLAN) injection 10 mg maalox/diphenhydrAMINE:lidoca ine2 %viscous 1:1:1: suspension (COMPOUNDED) NaCl 0.9% (NS) bolus infusion 500 mL DISCONTD: pantoprazole (PROTONIX) 80 mg in NaCl 0.9% (NS) 20 mL syringe ketorolac (TORADOL) injection 15 mg pantoprazole (PROTONIX) injection 80 mg metoclopramide HCl 10 mg tablet First Provider Eval: ED Events Date/Time Event User Comments 11/17/242245 Medical Screening Begins MANAV STREETER MD -- 11/17/242245 First Provider Evaluation MANAV STREETER MD -- ED COURSE Diagnosis/Impression as of 11/18/24 0053 RUQ abdominal pain Nausea Constipation, unspecified constipation type Procedures: Procedures MDM: Medical Decision Making DDx incl cholecystitis, gastritis, PUD, constipation, functional abd pain, et al Pt w/ unremarkable bedside u/s w/o leukocytosis, elevated bilirubin, or other signs of cholecystitis; pt w/o peritonitis or indication of surgical abdomen. D/w pt likely plan for d/c if continued improvement; additional xr to assess for fecal retention. Not suggestive of cholecystitis. Amount and/or Complexity of Data Reviewed Labs: ordered. Radiology: ordered. Risk Prescription drug management. Flowsheet Documentation: Disposition/Condition: ED Disposition ED Disposition Discharge Condition Stable Comment -- Signed out to night doctor pending XR and symptomatic reassessment. Discharge Medications: Patient's Medications START taking these medications METOCLOPRAMIDE HCL 10 MG TABLET Take 1 tablet by mouth every 6 (six) hours as needed for Nausea and Vomiting (N/V) or Gastroesophageal reflux. CONTINUE taking these medications which have NOT CHANGED No medications on file START taking Modified Medications as Prescribed No medications on file STOP taking these medications No medications on file Follow-up: Electronically signed by: Manav Streeter MD 11/17/24 2342 Manav Streeter MD 11/17/24 2343 CTOR PATIENT ACCOUNTING [facility] 2024-01-22 06:04:17 Pt given printed and verbal discharge instructions regarding generalized abd pain, UTI, encouraged hydration, Prescriptions provided to patient Discussed ibuprofen and to take with food to avoid GI distress. Discussed antibiotic therapy and to take until all completed unless adverse reaction occurs - if occurs, discontinue medication and follow up with pcp/seek medical attention Pt verbalized understanding of instructions, pt awake alert oriented, resp reg unlabored, skin w/d, color appropriate for race, moves all ext well,pt encouraged to follow up with pcp Advised to seek medical attention for new/prolonged/worsening of symptoms No adverse reaction to meds given in ER noted upon discharge PIV d'cd, dressing to site, catheter in tact. Awake, alert oriented, resp reg unlabored, skin w/d, pt leaving amb with steady gait, in no apparent distress, Daniel Denise RN [facility] 2024-01-22 03:11:14 Pt reports right upper abdominal pain for since with n/v, no diarrhea. Ibuprofen around midnight. No hx of abdominal surgery. Dejuan Salas RN [facility] 2023-05-15 08:21:58 Formatting of this n ote might be different from the original. CALLED AND UPDATED PT'S BOYFRIEND, MIKI, AT 0822. Corky Stephenson RN [facility] 2023-05-14 13:15:00 Formatting of this n ote is different from the original. Images from the original note were not included. Venipuncture collection performed by clean technique on the right anticubitus. Total of 1 attempts were made. Slight pressure and a bandage/dressing were applied to the site(s). The patient experienced no complications. The following specimens were processed according to instructions and sent to [facility] laboratories per lab order on 05/14/2023: LT BLUE SST 1 RED LAV 3 PPT DK GREEN (LiHep) DK GREEN (SodH) MCDANIEL DK BLUE (K2) DK BLUE (S) ACD Blood Culture NIPT/NTD Patient has been identified by and name and was provided with cup, antiseptic towelette, and clean catch instructions. 1 urine specimen(s) sent. Unpreserved Urine Culture Aptima tube 1 Other urine [facility] Health 2023-05-07 14:19:57 Formatting of this n ote might be different from the original. Images from the original note were not included. Your procedure is at [facility] on 05/15/23. The address is [address] [place] [address], [id number]. [facility] nursing staff will call you the workday before your procedure to let you know what time to arrive.On the day of your procedure, please go inside that door and check in at the desk. Please note: You may not travel home alone [...] up until two hours before your scheduled procedure. You may take your medications with a sip of water as directed by physician. Anticoagulants will be per physician guidance. Medication Note(s)/Instructions:n/a Pending screening, we may test for COVID. If a patient tests positive, their cases are cancelled and/or rescheduled. COVID SCREENING NOTE: Denies COVID symptoms, no testing required. Additional requests, questions, concerns:n/a Patient verbalized understanding of pre-op instructions and voiced no further questions at this time. [facility]
[2025-06-02] MEDS ORDERED: NA CHLORIDE 0.9% 1,000 ML ONE (12:31)
[2025-06-02 12:48] LABS: Absolute Lymphocytes (CBC) 1.4 K/uL (0.7-4.9); Hematocrit 41.2 % (36.0-45.0); Hemoglobin 13.7 g/dL (12.0-15.0); MCH 30.8 pg (27.0-35.0); MCHC 33.2 g/dL (32.0-36.0); MCV 92.6 fL (80-100); MPV 7.6 fL (7.6-11.3); Nucleated RBC Absolute Count 0.0 (0-0); Nucleated Red Blood Cells % 0.1 % (0-0); RBC Red Blood Cell Count 4.45 M/uL (3.86-4.86); White Blood Count 5.80 thou/uL (4.3-10.9)
[2025-06-02 13:12] LABS: ALT/SGPT 24 U/L (13-56); Albumin 4.1 g/dL (3.4-5.0); Albumin/Globulin Ratio 1.1 (1.1-1.8); Alkaline Phosphatase 76 U/L (45-117); Anion Gap 9.9 mEq/L (5.0-15.0); BUN Blood Urea Nitrogen 11 mg/dL (7-18); Globulin 3.7 g/dL (2.3-3.5); Glucose Level 75 mg/dL (74-106); Magnesium 2.8 mg/dL (1.6-2.4); Potassium 3.9 mEq/L (3.5-5.1); Thyroid Stimulating Hormone 1.020 uIU/mL (0.358-3.740)
[2025-06-02 13:12] LABS: Influenza A Ag Negative; Influenza B Ag Negative; SARS-CoV-2 Antigen Rapid Res Negative (Negative)
[2025-06-02 13:19] LABS: AST/SGOT < 10 U/L (15-37)
--- NOTE | 2025-06-02 13:42 | RAD REPORT ---
EXAM: Chest Single View HISTORY: 29 years Female FEVER COMPARISON: 03/01/2022 FINDINGS: LUNGS/PLEURA: The lungs are clear. No pleural effusions or pneumothorax. No pulmonary edema. CARDIAC/MEDIASTINUM: The cardiac silhouette is within normal limits. UPPER ABDOMEN: No significant abnormality. BONES: No acute abnormality. LINES/TUBES/OTHER: N/A IMPRESSION: No evidence of acute cardiopulmonary disease. No significant change from prior.
--- NOTE | 2025-06-02 13:51 | ER ---
Nurse's Notes [facility] Name: Raegan Jeffrey Age: 29 yrs Sex: Female : 1995 Arrival Date: 06/02/2025 Time: 11:47 Bed 8 Private MD: Diagnosis: Other malaise and fatigue Presentation: 06/02 12:10 Chief complaint: Patient states: Fatigue, decreased appetite x 1 week, lost 6 pounds, jl7 denies fever. Coronavirus screen: At this time, the client does not indicate any symptoms associated with coronavirus-19. Ebola Screen: No symptoms or risks identified at this time. Initial Sepsis Screen: Does the patient meet any 2 criteria? No. Patient's initial sepsis screen is negative. Does the patient have a suspected source of infection? No. Patient's initial sepsis screen is negative. Risk Assessment: Do you want to hurt yourself or someone else? Patient reports no desire to harm self or others. Onset of symptoms was May 26, 2025. 12:10 Method Of Arrival: Ambulatory jl 12:10 Acuity: MARKOS 3 jl7 Triage Assessment: 12:13 General: Appears in no apparent distress. uncomfortable, Behavior is calm, cooperative, jl7 appropriate for age. Pain: Denies pain. LENS BLANK GAUGER: 12:13 LMP 05/30/2025, unknown jl7 Historical: - Allergies: 12:13 No Known Allergies; jl7 - Home Meds: 12:13 None [Active]; jl7 - PMHx: 12:13 None; jl7 - PSHx: 12:13 Ligation of fallopian tube; jl7 - Immunization history:: Adult Immunizations unknown. - Infectious Disease History:: Denies. - Social history:: Smoking status: Patient denies any tobacco usage or history of. Screenin:15 [facility] ED Fall Risk Assessment (Adult) History of falling in the last 3 months, me1 including since admission No falls in past 3 months (0 pts) Confusion or Disorientation No (0 pts) Intoxicated or Sedated No (0 pts) Impaired Gait No (0 pts) Mobility Assist Device Used No (0 pt) Altered Elimination No (0 pt) Score/Fall Risk Level 0 - 2 = Low Risk Maintained a safe environment, Provided non-skid footwear, Hourly rounding (assess needs \T\ fall precautionary measures) done. Abuse screen: Denies threats or abuse. Nutritional screening: No deficits noted. Tuberculosis screening: No symptoms or risk factors identified. Assessment: 12:15 General: Appears in no apparent distress. well groomed, well developed, well nourished, me1 Behavior is calm, cooperative, appropriate for age, Reports fatigue for >3 days, Fatigue, decreased appetite x 1 week, lost 6 pounds, denies fever. Pain: Denies pain. Neuro: Level of Consciousness is awake, alert, obeys commands, Oriented to person, place, time, situation, Appropriate for age. Cardiovascular: Patient's skin is warm and dry. Respiratory: Airway is patent Respiratory effort is even, unlabored, Respiratory pattern is regular, symmetrical. GI: Abdomen is non-distended, Reports anorexia, since a week ago. : No signs and/or symptoms were reported regarding the genitourinary system. EENT: No signs and/or symptoms were reported regarding the EENT system. Derm: Skin is intact, is healthy with good turgor, Skin is pink, warm \T\ dry. Musculoskeletal: Circulation, motion, and sensation intact. Range of motion: intact in all extremities, Reports fatigue for one week. Vital Signs: 12:10 BP 116 / 66; Pulse 80; Resp 17; Temp 97; Pulse Ox 100% ; Weight 54.43 kg; Height 4 ft. jl7 9 in. ; Pain 0/10; 13:00 BP 102 / 68; Pulse 70; Resp 16; Pulse Ox 100% ; me1 14:00 BP 100 / 58; Pulse 67; Resp 16; Temp 98.2; Pulse Ox 100% ; me1 12:10 Body Mass Index 25.97 (54.43 kg, 144.78 cm) jl7 12:10 Pain Scale: Adult jl7 ED Course: 11:51 Patient arrived in ED. im 11:57 Soraya Conroy PA-C is PHCP. sb4 11:57 Thierry Jose MD is Attending Physician. sb4 12:09 More Velazquez, DERECK is Primary Nurse. me1 12:13 Triage completed. jl7 12:13 Arm band placed on right wrist. jl7 12:15 Patient has correct armband on for positive identification. Bed in low position. Call me1 light in reach. Side rails up X2. Provided Education on: POC. Verbalized understanding.. Client placed on continuous cardiac and pulse oximetry monitoring. NIBP monitoring applied. threat monitoring analyst on. Pulse ox on. NIBP on. 12:15 No provider procedures requiring assistance completed. me1 12:30 Initial lab(s) drawn, by me, sent to lab. COVID swab sent to lab. Flu and/or RSV swab me1 sent to lab. Inserted saline lock: 22 gauge in right antecubital area, using aseptic technique. 12:30 COVID-19 Ag + Flu A+B Ag Sent. me1 12:30 Test, Serum Sent. me1 12:30 [place] Screen Profile Sent. me1 12:31 TSH Sent. me1 12:31 Magnesium Sent. me1 12:31 CMP Sent. me1 12:31 CBC with Diff Sent. me1 13:38 Chest Single View XRAY In Process Unspecified. EDMS 14:11 IV discontinued, intact, bleeding controlled, No redness/swelling at site. Pressure me1 dressing applied. Administered Medications: 12:40 Drug: NS 0.9% IV 1000 ml IV at 1 bolus Per protocol; to be given as a bolus over 60 me1 minutes Route: IV; Rate: 1 bolus; Site: right antecubital; 14:04 Follow up: Response: No adverse reaction; IV Status: Completed infusion me1 Medication: 12:15 VIS not applicable for this client. me1 Outcome: 13:50 Discharge ordered by . sb4 14:11 Discharged to home ambulatory, me1 14:11 Condition: stable 14:11 Discharge instructions given to patient, Instructed on discharge instructions, follow up and referral plans. Demonstrated understanding of instructions, follow-up care, 14:12 Patient left the ED. me1 Signatures: Dispatcher [employer] Ashley Dutta RN RN jl7 Soraya Conroy PAGeorgi PA-C [email or web address] Rebeka Self Michelle RN RN me1 Corrections: (The following items were deleted from the chart) 12:14 12:10 Chief complaint: Patient states: Fatigue, decreased appetite x 1 week, lost 6 me1 pounds, denies fever jl7
--- NOTE | 2025-06-02 13:51 | EDPHYS ---
Physician Documentation [facility] Name: Raegan Jeffrey Age: 29 yrs Sex: Female : 1995 Arrival Date: 06/02/2025 Time: 11:47 Bed 8 Private MD: ED Physician Thierry Jose HPI: 06/02 12:26 This 29 yrs old Black Female presents to ER via Ambulatory with complaints of General sb4 Weakness, Decreased Appetite. 12:26 Patient reports general weakness and fatigue over the past week. She denies any prior sb4 occurrences of this. Denies any associated symptoms. No nausea, vomiting, diarrhea, heavy bleeding, fever, chills, URI symptoms. States that she has been anemic in the past, required 3 blood transfusions when she was . 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 - Infectious Disease History:: Denies. - Social history:: Smoking status: Patient denies any tobacco usage or history of. ROS: 12:29 Cardiovascular: Negative for chest pain, palpitations, and edema, sb4 12:29 Constitutional: Positive for fatigue, 12:29 All other systems are negative, Exam: 12:29 Head/Face: Normocephalic, atraumatic. Eyes: Extra-ocular motions intact. Periorbital sb4 areas with no swelling, redness, or edema. ENT: Mucous membranes moist. Cardiovascular: Regular rate and rhythm with a normal S1 and S2. Respiratory: No increased work of breathing, no retractions or nasal flaring. Abdomen/GI: Soft, non-tender, no distension. Skin: Warm, dry with normal turgor. Normal color with no rashes, no lesions, and no evidence of cellulitis. 12:29 Constitutional: The patient appears in no acute distress, alert, awake, Vital Signs: 12:10 BP 116 / 66; Pulse 80; Resp 17; Temp 97; Pulse Ox 100% ; Weight 54.43 kg; Height 4 ft. jl7 9 in. ; Pain 0/10; 13:00 BP 102 / 68; Pulse 70; Resp 16; Pulse Ox 100% ; me1 14:00 BP 100 / 58; Pulse 67; Resp 16; Temp 98.2; Pulse Ox 100% ; me1 12:10 Body Mass Index 25.97 (54.43 kg, 144.78 cm) jl7 12:10 Pain Scale: Adult jl7 MDM: 11:58 Medical Screening Exam initiated sb4 12:30 Differential diagnosis: Hypothyroidism, IUP, anemia, vitamin deficiency, viral illness, sb4 mononucleosis. 13:39 Independent interpretation of the following test(s) in the Emergency Department X-Ray: sb4 My interpretation is My interpretation of the chest x-ray images is no acute consolidation or cardiomegaly. 13:52 Data reviewed: vital signs, nurses notes, lab test result(s), radiologic studies, and sb4 as a result, I will discharge patient. Counseling: I had a detailed discussion with the patient and/or guardian regarding the historical points, exam findings, and any diagnostic results supporting the discharge/admit diagnosis, lab results, radiology results, the need for outpatient follow up, for definitive care, to return to the emergency department if symptoms worsen or persist or if there are any questions or concerns that arise at home. 14:11 ED course: Magnesium is slightly elevated at 2.8. Patient states she does take a sb4 multivitamin that does contain magnesium. I told her to start taking it every other day and have her magnesium checked in 3 months to ensure it returns to normal range. I also advised her to have her vitamin D and B12 levels checked to check for other causes of her symptoms. She did state that it may be her mental health. She has a lot going on and may be depressed. She is also going to follow-up with a therapist.. 06/02 12:13 Order name: CBC with Diff; Complete Time: 12:57 sb4 06/02 12:13 Order name: CMP; Complete Time: 13: sb4 06/02 12:13 Order name: Magnesium; Complete Time: 13: sb4 06/02 12:13 Order name: TSH; Complete Time: 13:26 sb4 06/02 12:13 Order name: Divide Screen Profile; Complete Time: 13:31 sb4 06/02 12:13 Order name: Test, Serum; Complete Time: 13:27 sb4 06/02 12:13 Order name: COVID-19 Ag + Flu A+B Ag; Complete Time: 13:13 sb4 06/02 12:30 Order name: Chest Single View XRAY; Complete Time: 13:42 sb4 06/02 12:13 Order name: IV Saline Lock; Complete Time: 12:31 sb4 06/02 12:13 Order name: Labs collected and sent; Complete Time: 12:31 sb4 Administered Medications: 12:40 Drug: NS 0.9% IV 1000 ml IV at 1 bolus Per protocol; to be given as a bolus over 60 me1 minutes Route: IV; Rate: 1 bolus; Site: right antecubital; 14:04 Follow up: Response: No adverse reaction; IV Status: Completed infusion me1 Disposition: 18:25 Co-signature as Attending Physician, Thierry Jose MD I reviewed the patient's care rn provided by the Advanced Practice Provider and agree with the diagnosis and treatment plan. Disposition Summary: 06/02/25 13:50 Discharge Ordered Notes: Location: Home sb4 Problem: an ongoing problem sb4 Symptoms: have improved sb4 Condition: Stable sb4 Diagnosis - Other malaise and fatigue sb4 Followup: sb4 - With: Private Physician - When: As needed - Reason: Recheck today's complaints, Re-evaluation by your physician Discharge Instructions: - Discharge Summary Sheet sb4 - Fatigue sb4 - Depression Screening sb4 Forms: - Patient Portal Instructions sb4 - Leadership Thank You Letter sb4 Signatures: Dispatcher [employer] Thierry Ha MD MD rn Leal, Jahala, RN RN [email or web address] Soraya Conroy PA-C PAGeorgi sb4 More Velazquez RN RN me1 Corrections: (The following items were deleted from the chart) 12:14 12:14 CBC+H.LAB.BRZ ordered. EDMS EDMS 12:14 12:14 COMPREHENSIVE METABOLIC PANEL+C.LAB.BRZ ordered. EDMS EDMS 12:14 12:14 MAGNESIUM+C.LAB.BRZ ordered. EDMS EDMS 12:14 12:14 THYROID STIMULAT HORMONE+C.LAB.BRZ ordered. EDMS EDMS 12:14 12:14 MONO SCREEN PROFILE+I.LAB.BRZ ordered. EDMS EDMS 12:14 12:14 TEST, SERUM+SC.LAB.LARRYZ ordered. EDMS EDMS
[2025-06-02 18:23] VITALS: O2SAT 100
[2025-06-02 18:26] VITALS: BP 100/58; TEMP 98.2
== END 2025-06-02 14:12 | disposition home or self-care (01) ==
LOC: ER 11:47
DX: R53.1 Weakness (principal); R53.81 Other malaise; R53.83 Other fatigue; Z11.52 Encounter for screening for COVID-19
CPT/HCPCS: 36415; 71045; 80053; 83735; 84443; 84703; 85025; 86308; 87428; J7030